=== PATIENT | female | born 1965 | race American Indian/Alaskan Native ===

== ENCOUNTER 2016-04-28 15:52 | Inpatient (IN) | payer MEDICARE ==
[2016-04-28 17:49] LABS: BUN/Creatinine Ratio 4.44; Calcium 8.5 mg/dL (8.4-10.2); Chloride 94.6 mmol/L (98-107); Potassium 4.7 mmol/L (3.6-5.0)
[2016-04-28 21:01] LABS: Eosinophils % (Auto) 10.8 % (0.0-4.3); Hematocrit 33.7 % (30.3-42.9); Hemoglobin 10.7 gm/dl (10.1-14.3); Mean Corpuscular HGB Conc 32 % (30-34); Mean Corpuscular Hemoglobin 31 pg (28-32); Mean Corpuscular Volume 96 fl (79-97); Platelet Count 152 K/mm3 (140-440); Red Blood Count 3.52 M/mm3 (3.65-5.03); Red Cell Distribution Width 19.9 % (13.2-15.2)
[2016-04-28 23:11] LABS: Albumin 4.3 g/dL (3.9-5); Albumin/Globulin Ratio 1.2 %; Bilirubin,Direct 0.4 mg/dL (0-0.2); Bilirubin,Indirect 0.3 mg/dL; Bilirubin,Total 0.7 mg/dL (0.1-1.2)
[2016-04-28] MEDS ORDERED: MORPHINE IV ONE (23:34)
[2016-04-28] MEDS ORDERED: ZOFRAN IV ONE (23:34)
--- NOTE | 2016-04-28 23:34 | Emergency Department Report ---
ED General Adult HPI - General Chief complaint: Nausea/Vomiting/Diarrhea Stated complaint: ALTERED MENTAL STATUS Time Seen by Provider: 04/28/16 22:23 Source: patient Mode of arrival: Ambulatory Limitations: No Limitations - History of Present Illness Initial comments: 50-year-old female with a past medical history CHF, COPD, end-stage renal disease on dialysis, hypertension, bipolar, anxiety, lupus, substance abuse, and noncompliance with medical treatment presents to the hospital with multiple complaints. Patient states she missed her dialysis yesterday and feels short of breath. She also complains of epigastric pain with associated nausea, vomiting, and diarrhea. She has a cough and expressed concerns for pneumonia. She states she was diagnosed with the flu and pneumonia several weeks ago and is starting to feel like that again. No reports of fever. Patient missed dialysis because she did not have transportation and plus she needed needed to make money for a place to stay for her her daughter. 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 She also states she was previously clean and from substances for 9 months but admits to using cocaine and alcohol use last night. Patient complains of generalized body pain including chest wall pain reproducible palpation, epigastric pain reproducible by palpation, generalized aches which she associates with her lupus pain. She is requesting pain medication. Her business machines teacher are located in [place] and not affiliated with this Hospital. Last dialysis was this past Saturday (she missed her Saturday dialysis). She is requesting a long term care social worker consult Severity scale (0 -10): 7 - Related Data Home Medications Medication Instructions Recorded Confirmed Last Taken Carvedilol [Coreg] 3.125 mg PO DAILY 04/28/16 04/28/16 Unknown Sevelamer HCl [Renagel] 400 mg PO TIDWM 04/28/16 04/28/16 Unknown Previous Rx's Medication Instructions Recorded Last Taken Type Aspirin [Aspirin BABY CHEW TAB] 81 mg PO QDAY #30 tab.chew 10/06/14 03/20/15 Rx Acyclovir [Acyclovir Ointment] 1 applic TP 5XD tube 05/07/15 Unknown Rx Calcium Acetate [Phoslo] 2,001 mg PO TIDWM capsule 05/07/15 Unknown Rx Famotidine [Pepcid] 10 mg PO BID tablet 05/07/15 Unknown Rx Paricalcitol [Zemplar] 2 mcg PO TuThSa capsule 05/07/15 Unknown Rx hydrALAZINE [Apresoline TAB] 50 mg PO Q8HR tablet 05/07/15 Unknown Rx predniSONE [Deltasone] 20 mg PO QDAY tablet 05/07/15 Unknown Rx HYDROcodone/APAP 5-325 [[place] 1 each PO Q6HR PRN #10 tablet 04/14/16 Unknown Rx 5/325] Allergies Allergy/AdvReac Type Severity Reaction Status Date / Time enalapril maleate Allergy Angioedema Verified 06/15/15 15:40 [From Vasotec] enalaprilat dihydrate Allergy Angioedema Verified 06/15/15 15:40 [From Vasotec] peach AdvReac Nausea Verified 06/15/15 15:40 tomato AdvReac Nausea Verified 06/15/15 15:40 ED Review of Systems ROS: Stated complaint: ALTERED MENTAL STATUS Other details as noted in HPI Comment: All other systems reviewed and negative Other: Constitutional: No fevers chills Eyes: No eye pain visual changes ENT: No ear pain or throat pain Neck: Denies pain Respiratory: Denies wheezing Cardiovascular: Denies palpitations, syncope GI: Denies abdominal pain, nausea, vomiting, diarrhea : anuric Musculoskeletal: Denies back pain Skin: Denies rash, lesions, erythema Neurologic: Denies headache, numbness, weakness Psychiatric: Denies suicidal ideation, hallucinations ED Past Medical Hx - Past Medical History Previous Medical History?: Yes Hx Hypertension: Yes Hx Heart Attack/AMI: No Hx Congestive Heart Failure: Yes Hx Diabetes: Yes Hx Deep Vein Thrombosis: No Hx Pulmonary Embolism: No Hx Liver Disease: No Hx Renal Disease: Yes (hemodialysis -W-) Hx Arthritis: Yes Hx Seizures: Yes Hx Kidney Stones: No Hx Psychiatric Treatment: Yes (bipolar, anxiety) Hx Asthma: Yes Hx COPD: Yes Hx Tuberculosis: No Hx Dementia: No Hx HIV: No Additional medical history: lupus (SLE). thyroid (patient uncertain if she has hyper- or hypo-). chest tube. dialysis (graft left upper arm). SUBSTANCE ABUSE. HERPES. RESPIRATORY FAILURE - Surgical History Past Surgical History?: Yes Hx Coronary Stent: No Hx Open Heart Surgery: No Hx Pacemaker: No Hx Internal Defibrillator: No Hx Cholecystectomy: No Hx Appendectomy: No Hx Breast Surgery: No Additional Surgical History: graft left arm. D & C. permacat - Social History Smoking Status: Current Some Day Smoker Substance Use Type: Alcohol, Cocaine - Medications Home Medications: Home Medications Medication Instructions Recorded Confirmed Last Taken Type Aspirin [Aspirin BABY CHEW TAB] 81 mg PO QDAY #30 tab.chew 10/06/14 04/28/1608/26 Rx Acyclovir [Acyclovir Ointment] 1 applic TP 5XD tube 05/07/15 04/28/16 Unknown Rx Calcium Acetate [Phoslo] 2,001 mg PO TIDWM capsule 05/07/15 04/28/16 Unknown Rx Famotidine [Pepcid] 10 mg PO BID tablet 05/07/15 04/28/16 Unknown Rx Paricalcitol [Zemplar] 2 mcg PO TuThSa capsule 05/07/15 04/28/16 Unknown Rx hydrALAZINE [Apresoline TAB] 50 mg PO Q8HR tablet 05/07/15 04/28/16 Unknown Rx predniSONE [Deltasone] 20 mg PO QDAY tablet 05/07/15 04/28/16 Unknown Rx HYDROcodone/APAP 5-325 [[place] 1 each PO Q6HR PRN #10 tablet 04/14/16 04/28/16 Unknown Rx 5/325] Carvedilol [Coreg] 3.125 mg PO DAILY 04/28/16 04/28/16 Unknown History Sevelamer HCl [Renagel] 400 mg PO TIDWM 04/28/16 04/28/16 Unknown History ED Physical Exam - General Limitations: No Limitations - Other Other exam information: General: No limitations, patient is alert in no acute distress Head exam: Atraumatic, normocephalic Eyes exam: Normal appearance, pupils equal reactive to light, extraocular movements intact ENT: Moist mucous membrane, normal oropharynx Neck exam: Normal inspection, full range of motion, no meningismus nontender Respiratory exam: Diminished breath sounds at the bases, no respiratory distress or tachypnea Cardiovascular: Normal rate and rhythm, systolic murmur Abdomen: Soft, nondistended, and nontender, with normal bowel sounds, no rebound, or guarding Extremity: Full range of motion Back: Normal Inspection, full range of motion, no tenderness Neurologic: Alert, oriented x3, cranial nerves intact, no motor or sensory deficit Psychiatric: normal affect, normal mood Skin: Warm, dry, intact ED Course Vital Signs 04/28/16 04/28/16 04/28/16 16:24 22:00 22:05 Temperature 98.6 F 98.5 F Pulse Rate 78 79 Respiratory 20 14 Rate Blood Pressure 159/101 Blood Pressure 161/87 [Right] O2 Sat by Pulse 95 100 100 Oximetry 04/28/16 04/28/16 04/28/16 22:06 22:10 22:20 Temperature Pulse Rate Respiratory 14 Rate Blood Pressure 161/87 155/94 Blood Pressure [Right] O2 Sat by Pulse 100 97 96 Oximetry 04/28/16 04/28/16 04/28/16 22:36 22:40 22:50 Temperature 98.5 F Pulse Rate 79 Respiratory 14 Rate Blood Pressure 155/94 155/94 143/82 Blood Pressure [Right] O2 Sat by Pulse 91 95 95 Oximetry 04/28/16 04/28/16 04/28/16 23:00 23:12 23:20 Temperature Pulse Rate Respiratory Rate Blood Pressure 142/98 142/98 156/124 Blood Pressure [Right] O2 Sat by Pulse 87 97 Oximetry 04/28/16 04/29/16 04/29/16 23:32 00:22 00:36 Temperature Pulse Rate Respiratory Rate Blood Pressure 156/124 156/124 156/124 Blood Pressure [Right] O2 Sat by Pulse 83 L 85 Oximetry 04/29/16 00:41 Temperature 98.6 F Pulse Rate 79 Respiratory 14 Rate Blood Pressure Blood Pressure [Right] O2 Sat by Pulse Oximetry - Reevaluation(s) Reevaluation #1: 04/29/16 01:14 Morphine and Zofran provided pain - Consultations Consultation #1: 04/29/16 Case was discussed with Dr. Bates business machines teacher and will arrange for dialysis tomorrow ED Medical Decision Making - Lab Data Result diagrams: 04/28/16 17:43 04/28/16 17:18 - Radiology Data Radiology results: image reviewed (chest x-ray: A right lower lobe opacity question of CHF) - Medical Decision Making I initially consult did nephrology after reviewing her x-ray today. It appeared that the patient has findings of CHF however, after review of previous chest x-ray it appears that patient has a chronic opacity in the right lower lung. I have sent chest x-ray to radiologist for official review and pending results. Patient does not require emergent dialysis tonight. Her chest pain is reproducible musculoskeletal in nature. I would proceed with admission for further treatment. Patient not treated for pneumonia with antibiotics since she has a normal WBC count and no fever. - Differential Diagnosis homelessness, noncompliance, volume overload, pneumonia, CHF Critical Care Time: No Critical care attestation.: If time is entered above; I have spent that time in minutes in the direct care of this critically ill patient, excluding procedure time. ED Disposition Clinical Impression: Cocaine abuse, End stage renal disease on dialysis, Chronic pain, Dyspnea, Vomiting, Epigastric pain Disposition: OP ADMITTED IP TO THIS HOSP Is pt being admited?: Yes Condition: Stable Time of Disposition: 23:34 (Dr Womack/hosp)
[2016-04-28] MEDS ORDERED: DULCOLAX PR PRN (23:58)
[2016-04-28] MEDS ORDERED: MILK OF MAGNESIA PO PRN (23:58)
[2016-04-28] MEDS ORDERED: TYLENOL PO PRN (23:58)
[2016-04-28] MEDS ORDERED: D50W (25GM) IV PRN (23:58)
[2016-04-28] MEDS ORDERED: ZOFRAN IV PRN (23:58)
--- NOTE | 2016-04-29 | History and Physical Report ---
History of Present Illness Date of examination: 04/28/16 History of present illness: 50-year-old woman with a history of hypertension, bipolar, end-stage renal disease on dialysis, lupus, seizure, herpes, COPD constant emergency room with complaints of shortness of breath, she missed her dialysis on Saturday. Patient states she is homeless, had an argument with her daughter, she has no place to live Patient denies chest pain, palpitation, cough, abdominal pain, hematochezia, dysuria, frequency, focal weakness, dysarthria, fever chills, polydipsia polyuria, hot or cold intolerance, easy bruisability, or rash or bleeding from mucosal membrane, rhinorrhea, epistaxis, earache, tinnitus, blurry vision, eye discharge, anxiety, depression. Other review of systems negative PAST SURGICAL HISTORY: AV fistula SOCIAL HISTORY: States she relapsed on cocaine, admits to alcohol denies tobacco FAMILY HISTORY: Hypertension Medications and Allergies Allergies Allergy/AdvReac Type Severity Reaction Status Date / Time enalapril maleate Allergy Angioedema Verified 06/15/15 15:40 [From Vasotec] enalaprilat dihydrate Allergy Angioedema Verified 06/15/15 15:40 [From Vasotec] peach AdvReac Nausea Verified 06/15/15 15:40 tomato AdvReac Nausea Verified 06/15/15 15:40 Home Medications Medication Instructions Recorded Confirmed Last Taken Type Aspirin [Aspirin BABY CHEW TAB] 81 mg PO QDAY #30 tab.chew 10/06/14 04/28/1608/26 Rx Acyclovir [Acyclovir Ointment] 1 applic TP 5XD tube 05/07/15 04/28/16 Unknown Rx Calcium Acetate [Phoslo] 2,001 mg PO TIDWM capsule 05/07/15 04/28/16 Unknown Rx Famotidine [Pepcid] 10 mg PO BID tablet 05/07/15 04/28/16 Unknown Rx Paricalcitol [Zemplar] 2 mcg PO TuThSa capsule 05/07/15 04/28/16 Unknown Rx hydrALAZINE [Apresoline TAB] 50 mg PO Q8HR tablet 05/07/15 04/28/16 Unknown Rx predniSONE [Deltasone] 20 mg PO QDAY tablet 05/07/15 04/28/16 Unknown Rx HYDROcodone/APAP 5-325 [[place] 1 each PO Q6HR PRN #10 tablet 04/14/16 04/28/16 Unknown Rx 5/325] Carvedilol [Coreg] 3.125 mg PO DAILY 04/28/16 04/28/16 Unknown History Sevelamer HCl [Renagel] 400 mg PO TIDWM 04/28/16 04/28/16 Unknown History Exam - Physical Exam Narrative exam: Gen. appearance: Patient lying in bed, no apparent distress HEENT: Normocephalic, atraumatic, pupils equally round and reactive to light, extraocular movement intact, and no sclericterus,. No JVD or thyromegaly or nodule,neck supple, no carotid bruit ,mucous membranes moist, no exudate or erythema Heart: S1, S2, regular rate and rhythm Lungs: Clear to auscultation bilaterally, breathing comfortable Abdomen: Positive bowel sounds, nontender, nondistended, no organomegaly Extremity: No edema, cyanosis, clubbing Skin: No rash, nodules, warm, dry Neuro: Oriented 3, cranial nerves II-12 intact, speech is fluent, motor and sensory intact - Constitutional Vitals: Temp Pulse Resp BP Pulse Ox 98.5 F 79 14 156/124 97 04/28/16 22:40 04/28/16 22:40 04/28/16 22:40 04/28/16 23:20 04/28/16 23:20 Results - Labs CBC & Chem 7: 04/28/16 17:43 04/28/16 17:18 Labs: Abnormal lab results 04/28/16 04/28/16 04/28/16 Range/Units 17:18 17:18 17:43 RBC 3.52 L (3.65-5.03) M/mm3 RDW 19.9 H (13.2-15.2) % [place] % (Auto) 12.5 H (0.0-7.3) % Eos % (Auto) 10.8 H (0.0-4.3) % Eos # 0.5 H (0.0-0.4) K/mm3 Chloride 94.6 L (98-107) mmol/L Carbon Dioxide 19 L (22-30) mmol/L BUN 52 H (7-17) mg/dL Creatinine 11.7 H (0.7-1.2) mg/dL Direct Bilirubin 0.4 H (0-0.2) mg/dL Alkaline Phosphatase 191 H (35-129) units/L - Imaging and Cardiology EKG: image reviewed Chest x-ray: image reviewed Assessment and Plan Fluid overload secondary to missed hemodialysis End-stage renal disease on dialysis Hypertension Lupus Bipolar Seizure COPD Admits medicine Consult renal for dialysis Continue outpatient medication, consult case management for Housing
[2016-04-29] MEDS ORDERED: APRESOLINE IV PRN (02:02)
--- NOTE | 2016-04-29 02:06 | XRay Report ---
FINAL REPORT PROCEDURE: XR CHEST ROUTINE 2V TECHNIQUE: A portable AP chest radiograph was obtained at 04/28/2016 22:30 (EST) . CPT 02838 HISTORY: sob, missed dialysis COMPARISON: No prior studies are available for comparison. FINDINGS: Heart: The heart is enlarged.. Mediastinum/Vessels: Normal. Lungs/Pleural space: There are bilateral perihilar lower lobe infiltrates worse on the right. There is a small right pleural effusion. There are no pneumothoraces.. Bony thorax: No acute osseous abnormality. Life support devices: None. IMPRESSION: The heart is enlarged.. There are bilateral perihilar lower lobe infiltrates worse on the right. There is a small right pleural effusion. There are no pneumothoraces.. .
[2016-04-29 08:20] LABS: Basophils % (Auto) 0.8 % (0.0-1.8); Eosinophils % (Auto) 9.5 % (0.0-4.3); Hematocrit 32.5 % (30.3-42.9); Hemoglobin 9.9 gm/dl (10.1-14.3); Mean Corpuscular HGB Conc 31 % (30-34); Mean Corpuscular Hemoglobin 30 pg (28-32); Mean Corpuscular Volume 97 fl (79-97); Platelet Count 117 K/mm3 (140-440); Red Blood Count 3.35 M/mm3 (3.65-5.03); Red Cell Distribution Width 20.4 % (13.2-15.2); White Blood Count 4.5 K/mm3 (4.5-11.0)
[2016-04-29 08:34] LABS: BUN/Creatinine Ratio 5.72; Calcium 8.1 mg/dL (8.4-10.2); Chloride 94.4 mmol/L (98-107); Potassium 5.6 mmol/L (3.6-5.0)
[2016-04-29] MEDS: PERCOCET 5/325 PO PRN ×2 (09:34→22:28)
[2016-04-29] MEDS: LOVENOX SUB-Q SCH (09:50)
[2016-04-29] MEDS ORDERED: NORCO 5/325 PO PRN (10:03)
--- NOTE | 2016-04-29 10:03 | Progress Note ---
Assessment and Plan Assessment and plan: 50F w past medical history of hypertension and sees renal disease bipolar disorder, lupus, seizure disorder and COPD who presents after missing dialysis. 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 After which she presented with shortness of breath. She had reportedly been recently treated for pneumonia and flu. 1. Pneumonia, present on admission On Levaquin 2. End-stage renal disease with fluid overload Dialysis as per Nephrology 3. Hypertension Currently well controlled, continue current meds 4. Seizure disorder Continue seizure meds 5. Bipolar disorder Continue chronic medications 6. COPD exacerbation Being treated with steroids, antibiotics and nebulizer treatment 7. RLE edema obtain venous dopplers to r/o dvt Dispo: needs snf placement Hospitalist Physical - Physical exam Narrative exam: General: Patient appears well in no distress HEENT: MMM, EOMI cardiac: S1-S2 heard lungs: clear to auscultation, abdomen: soft, nontender, nondistended bowel sounds positive extremities: Right lower extremity edema Skin: no rash or lesion Neuro: no focal deficit Psych: appropriate behavior and mood, cognition intact - Constitutional Vitals: Temp Pulse Resp BP Pulse Ox 97.9 F 78 18 167/95 95 04/29/16 08:55 04/29/16 08:55 04/29/16 08:55 04/29/16 08:55 04/29/16 09:14 Results - Labs CBC & Chem 7: 04/29/16 07:32 04/29/16 07:32 Labs: Laboratory Last Values WBC 4.5 K/mm3 (4.5-11.0) 04/29/16 07:32 RBC 3.35 M/mm3 (3.65-5.03) L 04/29/16 07:32 Hgb 9.9 gm/dl (10.1-14.3) L 04/29/16 07:32 Hct 32.5 % (30.3-42.9) 04/29/16 07:32 MCV 97 fl (79-97) 04/29/16 07:32 MCH 30 pg (28-32) 04/29/16 07:32 MCHC 31 % (30-34) 04/29/16 07:32 RDW 20.4 % (13.2-15.2) H 04/29/16 07:32 Plt Count 117 K/mm3 (140-440) L 04/29/16 07:32 Lymph % (Auto) 30.1 % (13.4-35.0) 04/29/16 07:32 [place] % (Auto) 12.1 % (0.0-7.3) H 04/29/16 07:32 Eos % (Auto) 9.5 % (0.0-4.3) H 04/29/16 07:32 Baso % (Auto) 0.8 % (0.0-1.8) 04/29/16 07:32 Lymph # 1.4 K/mm3 (1.2-5.4) 04/29/16 07:32 [place] # 0.5 K/mm3 (0.0-0.8) 04/29/16 07:32 Eos # 0.4 K/mm3 (0.0-0.4) 04/29/16 07:32 Baso # 0.0 K/mm3 (0.0-0.1) 04/29/16 07:32 Seg Neutrophils % 47.5 % (40.0-70.0) 04/29/16 07:32 Seg Neutrophils # 2.1 K/mm3 (1.8-7.7) 04/29/16 07:32 Sodium 135 mmol/L (137-145) L 04/29/16 07:32 Potassium 5.6 mmol/L (3.6-5.0) H 04/29/16 07:32 Chloride 94.4 mmol/L (98-107) L 04/29/16 07:32 Carbon Dioxide 17 mmol/L (22-30) L 04/29/16 07:32 Anion Gap 29 mmol/L 04/29/16 07:32 BUN 67 mg/dL (7-17) H 04/29/16 07:32 Creatinine 11.7 mg/dL (0.7-1.2) H 04/29/16 07:32 Estimated GFR 4 ml/min 04/29/16 07:32 BUN/Creatinine Ratio 5.72 % 04/29/16 07:32 Glucose 96 mg/dL (65-100) 04/29/16 07:32 Calcium 8.1 mg/dL (8.4-10.2) L 04/29/16 07:32 Total Bilirubin 0.7 mg/dL (0.1-1.2) 04/28/16 17:18 Direct Bilirubin 0.4 mg/dL (0-0.2) H 04/28/16 17:18 Indirect Bilirubin 0.3 mg/dL 04/28/16 17:18 AST 31 units/L (5-40) 04/28/16 17:18 ALT 12 units/L (7-56) 04/28/16 17:18 Alkaline Phosphatase 191 units/L (35-129) H 04/28/16 17:18 Total Protein 8.0 g/dL (6.3-8.2) 04/28/16 17:18 Albumin 4.3 g/dL (3.9-5) 04/28/16 17:18 Albumin/Globulin Ratio 1.2 % 04/28/16 17:18 Lipase 42 units/L (13-60) 04/28/16 17:18 Plasma/Serum Alcohol < 0.01 gm% (0-0.07) 04/28/16 17:18
[2016-04-29] MEDS ORDERED: LEVAQUIN PO SCH (11:00)
--- NOTE | 2016-04-29 11:17 | Consultation ---
History of Present Illness - Reason for Consult Consult date: 04/29/16 end stage renal disease Requesting physician: POLLO GUTIÉRREZ - History of Present Illness 50-year-old woman with a history of hypertension, bipolar, end-stage renal disease on dialysis, lupus, seizure, herpes, COPD constant emergency room with complaints of shortness of breath, she missed her dialysis on Saturday. Patient states she is homeless, had an argument with her daughter, she has no place to live Patient denies chest pain, palpitation, cough, abdominal pain, hematochezia, dysuria, frequency, focal weakness, dysarthria, fever chills, polydipsia polyuria, hot or cold intolerance, easy bruisability, or rash or bleeding from mucosal membrane, rhinorrhea, epistaxis, earache, tinnitus, blurry vision, eye discharge, anxiety, depression. Other review of systems negative He does have a dialysis clinic in [place] where she goes on Tuesdays, and Saturdays. However she was admitted to [facility] recently with pneumonia. States that her last dialysis treatment was on Saturday, i.e. 4 days ago. She does have mild shortness of breath. Past History Past Medical History: hypertension, renal failure, seizures, other (bipolar disorder and lupus) Past Surgical History: Other (history of creation of AV shunt) Social history: other (patient is currently homeless. He does have a history of drug use in the past) Family history: no significant family history Medications and Allergies Allergies Allergy/AdvReac Type Severity Reaction Status Date / Time enalapril maleate Allergy Angioedema Verified 06/15/15 15:40 [From Vasotec] enalaprilat dihydrate Allergy Angioedema Verified 06/15/15 15:40 [From Vasotec] peach AdvReac Nausea Verified 06/15/15 15:40 tomato AdvReac Nausea Verified 06/15/15 15:40 Home Medications Medication Instructions Recorded Confirmed Last Taken Type Aspirin [Aspirin BABY CHEW TAB] 81 mg PO QDAY #30 tab.chew 10/06/14 04/28/1608/26 Rx Acyclovir [Acyclovir Ointment] 1 applic TP 5XD tube 05/07/15 04/28/16 Unknown Rx Calcium Acetate [Phoslo] 2,001 mg PO TIDWM capsule 05/07/15 04/28/16 Unknown Rx Famotidine [Pepcid] 10 mg PO BID tablet 05/07/15 04/28/16 Unknown Rx Paricalcitol [Zemplar] 2 mcg PO TuThSa capsule 05/07/15 04/28/16 Unknown Rx hydrALAZINE [Apresoline TAB] 50 mg PO Q8HR tablet 05/07/15 04/28/16 Unknown Rx predniSONE [Deltasone] 20 mg PO QDAY tablet 05/07/15 04/28/16 Unknown Rx HYDROcodone/APAP 5-325 [[place] 1 each PO Q6HR PRN #10 tablet 04/14/16 04/28/16 Unknown Rx 5/325] Carvedilol [Coreg] 3.125 mg PO DAILY 04/28/16 04/28/16 Unknown History Sevelamer HCl [Renagel] 400 mg PO TIDWM 04/28/16 04/28/16 Unknown History Active Meds: Active Medications Acetaminophen (Tylenol) 650 mg PO Q4H PRN PRN Reason: Pain MILD(1-3)/Fever >100.5/REID Acetaminophen/Hydrocodone Bitart ([place] 5/325) 1 each PO Q6H PRN PRN Reason: Pain (Moderate) Acyclovir (Acyclovir) 1 applic TP 5XD [facility] Albuterol/Ipratropium (Duoneb 0.5 Mg-3 Mg/3 Ml Soln) 1 ampul IH QIDRT [facility] Aspirin (Baby Aspirin) 81 mg PO QDAY [facility] Bisacodyl (Dulcolax) 10 mg TX QDAY PRN PRN Reason: Constipation unrelieved by MOM Calcium Acetate (Phoslo) 2,001 mg PO TIDWM [facility] Carvedilol (Coreg) 3.125 mg PO DAILY [facility] Dextrose (D50w (25gm)) 50 ml IV PRN PRN PRN Reason: Hypoglycemia Enoxaparin Sodium (Lovenox) 30 mg SUB-Q QDAY [facility] Last Admin: 04/29/16 09:50 Dose: Not Given Famotidine (Pepcid) 10 mg PO BID [facility] Hydralazine HCl (Apresoline) 5 mg IV Q6HR PRN PRN Reason: Hypertension Hydralazine HCl (Apresoline) 50 mg PO Q8HR [facility] Levofloxacin (Levaquin) 500 mg PO Q48H [facility] Magnesium Hydroxide (Milk Of Magnesia) 30 ml PO Q4H PRN PRN Reason: Constipation Methylprednisolone Sodium Succinate (Solu-Medrol) 40 mg IV Q12H [facility] Miscellaneous Medication (Sevelamer Hcl [Renagel]) 400 mg PO TIDWM [facility] Ondansetron HCl (Zofran) 4 mg IV Q8H PRN PRN Reason: N/V unrelieved by Reglan Oxycodone/Acetaminophen (Percocet 5/325) 1 tab PO Q6H PRN PRN Reason: Pain, Moderate (4-6) Last Admin: 04/29/16 09:34 Dose: 1 tab Paricalcitol (Zemplar) 2 mcg PO TuThSa [facility] Review of Systems All systems: negative (except as noted above) Exam - Vital Signs Vital signs: Vital Signs Temp Pulse Resp BP Pulse Ox 98.6 F 78 20 159/101 95 04/28/16 16:24 04/28/16 16:24 04/28/16 16:24 04/28/16 16:24 04/28/16 16:24 - General Appearance General appearance: well-developed, well-nourished, appears stated age EENT: PERRL, mucous membranes moist Neck: Present: neck supple, trachea midline. Absent: JVD/HJR, Masses Respiratory: Rales (fine basal crackles) Heart: regular, normal heart rate, S1S2, no murmurs Gastrointestinal: Present: normal, normoactive bowel sounds Integumentary: other (AV fistula in her left upper arm. Good bruit and thrill) Results - Lab Results 04/29/16 07:32 04/29/16 07:32 Most recent lab results Calcium 8.1 mg/dL (8.4-10.2) L 04/29/16 07:32 Assessment and Plan Impression * End-stage renal disease on maintenance hemodialysis * Hyperkalemia * CHF * Hypertension * Seizure disorder * Bipolar disorder * Noncompliance Recommendations * Patient is clinically volume overloaded and hyperkalemic. Shall arrange for hemodialysis today * Adjust diet and meds for ESRD state * No IV, BP or venipuncture in her access arm * Procrit with dialysis * Binders with diet * Patient has outpatient dialysis arrangements at the clinic in [place] on Tuesdays, and Saturdays * Patient however states that she does not have a place to stay and also does not have a way to get back and forth to the dialysis facility. We'll need to get case management involved * Thank you very much for the consultation. Shall follow along with you
[2016-04-29] MEDS ORDERED: NACL 0.9% 100 ML IV PRN (11:20)
[2016-04-29] MEDS ORDERED: PROCRIT IV PRN (11:20)
[2016-04-29] MEDS ORDERED: DUONEB 0.5 MG-3 MG/3 ML SOLN IH SCH (12:00)
[2016-04-29] MEDS: PHOSLO PO SCH ×2 (12:48→17:34)
[2016-04-29] MEDS: RENVELA PO SCH ×2 (12:49→17:28)
[2016-04-29] MEDS ORDERED: DILAUDID IV ONE ×2 (12:51→18:00)
[2016-04-29] MEDS: ACYCLOVIR TP SCH ×4 (12:51→22:27)
[2016-04-29] MEDS ORDERED: DUONEB 0.5 MG-3 MG/3 ML SOLN IH PRN (13:09)
[2016-04-29] MEDS ORDERED: PROVENTIL IH PRN (13:35)
[2016-04-29] MEDS ORDERED: NACL 0.9 (PRIMING MACHINE ONLY DIALYSIS) MC ONE (14:50)
[2016-04-29] MEDS: APRESOLINE PO SCH ×3 (17:07→22:30)
[2016-04-29] MEDS: PEPCID PO SCH ×2 (17:43→22:27)
[2016-04-29] MEDS: BENADRYL PO PRN (22:37)
[2016-04-30] MEDS: ACYCLOVIR TP SCH ×3 (05:05→13:45)
[2016-04-30] MEDS: BENADRYL PO PRN (05:05)
[2016-04-30] MEDS: PERCOCET 5/325 PO PRN (05:05)
[2016-04-30] MEDS: APRESOLINE PO SCH ×2 (05:06→13:51)
[2016-04-30] MEDS: RENVELA PO SCH ×2 (08:23→13:44)
[2016-04-30] MEDS: PHOSLO PO SCH ×2 (09:30→13:45)
[2016-04-30] MEDS ORDERED: COREG PO SCH (10:00)
[2016-04-30] MEDS ORDERED: DELTASONE PO SCH (10:00)
[2016-04-30] MEDS ORDERED: BABY ASPIRIN PO SCH (10:00)
[2016-04-30] MEDS: PEPCID PO SCH (10:31)
[2016-04-30] MEDS: LOVENOX SUB-Q SCH (10:35)
--- NOTE | 2016-04-30 10:47 | Progress Note ---
Assessment and Plan Impression * End-stage renal disease on maintenance hemodialysis * Hyperkalemia * CHF * Hypertension * Seizure disorder * Bipolar disorder * Noncompliance Recommendations * volume overload and hyperkalemia has been corrected * uneventful hemodialysis yesterday * Adjust diet and meds for ESRD state * No IV, BP or venipuncture in her access arm * Procrit with dialysis * Binders with diet * Patient has outpatient dialysis arrangements at the clinic in [place] on Tuesdays, and Saturdays. shall maintain her on a TTS schedule for now Subjective Date of service: 04/30/16 Interval history: patient had uneventful hemodialysis yesterday. Feels better at this time. Denies any shortness of breath. Objective - Vital Signs Vital signs: Vital Signs - 12hr 04/29/16 04/30/16 04/30/16 23:28 00:09 02:14 Temperature 97.9 F Pulse Rate 89 Pulse Rate [ 89 Apical] Pulse Rate [ Left Radial] Respiratory 18 18 Rate Blood Pressure 170/74 Blood Pressure 170/74 [Right Arm] O2 Sat by Pulse 94 Oximetry 04/30/16 04/30/16 04/30/16 05:05 06:05 09:10 Temperature 97.5 F L Pulse Rate Pulse Rate [ Apical] Pulse Rate [ 87 Left Radial] Respiratory 18 18 16 Rate Blood Pressure Blood Pressure 141/75 [Right Arm] O2 Sat by Pulse 95 Oximetry 04/30/16 10:34 Temperature Pulse Rate 87 Pulse Rate [ Apical] Pulse Rate [ Left Radial] Respiratory Rate Blood Pressure 141/75 Blood Pressure [Right Arm] O2 Sat by Pulse Oximetry - General Appearance General appearance: well-developed, well-nourished, appears stated age EENT: PERRL, mucous membranes moist Neck: no JVD, no thyromegaly, no carotid bruit, supple Respiratory: Present: Clear to Ascultation Cardiology: regular, normal heart rate Gastrointestinal: normal, normoactive bowel sounds Integumentary: no rash, other (AV graft in her left upper arm. Good bruit and thrill) - Lab 04/29/16 07:32 04/29/16 07:32 Most recent lab results Calcium 8.1 mg/dL (8.4-10.2) L 04/29/16 07:32
--- NOTE | 2016-04-30 11:14 | Admit Criteria Form ---
Admission Criteria Documentation: RENAL FAILURE, CHRONIC Clinical Indications for Admission to Inpatient Care (Place 'X' for any and all applicable criteria): Admission is indicated for ANY ONE of the following (1)(2)(3)(4)(5): [X]I. Inpatient admission required rather than observation care (Use Renal Failure, Chronic: Observation Care Criteria as appropriate) because of ANY ONE of the following: [X]a)Volume overload or uremic symptoms (eg, clinically significant pulmonary edema, hypertension, pericarditis, acidosis) too severe for, or not responsive (eg, for over 24 hours) to emergency department or observation care dialysis or treatment regimen (11) [ ]b) Hemodynamic instability that is severe or persistent [ ]c) Respiratory distress that is severe or persistent (11) [ ]d) Clinically significant electrolyte abnormality that requires inpatient care (eg,hyperkalemia with severe ECG findings)[B] [ ]e) Supplement O2 or respiratory therapy for over 24hrs that is performable only in acute inpatient setting [ ]f) Continuous IV infusion of anticoagulation, platelet inhibitor, vasoactive, or Antiarrhythmic medication (15), [ ]g) Pulmonary artery catheter monitoring [ ]h) Temporary pacemaker placement [ ]i) Emergent pericardiocentesis [ ]j) Other condition, treatment or monitoring requiring inpatient admission [ ]II. Unexplained syncope [A] [ ]III. Recurrent seizures [ ]IV. Severe infections not treatable in outpatient setting (eg, peritonitis)(9 ) [ ]V. Cardiac arrhythmias of immediate concern [ ]. Encephalopathy [ ]VII.Bleeding abnormalities (eg, platelet dysfunction) with active (eg, gastrointestinal) bleeding Extended stay beyond goal length of stay may be needed for (3)(4)(35)(36): [ ]a) Continuing uremic complications [ ]b) Comorbidities or complications The original [employer] content created by [employer] has been revised. The portions of the content which have been revised are identified through the use of italic text or in bold, and [email or web address] has neither reviewed nor approved the modified material. All other unmodified content is copyright [employer]. Please see references footnoted in the original [email or web address] edition 2016 Admission Criteria Met: Yes
--- NOTE | 2016-04-30 14:30 | Discharge Summary ---
Providers - Providers Date of Admission: 04/28/16 23:58 Attending physician: JENNIFER HENDERSON MD Primary care physician: SALES DIRECTOR Hospitalization Condition: Stable Hospital course: 50F w past medical history of hypertension and sees renal disease bipolar disorder, lupus, seizure disorder and COPD who presents after missing dialysis. 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 After which she presented with shortness of breath. She had reportedly been recently treated for pneumonia and flu. 1. Pneumonia, present on admission On Levaquin 2. End-stage renal disease with fluid overload Dialysis as per Nephrology 3. Hypertension Currently well controlled, continue current meds 4. Seizure disorder Continue seizure meds 5. Bipolar disorder Continue chronic medications 6. COPD exacerbation Being treated with steroids, antibiotics and nebulizer treatment 7. RLE edema she refused dopplers or US Dispo: needs [facility]cf placement Disposition: DISCHARGED TO HOME OR SELFCARE Time spent for discharge: 35 minutes Exam - Constitutional Vitals: Temp Pulse Resp BP Pulse Ox 98.3 F 84 18 141/79 95 04/30/16 13:50 04/30/16 13:50 04/30/16 13:50 04/30/16 13:50 04/30/16 13:50 Plan Follow up with: PRIMARY CARE, [Primary Care Provider] - 3-5 Days Prescriptions: HYDROcodone/APAP 5-325 [[place] 5-325 mg TAB] 1 each PO Q6HR PRN #10 tablet PRN Reason: Pain Ipratropium/Albuterol Sulfate [Combivent Respimat] 1 spray IH QID #1 aer.w.adap Levofloxacin [Levaquin TAB] 500 mg PO Q48H #3 tablet Prednisone [predniSONE 5 mg (6-Day Pack, 21 Tabs)] 5 mg PO .TAPER #1 tab.ds.pk
[2016-04-30 19:57] VITALS: BP 139/75
[2016-05-01] MEDS ORDERED: ZEMPLAR PO SCH (10:00)
== END 2016-04-30 16:41 | disposition home or self-care (01) | DRG 640 ==
LOC: ED 15:52 → 4A 23:58
PROVIDERS: ADMIT Internal Medicine; ATTEND Internal Medicine
PROC: 5A1D00Z (ICD-10-PCS; principal; 2016-04-29)
DX: E87.70 Fluid overload, unspecified (principal); J18.9 Pneumonia, unspecified organism; N18.6 End stage renal disease; J44.0 Chronic obstructive pulmonary disease with (acute) lower respiratory infection; I13.2 Hypertensive heart and chronic kidney disease with heart failure and with stage 5 chronic kidney disease, or end stage renal disease; J44.1 Chronic obstructive pulmonary disease with (acute) exacerbation; E87.5 Hyperkalemia; M32.9 Systemic lupus erythematosus, unspecified; I50.9 Heart failure, unspecified; F31.9 Bipolar disorder, unspecified; F41.9 Anxiety disorder, unspecified; F19.10 Other psychoactive substance abuse, uncomplicated; E11.22 Type 2 diabetes mellitus with diabetic chronic kidney disease; F17.200 Nicotine dependence, unspecified, uncomplicated; F14.10 Cocaine abuse, uncomplicated; G40.909 Epilepsy, unspecified, not intractable, without status epilepticus; F10.10 Alcohol abuse, uncomplicated; Z99.2 Dependence on renal dialysis; Z91.19 Patient's noncompliance with other medical treatment and regimen; Z88.8 Allergy status to other drugs, medicaments and biological substances; Z91.018 Allergy to other foods; Z82.49 Family history of ischemic heart disease and other diseases of the circulatory system; Z59.0 Homelessness
CPT/HCPCS: 36415; 71020; 80048; 80074; 80320; 82962; 83690; 85025; 96374; 96375; G0480; J0360; J0885; J1170; J1650; J2270; J2405; J2920; J7030

== ENCOUNTER 2016-05-03 13:18 | Inpatient (IN) | payer MEDICARE ==
[2016-05-03 16:13] LABS: Basophils % (Auto) 1.4 % (0.0-1.8); Eosinophils % (Auto) 9.4 % (0.0-4.3); Hemoglobin 12.5 gm/dl (10.1-14.3); Mean Corpuscular HGB Conc 32 % (30-34); Mean Corpuscular Hemoglobin 31 pg (28-32); Mean Corpuscular Volume 96 fl (79-97); Platelet Count 182 K/mm3 (140-440); Red Blood Count 4.07 M/mm3 (3.65-5.03); White Blood Count 4.6 K/mm3 (4.5-11.0)
[2016-05-03 16:21] LABS: Red Cell Distribution Width 21.3 % (13.2-15.2)
[2016-05-03 16:38] LABS: Calcium 8.4 mg/dL (8.4-10.2); Chloride 91.6 mmol/L (98-107); Potassium 5.3 mmol/L (3.6-5.0)
[2016-05-03 16:44] LABS: BUN/Creatinine Ratio 8.99
[2016-05-03] MEDS ORDERED: PROVENTIL IH ONE (17:38)
[2016-05-03] MEDS ORDERED: ATROVENT IH ONE (17:38)
--- NOTE | 2016-05-03 17:44 | Emergency Department Report ---
HPI - General Chief Complaint: Dyspnea/Respdistress Time Seen by Provider: 05/03/16 17:22 - HPI HPI: This is a 50-year-old Afro-[place]ian female presents to the emergency department by EMS with complaint of continued shortness of breath and missing dialysis. The patient was just admitted to the hospital and discharged after being diagnosed with pneumonia and she was recently sent home on antibiotics and says that the "pills are not working." The patient is usually Saturday, , Saturday dialysis but says that she was getting it on Saturday, Saturday, Saturday in the hospital. Her machine tack puller is a Dr. Hodges or Emil but she has not seen them regarding her symptoms. She does not have a primary care doctor. She complains of worsening of the shortness breath with exertion and says that she was unable to make it back to her house or to the bus stop to get to the dialysis clinic. She has a past medical history of CHF, lupus, COPD, diabetes, hypertension. She has not taken anything for symptoms prior to presentation. The patient says she is supposed to be in oxygen 24 hours a day but does not currently have any. ED Past Medical Hx - Past Medical History Previous Medical History?: Yes Hx Hypertension: Yes Hx Heart Attack/AMI: No Hx Congestive Heart Failure: Yes Hx Diabetes: Yes Hx Deep Vein Thrombosis: No Hx Pulmonary Embolism: No Hx Liver Disease: No Hx Renal Disease: Yes (hemodialysis -W-) Hx Arthritis: Yes Hx Seizures: Yes Hx Kidney Stones: No Hx Psychiatric Treatment: Yes (bipolar, anxiety) Hx Asthma: Yes Hx COPD: Yes Hx Tuberculosis: No Hx Dementia: No Hx HIV: No Additional medical history: lupus (SLE). thyroid (patient uncertain if she has hyper- or hypo-). chest tube. dialysis (graft left upper arm). SUBSTANCE ABUSE. HERPES. RESPIRATORY FAILURE - Surgical History Past Surgical History?: Yes Hx Coronary Stent: No Hx Open Heart Surgery: No Hx Pacemaker: No Hx Internal Defibrillator: No Hx Cholecystectomy: No Hx Appendectomy: No Hx Breast Surgery: No Additional Surgical History: graft left arm. D & C. permacaths - Social History Smoking Status: Current Every Day Smoker Substance Use Type: Alcohol, Cocaine, Marijuana, Prescribed, Methamphetamines - Medications Home Medications: Home Medications Medication Instructions Recorded Confirmed Last Taken Type Aspirin [Aspirin BABY CHEW TAB] 81 mg PO QDAY #30 tab.chew 10/06/14 04/28/1608/26 Rx Acyclovir [Acyclovir Ointment] 1 applic TP 5XD tube 05/07/15 04/28/16 Unknown Rx Calcium Acetate [Phoslo] 2,001 mg PO TIDWM capsule 05/07/15 04/28/16 Unknown Rx Famotidine [Pepcid] 10 mg PO BID tablet 05/07/15 04/28/16 Unknown Rx Paricalcitol [Zemplar] 2 mcg PO TuThSa capsule 05/07/15 04/28/16 Unknown Rx hydrALAZINE [Apresoline TAB] 50 mg PO Q8HR tablet 05/07/15 04/28/16 Unknown Rx Carvedilol [Coreg] 3.125 mg PO DAILY 04/28/16 04/28/16 Unknown History Sevelamer HCl [Renagel] 400 mg PO TIDWM 04/28/16 04/28/16 Unknown History HYDROcodone/APAP 5-325 [[place] 1 each PO Q6HR PRN #10 tablet 04/30/16 Unknown Rx 5-325 mg TAB] Ipratropium/Albuterol Sulfate 1 spray IH QID #1 aer.w.adap 04/30/16 Unknown Rx [Combivent Respimat] Levofloxacin [Levaquin TAB] 500 mg PO Q48H #3 tablet 04/30/16 Unknown Rx Prednisone [predniSONE 5 mg (6-Day 5 mg PO .TAPER #1 tab.ds.pk 04/30/16 Unknown Rx Pack, 21 Tabs)] ED Review of Systems ROS: Stated complaint: NEED DIALYSIS Other details as noted in HPI Comment: All other systems reviewed and negative Constitutional: denies: chills, fever Eyes: denies: eye pain, eye discharge, vision change ENT: denies: ear pain, throat pain Respiratory: cough, shortness of breath, SOB with exertion, wheezing Cardiovascular: edema. denies: chest pain Gastrointestinal: denies: abdominal pain, nausea, diarrhea Genitourinary: denies: urgency, dysuria, discharge Musculoskeletal: myalgia. denies: joint swelling Skin: denies: rash, lesions Neurological: denies: headache, weakness, paresthesias Physical Exam - Physical Exam Vital Signs: Vital Signs 05/03/16 14:50 Temperature 98.5 F Pulse Rate 88 Respiratory 28 H Rate Blood Pressure 179/101 O2 Sat by Pulse 100 Oximetry Physical Exam: GENERAL: The patient is well-developed well-nourished. HEENT: Normocephalic. Atraumatic. Extraocular motions are intact. Patient has moist mucous membranes. Pupils equal reactive to light bilaterally. NECK: Supple. Trachea is midline. CHEST/LUNGS: Patient has coarse breath sounds and rhonchi heard at the bases. There is tachypnea. No accessory muscle use. There is a productive sounding cough heard during examination. There is no respiratory distress noted. HEART/CARDIOVASCULAR: Regular. There is mild tachycardia. There is no gallop rub or murmur. ABDOMEN: Abdomen is soft, nontender. Patient has normal bowel sounds. There is no abdominal distention. SKIN: Mild pitting edema to the bilateral lower extremity. Skin is warm and dry. NEURO: The patient is awake, alert, and oriented. The patient is cooperative. The patient has no focal neurologic deficits. The patient has normal speech. MUSCULOSKELETAL: There is no tenderness or deformity. There is no limitation range of motion. There is no evidence of acute injury. ED Course Vital Signs 05/03/16 14:50 Temperature 98.5 F Pulse Rate 88 Respiratory 28 H Rate Blood Pressure 179/101 O2 Sat by Pulse 100 Oximetry - Consultations Consultation #1: I spoke with the machine tack puller on-call, Dr. Morales, who agrees to see the patient tomorrow and give dialysis in the morning and recommends giving a dose of Kayexalate. 05/03/16 19:18 - EJ/Peripheral Line Neck R Time Out Performed: Yes Indications: nurses unable to establis Skin Cleansed in Sterile Fashion: Yes Size: 22 Dressing Placed: Tegaderm, tape Patient Tolerated Procedure: well ED Medical Decision Making - Lab Data Result diagrams: 05/03/16 15:44 05/03/16 15:44 - EKG Data -: EKG Interpreted by Me EKG shows normal: sinus rhythm, axis, intervals, QRS complexes (Q waves to the inferior leads), ST-T waves (nonspecific ST-T changes) Rate: normal - EKG Data When compared to previous EKG there are: previous EKG unavailable Interpretation: other (q waves to the inferior leads, nonspecific ST-T changes) - Radiology Data Radiology results: image reviewed interpreted by me: Chest x-ray shows moderate cardiomegaly, pulmonary vascular congestion and concern for right lower lobe infiltrate. There are some mild basilar pleural effusions. - Medical Decision Making 50-year-old female presents to the emergency department with shortness of breath , productive sounding cough and missing dialysis. Patient's chest x-ray does appear consistent with some patchy infiltrates, pleural effusions and vascular congestion. Patient's labs show some mild hyperkalemia, elevated BUN and creatinine levels. Patient was given a breathing treatment, steroids for bronchospasm, had blood cultures obtained and started on Levaquin. She was also given Kayexalate for hyperkalemia. The patient will be admitted to hospital for further evaluation of treatment has been accepted by Dr. Arreguin. - Differential Diagnosis pneumonia, CHF, asthma, COPD, bronchitis Critical Care Time: No Critical care attestation.: If time is entered above; I have spent that time in minutes in the direct care of this critically ill patient, excluding procedure time. ED Disposition Clinical Impression: Tobacco abuse, Hyperkalemia, ESRD (end stage renal disease), Peripheral edema, Shortness of breath, CAP (community acquired pneumonia) Hypertension Qualifiers: Hypertension type: essential hypertension Qualified Code(s): I10 - Essential ( primary) hypertension COPD (chronic obstructive pulmonary disease) Qualifiers: COPD type: unspecified COPD Qualified Code(s): J44.9 - Chronic obstructive pulmonary disease, unspecified Disposition: OP ADMITTED IP TO THIS HOSP Is pt being admited?: Yes Condition: Stable Instructions: Hypertension (ED), Chronic Obstructive Pulmonary Disease (ED), Bacterial Pneumonia (ED) Referrals: PRIMARY CARE, [Primary Care Provider] - 3-5 Days Time of Disposition: 19:20
[2016-05-03] MEDS ORDERED: LEVAQUIN 750MG/150ML 750 MG/150 ML BAG IV ONE (18:12)
--- NOTE | 2016-05-03 18:23 | XRay Report ---
FINAL REPORT EXAM: XR CHEST ROUTINE 2V HISTORY: Shortness of breath TECHNIQUE: Frontal and lateral chest x-ray. PRIORS: 28 April 2016. FINDINGS: Moderate cardiomegaly stable. Lungs again show patchy and partially confluent, parenchymal opacities in the bilateral mid and lower lungs, more confluent on the right and more extensive on the left, about the same. Small, bilateral pleural effusions, right greater than left, also stable. No apparent pneumothorax. IMPRESSION: 1. Patchy opacities or infiltrates in the bilateral mid and lower lungs and small bilateral pleural effusions similar to comparison. Clinical correlation and radiographic followup after 4-6 weeks advised to document resolution.
--- NOTE | 2016-05-03 18:50 | Admit Criteria Form ---
Admission Criteria Documentation: PULMONARY DISEASE GRG Clinical Indications for Admission to Inpatient Care ( Place 'X' for any and all applicable criteria): Hospital admission is needed for appropriate care of the patient because of ANY ONE of the following(1): [ ]I. Impending or actual respiratory arrest ( Use Respiratory Failure Criteria for severe respiratory disease and long-term mechanical ventilation patients) (4) [ ]II. Severe airflow or ventilation abnormalities (not responsive to emergency and observation care treatment as appropriate) as indicated by ANY ONE of the following(5)(6)(7)(8) : [ ]a) PCO2 > 42 mm Hg (5.6 kPa) and pH < 7.35 (new) [ ]b) Documented PCO2 increase > 5 mm Hg (0.7 kPa) from disease baseline [ ]c) Airflow measurements[A] < 60% of previous best or predicted ( e.g., PEF <300 L/minute) despite intensive emergent treatment[B] [ ]d) Required respiratory treatments that are performable only in acute inpatient setting [ ]III. Severe respiratory findings (not responsive to emergency and observation care treatment as appropriate) including ANY ONE of the following(5)(8)(9): [ ]a) Respiratory distress as indicated by ALL of the following(5)(10): [ ]i) Patient with ANY ONE of the following: [ ]1) Dyspnea (difficulty breathing) [ ]2) Abnormal breathing pattern (eg, chest retractions) [ ]3) Tachypnea [ ]4) Other evidence of difficulty breathing [ ]ii) Evidence of respiratory compromise indicated by ANY ONE of the following: [ ]1) Hypoxemia [ ]2) Altered mental status [ ]3) Other evidence of respiratory compromise (eg, pulmonary edema on chest x-ray) [ ]b) Stridor [ ]c) Gross hemoptysis(11) [ ]d) Acute cyanosis [ ]IV. High-risk pulmonary infection as indicated by ANY ONE of the following( 19)(20)(21)(22): [ ]a) Temperature less than 95 degrees F(35 degrees C) or greater than 103.1 degrees F(39.5 degrees C) [ ]b) Hemodynamic instability that remains after emergency or observation level care (as appropriate) [ ]c) Immunocompromised patient (eg, AIDS, post transplant, neutropenic) [ ]d) History of severe COPD [ ]e) History of severely symptomatic congestive heart failure [ ]f) Other high-risk comorbidity (eg, poorly controlled diabetes, cirrhosis, chronic renal insufficiency) [ ]g) Hypoxemia (new) [ ]h) Outpatient, observation, or recovery facility therapy has failed, is not appropriate, or is not feasible [ ]V. Severe atelectasis or lung collapse(15)(16) [ ]. Tuberculosis requiring inpatient treatment as indicated by ANY ONE of the following(17)(18): [ ]a) New positive acid-fast bacilli sputum smear [ ]b) Positive acid-fast bacilli smear (under current treatment), with ANY ONE of the following: [ ]i) Unexposed household contacts [ ]ii) Infants or immunosuppressed household contacts [ ]iii) Patient unable or unwilling to avoid exposing others [ ]iv) Severe immunocompromised patient (eg, AIDS, post transplant, neutropenic) [ ]VII. Empyema or lung abscess(13)(14) [ ]VIII. Severe pulmonary arterial hypertension or pulmonary vascular disease requiring inpatient care indicated by ANY ONE of the following(24)(25): [ ]a) Initiation or change of vasodilators (IV, subcutaneous, or inhaled) or other vasoactive medications needed [ ]b) IV anticoagulation needed (eg, immediate anticoagulation necessary, alternatives not appropriate) [ ]c) Arterial or pulmonary artery catheter monitoring needed due to infusion or other treatment [ ]IX. Chronic lung disease with severe deterioration (not responsive to emergency and observation care treatment as appropriate) as indicated by ANY ONE of the following (6)(12): [ ]a) SaO2 5% below baseline in patient with chronic hypoxemia [ ]b) New requirement for supplemental oxygen to keep SaO2 at baseline or acceptable level [ ]c) Required supplemental oxygen performable only in acute inpatient setting [ ]d) Severe airflow or ventilation abnormalities [ ]e) Rapid rate of exacerbation onset [ ]f) Previously mobile patient unable to walk between rooms [ ]g) Inability to eat or sleep due to dyspnea [ ]h) Altered mental status [ ]X. Cystic fibrosis with severe deterioration as indicated by ANY ONE of the following(26)(27): [ ]a) Severe exacerbation that does not respond to intensified home therapy [ ]b) Pneumonia [ ]c) Hemoptysis [ ]d) Atelectasis [ ]e) Pneumothorax [ ]f) Respiratory failure [ ]g) Severe exacerbation with patient unable to perform prescribed treatments at home [ ]XI. Severe right heart failure as indicated by ANY ONE of the following(24) (25): [ ]a) Increasing organ failure (eg, liver congestion with significant and worsening or new elevation of transaminases) [ ]b) Anasarca [ ]c) Angina that requires inpatient care (eg, not treatable in emergency or observation level of care) [ ]d) Respiratory distress [ ]e) Syncope [ ]f) SBP < 90 mm Hg (new) [ ]XII. Injury requiring inpatient care (medical) as indicated by ANY ONE of the following(28): [ ]a) Significant inhalation injury (eg, smoke inhalation, other toxic inhalation) (29)(30)(31) [ ]b) Airway obstruction that remains or is unstable after emergency or observation level care(32) [ ]c) Severe pain requiring acute inpatient management [ ]d) Lung contusion [ ]e) Bronchial tree injury [ ]f) Air or fat emboli(33) [ ]g) Other injury not treatable in emergency or observation level care (eg, hemothorax) (34) [ ]XIII. Pulmonary hemorrhage or significant hemoptysis(11)(35)(36) [ ]XIV. Inpatient palliative care needed[C](37)(38)(39)(40) [ ]XV. Complications of lung transplant (eg, rejection, failure, respiratory infection) (23) [ X]XVI. Pulmonary Disease and ANY ONE of the following: [ X]a) General Admission Criteria [ ]b) Pediatric General Admission Criteria The original [facility] [employer] content created by [facility] has been revised. The portions of the content which have been revised are identified through the use of italic text or in bold, and [facility] has neither reviewed nor approved the modified material. All other unmodified content is copyright [facility]. Please see references footnoted in the original [facility] edition 2016 Admission Criteria Met: Yes
[2016-05-03] MEDS ORDERED: KIONEX PO ONE (19:16)
[2016-05-03] MEDS ORDERED: MORPHINE IV ONE (19:52)
[2016-05-03] MEDS ORDERED: BENADRYL ONE (20:11)
[2016-05-03] MEDS ORDERED: ZOFRAN ONE (20:11)
[2016-05-03] MEDS ORDERED: BENADRYL IV ONE (20:15)
[2016-05-03] MEDS ORDERED: ZOFRAN IV ONE (20:16)
--- NOTE | 2016-05-03 21:15 | History and Physical Report ---
History of Present Illness Date of examination: 05/03/16 Date of admission: 05/03/16 Chief complaint: Increasing SOB History of present illness: This is a 50-year-old Afro-[place]ian female presents to the emergency department by EMS with complaint of continued shortness of breath and missing dialysis. The patient was just admitted to the hospital and discharged after being diagnosed with pneumonia and she was recently sent home on antibiotics and says that the "pills are not working." The patient is usually Saturday, , Saturday dialysis but says that she was getting it on Saturday, Saturday, Saturday in the hospital. Her mortgage loan officer is a Dr. Hodges or Emil but she has not seen them regarding her symptoms. She does not have a primary care doctor. She complains of worsening of the shortness breath with exertion and says that she was unable to make it back to her house or to the bus stop to get to the dialysis clinic. She has a past medical history of CHF, lupus, COPD, diabetes, hypertension. She has not taken anything for symptoms prior to presentation. The patient says she is supposed to be in oxygen 24 hours a day but does not currently have any. Past History Past Medical History: COPD, heart failure, hypertension, hyperlipidemia Past Surgical History: Other (AV fistula ) Medications and Allergies Allergies Allergy/AdvReac Type Severity Reaction Status Date / Time enalapril maleate Allergy Angioedema Verified 06/15/15 15:40 [From Vasotec] enalaprilat dihydrate Allergy Angioedema Verified 06/15/15 15:40 [From Vasotec] peach AdvReac Nausea Verified 06/15/15 15:40 tomato AdvReac Nausea Verified 06/15/15 15:40 Home Medications Medication Instructions Recorded Confirmed Last Taken Type Aspirin [Aspirin BABY CHEW TAB] 81 mg PO QDAY #30 tab.chew 10/06/14 05/04/1608/26 Rx Acyclovir [Acyclovir Ointment] 1 applic TP 5XD tube 05/07/15 05/04/16 Unknown Rx Famotidine [Pepcid] 10 mg PO BID tablet 05/07/15 05/04/16 Unknown Rx Paricalcitol [Zemplar] 2 mcg PO TuThSa capsule 05/07/15 05/04/16 Unknown Rx hydrALAZINE [Apresoline TAB] 50 mg PO Q8HR tablet 05/07/15 05/04/16 Unknown Rx Carvedilol [Coreg] 3.125 mg PO DAILY 04/28/16 05/04/16 Unknown History Sevelamer HCl [Renagel] 800 mg PO TIDWM 04/28/16 05/04/16 Unknown History HYDROcodone/APAP 5-325 [[place] 1 each PO Q6HR PRN #10 tablet 04/30/16 05/04/16 Unknown Rx 5-325 mg TAB] Ipratropium/Albuterol Sulfate 1 spray IH QID #1 aer.w.adap 04/30/16 05/04/16 Unknown Rx [Combivent Respimat] Levofloxacin [Levaquin TAB] 500 mg PO Q48H #3 tablet 04/30/16 05/04/16 Unknown Rx Prednisone [predniSONE 5 mg (6-Day 5 mg PO .TAPER #1 tab.ds.pk 04/30/16 Unknown Rx Pack, 21 Tabs)] Review of Systems All systems: negative Constitutional: no weight loss, no weight gain Ears, nose, mouth and throat: no hoarseness, no sore throat, no swelling in mouth, no swelling in throat Cardiovascular: orthopnea, shortness of breath, dyspnea on exertion Respiratory: excessive sputum, dyspnea on exertion Gastrointestinal: no abdominal pain, no nausea, no vomiting, no diarrhea Musculoskeletal: no neck stiffness, no neck pain Integumentary: no rash, no pruritis, no redness, no sores Neurological: no seizures, no syncope Psychiatric: no anxiety, no depression Endocrine: no cold intolerance, no heat intolerance, no polyphagia, no excessive thirst, no polydipsia, no polyuria, no nocturia, no excessive sweating , no flushing, no weight change Hematologic/Lymphatic: no easy bruising, no easy bleeding Allergic/Immunologic: no urticaria, no allergic rhinitis, no wheezing Exam - Physical Exam Narrative exam: In Slight resp distress - Constitutional Vitals: Temp Pulse Resp BP Pulse Ox 98 F 84 20 164/72 94 05/03/16 19:56 05/03/16 19:56 05/03/16 20:10 05/03/16 19:56 05/03/16 19:56 General appearance: Present: no acute distress, well-nourished - EENT Eyes: Present: PERRL ENT: hearing intact, clear oral mucosa - Neck Neck: Present: supple, normal ROM - Respiratory Respiratory effort: normal Respiratory: bilateral: rales - Cardiovascular Heart rate: 100 Rhythm: regular Heart Sounds: Present: S1 & S2. Absent: rub, click - Extremities Extremities: pulses symmetrical, No edema Peripheral Pulses: within normal limits - Abdominal General gastrointestinal: Present: soft, non-tender, non-distended, normal bowel sounds Female genitourinary: Present: normal - Integumentary Integumentary: Present: clear, warm, dry - Musculoskeletal Musculoskeletal: gait normal, strength equal bilaterally - Psychiatric Psychiatric: appropriate mood/affect, intact judgment & insight - Neurologic Neurologic: CNII-XII intact, moves all extremities - Allied Health Allied health notes reviewed: nursing Results - Labs CBC & Chem 7: 05/04/16 10:56 05/04/16 10:56 Labs: Laboratory Last Values WBC 4.6 K/mm3 (4.5-11.0) 05/03/16 15:44 RBC 4.07 M/mm3 (3.65-5.03) 05/03/16 15:44 Hgb 12.5 gm/dl (10.1-14.3) 05/03/16 15:44 Hct 39.0 % (30.3-42.9) 05/03/16 15:44 MCV 96 fl (79-97) 05/03/16 15:44 MCH 31 pg (28-32) 05/03/16 15:44 MCHC 32 % (30-34) 05/03/16 15:44 RDW 21.3 % (13.2-15.2) H 05/03/16 15:44 Plt Count 182 K/mm3 (140-440) 05/03/16 15:44 Lymph % (Auto) 24.4 % (13.4-35.0) 05/03/16 15:44 [place] % (Auto) 9.1 % (0.0-7.3) H 05/03/16 15:44 Eos % (Auto) 9.4 % (0.0-4.3) H 05/03/16 15:44 Baso % (Auto) 1.4 % (0.0-1.8) 05/03/16 15:44 Lymph # 1.1 K/mm3 (1.2-5.4) L 05/03/16 15:44 [place] # 0.4 K/mm3 (0.0-0.8) 05/03/16 15:44 Eos # 0.4 K/mm3 (0.0-0.4) 05/03/16 15:44 Baso # 0.1 K/mm3 (0.0-0.1) 05/03/16 15:44 Seg Neutrophils % 55.7 % (40.0-70.0) 05/03/16 15:44 Seg Neutrophils # 2.6 K/mm3 (1.8-7.7) 05/03/16 15:44 Sodium 138 mmol/L (137-145) 05/03/16 15:44 Potassium 5.3 mmol/L (3.6-5.0) H 05/03/16 15:44 Chloride 91.6 mmol/L (98-107) L 05/03/16 15:44 Carbon Dioxide 20 mmol/L (22-30) L 05/03/16 15:44 Anion Gap 32 mmol/L 05/03/16 15:44 BUN 116 mg/dL (7-17) H 05/03/16 15:44 Creatinine 12.9 mg/dL (0.7-1.2) H 05/03/16 15:44 Estimated GFR 4 ml/min 05/03/16 15:44 BUN/Creatinine Ratio 8.99 % 05/03/16 15:44 Glucose 88 mg/dL (65-100) 05/03/16 15:44 Calcium 8.4 mg/dL (8.4-10.2) 05/03/16 15:44 Troponin T 0.105 ng/mL (0.00-0.029) H* 05/03/16 15:44 Triglycerides 84 mg/dL (2-149) 05/03/16 15:44 Cholesterol 143 mg/dL (50-199) 05/03/16 15:44 LDL Cholesterol Direct 50 mg/dL (50-130) 05/03/16 15:44 HDL Cholesterol 77 mg/dL (40-59) H 05/03/16 15:44 Cholesterol/HDL Ratio 1.85 % 05/03/16 15:44 HCG, Qual Negative (Negative) 05/03/16 15:44 Short CBC 05/04/16 Range/Units 10:56 WBC 4.6 (4.5-11.0) K/mm3 Hgb 10.2 (10.1-14.3) gm/dl Hct 31.8 D (30.3-42.9) % Plt Count 172 (140-440) K/mm3 BMP 05/04/16 10:56 Sodium 136 L Potassium 7.0 H* D Chloride 94.4 L Carbon Dioxide 18 L BUN 126 H Creatinine 13.9 H Glucose 120 H Calcium 7.6 L Cardiac Enzymes 05/04/16 Range/Units 10:56 Total Creatine Kinase 66 (30-135) units/L CK-MB (CK-2) 4.5 H (0.0-4.0) ng/mL Troponin T 0.076 H D (0.00-0.029) ng/mL Liver Function 05/04/16 Range/Units 10:56 Total Bilirubin 0.6 (0.1-1.2) mg/dL AST 21 (5-40) units/L ALT 12 (7-56) units/L Alkaline Phosphatase 170 H (35-129) units/L Albumin 4.1 (3.9-5) g/dL - Imaging and Cardiology EKG: report reviewed (sinus tachycardia 100 per minute) Chest x-ray: report reviewed (Arya infiltrates consistent with volume overload) Assessment and Plan Advance Directives: Yes (full code) VTE prophylaxis?: Chemical Plan of care discussed with patient/family: Yes - Patient Problems (1) Acute and chronic respiratory failure ([id number]) Current Visit: No Status: Acute Qualifiers: Respiratory failure complication: hypoxia Qualified Code(s): J96.21 - Acute and chronic respiratory failure with hypoxia Plan to address problem: Patient drinking hypoxia secondary to volume overload. Very noncompliant. Patient is a frequent visitor to this hospital. Does not understand compliance. Misses. Dialysis frequently. (2) ESRD (end stage renal disease) Current Visit: Yes Status: Chronic Plan to address problem: [facility] dialysis on a regular basis. Patient counseled. Recently moved to [place] for 4 months and came back to [place] 4 months ago. Does not follow- up regularly. (3) Hypertension Current Visit: Yes Status: Chronic Qualifiers: Hypertension type: essential hypertension Qualified Code(s): I10 - Essential (primary) hypertension Plan to address problem: Continue her antihypertensives. (4) T2DM (type 2 diabetes mellitus) Current Visit: Yes Status: Chronic Qualifiers: Diabetes mellitus complication status: without complication Diabetes mellitus complication detail: D Diabetic retinopathy severity: D Proliferative retinopathy type: P Diabetes mellitus macular edema: D Diabetes mellitus terminologist insulin use: D Laterality: L Chronic kidney disease stage: C Plan to address problem: Continue coverage. (5) DVT prophylaxis Current Visit: No Status: Acute
[2016-05-03] MEDS ORDERED: MILK OF MAGNESIA PO PRN (21:18)
[2016-05-03] MEDS ORDERED: TYLENOL PO PRN (21:18)
[2016-05-03] MEDS ORDERED: DULCOLAX PR PRN (21:18)
[2016-05-03] MEDS ORDERED: PREDNISONE 5 MG PO SCH (21:30)
[2016-05-03] MEDS ORDERED: NON-FORMULARY (Ipratropium/Albuterol Sulfate [Combivent Respimat] 1 SPRAY) IH SCH (22:00)
[2016-05-03] MEDS: PEPCID PO SCH (23:16)
[2016-05-03] MEDS: APRESOLINE PO SCH (23:16)
[2016-05-03] MEDS: HEPARIN SUB-Q SCH (23:17)
[2016-05-03] MEDS: BABY ASPIRIN PO SCH (23:17)
[2016-05-03] MEDS: DILAUDID IV PRN (23:22)
[2016-05-04] MEDS: ZEMPLAR PO SCH (03:05)
[2016-05-04] MEDS: DILAUDID IV PRN ×5 (03:46→22:35)
[2016-05-04] MEDS: APRESOLINE PO SCH ×3 (06:28→22:35)
[2016-05-04] MEDS: BENADRYL PO PRN (06:38)
[2016-05-04] MEDS: DUONEB 0.5 MG-3 MG/3 ML SOLN IH SCH ×4 (07:45→20:21)
--- NOTE | 2016-05-04 08:20 | Consultation ---
History of Present Illness - Reason for Consult Consult date: 05/04/16 end stage renal disease, hyperkalemia - History of Present Illness Patient is a 50-year-old AAF with history significant for Hypertension, Bipolar disorder, ESRD on hemodialysis, Lupus, Seizures, Herpes, COPD and Behavioral disturbances came to the ER with complaints of shortness of breath and missed hemeodialysis. Symtpoms are worse with exertion. Patient states that her outpatient hemodialysis unit is at [facility] and she has difficulty in getting to the unit from [place]. Due to the behavioral issues many hemodialysis units would not accept her. Patient was last dialyzed in the hospital 5 days ago during the previous admission. Patient denies chest pain, palpitation, cough, abdominal pain, dysuria, dysarthria, fever, chills, rash, blurry vision, dizziness or syncope. Past History Past Medical History: anemia, COPD, dialysis, ESRD, hypertension Social history: Lives alone, smoking Medications and Allergies Allergies Allergy/AdvReac Type Severity Reaction Status Date / Time enalapril maleate Allergy Angioedema Verified 06/15/15 15:40 [From Vasotec] enalaprilat dihydrate Allergy Angioedema Verified 06/15/15 15:40 [From Vasotec] peach AdvReac Nausea Verified 06/15/15 15:40 tomato AdvReac Nausea Verified 06/15/15 15:40 Home Medications Medication Instructions Recorded Confirmed Last Taken Type Aspirin [Aspirin BABY CHEW TAB] 81 mg PO QDAY #30 tab.chew 10/06/14 05/04/1608/26 Rx Acyclovir [Acyclovir Ointment] 1 applic TP 5XD tube 05/07/15 05/04/16 Unknown Rx Famotidine [Pepcid] 10 mg PO BID tablet 05/07/15 05/04/16 Unknown Rx Paricalcitol [Zemplar] 2 mcg PO TuThSa capsule 05/07/15 05/04/16 Unknown Rx hydrALAZINE [Apresoline TAB] 50 mg PO Q8HR tablet 05/07/15 05/04/16 Unknown Rx Carvedilol [Coreg] 3.125 mg PO DAILY 04/28/16 05/04/16 Unknown History Sevelamer HCl [Renagel] 800 mg PO TIDWM 04/28/16 05/04/16 Unknown History HYDROcodone/APAP 5-325 [[place] 1 each PO Q6HR PRN #10 tablet 04/30/16 05/04/16 Unknown Rx 5-325 mg TAB] Ipratropium/Albuterol Sulfate 1 spray IH QID #1 aer.w.adap 04/30/16 05/04/16 Unknown Rx [Combivent Respimat] Levofloxacin [Levaquin TAB] 500 mg PO Q48H #3 tablet 04/30/16 05/04/16 Unknown Rx Prednisone [predniSONE 5 mg (6-Day 5 mg PO .TAPER #1 tab.ds.pk 04/30/16 Unknown Rx Pack, 21 Tabs)] Active Meds: Active Medications Acetaminophen (Tylenol) 650 mg PO Q4H PRN PRN Reason: Pain MILD(1-3)/Fever >100.5/REID Acetaminophen/Hydrocodone Bitart ([place] 5/325) 1 each PO Q6H PRN PRN Reason: Pain Albuterol/Ipratropium (Duoneb 0.5 Mg-3 Mg/3 Ml Soln) 1 ampul IH QIDRT ON LICENSE OF [facility] Last Admin: 05/04/16 07:45 Dose: Not Given Aspirin (Baby Aspirin) 81 mg PO QDAY ON LICENSE OF [facility] Last Admin: 05/03/16 23:17 Dose: 81 mg Bisacodyl (Dulcolax) 10 mg [place] QDAY PRN PRN Reason: Constipation unrelieved by MOM Calcium Acetate (Phoslo) 2,001 mg PO TIDWM ON LICENSE OF [facility] Carvedilol (Coreg) 3.125 mg PO DAILY ON LICENSE OF [facility] Diphenhydramine HCl (Benadryl) 25 mg PO Q6H PRN PRN Reason: Itching Last Admin: 05/04/16 06:38 Dose: 25 mg Famotidine (Pepcid) 10 mg PO BID ON LICENSE OF [facility] Last Admin: 05/03/16 23:16 Dose: 10 mg Heparin Sodium (Porcine) (Heparin) 5,000 unit SUB-Q Q12HR ON LICENSE OF [facility] Last Admin: 05/03/16 23:17 Dose: Not Given Hydralazine HCl (Apresoline) 50 mg PO Q8HR ON LICENSE OF [facility] Last Admin: 05/04/16 06:28 Dose: 50 mg Hydromorphone HCl (Dilaudid) 0.5 mg IV Q3H PRN PRN Reason: Pain , Severe (7-10) Last Admin: 05/04/16 03:46 Dose: 0.5 mg Levofloxacin (Levaquin) 500 mg PO Q48H ON LICENSE OF [facility] Magnesium Hydroxide (Milk Of Magnesia) 30 ml PO Q4H PRN PRN Reason: Constipation Miscellaneous Medication (Prednisone [Prednisone 5 Mg (6-Day Pack, 21 Tabs)]) 5 mg PO .TAPER NARA Ondansetron HCl (Zofran) 4 mg IV Q8H PRN PRN Reason: N/V unrelieved by Reglan Paricalcitol (Zemplar) 2 mcg PO TuThSa ON LICENSE OF [facility] Last Admin: 05/04/16 03:05 Dose: Not Given Sevelamer Carbonate (Renvela) 400 mg PO TIDWM ON LICENSE OF [facility] Review of Systems Constitutional: no weight loss, no weight gain, no fever, no chills, no weakness Ears, nose, mouth and throat: no sinus pain, no epistaxis Breasts: deferred Cardiovascular: shortness of breath, dyspnea on exertion, high blood pressure, no chest pain, no orthopnea, no palpitations, no edema, no syncope, no lightheadedness, no leg edema Respiratory: shortness of breath, dyspnea on exertion, no cough, no cough with sputum, no hemoptysis, no wheezing Gastrointestinal: no abdominal pain, no nausea, no vomiting, no melena Genitourinary Female: no dysuria, no hematuria Rectal: no bleeding Musculoskeletal: no redness of joints Integumentary: no rash, no boils Neurological: no paralysis, no syncope Psychiatric: no disorientation Endocrine: no weight change Hematologic/Lymphatic: no easy bleeding Allergic/Immunologic: no urticaria Exam - Vital Signs Vital signs: Vital Signs Temp Pulse Resp BP Pulse Ox 98.5 F 88 28 H 179/101 100 05/03/16 14:50 05/03/16 14:50 05/03/16 14:50 05/03/16 14:50 05/03/16 14:50 - General Appearance General appearance: well-developed, well-nourished, appears stated age, other ( no distress) EENT: PERRL, mucous membranes moist, hearing intact, vision intact Neck: Present: neck supple, trachea midline Respiratory: Clear to Ascultation Heart: regular, S1S2, no murmurs Gastrointestinal: Present: normoactive bowel sounds. Absent: tenderness, distended Integumentary: no rash, warm and dry Neurologic: no focal deficit, no asterixis, alert and oriented x3, CN 3-12 intact Musculoskeletal: Present: other (left arm AVF, no edema) Psychiatric: cooperative Results - Lab Results 05/04/16 10:56 05/04/16 10:56 Most recent lab results Calcium 8.4 mg/dL (8.4-10.2) 05/03/16 15:44 - Image Kidney/bladder ultrasound: other Assessment and Plan - Patient Problems (1) Hyperkalemia Current Visit: Yes Status: Acute Plan to address problem: Hemodialysis today. (2) ESRD (end stage renal disease) Current Visit: Yes Status: Chronic Plan to address problem: Continue hemodialysis as planned. Compliance encouraged. (3) Hypertension Current Visit: Yes Status: Chronic Qualifiers: Hypertension type: essential hypertension Qualified Code(s): I10 - Essential (primary) hypertension Plan to address problem: BP controlled. (4) Shortness of breath Current Visit: Yes Status: Acute
[2016-05-04] MEDS ORDERED: NACL 0.9% 100 ML IV PRN (08:21)
[2016-05-04] MEDS: RENVELA PO SCH ×3 (08:27→17:53)
[2016-05-04] MEDS: PHOSLO PO SCH ×2 (08:27→15:03)
[2016-05-04] MEDS ORDERED: COREG PO SCH (10:00)
[2016-05-04] MEDS: COREG PO SCH ×2 (10:15→22:33)
[2016-05-04] MEDS: HEPARIN SUB-Q SCH ×2 (10:15→22:39)
[2016-05-04] MEDS ORDERED: NACL 0.9 (PRIMING MACHINE ONLY DIALYSIS) MC ONE (10:16)
[2016-05-04] MEDS: PEPCID PO SCH ×2 (10:17→22:33)
[2016-05-04] MEDS: BABY ASPIRIN PO SCH (10:17)
--- NOTE | 2016-05-04 10:22 | Consultation ---
History of Present Illness Consult date: 05/04/16 Consult reason: congestive heart failure History of present illness: This is a 50yr old woman with multiple medical problems who presented to this hospital with complaints of shortness of breath thought secondary to missed dialysis. Patient reports associated abdominal pain, nausea and diarrhea. Of note, patient was recently treated and discharged from this hospital for pneumonia. Cardiac workup was done 2 years ago. She had a persantine thallium that reports a normal perfusion. Echocardiogram showed a normal LV systolic function. Most significant findings on echo reports a moderate to severe tricuspid regurgitation and severe pulmonary hypertension. Past History Past Medical History: COPD, dialysis, ESRD, hypertension Past Surgical History: Other (AV fistula ) Medications and Allergies Allergies Allergy/AdvReac Type Severity Reaction Status Date / Time enalapril maleate Allergy Angioedema Verified 06/15/15 15:40 [From Vasotec] enalaprilat dihydrate Allergy Angioedema Verified 06/15/15 15:40 [From Vasotec] peach AdvReac Nausea Verified 06/15/15 15:40 tomato AdvReac Nausea Verified 06/15/15 15:40 Home Medications Medication Instructions Recorded Confirmed Last Taken Type Aspirin [Aspirin BABY CHEW TAB] 81 mg PO QDAY #30 tab.chew 10/06/14 04/28/1608/26 Rx Acyclovir [Acyclovir Ointment] 1 applic TP 5XD tube 05/07/15 04/28/16 Unknown Rx Calcium Acetate [Phoslo] 2,001 mg PO TIDWM capsule 05/07/15 04/28/16 Unknown Rx Famotidine [Pepcid] 10 mg PO BID tablet 05/07/15 04/28/16 Unknown Rx Paricalcitol [Zemplar] 2 mcg PO TuThSa capsule 05/07/15 04/28/16 Unknown Rx hydrALAZINE [Apresoline TAB] 50 mg PO Q8HR tablet 05/07/15 04/28/16 Unknown Rx Carvedilol [Coreg] 3.125 mg PO DAILY 04/28/16 04/28/16 Unknown History Sevelamer HCl [Renagel] 400 mg PO TIDWM 04/28/16 04/28/16 Unknown History HYDROcodone/APAP 5-325 [[place] 1 each PO Q6HR PRN #10 tablet 04/30/16 Unknown Rx 5-325 mg TAB] Ipratropium/Albuterol Sulfate 1 spray IH QID #1 aer.w.adap 04/30/16 Unknown Rx [Combivent Respimat] Levofloxacin [Levaquin TAB] 500 mg PO Q48H #3 tablet 04/30/16 Unknown Rx Prednisone [predniSONE 5 mg (6-Day 5 mg PO .TAPER #1 tab.ds.pk 04/30/16 Unknown Rx Pack, 21 Tabs)] Active Meds: Active Medications Acetaminophen (Tylenol) 650 mg PO Q4H PRN PRN Reason: Pain MILD(1-3)/Fever >100.5/REID Acetaminophen/Hydrocodone Bitart ([place] 5/325) 1 each PO Q6H PRN PRN Reason: Pain Albuterol/Ipratropium (Duoneb 0.5 Mg-3 Mg/3 Ml Soln) 1 ampul IH QIDRT [facility] Last Admin: 05/04/16 07:45 Dose: Not Given Aspirin (Baby Aspirin) 81 mg PO QDAY [facility] Last Admin: 05/04/16 10:17 Dose: Not Given Bisacodyl (Dulcolax) 10 mg [place] QDAY PRN PRN Reason: Constipation unrelieved by MOM Calcium Acetate (Phoslo) 2,001 mg PO TIDWM [facility] Last Admin: 05/04/16 08:27 Dose: Not Given Carvedilol (Coreg) 3.125 mg PO BID [facility] Last Admin: 05/04/16 10:15 Dose: Not Given Diphenhydramine HCl (Benadryl) 25 mg PO Q6H PRN PRN Reason: Itching Last Admin: 05/04/16 06:38 Dose: 25 mg Famotidine (Pepcid) 10 mg PO BID [facility] Last Admin: 05/04/16 10:17 Dose: Not Given Heparin Sodium (Porcine) (Heparin) 5,000 unit SUB-Q Q12HR [facility] Last Admin: 05/04/16 10:15 Dose: Not Given Hydralazine HCl (Apresoline) 50 mg PO Q8HR [facility] Last Admin: 05/04/16 06:28 Dose: 50 mg Hydromorphone HCl (Dilaudid) 0.5 mg IV Q3H PRN PRN Reason: Pain , Severe (7-10) Last Admin: 05/04/16 08:26 Dose: 0.5 mg Sodium Chloride (Nacl 0.9%) 100 mls @ 999 mls/hr IV [place]OME PRN PRN Reason: Hypotension Levofloxacin (Levaquin) 500 mg PO Q48H NARA Magnesium Hydroxide (Milk Of Magnesia) 30 ml PO Q4H PRN PRN Reason: Constipation Miscellaneous Medication (Prednisone [Prednisone 5 Mg (6-Day Pack, 21 Tabs)]) 5 mg PO .TAPER NARA Ondansetron HCl (Zofran) 4 mg IV Q8H PRN PRN Reason: N/V unrelieved by Reglan Paricalcitol (Zemplar) 2 mcg PO TuThSa [facility] Last Admin: 05/04/16 03:05 Dose: Not Given Sevelamer Carbonate (Renvela) 400 mg PO TIDWM [facility] Last Admin: 05/04/16 08:27 Dose: 400 mg Physical Examination Vital Signs Temp Pulse Resp BP Pulse Ox 98.5 F 88 28 H 179/101 100 05/03/16 14:50 05/03/16 14:50 05/03/16 14:50 05/03/16 14:50 05/03/16 14:50 General appearance: no acute distress HEENT: Positive: PERRL Neck: Positive: trachea midline Cardiac: Positive: Reg Rate and Rhythm, Systolic Murmur Lungs: Positive: Decreased Breath Sounds Neuro: Positive: Grossly Intact Extremities: Absent: edema Results 05/03/16 15:44 05/03/16 15:44 Assessment and Plan Volume overload likely secondary to missed HD ESRD on HD Hyperkalemia Hypertension Pulmonary HTN Elevated troponin, nonspecific likely secondary for renal disease Normal perfusion persantine thallium 03/2014 Normal LV systolic function by echocardiogram 04/2015
[2016-05-04] MEDS: ZOFRAN IV PRN (10:46)
[2016-05-04 11:04] LABS: Basophils % (Auto) 0.2 % (0.0-1.8); Eosinophils % (Auto) 0.1 % (0.0-4.3); Hematocrit 31.8 % (30.3-42.9); Hemoglobin 10.2 gm/dl (10.1-14.3); Mean Corpuscular HGB Conc 32 % (30-34); Mean Corpuscular Hemoglobin 31 pg (28-32); Mean Corpuscular Volume 97 fl (79-97); Platelet Count 172 K/mm3 (140-440); Red Blood Count 3.29 M/mm3 (3.65-5.03); White Blood Count 4.6 K/mm3 (4.5-11.0)
[2016-05-04 11:26] LABS: Albumin 4.1 g/dL (3.9-5); Albumin/Globulin Ratio 1.5 %; Bilirubin,Total 0.6 mg/dL (0.1-1.2); Calcium 7.6 mg/dL (8.4-10.2); Chloride 94.4 mmol/L (98-107); Total Protein 6.9 g/dL (6.3-8.2)
[2016-05-04 11:41] LABS: BUN/Creatinine Ratio 9.06
[2016-05-04 11:44] LABS: Creatine Kinase MB 4.5 ng/mL (0.0-4.0)
[2016-05-04] MEDS ORDERED: DELTASONE PO ONE ×2 (15:00→18:30)
--- NOTE | 2016-05-04 15:10 | Progress Note ---
Assessment and Plan Assessment and plan: This is a 50-year-old Afro-Mongolian female presents to the emergency department by EMS with complaint of continued shortness of breath and missing dialysis. Patient has had recurrent admissions in the hospital for the same. She informs me that her Medicaid had not kicked him out so she could not get a ride to her dialysis center. During my examination of her the patient got very short and upset about trying to get more information from her about her condition. The patient was just admitted to the hospital and discharged after being diagnosed with pneumonia and she was recently sent home on antibiotics and says that the "pills are not working." The patient is usually Saturday, , Saturday dialysis but says that she was getting it on Saturday, Saturday, Saturday in the hospital. Her filemaker developer is a Dr. Hodges or Emil but she has not seen them regarding her symptoms. She does not have a primary care doctor. She complains of worsening of the shortness breath with exertion and says that she was unable to make it back to her house or to the bus stop to get to the dialysis clinic. She has a past medical history of CHF, lupus, COPD, diabetes, hypertension. She has not taken anything for symptoms prior to presentation. The patient says she is supposed to be in oxygen 24 hours a day but does not currently have any. She has had previous cardiac work although was negative with normal ejection fraction. * Acute on chronic hypoxic respiratory failure * Volume overload secondary to missed hemodialysis * Bilateral infiltrates likely secondary to volume overload doubt pneumonia * End-stage renal disease * Severe hyperkalemia * Hypertension * Noncompliance * Pulmonary hypertension * SLD * HX OF substance abuse * Homeless * NSTEMI type 2-secondary to renal disease Plan: * Patient had hemodialysis today will reevaluate BMP in a.m. to ensure correction of hyperkalemia * Clinically she appears to be improving * Assemblies And Installations Inspector tried to get a closer facility for the patient's for dialysis but nobody would take her due to her prior behaviors. * Cardiology input noted and stable * Extensive counselling with the patient about improving compliance. She felt irate but states that she understands. * Start on Beta chrissy, ASA, statin. * Recommend repeat Chest xray in 5 weeks * DVT/GI History Interval history: Follow-up shortness of breath, abdominal pain Patient seen and examined this morning in no acute distress but reports some shortness of breath and still pain in her abdomen. On reevaluation this afternoon was resolved. Denies any chest pain, nausea, vomiting, diarrhea No fever noted blood pressure controlled No adverse events reported to me by nursing staff Hospitalist Physical - Physical exam Narrative exam: VITAL SIGNS: Reviewed. GENERAL: The patient appeared well nourished and normally developed. Vital signs as documented. HEAD: No signs of head trauma. EYES: Pupils are equal. Extraocular motions intact. EARS: Hearing grossly intact. MOUTH: Oropharynx is normal. NECK: No adenopathy, no JVD. CHEST: Chest with clear breath sounds bilaterally. No wheezes, rales, or rhonchi. CARDIAC: Regular rate and rhythm. S1 and S2, without murmurs, gallops, or rubs. VASCULAR: No Edema. Peripheral pulses normal and equal in all extremities. ABDOMEN: Soft, without detectable tenderness. No sign of distention. No rebound or guarding, and no masses palpated. Bowel Sounds normal. MUSCULOSKELETAL: Good range of motion of all major joints. Extremities without clubbing, cyanosis or edema. NEUROLOGIC EXAM: Alert and oriented x 3. No focal sensory or strength deficits. Speech normal. Follows commands. PSYCHIATRIC: Mood normal. SKIN: No rash or lesions. - Constitutional Vitals: Temp Pulse Resp BP Pulse Ox 97.6 F 87 18 164/90 97 05/04/16 10:35 05/04/16 13:30 05/04/16 10:35 05/04/16 13:30 05/04/16 08:00 General appearance: Present: no acute distress Results - Labs CBC & Chem 7: 05/04/16 10:56 05/04/16 10:56 Labs: Laboratory Last Values WBC 4.6 K/mm3 (4.5-11.0) 05/04/16 10:56 RBC 3.29 M/mm3 (3.65-5.03) L 05/04/16 10:56 Hgb 10.2 gm/dl (10.1-14.3) 05/04/16 10:56 Hct 31.8 % (30.3-42.9) D 05/04/16 10:56 MCV 97 fl (79-97) 05/04/16 10:56 MCH 31 pg (28-32) 05/04/16 10:56 MCHC 32 % (30-34) 05/04/16 10:56 RDW 20.0 % (13.2-15.2) H 05/04/16 10:56 Plt Count 172 K/mm3 (140-440) 05/04/16 10:56 Lymph % (Auto) 9.3 % (13.4-35.0) L 05/04/16 10:56 Jay % (Auto) 4.8 % (0.0-7.3) 05/04/16 10:56 Eos % (Auto) 0.1 % (0.0-4.3) 05/04/16 10:56 Baso % (Auto) 0.2 % (0.0-1.8) 05/04/16 10:56 Lymph # 0.4 K/mm3 (1.2-5.4) L 05/04/16 10:56 Jay # 0.2 K/mm3 (0.0-0.8) 05/04/16 10:56 Eos # 0.0 K/mm3 (0.0-0.4) 05/04/16 10:56 Baso # 0.0 K/mm3 (0.0-0.1) 05/04/16 10:56 Seg Neutrophils % 85.6 % (40.0-70.0) H 05/04/16 10:56 Seg Neutrophils # 4.0 K/mm3 (1.8-7.7) 05/04/16 10:56 Sodium 136 mmol/L (137-145) L 05/04/16 10:56 Potassium 7.0 mmol/L (3.6-5.0) H* D 05/04/16 10:56 Chloride 94.4 mmol/L (98-107) L 05/04/16 10:56 Carbon Dioxide 18 mmol/L (22-30) L 05/04/16 10:56 Anion Gap 31 mmol/L 05/04/16 10:56 BUN 126 mg/dL (7-17) H 05/04/16 10:56 Creatinine 13.9 mg/dL (0.7-1.2) H 05/04/16 10:56 Estimated GFR 3 ml/min 05/04/16 10:56 BUN/Creatinine Ratio 9.06 % 05/04/16 10:56 Glucose 120 mg/dL (65-100) H 05/04/16 10:56 Calcium 7.6 mg/dL (8.4-10.2) L 05/04/16 10:56 Total Bilirubin 0.6 mg/dL (0.1-1.2) 05/04/16 10:56 AST 21 units/L (5-40) 05/04/16 10:56 ALT 12 units/L (7-56) 05/04/16 10:56 Alkaline Phosphatase 170 units/L (35-129) H 05/04/16 10:56 Total Creatine Kinase 66 units/L (30-135) 05/04/16 10:56 CK-MB (CK-2) 4.5 ng/mL (0.0-4.0) H 05/04/16 10:56 CK-MB (CK-2) Rel Index 6.8 (0-4) H 05/04/16 10:56 Troponin T 0.076 ng/mL (0.00-0.029) H D 05/04/16 10:56 Total Protein 6.9 g/dL (6.3-8.2) 05/04/16 10:56 Albumin 4.1 g/dL (3.9-5) 05/04/16 10:56 Albumin/Globulin Ratio 1.5 % 05/04/16 10:56 Triglycerides 84 mg/dL (2-149) 05/03/16 15:44 Cholesterol 143 mg/dL (50-199) 05/03/16 15:44 LDL Cholesterol Direct 50 mg/dL (50-130) 05/03/16 15:44 HDL Cholesterol 77 mg/dL (40-59) H 05/03/16 15:44 Cholesterol/HDL Ratio 1.85 % 05/03/16 15:44 HCG, Qual Negative (Negative) 05/03/16 15:44 - Imaging and Cardiology Chest x-ray: image reviewed (patchy opacity)
--- NOTE | 2016-05-04 15:48 | Progress Note ---
Assessment and Plan - Patient Problems (1) Hyperkalemia Current Visit: Yes Status: Acute Plan to address problem: Hemodialysis with 1K and 2K bath. Monitor K level. (2) ESRD (end stage renal disease) Current Visit: Yes Status: Chronic Plan to address problem: Continue hemodialysis as planned. (3) Hypertension Current Visit: Yes Status: Chronic Qualifiers: Hypertension type: essential hypertension Qualified Code(s): I10 - Essential (primary) hypertension Plan to address problem: BP is fair. (4) Shortness of breath Current Visit: Yes Status: Acute Plan to address problem: 3 Lts of UF with hemodialysis. Subjective Date of service: 05/04/16 Interval history: Patient was seen and examined during hemodialysis. Objective - Vital Signs Vital signs: Vital Signs - 12hr 05/04/16 05/04/16 05/04/16 04:59 06:28 07:35 Temperature 97.4 F L Pulse Rate 86 Pulse Rate [ 83 From Monitor] Respiratory 18 Rate Blood Pressure 154/86 Blood Pressure 137/74 [Left Radial Artery] O2 Sat by Pulse 96 Oximetry 05/04/16 05/04/16 05/04/16 08:00 10:35 10:45 Temperature 97.7 F 97.6 F Pulse Rate 78 80 Pulse Rate [ 84 From Monitor] Respiratory 18 18 Rate Blood Pressure 152/86 140/80 Blood Pressure 150/80 [Left Radial Artery] O2 Sat by Pulse 97 Oximetry 05/04/16 05/04/16 05/04/16 11:00 11:15 11:30 Temperature Pulse Rate 82 82 82 Pulse Rate [ From Monitor] Respiratory Rate Blood Pressure 134/81 133/67 130/66 Blood Pressure [Left Radial Artery] O2 Sat by Pulse Oximetry 05/04/16 05/04/16 05/04/16 11:45 12:00 12:15 Temperature Pulse Rate 83 75 87 Pulse Rate [ From Monitor] Respiratory Rate Blood Pressure 126/70 147/74 149/78 Blood Pressure [Left Radial Artery] O2 Sat by Pulse Oximetry 05/04/16 05/04/16 05/04/16 12:30 12:45 13:00 Temperature Pulse Rate 86 87 86 Pulse Rate [ From Monitor] Respiratory Rate Blood Pressure 150/71 157/84 160/91 Blood Pressure [Left Radial Artery] O2 Sat by Pulse Oximetry 05/04/16 05/04/16 13:15 13:30 Temperature Pulse Rate 86 87 Pulse Rate [ From Monitor] Respiratory Rate Blood Pressure 153/87 164/90 Blood Pressure [Left Radial Artery] O2 Sat by Pulse Oximetry - General Appearance General appearance: well-developed, well-nourished, appears stated age, other ( no distress) EENT: PERRL, mucous membranes moist, hearing intact, vision intact Neck: supple Respiratory: Present: Clear to Ascultation Cardiology: regular, S1S2, no murmurs Gastrointestinal: normoactive bowel sounds Integumentary: no rash, warm and dry Neurologic: no focal deficit, no asterixis, alert and oriented x3, CN 3-12 intact Musculoskeletal: other (left arm AVF) Psychiatric: cooperative - Lab 05/04/16 10:56 05/04/16 10:56 Most recent lab results Calcium 7.6 mg/dL (8.4-10.2) L 05/04/16 10:56
[2016-05-04] MEDS: DELTASONE PO SCH (22:34)
[2016-05-05] MEDS: ZOFRAN IV PRN (03:35)
[2016-05-05] MEDS: DILAUDID IV PRN ×4 (03:35→19:14)
[2016-05-05 03:49] LABS: Creatine Kinase MB 4.4 ng/mL (0.0-4.0)
[2016-05-05] MEDS: APRESOLINE PO SCH ×2 (08:05→14:00)
[2016-05-05] MEDS: RENVELA PO SCH ×3 (08:20→18:43)
--- NOTE | 2016-05-05 09:04 | Progress Note ---
Assessment and Plan Volume overload - improved secondary to missed HD ESRD on HD Hyperkalemia Hypertension Pulmonary HTN Elevated troponin, nonspecific secondary for renal disease Normal perfusion persantine thallium 03/2014 Normal LV systolic function by echocardiogram 04/2015 Recommendations: Continue current management Fluid management through HD No clinical findings to suggest ACS Advised compliance with HD Subjective Date of service: 05/05/16 Principal diagnosis: CHF Interval history: Patient is feeling better after HD, her shortness of breath has improved. No events recorded on tele. Objective Vital Signs Temp Pulse Pulse Resp Resp BP BP 05/05/16 08:08 05/05/16 03:35 20 05/04/16 22:35 92 H 20 144/89 05/04/16 22:33 92 H 144/89 05/04/16 22:00 20 05/04/16 21:43 98.1 F 100 H 20 144/89 05/04/16 16:30 99 F 114 H 22 188/96 05/04/16 14:20 98.0 F 88 18 155/85 05/04/16 14:05 84 150/84 05/04/16 13:45 87 141/85 05/04/16 13:30 87 164/90 05/04/16 13:15 86 153/87 05/04/16 13:00 86 160/91 05/04/16 12:45 87 157/84 05/04/16 12:30 86 150/71 05/04/16 12:15 87 149/78 05/04/16 12:00 75 147/74 05/04/16 11:45 83 126/70 05/04/16 11:30 82 130/66 05/04/16 11:15 82 133/67 05/04/16 11:00 82 134/81 05/04/16 10:45 80 140/80 05/04/16 10:35 97.6 F 78 18 152/86 Pulse Ox 05/05/16 08:08 98 05/05/16 03:35 05/04/16 22:35 05/04/16 22:33 05/04/16 22:00 05/04/16 21:43 92 05/04/16 16:30 05/04/16 14:20 05/04/16 14:05 05/04/16 13:45 05/04/16 13:30 05/04/16 13:15 05/04/16 13:00 05/04/16 12:45 05/04/16 12:30 05/04/16 12:15 05/04/16 12:00 05/04/16 11:45 05/04/16 11:30 05/04/16 11:15 05/04/16 11:00 05/04/16 10:45 05/04/16 10:35 - Physical Examination HEENT: Positive: PERRL Neck: Positive: neck supple, trachea midline Cardiac: Positive: Reg Rate and Rhythm Lungs: Positive: Normal Exam Neuro: Positive: Grossly Intact Extremities: Absent: edema - Labs and Meds Cardiac Enzymes 05/04/16 05/04/16 05/05/16 Range/Units 10:56 10:56 03:20 AST 21 (5-40) units/L CK-MB (CK-2) 4.5 H 4.4 H (0.0-4.0) ng/mL CBC 05/04/16 Range/Units 10:56 WBC 4.6 (4.5-11.0) K/mm3 RBC 3.29 L (3.65-5.03) M/mm3 Hgb 10.2 (10.1-14.3) gm/dl Hct 31.8 D (30.3-42.9) % Plt Count 172 (140-440) K/mm3 Lymph # 0.4 L (1.2-5.4) K/mm3 Loving # 0.2 (0.0-0.8) K/mm3 Eos # 0.0 (0.0-0.4) K/mm3 Baso # 0.0 (0.0-0.1) K/mm3 Comprehensive Metabolic Panel 05/04/16 Range/Units 10:56 Sodium 136 L (137-145) mmol/L Potassium 7.0 H* D (3.6-5.0) mmol/L Chloride 94.4 L (98-107) mmol/L Carbon Dioxide 18 L (22-30) mmol/L BUN 126 H (7-17) mg/dL Creatinine 13.9 H (0.7-1.2) mg/dL Glucose 120 H (65-100) mg/dL Calcium 7.6 L (8.4-10.2) mg/dL AST 21 (5-40) units/L ALT 12 (7-56) units/L Alkaline Phosphatase 170 H (35-129) units/L Total Protein 6.9 (6.3-8.2) g/dL Albumin 4.1 (3.9-5) g/dL - Imaging and Cardiology EKG: report reviewed (sinus tachycardia 100 per minute)
--- NOTE | 2016-05-05 09:27 | Progress Note ---
Assessment and Plan - Patient Problems (1) Hyperkalemia Current Visit: Yes Status: Acute Plan to address problem: Hemodialysis orders placed for today. Patient was counseled regarding low K diet. (2) ESRD (end stage renal disease) Current Visit: Yes Status: Chronic Plan to address problem: Hemodialysis today. (3) Hypertension Current Visit: Yes Status: Chronic Qualifiers: Hypertension type: essential hypertension Qualified Code(s): I10 - Essential (primary) hypertension Plan to address problem: BP well controlled. (4) Shortness of breath Current Visit: Yes Status: Acute Plan to address problem: Improved. Subjective Date of service: 05/05/16 Principal diagnosis: CHF Interval history: Patient is feeling better today. Objective - Vital Signs Vital signs: Vital Signs - 12hr 05/04/16 05/04/16 05/04/16 21:43 22:00 22:33 Temperature 98.1 F Pulse Rate 92 H Pulse Rate [ 100 H From Monitor] Respiratory 20 Rate Respiratory 20 Rate [Left Chest] Blood Pressure 144/89 Blood Pressure 144/89 [Left Radial Artery] O2 Sat by Pulse 92 Oximetry 05/04/16 05/05/16 05/05/16 22:35 03:35 08:08 Temperature Pulse Rate 92 H Pulse Rate [ From Monitor] Respiratory 20 20 Rate Respiratory Rate [Left Chest] Blood Pressure 144/89 Blood Pressure [Left Radial Artery] O2 Sat by Pulse 98 Oximetry - General Appearance General appearance: well-developed, well-nourished, appears stated age, other ( no distress) EENT: PERRL, mucous membranes moist, hearing intact Neck: supple Respiratory: Present: Clear to Ascultation Cardiology: regular, S1S2, no murmurs Gastrointestinal: normoactive bowel sounds, no tenderness Integumentary: no rash, warm and dry Neurologic: no focal deficit, no asterixis, alert and oriented x3 Musculoskeletal: other (no edema, left arm AVF) Psychiatric: cooperative - Lab 05/04/16 10:56 05/05/16 09:28 Most recent lab results Calcium 7.6 mg/dL (8.4-10.2) L 05/04/16 10:56
[2016-05-05] MEDS ORDERED: NACL 0.9% 100 ML IV PRN (09:35)
--- NOTE | 2016-05-05 09:46 | Discharge Summary ---
Providers - Providers Date of Admission: 05/03/16 21:18 Date of discharge: 05/07/16 Attending physician: AKHIL LYNNE MD 05/04/16 08:21 Consult to Physician [CONS] Routine Consulting Provider: EARLENE GRIDER Reason For Exam: chf Place consult to:: dr. grider Notified:: office Phone number called:: Was contact made?: Yes If yes, spoke with:: chase Time called:: 09:45 Primary care physician: COMPANY MANAGER Hospitalization Reason for admission: shortness of breath Condition: Stable Hospital course: his is a 50-year-old Afro-[place] female presents to the emergency department by EMS with complaint of continued shortness of breath and missing dialysis. Patient has had recurrent admissions in the hospital for the same. She informs me that her Medicaid had not kicked him out so she could not get a ride to her dialysis center. During my initial examination of her the patient got very short and upset about trying to get more information from her about her condition. The patient was just admitted to the hospital and discharged after being diagnosed with pneumonia and she was recently sent home on antibiotics and says that the "pills are not working." The patient is usually Saturday, , Saturday dialysis but says that she was getting it on Saturday, Saturday, Saturday in the hospital. Her bottom ironer is a Dr. Hodges or Emil but she has not seen them regarding her symptoms. She does not have a primary care doctor. She complains of worsening of the shortness breath with exertion and says that she was unable to make it back to her house or to the bus stop to get to the dialysis clinic. She has a past medical history of CHF, lupus, COPD , diabetes, hypertension. She has not taken anything for symptoms prior to presentation. The patient says she is supposed to be in oxygen 24 hours a day but does not currently have any. She has had previous cardiac work although was negative with normal ejection fraction. Cardiology did see the patient during hospitalization and did not feel there was any other cardiac activity going on. The patient improved remarkably following dialysis. Is currently stable for discharge. Extensive counseling was provided to the patient the need to be compliant with medication. Her troponin is chronically elevated. She does need mental health follow-up which I recommended for her and she states that she understands that but will await to discuss with her primary care physician when she gets one. Unfortunately patient is high risk for readmission as she uses the ER for her primary care visits repeatedly misses dialysis. The patient appears discharge initially but discharge. Held. Today she kept asking for IV pain medication she understands that we can't discharge her with IV pain medication but she washes in the hospital she would like to be on IV pain medication. She is clinically stable at this time for discharge Discharge diagnosis * Acute on chronic hypoxic respiratory failure * Volume overload secondary to missed hemodialysis * Bilateral infiltrates likely secondary to volume overload doubt pneumonia * End-stage renal disease * Severe hyperkalemia-resolved * Hypertension * Noncompliance * Pulmonary hypertension * SLD * HX OF substance abuse * Homeless * NSTEMI type 2-secondary to renal disease Disposition: DISCHARGED TO HOME OR SELFCARE Time spent for discharge: 35 mins Core Measure Documentation - Palliative Care Palliative Care/ Comfort Measures: Not Applicable - Core Measures Any of the following diagnoses?: none - VTE Discharge Requirements Deep Vein Thrombosis/Pulmonary Embolism Present on Admission: No Exam - Physical Exam Narrative exam: VITAL SIGNS: Reviewed. GENERAL: The patient appeared well nourished and normally developed. Vital signs as documented. HEAD: No signs of head trauma. EYES: Pupils are equal. Extraocular motions intact. EARS: Hearing grossly intact. MOUTH: Oropharynx is normal. NECK: No adenopathy, no JVD. CHEST: Chest with clear breath sounds bilaterally. No wheezes, rales, or rhonchi. CARDIAC: Regular rate and rhythm. S1 and S2, without murmurs, gallops, or rubs. VASCULAR: No Edema. Peripheral pulses normal and equal in all extremities. ABDOMEN: Soft, without detectable tenderness. No sign of distention. No rebound or guarding, and no masses palpated. Bowel Sounds normal. MUSCULOSKELETAL: Good range of motion of all major joints. Extremities without clubbing, cyanosis or edema. NEUROLOGIC EXAM: Alert and oriented x 3. No focal sensory or strength deficits. Speech normal. Follows commands. PSYCHIATRIC: Mood normal. SKIN: No rash or lesions. - Constitutional Vitals: Temp Pulse Resp BP Pulse Ox 98.1 F 92 H 20 144/89 98 05/04/16 21:43 05/04/16 22:35 05/05/16 03:35 05/04/16 22:35 05/05/16 08:08 Plan Activity: advance as tolerated, fall precautions Diet: renal Special Instructions: record daily BP diary Additional Instructions: must be complaint with dialysis Follow up with: PRIMARY CAREMD [Primary Care Provider] - 3-5 Days KATELIN ALCANTARA MD [Staff Physician] - 7 Days Prescriptions: Carvedilol [Coreg] 3.125 mg PO BID #60 tablet
[2016-05-05 09:54] LABS: BUN/Creatinine Ratio 7.95; Calcium 7.8 mg/dL (8.4-10.2); Chloride 94.7 mmol/L (98-107); Potassium 5.4 mmol/L (3.6-5.0)
[2016-05-05] MEDS: HEPARIN SUB-Q SCH (10:00)
[2016-05-05] MEDS: PEPCID PO SCH (10:30)
[2016-05-05] MEDS ORDERED: NACL 0.9 (PRIMING MACHINE ONLY DIALYSIS) MC ONE (11:54)
[2016-05-05] MEDS: DUONEB 0.5 MG-3 MG/3 ML SOLN IH SCH ×4 (12:23→21:43)
[2016-05-05] MEDS ORDERED: DELTASONE PO SCH (12:30)
[2016-05-05] MEDS: DELTASONE PO SCH (18:39)
[2016-05-05] MEDS: COREG PO SCH (18:40)
[2016-05-05] MEDS: BABY ASPIRIN PO SCH (18:40)
[2016-05-05] MEDS ORDERED: LEVAQUIN PO SCH (22:00)
[2016-05-06] MEDS: ZOFRAN IV PRN ×3 (00:16→21:25)
[2016-05-06] MEDS: PEPCID PO SCH ×3 (00:16→22:30)
[2016-05-06] MEDS: DELTASONE PO SCH ×3 (00:17→22:31)
[2016-05-06] MEDS: COREG PO SCH ×3 (00:18→22:31)
[2016-05-06] MEDS: APRESOLINE PO SCH ×4 (00:19→22:32)
[2016-05-06] MEDS: DILAUDID IV PRN ×2 (00:19→04:20)
[2016-05-06] MEDS: HEPARIN SUB-Q SCH ×3 (00:21→22:34)
[2016-05-06] MEDS: ZEMPLAR PO SCH (03:34)
[2016-05-06] MEDS: RENVELA PO SCH ×3 (08:30→17:42)
--- NOTE | 2016-05-06 08:46 | Progress Note ---
Assessment and Plan Assessment and plan: This is a 50-year-old Afro-Kyrgy[place] female presents to the emergency department by EMS with complaint of continued shortness of breath and missing dialysis. Patient has had recurrent admissions in the hospital for the same. She informs me that her Medicaid had not kicked him out so she could not get a ride to her dialysis center. During my examination of her the patient got very short and upset about trying to get more information from her about her condition. The patient was just admitted to the hospital and discharged after being diagnosed with pneumonia and she was recently sent home on antibiotics and says that the "pills are not working." The patient is usually Saturday, , Saturday dialysis but says that she was getting it on Saturday, Saturday, Saturday in the hospital. Her tire specialist is a Dr. Hodges or Emil but she has not seen them regarding her symptoms. She does not have a primary care doctor. She complains of worsening of the shortness breath with exertion and says that she was unable to make it back to her house or to the bus stop to get to the dialysis clinic. She has a past medical history of CHF, lupus, COPD, diabetes, hypertension. She has not taken anything for symptoms prior to presentation. The patient says she is supposed to be in oxygen 24 hours a day but does not currently have any. She has had previous cardiac work although was negative with normal ejection fraction. * Acute on chronic hypoxic respiratory failure * Volume overload secondary to missed hemodialysis * Bilateral infiltrates likely secondary to volume overload doubt pneumonia * End-stage renal disease * Severe hyperkalemia * Hypertension * Noncompliance * Pulmonary hypertension * SLD * HX OF substance abuse * Homeless * NSTEMI type 2-secondary to renal disease Plan: * improved symptomatically, potassium also improved. * Tanya Dormitory Counselor, will dialyse today then Discharge * Patient refused to be discharged, wants to wait till morning. * Clinically she appears to be improving * Dormitory Counselor tried to get a closer facility for the patient's for dialysis but nobody would take her due to her prior behaviors. * Cardiology input noted and stable * Extensive counselling with the patient about improving compliance. She felt irate but states that she understands. * continueon Beta chrissy, ASA, statin. * Recommend repeat Chest xray in 5 weeks * DVT/GI History Interval history: Follow-up shortness of breath, abdominal pain Patient seen and examined this morning in no acute distress reports improvement in symptoms. "its just my head, i need to get it right, its been three months trying to get my medicaid straight". Denies any chest pain, nausea, vomiting, diarrhea No fever noted blood pressure controlled No adverse events reported to me by nursing staff Hospitalist Physical - Physical exam Narrative exam: VITAL SIGNS: Reviewed. GENERAL: The patient appeared well nourished and normally developed. Vital signs as documented. HEAD: No signs of head trauma. EYES: Pupils are equal. Extraocular motions intact. EARS: Hearing grossly intact. MOUTH: Oropharynx is normal. NECK: No adenopathy, no JVD. CHEST: Chest with clear breath sounds bilaterally. No wheezes, rales, or rhonchi. CARDIAC: Regular rate and rhythm. S1 and S2, without murmurs, gallops, or rubs. VASCULAR: No Edema. Peripheral pulses normal and equal in all extremities. ABDOMEN: Soft, without detectable tenderness. No sign of distention. No rebound or guarding, and no masses palpated. Bowel Sounds normal. MUSCULOSKELETAL: Good range of motion of all major joints. Extremities without clubbing, cyanosis or edema. NEUROLOGIC EXAM: Alert and oriented x 3. No focal sensory or strength deficits. Speech normal. Follows commands. PSYCHIATRIC: Mood normal. SKIN: No rash or lesions. - Constitutional Vitals: Temp Pulse Resp BP Pulse Ox 98.7 F 84 20 121/63 95 05/05/16 23:30 05/06/16 06:31 05/06/16 04:20 05/06/16 06:31 05/05/16 23:30 General appearance: Present: no acute distress, well-nourished Results - Labs CBC & Chem 7: 05/04/16 10:56 05/05/16 09:28 Labs: Laboratory Last Values WBC 4.6 K/mm3 (4.5-11.0) 05/04/16 10:56 RBC 3.29 M/mm3 (3.65-5.03) L 05/04/16 10:56 Hgb 10.2 gm/dl (10.1-14.3) 05/04/16 10:56 Hct 31.8 % (30.3-42.9) D 05/04/16 10:56 MCV 97 fl (79-97) 05/04/16 10:56 MCH 31 pg (28-32) 05/04/16 10:56 MCHC 32 % (30-34) 05/04/16 10:56 RDW 20.0 % (13.2-15.2) H 05/04/16 10:56 Plt Count 172 K/mm3 (140-440) 05/04/16 10:56 Lymph % (Auto) 9.3 % (13.4-35.0) L 05/04/16 10:56 [place] % (Auto) 4.8 % (0.0-7.3) 05/04/16 10:56 Eos % (Auto) 0.1 % (0.0-4.3) 05/04/16 10:56 Baso % (Auto) 0.2 % (0.0-1.8) 05/04/16 10:56 Lymph # 0.4 K/mm3 (1.2-5.4) L 05/04/16 10:56 [place] # 0.2 K/mm3 (0.0-0.8) 05/04/16 10:56 Eos # 0.0 K/mm3 (0.0-0.4) 05/04/16 10:56 Baso # 0.0 K/mm3 (0.0-0.1) 05/04/16 10:56 Seg Neutrophils % 85.6 % (40.0-70.0) H 05/04/16 10:56 Seg Neutrophils # 4.0 K/mm3 (1.8-7.7) 05/04/16 10:56 Sodium 136 mmol/L (137-145) L 05/05/16 09:28 Potassium 5.4 mmol/L (3.6-5.0) H D 05/05/16 09:28 Chloride 94.7 mmol/L (98-107) L 05/05/16 09:28 Carbon Dioxide 22 mmol/L (22-30) 05/05/16 09:28 Anion Gap 25 mmol/L 05/05/16 09:28 BUN 66 mg/dL (7-17) H 05/05/16 09:28 Creatinine 8.3 mg/dL (0.7-1.2) H 05/05/16 09:28 Estimated GFR 6 ml/min 05/05/16 09:28 BUN/Creatinine Ratio 7.95 % 05/05/16 09:28 Glucose 120 mg/dL (65-100) H 05/05/16 09:28 POC Glucose 128 (70-105) H 05/05/16 21:33 Calcium 7.8 mg/dL (8.4-10.2) L 05/05/16 09:28 Total Bilirubin 0.6 mg/dL (0.1-1.2) 05/04/16 10:56 AST 21 units/L (5-40) 05/04/16 10:56 ALT 12 units/L (7-56) 05/04/16 10:56 Alkaline Phosphatase 170 units/L (35-129) H 05/04/16 10:56 Total Creatine Kinase 65 units/L (30-135) 05/05/16 03:20 CK-MB (CK-2) 4.4 ng/mL (0.0-4.0) H 05/05/16 03:20 CK-MB (CK-2) Rel Index 6.7 (0-4) H 05/05/16 03:20 Troponin T 0.100 ng/mL (0.00-0.029) H D 05/05/16 03:20 Total Protein 6.9 g/dL (6.3-8.2) 05/04/16 10:56 Albumin 4.1 g/dL (3.9-5) 05/04/16 10:56 Albumin/Globulin Ratio 1.5 % 05/04/16 10:56 Triglycerides 84 mg/dL (2-149) 05/03/16 15:44 Cholesterol 143 mg/dL (50-199) 05/03/16 15:44 LDL Cholesterol Direct 50 mg/dL (50-130) 05/03/16 15:44 HDL Cholesterol 77 mg/dL (40-59) H 05/03/16 15:44 Cholesterol/HDL Ratio 1.85 % 05/03/16 15:44 HCG, Qual Negative (Negative) 05/03/16 15:44
--- NOTE | 2016-05-06 09:00 | Progress Note ---
Assessment and Plan Volume overload - improved secondary to missed HD ESRD on HD Hyperkalemia Hypertension Pulmonary HTN Elevated troponin, nonspecific secondary for renal disease Normal perfusion persantine thallium 03/2014 Normal LV systolic function by echocardiogram 04/2015 Recommendations: Continue current management Fluid management through HD No clinical findings to suggest ACS Advised compliance with HD Follow-up with [facility] as outpatient. Patient was given contact information Subjective Date of service: 05/06/16 Principal diagnosis: CHF Interval history: Patient is feeling better, shortness of breath has improved Objective Vital Signs Temp Pulse Pulse Pulse Resp BP BP 05/06/16 06:31 84 121/63 05/06/16 04:20 20 05/06/16 00:19 60 20 146/67 05/06/16 00:18 60 146/67 05/05/16 23:30 98.7 F 93 H 20 05/05/16 22:00 20 05/05/16 19:20 99.5 F 101 H 20 05/05/16 15:35 99.3 F 113 H 20 115/80 05/05/16 13:50 98.3 F 80 18 140/70 05/05/16 13:35 80 138/74 05/05/16 13:15 83 132/76 05/05/16 13:00 82 130/68 05/05/16 12:45 85 137/76 05/05/16 12:30 86 143/69 05/05/16 12:15 90 135/77 05/05/16 12:00 94 H 121/70 05/05/16 11:45 85 126/75 05/05/16 11:30 86 124/61 05/05/16 11:15 85 130/72 05/05/16 11:00 84 126/73 05/05/16 10:45 81 125/66 05/05/16 10:35 98.0 F 84 18 132/74 BP Pulse Ox 05/06/16 06:31 05/06/16 04:20 05/06/16 00:19 05/06/16 00:18 05/05/16 23:30 145/67 95 05/05/16 22:00 05/05/16 19:20 129/76 99 05/05/16 15:35 05/05/16 13:50 05/05/16 13:35 05/05/16 13:15 05/05/16 13:00 05/05/16 12:45 05/05/16 12:30 05/05/16 12:15 05/05/16 12:00 05/05/16 11:45 05/05/16 11:30 05/05/16 11:15 05/05/16 11:00 05/05/16 10:45 05/05/16 10:35 - Physical Examination HEENT: Positive: PERRL Neck: Positive: neck supple, trachea midline Cardiac: Positive: Reg Rate and Rhythm Lungs: Positive: Normal Exam Neuro: Positive: Grossly Intact Extremities: Absent: edema - Labs and Meds Comprehensive Metabolic Panel 05/05/16 Range/Units 09:28 Sodium 136 L (137-145) mmol/L Potassium 5.4 H D (3.6-5.0) mmol/L Chloride 94.7 L (98-107) mmol/L Carbon Dioxide 22 (22-30) mmol/L BUN 66 H (7-17) mg/dL Creatinine 8.3 H (0.7-1.2) mg/dL Glucose 120 H (65-100) mg/dL Calcium 7.8 L (8.4-10.2) mg/dL - Imaging and Cardiology EKG: report reviewed (sinus tachycardia 100 per minute)
[2016-05-06] MEDS ORDERED: DUONEB 0.5 MG-3 MG/3 ML SOLN IH PRN (09:17)
[2016-05-06] MEDS: DUONEB 0.5 MG-3 MG/3 ML SOLN IH SCH (09:18)
--- NOTE | 2016-05-06 10:05 | Progress Note ---
Assessment and Plan - Patient Problems (1) Hyperkalemia Current Visit: Yes Status: Acute Plan to address problem: Patient is s/p Hemodialysis on 2 consecutive days. Plan to do hemodialysis tomorrow. Patient was counseled regarding low K diet. (2) ESRD (end stage renal disease) Current Visit: Yes Status: Chronic Plan to address problem: Hemodialysis tomorrow. (3) Hypertension Current Visit: Yes Status: Chronic Qualifiers: Hypertension type: essential hypertension Qualified Code(s): I10 - Essential (primary) hypertension Plan to address problem: BP well controlled. (4) Shortness of breath Current Visit: Yes Status: Acute Plan to address problem: Improved. Subjective Date of service: 05/06/16 Principal diagnosis: CHF Interval history: Patient is feeling better. Objective - Vital Signs Vital signs: Vital Signs - 12hr 05/05/16 05/06/16 05/06/16 23:30 00:18 00:19 Temperature 98.7 F Pulse Rate 60 60 Pulse Rate [ 93 H Right] Respiratory 20 20 Rate Blood Pressure 146/67 146/67 Blood Pressure 145/67 [Right Arm] O2 Sat by Pulse 95 Oximetry 05/06/16 05/06/16 05/06/16 04:20 06:31 08:25 Temperature 98.3 F Pulse Rate 84 Pulse Rate [ 86 Right] Respiratory 20 20 Rate Blood Pressure 121/63 Blood Pressure 124/69 [Right Arm] O2 Sat by Pulse 95 Oximetry 05/06/16 08:59 Temperature Pulse Rate Pulse Rate [ Right] Respiratory Rate Blood Pressure Blood Pressure [Right Arm] O2 Sat by Pulse 95 Oximetry - General Appearance General appearance: well-developed, well-nourished, appears stated age, other ( daughter was present in the room, no distress) EENT: PERRL, mucous membranes moist, hearing intact, vision intact Neck: supple Respiratory: Present: Clear to Ascultation Cardiology: regular, S1S2, no murmurs Gastrointestinal: normoactive bowel sounds Integumentary: no rash, warm and dry Neurologic: no focal deficit, no asterixis, alert and oriented x3, CN 3-12 intact Musculoskeletal: other (left arm AVF, no edema) Psychiatric: mood/affect appropriate, cooperative - Lab 05/04/16 10:56 05/05/16 09:28 Most recent lab results Calcium 7.8 mg/dL (8.4-10.2) L 05/05/16 09:28
[2016-05-06] MEDS ORDERED: PROVENTIL IH PRN (10:06)
[2016-05-06] MEDS: NORCO 5/325 PO PRN ×2 (13:28→19:49)
[2016-05-06] MEDS: BENADRYL PO PRN (13:28)
[2016-05-06] MEDS: BABY ASPIRIN PO SCH (13:28)
--- NOTE | 2016-05-06 14:12 | Progress Note ---
Assessment and Plan Assessment and plan: This is a 50-year-old Afro-Honduran female presents to the emergency department by EMS with complaint of continued shortness of breath and missing dialysis. Patient has had recurrent admissions in the hospital for the same. She informs me that her Medicaid had not kicked him out so she could not get a ride to her dialysis center. During my examination of her the patient got very short and upset about trying to get more information from her about her condition. The patient was just admitted to the hospital and discharged after being diagnosed with pneumonia and she was recently sent home on antibiotics and says that the "pills are not working." The patient is usually Saturday, , Saturday dialysis but says that she was getting it on Saturday, Saturday, Saturday in the hospital. Her mechanical artist is a Dr. Hodges or Emil but she has not seen them regarding her symptoms. She does not have a primary care doctor. She complains of worsening of the shortness breath with exertion and says that she was unable to make it back to her house or to the bus stop to get to the dialysis clinic. She has a past medical history of CHF, lupus, COPD, diabetes, hypertension. She has not taken anything for symptoms prior to presentation. The patient says she is supposed to be in oxygen 24 hours a day but does not currently have any. She has had previous cardiac work although was negative with normal ejection fraction. * Acute on chronic hypoxic respiratory failure * Volume overload secondary to missed hemodialysis * Bilateral infiltrates likely secondary to volume overload doubt pneumonia * End-stage renal disease * Severe hyperkalemia * Hypertension * Noncompliance * Pulmonary hypertension * SLD * HX OF substance abuse * Homeless * NSTEMI type 2-secondary to renal disease Plan: * Patient clinically improved and has been discharged. She informs me she has no place to go today and the place she plans to go to tomorrow does not belong to her. case management advised. Clinically from my standpoint patient can be discharged * Tanya Technology Support Analyst, will dialyse today then Discharge * Clinically she appears to be improving * Technology Support Analyst tried to get a closer facility for the patient's for dialysis but nobody would take her due to her prior behaviors. * Cardiology input noted and stable * Extensive counselling with the patient about improving compliance. She felt irate but states that she understands. * continueon Beta chrissy, ASA, statin. * Recommend repeat Chest xray in 5 weeks * DVT/GI History Interval history: Follow-up shortness of breath, abdominal pain Patient seen and examined this morning in no acute distress reports improvement in symptoms. Daughter visits patient no new complaints. Denies any chest pain, nausea, vomiting, diarrhea No fever noted blood pressure controlled No adverse events reported to me by nursing staff Hospitalist Physical - Physical exam Narrative exam: VITAL SIGNS: Reviewed. GENERAL: The patient appeared well nourished and normally developed. Vital signs as documented. HEAD: No signs of head trauma. EYES: Pupils are equal. Extraocular motions intact. EARS: Hearing grossly intact. MOUTH: Oropharynx is normal. NECK: No adenopathy, no JVD. CHEST: Chest with clear breath sounds bilaterally. No wheezes, rales, or rhonchi. CARDIAC: Regular rate and rhythm. S1 and S2, without murmurs, gallops, or rubs. VASCULAR: No Edema. Peripheral pulses normal and equal in all extremities. ABDOMEN: Soft, without detectable tenderness. No sign of distention. No rebound or guarding, and no masses palpated. Bowel Sounds normal. MUSCULOSKELETAL: Good range of motion of all major joints. Extremities without clubbing, cyanosis or edema. NEUROLOGIC EXAM: Alert and oriented x 3. No focal sensory or strength deficits. Speech normal. Follows commands. PSYCHIATRIC: Mood normal. SKIN: No rash or lesions. - Constitutional Vitals: Temp Pulse Resp BP Pulse Ox 98.3 F 86 20 124/69 95 05/06/16 08:25 05/06/16 08:25 05/06/16 08:25 05/06/16 08:25 05/06/16 08:59 General appearance: Present: no acute distress, well-nourished Results - Labs CBC & Chem 7: 05/04/16 10:56 05/05/16 09:28 Labs: Laboratory Last Values WBC 4.6 K/mm3 (4.5-11.0) 05/04/16 10:56 RBC 3.29 M/mm3 (3.65-5.03) L 05/04/16 10:56 Hgb 10.2 gm/dl (10.1-14.3) 05/04/16 10:56 Hct 31.8 % (30.3-42.9) D 05/04/16 10:56 MCV 97 fl (79-97) 05/04/16 10:56 MCH 31 pg (28-32) 05/04/16 10:56 MCHC 32 % (30-34) 05/04/16 10:56 RDW 20.0 % (13.2-15.2) H 05/04/16 10:56 Plt Count 172 K/mm3 (140-440) 05/04/16 10:56 Lymph % (Auto) 9.3 % (13.4-35.0) L 05/04/16 10:56 [place] % (Auto) 4.8 % (0.0-7.3) 05/04/16 10:56 Eos % (Auto) 0.1 % (0.0-4.3) 05/04/16 10:56 Baso % (Auto) 0.2 % (0.0-1.8) 05/04/16 10:56 Lymph # 0.4 K/mm3 (1.2-5.4) L 05/04/16 10:56 [place] # 0.2 K/mm3 (0.0-0.8) 05/04/16 10:56 Eos # 0.0 K/mm3 (0.0-0.4) 05/04/16 10:56 Baso # 0.0 K/mm3 (0.0-0.1) 05/04/16 10:56 Seg Neutrophils % 85.6 % (40.0-70.0) H 05/04/16 10:56 Seg Neutrophils # 4.0 K/mm3 (1.8-7.7) 05/04/16 10:56 Sodium 136 mmol/L (137-145) L 05/05/16 09:28 Potassium 5.4 mmol/L (3.6-5.0) H D 05/05/16 09:28 Chloride 94.7 mmol/L (98-107) L 05/05/16 09:28 Carbon Dioxide 22 mmol/L (22-30) 05/05/16 09:28 Anion Gap 25 mmol/L 05/05/16 09:28 BUN 66 mg/dL (7-17) H 05/05/16 09:28 Creatinine 8.3 mg/dL (0.7-1.2) H 05/05/16 09:28 Estimated GFR 6 ml/min 05/05/16 09:28 BUN/Creatinine Ratio 7.95 % 05/05/16 09:28 Glucose 120 mg/dL (65-100) H 05/05/16 09:28 POC Glucose 128 (70-105) H 05/05/16 21:33 Calcium 7.8 mg/dL (8.4-10.2) L 05/05/16 09:28 Total Bilirubin 0.6 mg/dL (0.1-1.2) 05/04/16 10:56 AST 21 units/L (5-40) 05/04/16 10:56 ALT 12 units/L (7-56) 05/04/16 10:56 Alkaline Phosphatase 170 units/L (35-129) H 05/04/16 10:56 Total Creatine Kinase 65 units/L (30-135) 05/05/16 03:20 CK-MB (CK-2) 4.4 ng/mL (0.0-4.0) H 05/05/16 03:20 CK-MB (CK-2) Rel Index 6.7 (0-4) H 05/05/16 03:20 Troponin T 0.100 ng/mL (0.00-0.029) H D 05/05/16 03:20 Total Protein 6.9 g/dL (6.3-8.2) 05/04/16 10:56 Albumin 4.1 g/dL (3.9-5) 05/04/16 10:56 Albumin/Globulin Ratio 1.5 % 05/04/16 10:56 Triglycerides 84 mg/dL (2-149) 05/03/16 15:44 Cholesterol 143 mg/dL (50-199) 05/03/16 15:44 LDL Cholesterol Direct 50 mg/dL (50-130) 05/03/16 15:44 HDL Cholesterol 77 mg/dL (40-59) H 05/03/16 15:44 Cholesterol/HDL Ratio 1.85 % 05/03/16 15:44 HCG, Qual Negative (Negative) 05/03/16 15:44
[2016-05-06 15:26] LABS: BUN/Creatinine Ratio 7.68; Calcium 7.5 mg/dL (8.4-10.2); Chloride 93.9 mmol/L (98-107); Potassium 4.6 mmol/L (3.6-5.0)
[2016-05-07] MEDS: ZOFRAN IV PRN (03:44)
[2016-05-07] MEDS: NORCO 5/325 PO PRN (03:44)
[2016-05-07] MEDS: APRESOLINE PO SCH ×2 (06:23→15:26)
[2016-05-07 07:54] LABS: BUN/Creatinine Ratio 8.02; Calcium 7.7 mg/dL (8.4-10.2); Chloride 97.6 mmol/L (98-107)
[2016-05-07 08:24] LABS: Potassium 6.2 mmol/L (3.6-5.0)
[2016-05-07] MEDS: RENVELA PO SCH ×2 (08:51→12:34)
[2016-05-07] MEDS ORDERED: MORPHINE IV ONE (09:07)
[2016-05-07] MEDS ORDERED: NACL 0.9% 100 ML IV PRN (09:24)
[2016-05-07] MEDS: PEPCID PO SCH (09:29)
[2016-05-07] MEDS: BABY ASPIRIN PO SCH (09:29)
[2016-05-07] MEDS: DELTASONE PO SCH (09:29)
--- NOTE | 2016-05-07 09:36 | Progress Note ---
Assessment and Plan Volume overload likely secondary to missed HD ESRD on HD Hyperkalemia Hypertension Pulmonary HTN Elevated troponin, nonspecific likely secondary for renal disease Normal perfusion persantine thallium 03/2014 Normal LV systolic function by echocardiogram 04/2015 Recommendations: Fluid management through HD. Conservative cardiac management. Subjective Date of service: 05/07/16 Principal diagnosis: CHF Interval history: Patient has no complaints. Objective Vital Signs Temp Pulse Pulse Pulse Pulse Resp Resp 05/07/16 09:03 95 H 22 05/07/16 07:00 98.4 F 77 16 05/07/16 03:44 18 05/06/16 22:32 92 H 05/06/16 22:31 92 H 05/06/16 22:00 92 H 18 05/06/16 19:49 18 BP BP Pulse Ox 05/07/16 09:03 05/07/16 07:00 159/85 97 05/07/16 03:44 05/06/16 22:32 146/73 05/06/16 22:31 146/73 05/06/16 22:00 05/06/16 19:49 - Physical Examination General: No Apparent Distress HEENT: Positive: PERRL Neck: Positive: trachea midline Cardiac: Positive: Reg Rate and Rhythm Lungs: Positive: Decreased Breath Sounds Neuro: Positive: Grossly Intact Extremities: Absent: edema - Labs and Meds Comprehensive Metabolic Panel 05/06/16 05/07/16 Range/Units 14:50 07:11 Sodium 137 138 (137-145) mmol/L Potassium 4.6 6.2 H* D (3.6-5.0) mmol/L Chloride 93.9 L 97.6 L (98-107) mmol/L Carbon Dioxide 26 24 (22-30) mmol/L BUN 53 H 65 H (7-17) mg/dL Creatinine 6.9 H 8.1 H (0.7-1.2) mg/dL Glucose 106 H 110 H (65-100) mg/dL Calcium 7.5 L 7.7 L (8.4-10.2) mg/dL - Imaging and Cardiology EKG: report reviewed (sinus tachycardia 100 per minute)
[2016-05-07] MEDS: COREG PO SCH (10:00)
[2016-05-07] MEDS ORDERED: BENADRYL IV ONE (10:36)
[2016-05-07] MEDS: HEPARIN SUB-Q SCH (12:34)
--- NOTE | 2016-05-07 13:00 | Progress Note ---
Assessment and Plan - Patient Problems (1) Hyperkalemia Current Visit: Yes Status: Acute Plan to address problem: Hemodialysis with 1K for first 2 hrs. Low K diet. (2) ESRD (end stage renal disease) Current Visit: Yes Status: Chronic Plan to address problem: Continue hemodialysis three times a week. (3) Hypertension Current Visit: Yes Status: Chronic Qualifiers: Hypertension type: essential hypertension Qualified Code(s): I10 - Essential (primary) hypertension Plan to address problem: BP well controlled. (4) Shortness of breath Current Visit: Yes Status: Acute Plan to address problem: Improved. Subjective Date of service: 05/07/16 Principal diagnosis: CHF Interval history: Patient was seen and examined during hemodialysis. Objective - Vital Signs Vital signs: Vital Signs - 12hr 05/07/16 05/07/16 05/07/16 03:44 07:00 09:03 Temperature 98.4 F Pulse Rate Pulse Rate [ 95 H Anterior Bilateral Throughout] Pulse Rate [ 77 Right] Respiratory 18 16 Rate Respiratory 22 Rate [Anterior Bilateral Throughout] Blood Pressure Blood Pressure 159/85 [Right Arm] O2 Sat by Pulse 97 Oximetry 05/07/16 05/07/16 05/07/16 09:15 10:37 10:45 Temperature 98.2 F Pulse Rate 86 84 Pulse Rate [ 94 H Anterior Bilateral Throughout] Pulse Rate [ Right] Respiratory 22 Rate Respiratory 22 Rate [Anterior Bilateral Throughout] Blood Pressure 132/74 136/80 Blood Pressure [Right Arm] O2 Sat by Pulse Oximetry 05/07/16 05/07/16 05/07/16 11:00 11:15 11:30 Temperature Pulse Rate 90 86 84 Pulse Rate [ Anterior Bilateral Throughout] Pulse Rate [ Right] Respiratory Rate Respiratory Rate [Anterior Bilateral Throughout] Blood Pressure 146/76 126/66 122/66 Blood Pressure [Right Arm] O2 Sat by Pulse Oximetry 05/07/16 05/07/16 05/07/16 11:45 12:00 12:15 Temperature Pulse Rate 84 86 84 Pulse Rate [ Anterior Bilateral Throughout] Pulse Rate [ Right] Respiratory Rate Respiratory Rate [Anterior Bilateral Throughout] Blood Pressure 124/64 126/64 122/64 Blood Pressure [Right Arm] O2 Sat by Pulse Oximetry - General Appearance General appearance: well-developed, well-nourished, appears stated age, other ( no distress) EENT: PERRL, mucous membranes moist, hearing intact, vision intact Neck: supple Respiratory: Present: Clear to Ascultation Cardiology: regular, S1S2, no murmurs Gastrointestinal: normoactive bowel sounds, no tenderness, no distended Integumentary: no rash, warm and dry Neurologic: no focal deficit, no asterixis, alert and oriented x3, CN 3-12 intact Musculoskeletal: other (no edema, left arm AVF) Psychiatric: mood/affect appropriate, cooperative - Lab 05/04/16 10:56 05/07/16 07:11 Most recent lab results Calcium 7.7 mg/dL (8.4-10.2) L 05/07/16 07:11
[2016-05-07 17:17] VITALS: BP 151/87
== END 2016-05-07 17:51 | disposition home or self-care (01) | DRG 280 ==
LOC: ED 13:18 → 3A 21:18
PROVIDERS: ADMIT Internal Medicine; ATTEND Internal Medicine
PROC: 5A1D60Z (ICD-10-PCS; principal; 2016-05-03)
DX: I13.2 Hypertensive heart and chronic kidney disease with heart failure and with stage 5 chronic kidney disease, or end stage renal disease (principal); J96.21 Acute and chronic respiratory failure with hypoxia; I21.4 Non-ST elevation (NSTEMI) myocardial infarction; N18.6 End stage renal disease; I50.9 Heart failure, unspecified; E11.22 Type 2 diabetes mellitus with diabetic chronic kidney disease; M19.90 Unspecified osteoarthritis, unspecified site; F31.9 Bipolar disorder, unspecified; J45.909 Unspecified asthma, uncomplicated; J44.9 Chronic obstructive pulmonary disease, unspecified; F17.200 Nicotine dependence, unspecified, uncomplicated; F14.90 Cocaine use, unspecified, uncomplicated; F12.90 Cannabis use, unspecified, uncomplicated; F15.90 Other stimulant use, unspecified, uncomplicated; Z60.2 Problems related to living alone; I27.2 Other secondary pulmonary hypertension; E87.5 Hyperkalemia; Z91.19 Patient's noncompliance with other medical treatment and regimen; Z99.2 Dependence on renal dialysis; Z91.15 Patient's noncompliance with renal dialysis; Z91.018 Allergy to other foods; Z88.8 Allergy status to other drugs, medicaments and biological substances; Z72.89 Other problems related to lifestyle; Z59.0 Homelessness
CPT/HCPCS: 36415; 71020; 80048; 80053; 80061; 82550; 82553; 82962; 84484; 84703; 85025; 87040; 93005; 93010; 94640; 96365; 96366; 96375; 99406; J1170; J1200; J1644; J1956; J2270; J2405; J2930; J7030; J7512

== ENCOUNTER 2016-06-05 14:40 | Emergency (ER) | payer MEDICARE ==
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
[2016-06-05 17:20] LABS: Hematocrit 36.4 % (30.3-42.9); Hemoglobin 11.8 gm/dl (10.1-14.3); Mean Corpuscular HGB Conc 32 % (30-34); Mean Corpuscular Hemoglobin 32 pg (28-32); Mean Corpuscular Volume 98 fl (79-97)
[2016-06-05 17:21] LABS: Basophils % (Auto) 1.5 % (0.0-1.8); Eosinophils % (Auto) 7.3 % (0.0-4.3); Platelet Count 171 K/mm3 (140-440); Red Cell Distribution Width 18.8 % (13.2-15.2)
[2016-06-05 17:26] LABS: Albumin 4.9 g/dL (3.9-5); Albumin/Globulin Ratio 1.4 %; BUN/Creatinine Ratio 4.86; Bilirubin,Total 0.9 mg/dL (0.1-1.2); Calcium 9.7 mg/dL (8.4-10.2); Chloride 90.4 mmol/L (98-107); Total Protein 8.4 g/dL (6.3-8.2)
[2016-06-05 18:08] LABS: Potassium 5.4 mmol/L (3.6-5.0)
[2016-06-06] MEDS ORDERED: KIONEX PO ONE (00:26)
[2016-06-06] MEDS ORDERED: ZITHROMAX PO ONE (00:27)
[2016-06-06] MEDS ORDERED: ROCEPHIN IM ONE (00:27)
[2016-06-06] MEDS ORDERED: XYLOCAINE 1% MPF 5 mL INFILTRATI ONE (00:27)
[2016-06-06] MEDS ORDERED: DIFLUCAN PO ONE (00:27)
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
[2016-06-06] MEDS ORDERED: FLAGYL PO ONE (02:23)
[2016-06-06 03:31] VITALS: BP 149/78
== END 2016-06-06 03:30 | disposition home or self-care (01) ==
LOC: ED 14:40
DX: B37.3 Candidiasis of vulva and vagina (principal); E87.5 Hyperkalemia; I12.0 Hypertensive chronic kidney disease with stage 5 chronic kidney disease or end stage renal disease; N18.6 End stage renal disease; F14.10 Cocaine abuse, uncomplicated; T76.21XA Adult sexual abuse, suspected, initial encounter; I50.9 Heart failure, unspecified; E11.9 Type 2 diabetes mellitus without complications; M19.90 Unspecified osteoarthritis, unspecified site; R56.9 Unspecified convulsions; F31.9 Bipolar disorder, unspecified; F41.9 Anxiety disorder, unspecified; J45.909 Unspecified asthma, uncomplicated; J44.9 Chronic obstructive pulmonary disease, unspecified; F17.200 Nicotine dependence, unspecified, uncomplicated; F12.10 Cannabis abuse, uncomplicated; Z79.82 Long term (current) use of aspirin; Z91.018 Allergy to other foods; Z88.8 Allergy status to other drugs, medicaments and biological substances
CPT/HCPCS: 36415; 80053; 85025; 87210; 87591; 96372; 99284; J0696

== ENCOUNTER 2016-06-06 08:11 | Emergency (ER) | payer MEDICARE ==
[2016-06-06 09:08] LABS: BUN/Creatinine Ratio 4.46; Calcium 9.3 mg/dL (8.4-10.2); Chloride 98.3 mmol/L (98-107); Potassium 4.6 mmol/L (3.6-5.0)
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
--- NOTE | 2016-06-06 15:43 | XRay Report ---
PA and lateral chest: Shortness of breath. Comparison is made to prior studies dating back to June 2015. Bilateral increased bronchoalveolar opacities are identified with a greater degree of opacity in the lower lobe compared to the more diffusely distributed findings in the left lung. There is blunting of the costophrenic angle and thickening of the basilar lateral pleura. The cardiac contour may be slightly enlarged but there is no vascular congestion. These findings are all unchanged. Impressions: Chronic lung and pleural disease. This most likely represents some type of fibrosis. No evidence of cardiac decompensation.
[2016-06-06 16:25] VITALS: BP 132/94
--- NOTE | 2016-06-06 16:30 | Emergency Department Report ---
ED General Adult HPI - General Chief complaint: Recheck/Abnormal Lab/Rx Stated complaint: DIALYSIS Time Seen by Provider: 06/06/16 13:55 Source: patient Mode of arrival: Ambulatory Limitations: No Limitations - History of Present Illness Initial comments: 50-year-old female with a past medical history of CHF, COPD, diabetes, hypertension, bipolar, end-stage renal disease on dialysis, lupus, and substance abuse presents to the hospital requesting her scheduled dialysis. Patient receives dialysis Saturday, Saturday, and Saturday. She is due for dialysis today. She was recently discharged from her dialysis clinic. Last dialysis was on Saturday 2 days ago at [facility]. Patient was seen by me last night for vaginal complaints and requested to stay until the morning since she was homeless. Patient had mild hyperkalemia for which she received Kayexalate. Case was discussed with potato peeler production grip who agreed patient did not meet criteria for emergent dialysis. Patient voices understanding of this. After being allowed to sleep in the ER overnight she signed back in with a complaint of requesting dialysis. Patient does not appear to be in acute distress and has no shortness of breath. No pain reported at this time. Severity scale (0 -10): 0 - Related Data Previous Rx's Medication Instructions Recorded Last Taken Type Acyclovir [Acyclovir Ointment] 1 applic TP 5XD tube 05/07/15 06/04/16 Rx Ipratropium/Albuterol Sulfate 1 spray IH QID #1 aer.w.adap 04/30/16 06/04/16 Rx [Combivent Respimat] Aspirin [Aspirin BABY CHEW TAB] 81 mg PO QDAY #30 tab.chew 05/16/16 06/04/16 Rx Carvedilol [Coreg] 3.125 mg PO BID #60 tablet 05/16/16 06/04/16 Rx Famotidine [Pepcid] 10 mg PO BID #30 tablet 05/16/16 06/04/16 Rx Paricalcitol [Zemplar] 2 mcg PO TuThSa #30 capsule 05/16/16 06/04/16 Rx Sevelamer HCl [Renagel] 800 mg PO TIDWM #30 tablet 05/16/16 06/04/16 Rx Allergies Allergy/AdvReac Type Severity Reaction Status Date / Time enalapril maleate Allergy Angioedema Verified 06/06/16 08:26 [From Vasotec] enalaprilat dihydrate Allergy Angioedema Verified 06/06/16 08:26 [From Vasotec] peach AdvReac Nausea Verified 06/06/16 08:26 tomato AdvReac Nausea Verified 06/06/16 08:26 ED Review of Systems ROS: Stated complaint: DIALYSIS Other details as noted in HPI Comment: All other systems reviewed and negative Other: Constitutional: No fevers chills Eyes: No eye pain visual changes ENT: No ear pain or throat pain Neck: Denies pain Respiratory: Denies cough wheezing shortness of breath Cardiovascular: Denies chest pain, palpitations, syncope GI: Denies abdominal pain, nausea, vomiting, diarrhea Musculoskeletal: Denies back pain Skin: Denies rash, lesions, erythema Neurologic: Denies headache, numbness, weakness Psychiatric: Denies suicidal ideation, hallucinations ED Past Medical Hx - Past Medical History Hx Hypertension: Yes Hx Heart Attack/AMI: No Hx Congestive Heart Failure: Yes Hx Diabetes: Yes Hx Deep Vein Thrombosis: No Hx Pulmonary Embolism: No Hx Liver Disease: No Hx Renal Disease: Yes (hemodialysis -W-) Hx Arthritis: Yes Hx Seizures: Yes Hx Kidney Stones: No Hx Psychiatric Treatment: Yes (bipolar, anxiety) Hx Asthma: Yes Hx COPD: Yes Hx Tuberculosis: No Hx Dementia: No Hx HIV: No Additional medical history: lupus (SLE). thyroid (patient uncertain if she has hyper- or hypo-). chest tube. dialysis (graft left upper arm). SUBSTANCE ABUSE. HERPES. RESPIRATORY FAILURE - Surgical History Hx Coronary Stent: No Hx Open Heart Surgery: No Hx Pacemaker: No Hx Internal Defibrillator: No Hx Cholecystectomy: No Hx Appendectomy: No Hx Breast Surgery: No Additional Surgical History: graft left arm. D & C. permacaths - Social History Smoking Status: Current Some Day Smoker Substance Use Type: Alcohol, Cocaine, Marijuana, Prescribed - Medications Home Medications: Home Medications Medication Instructions Recorded Confirmed Last Taken Type Acyclovir [Acyclovir Ointment] 1 applic TP 5XD tube 05/07/15 06/05/16 06/04/16 Rx Ipratropium/Albuterol Sulfate 1 spray IH QID #1 aer.w.adap 04/30/16 06/05/16 Rx [Combivent Respimat] Aspirin [Aspirin BABY CHEW TAB] 81 mg PO QDAY #30 tab.chew 05/16/16 06/05/16 Rx Carvedilol [Coreg] 3.125 mg PO BID #60 tablet 05/16/16 06/05/16 06/04/16 Rx Famotidine [Pepcid] 10 mg PO BID #30 tablet 05/16/16 06/05/16 06/04/16 Rx Paricalcitol [Zemplar] 2 mcg PO TuThSa #30 capsule 05/16/16 06/05/16 06/04/16 Rx Sevelamer HCl [Renagel] 800 mg PO TIDWM #30 tablet 05/16/16 06/05/16 06/04/16 Rx ED Physical Exam - General Limitations: No Limitations - Other Other exam information: General: No limitations, patient is alert in no acute distress Head exam: Atraumatic, normocephalic Eyes exam: Normal appearance ENT: Moist mucous membrane, normal oropharynx Neck exam: Normal inspection, full range of motion, no meningismus nontender Respiratory exam: Mild diminished breath sounds bilaterally Cardiovascular: Normal rate and rhythm, systolic murmur Abdomen: Soft, nondistended, and nontender, with normal bowel sounds, no rebound, or guarding Extremity: Full range of motion normal inspection no deformity, mild lower extremity edema Back: Normal Inspection, full range of motion, no tenderness Neurologic: Alert, oriented x3, cranial nerves intact, no motor or sensory deficit Psychiatric: normal affect, normal mood Skin: Warm, dry, intact ED Course Vital Signs 06/06/16 06/06/16 06/06/16 08:27 16:21 16:25 Temperature 98.2 F Pulse Rate 80 74 Respiratory 16 16 16 Rate Blood Pressure 158/95 Blood Pressure 132/94 [Right] O2 Sat by Pulse 98 98 Oximetry ED Medical Decision Making - Lab Data Result diagrams: 06/06/16 08:33 Lab Results 06/06/16 Range/Units 08:33 Sodium 142 D (137-145) mmol/L Potassium 4.6 (3.6-5.0) mmol/L Chloride 98.3 (98-107) mmol/L Carbon Dioxide 24 (22-30) mmol/L Anion Gap 24 mmol/L BUN 42 H (7-17) mg/dL Creatinine 9.4 H (0.7-1.2) mg/dL Estimated GFR 5 ml/min BUN/Creatinine Ratio 4.46 % Glucose 85 (65-100) mg/dL Calcium 9.3 (8.4-10.2) mg/dL - Radiology Data Radiology results: report reviewed (chest x-ray: Chronic lung disease and fibrosis without cardiac decompensation) - Medical Decision Making Patient has end-stage disease and is scheduled to receive dialysis Saturday, Saturday, and Saturday. Patient was seen by me last night with mild hyperkalemia that since resolved with Kayexalate. Chest x-ray does not show an acute decompensation. Patient does not have any respiratory symptoms. Patient does not meet criteria for emergent dialysis and admission at this time. Once again I discussed the importance of follow-up with her primary dialysis clinic. Patient once again voices understanding and will be discharged - Differential Diagnosis end-stage renal disease disease, hyperkalemia, volume overload Critical Care Time: No Critical care attestation.: If time is entered above; I have spent that time in minutes in the direct care of this critically ill patient, excluding procedure time. ED Disposition Clinical Impression: ESRD (end stage renal disease) on dialysis Disposition: DISCHARGED TO HOME OR SELFCARE Is pt being admited?: No Does the pt Need Aspirin: No Condition: Stable Instructions: End-Stage Kidney Disease (ED) Additional Instructions: Follow back up with your dialysis center for further treatment. You do not meet criteria for admission and emergent dialysis at this time. Referrals: your, kidney MD [Other] - 2-3 Days Time of Disposition: 16:29
== END 2016-06-06 16:30 | disposition home or self-care (01) ==
LOC: ED 08:11
DX: I12.0 Hypertensive chronic kidney disease with stage 5 chronic kidney disease or end stage renal disease (principal); N18.6 End stage renal disease; I50.9 Heart failure, unspecified; E11.9 Type 2 diabetes mellitus without complications; M19.90 Unspecified osteoarthritis, unspecified site; F31.9 Bipolar disorder, unspecified; F41.9 Anxiety disorder, unspecified; J45.909 Unspecified asthma, uncomplicated; J44.9 Chronic obstructive pulmonary disease, unspecified; F17.200 Nicotine dependence, unspecified, uncomplicated; F12.10 Cannabis abuse, uncomplicated; F14.10 Cocaine abuse, uncomplicated; J96.90 Respiratory failure, unspecified, unspecified whether with hypoxia or hypercapnia; Z91.018 Allergy to other foods; Z88.8 Allergy status to other drugs, medicaments and biological substances; Z99.2 Dependence on renal dialysis
CPT/HCPCS: 36415; 71020; 80048

== ENCOUNTER 2016-06-08 11:39 | Inpatient (IN) | payer MEDICARE ==
[2016-06-08 13:32] LABS: Hematocrit 32.1 % (30.3-42.9); Hemoglobin 10.3 gm/dl (10.1-14.3); Mean Corpuscular HGB Conc 32 % (30-34); Mean Corpuscular Hemoglobin 32 pg (28-32); Mean Corpuscular Volume 100 fl (79-97); Red Blood Count 3.21 M/mm3 (3.65-5.03); Red Cell Distribution Width 18.4 % (13.2-15.2); White Blood Count 5.3 K/mm3 (4.5-11.0)
--- NOTE | 2016-06-08 13:34 | XRay Report ---
PA and lateral chest: SOB. Comparison is made to the prior study of June 06. There are chronic bilateral pulmonary opacities with thickening of the right basal pleura. No acute findings or change is noted. The cardiac contour may be slightly enlarged with no vascular congestion. Impressions: Chronic pulmonary and pleural changes. No acute finding.
[2016-06-08 13:42] LABS: Eosinophils % (Auto) 8.1 % (0.0-4.3)
[2016-06-08 14:15] LABS: Albumin/Globulin Ratio 1.3 %; BUN/Creatinine Ratio 5.2; Bilirubin,Total 0.6 mg/dL (0.1-1.2); Calcium 8.5 mg/dL (8.4-10.2); Chloride 93.8 mmol/L (98-107); Potassium 4.9 mmol/L (3.6-5.0); Total Protein 7.2 g/dL (6.3-8.2)
[2016-06-08 14:37] LABS: Basophils % (Manual) 0 % (0.0-1.8); Blastocytes % (Manual) 0 %
[2016-06-08 14:39] LABS: Anisocytosis 1+; Ovalocytes 1+
[2016-06-08 14:40] LABS: Burr Cells Few; Polychromasia Few
[2016-06-08 14:41] LABS: Acanthocytes Few
[2016-06-08 14:42] LABS: Diff Status Complete; Poikilocytosis Few
[2016-06-08 14:45] LABS: Platelet Count 159 K/mm3 (140-440)
--- NOTE | 2016-06-08 19:51 | Emergency Department Report ---
ED General Adult HPI - General Chief complaint: Chest Pain Stated complaint: JUAREZ Time Seen by Provider: 06/08/16 19:31 Source: patient Mode of arrival: Ambulatory Limitations: No Limitations - History of Present Illness Initial comments: 50-year-old female presents to the emergency department complaining of difficulty breathing. Patient states she began having difficulty breathing earlier today. Patient states she was last dialyzed on Saturday. She recently had to move back to this area, and her Medicaid is not active. She has been unable to arrange transportation to dialysis. There are no other complaints. -: Gradual, This morning Severity scale (0 -10): 0 Consistency: constant Improves with: none Worsens with: none Associated Symptoms: shortness of breath Treatments Prior to Arrival: none - Related Data Previous Rx's Medication Instructions Recorded Last Taken Type Acyclovir [Acyclovir Ointment] 1 applic TP 5XD tube 05/07/15 06/04/16 Rx Ipratropium/Albuterol Sulfate 1 spray IH QID #1 aer.w.adap 04/30/16 06/04/16 Rx [Combivent Respimat] Aspirin [Aspirin BABY CHEW TAB] 81 mg PO QDAY #30 tab.chew 05/16/16 06/04/16 Rx Carvedilol [Coreg] 3.125 mg PO BID #60 tablet 05/16/16 06/04/16 Rx Famotidine [Pepcid] 10 mg PO BID #30 tablet 05/16/16 06/04/16 Rx Paricalcitol [Zemplar] 2 mcg PO TuThSa #30 capsule 05/16/16 06/04/16 Rx Sevelamer HCl [Renagel] 800 mg PO TIDWM #30 tablet 05/16/16 06/04/16 Rx Allergies Allergy/AdvReac Type Severity Reaction Status Date / Time enalapril maleate Allergy Angioedema Verified 06/06/16 08:26 [From Vasotec] enalaprilat dihydrate Allergy Angioedema Verified 06/06/16 08:26 [From Vasotec] peach AdvReac Nausea Verified 06/06/16 08:26 tomato AdvReac Nausea Verified 06/06/16 08:26 ED Review of Systems ROS: Stated complaint: JUAREZ Other details as noted in HPI Comment: All other systems reviewed and negative Respiratory: shortness of breath ED Past Medical Hx - Past Medical History Previous Medical History?: Yes Hx Hypertension: Yes Hx Heart Attack/AMI: No Hx Congestive Heart Failure: Yes Hx Diabetes: Yes Hx Deep Vein Thrombosis: No Hx Pulmonary Embolism: No Hx Liver Disease: No Hx Renal Disease: Yes (hemodialysis -W-) Hx Arthritis: Yes Hx Seizures: Yes Hx Kidney Stones: No Hx Psychiatric Treatment: Yes (bipolar, anxiety) Hx Asthma: Yes Hx COPD: Yes Hx Tuberculosis: No Hx Dementia: No Hx HIV: No Additional medical history: lupus (SLE). thyroid (patient uncertain if she has hyper- or hypo-). chest tube. dialysis (graft left upper arm). SUBSTANCE ABUSE. HERPES. RESPIRATORY FAILURE - Surgical History Past Surgical History?: Yes Hx Coronary Stent: No Hx Open Heart Surgery: No Hx Pacemaker: No Hx Internal Defibrillator: No Hx Cholecystectomy: No Hx Appendectomy: No Hx Breast Surgery: No Additional Surgical History: graft left arm. D & C. permacaths - Family History Family history: no significant - Social History Smoking Status: Never Smoker Substance Use Type: None - Medications Home Medications: Home Medications Medication Instructions Recorded Confirmed Last Taken Type Acyclovir [Acyclovir Ointment] 1 applic TP 5XD tube 05/07/15 06/06/16 06/04/16 Rx Ipratropium/Albuterol Sulfate 1 spray IH QID #1 aer.w.adap 04/30/16 06/06/16 Rx [Combivent Respimat] Aspirin [Aspirin BABY CHEW TAB] 81 mg PO QDAY #30 tab.chew 05/16/16 06/06/16 Rx Carvedilol [Coreg] 3.125 mg PO BID #60 tablet 05/16/16 06/06/16 06/04/16 Rx Famotidine [Pepcid] 10 mg PO BID #30 tablet 05/16/16 06/06/16 06/04/16 Rx Paricalcitol [Zemplar] 2 mcg PO TuThSa #30 capsule 05/16/16 06/06/16 06/04/16 Rx Sevelamer HCl [Renagel] 800 mg PO TIDWM #30 tablet 05/16/16 06/06/16 06/04/16 Rx ED Physical Exam - General Limitations: No Limitations General appearance: alert, in no apparent distress - Head Head exam: Present: atraumatic, normocephalic - Eye Eye exam: Present: normal appearance, PERRL, EOMI - ENT ENT exam: Present: normal exam, normal orophraynx, mucous membranes moist - Neck Neck exam: Present: normal inspection, full ROM. Absent: tenderness - Respiratory Respiratory exam: Present: normal lung sounds bilaterally. Absent: respiratory distress - Cardiovascular Cardiovascular Exam: Present: regular rate, normal rhythm, normal heart sounds - GI/Abdominal GI/Abdominal exam: Present: soft, normal bowel sounds. Absent: distended, tenderness - Extremities Exam Extremities exam: Present: normal inspection, full ROM. Absent: tenderness - Back Exam Back exam: Present: normal inspection, full ROM. Absent: tenderness - Neurological Exam Neurological exam: Present: alert, oriented X3. Absent: motor sensory deficit - Skin Skin exam: Present: warm, dry, intact ED Course Vital Signs 06/08/16 06/08/16 12:38 19:22 Temperature 98.1 F Pulse Rate 84 73 Respiratory 16 Rate Blood Pressure 161/90 Blood Pressure 167/79 [Left] O2 Sat by Pulse 96 97 Oximetry ED Medical Decision Making - Lab Data Result diagrams: 06/08/16 12:58 06/08/16 12:58 - EKG Data -: EKG Interpreted by Me EKG shows normal: sinus rhythm, axis, intervals, ST-T waves Rate: normal - EKG Data When compared to previous EKG there are: no significant change Interpretation: unchanged when compared t (05/23/2016), other (loss of precordial R-wave progression) - Radiology Data Radiology results: report reviewed Chest x-ray shows chronic pleural changes. There is no evidence of acute volume overload. - Medical Decision Making Lab and imaging results reviewed and discussed with the patient. I spoke with Dr. Morales, nephrology. Patient is to be admitted by the hospitalist for likely dialysis tomorrow. - Differential Diagnosis volume overload, electrolyte abnormality Critical care attestation.: If time is entered above; I have spent that time in minutes in the direct care of this critically ill patient, excluding procedure time. ED Disposition Clinical Impression: Left sided chest pain, Elevated troponin, End-stage renal disease needing dialysis Disposition: OP ADMITTED IP TO THIS HOSP Is pt being admited?: Yes Condition: Stable Instructions: Chest Pain (ED) Referrals: PRIMARY CARE, [Primary Care Provider] - 3-5 Days Time of Disposition: 19:49
--- NOTE | 2016-06-08 21:05 | History and Physical Report ---
History of Present Illness Chief complaint: My chest feels tight History of present illness: 50 YO Female with HTN, CHF, DM, ESRD on HD(M,W,F), OA, Seizure, Asthma, COPD, SLE, HSV, Polysubstance Abuse, Bipolar, Anxiety presents to ED for evaluation.Patient states that she has experienced shortness of breath for the past 24 hours with worsening symptoms for the past 3 hours. Pt acknowledges missed dialysis, and noncompliance with renal diet. Pt denies fever, chills, CP , Palpitations, NVD, recent ill contacts, syncope, BRBPR, productive cough, or skin rash. - Past History Past Medical History: arthritis, COPD, ESRD, heart failure, hypertension, seizures Past Surgical History: Other (LUE AVF, Permacath, D&C) Social history: single. denies: smoking, alcohol abuse, prescription drug abuse Family history: hypertension Medications and Allergies Allergies Allergy/AdvReac Type Severity Reaction Status Date / Time enalapril maleate Allergy Angioedema Verified 06/06/16 08:26 [From Vasotec] enalaprilat dihydrate Allergy Angioedema Verified 06/06/16 08:26 [From Vasotec] peach AdvReac Nausea Verified 06/06/16 08:26 tomato AdvReac Nausea Verified 06/06/16 08:26 Home Medications Medication Instructions Recorded Confirmed Last Taken Type Acyclovir [Acyclovir Ointment] 1 applic TP 5XD tube 05/07/15 06/08/16 06/04/16 Rx Ipratropium/Albuterol Sulfate 1 spray IH QID #1 aer.w.adap 04/30/16 06/08/16 Rx [Combivent Respimat] Aspirin [Aspirin BABY CHEW TAB] 81 mg PO QDAY #30 tab.chew 05/16/16 06/08/16 Rx Carvedilol [Coreg] 3.125 mg PO BID #60 tablet 05/16/16 06/08/16 06/04/16 Rx Famotidine [Pepcid] 10 mg PO BID #30 tablet 05/16/16 06/08/16 06/04/16 Rx Paricalcitol [Zemplar] 2 mcg PO TuThSa #30 capsule 05/16/16 06/08/16 06/04/16 Rx Sevelamer HCl [Renagel] 800 mg PO TIDWM #30 tablet 05/16/16 06/08/16 06/04/16 Rx Review of Systems All systems: negative Respiratory: shortness of breath Exam - Constitutional Vitals: Temp Pulse Resp BP Pulse Ox 98.1 F 73 16 167/79 97 06/08/16 12:38 06/08/16 19:22 06/08/16 19:22 06/08/16 19:22 06/08/16 19:22 General appearance: Present: mild distress - EENT Eyes: Present: PERRL ENT: hearing intact, clear oral mucosa - Neck Neck: Present: supple, normal ROM - Respiratory Respiratory: bilateral: diminished, rhonchi - Cardiovascular Rhythm: regular Heart Sounds: Present: S1 & S2 - Extremities Extremities: pulses symmetrical, No edema Extremity abnormal: edema Peripheral Pulses: within normal limits - Abdominal General gastrointestinal: Present: soft, non-tender, non-distended, normal bowel sounds Female genitourinary: Present: normal - Integumentary Integumentary: Present: clear, warm, dry - Musculoskeletal Musculoskeletal: gait normal, strength equal bilaterally - Psychiatric Psychiatric: appropriate mood/affect, intact judgment & insight Results - Labs CBC & Chem 7: 06/08/16 12:58 06/08/16 12:58 Labs: Abnormal lab results 06/08/16 06/08/16 06/08/16 Range/Units 12:58 12:58 12:58 RBC 3.21 L (3.65-5.03) M/mm3 MCV 100 H (79-97) fl RDW 18.4 H (13.2-15.2) % Eos % (Auto) 8.1 H (0.0-4.3) % Eosinophils % (Manual) 8.0 H (0.0-4.3) % Lymphocytes # (Manual) 0.8 L (1.2-5.4) K/mm3 Sodium 135 L (137-145) mmol/L Chloride 93.8 L (98-107) mmol/L Carbon Dioxide 18 L (22-30) mmol/L BUN 63 H (7-17) mg/dL Creatinine 12.1 H (0.7-1.2) mg/dL Glucose 128 H (65-100) mg/dL Alkaline Phosphatase 170 H (35-129) units/L Troponin T 0.103 H* (0.00-0.029) ng/mL LDL Cholesterol Direct 47 L (50-130) mg/dL Assessment and Plan - Patient Problems (1) Acute respiratory failure Current Visit: Yes Status: Acute Qualifiers: Respiratory failure complication: R Plan to address problem: supplemental oxygen, nebs, aspiration precautions, dialysis as per nephrology (2) Fluid overload Current Visit: Yes Status: Acute Qualifiers: Hypervolemia type: H Plan to address problem: fluid restriction, renal diet, dialysis as per nephrology, nephrology consulted. (3) Metabolic acidosis Current Visit: Yes Status: Acute Plan to address problem: supportive care, dialysis as per nephrology (4) End-stage renal disease needing dialysis Current Visit: Yes Status: Chronic Plan to address problem: Nephrology consulted, (5) DVT prophylaxis Current Visit: Yes Status: Acute
[2016-06-08] MEDS ORDERED: MILK OF MAGNESIA PO PRN (21:07)
[2016-06-08] MEDS ORDERED: DUONEB 0.5 MG-3 MG/3 ML SOLN IH PRN (21:07)
[2016-06-08] MEDS ORDERED: DULCOLAX PR PRN (21:07)
[2016-06-08] MEDS ORDERED: TYLENOL PO PRN (21:07)
[2016-06-08] MEDS ORDERED: PROVENTIL IH PRN (21:21)
[2016-06-08] MEDS ORDERED: DILAUDID IV ONE (21:25)
[2016-06-08] MEDS ORDERED: BENADRYL IV ONE (21:25)
[2016-06-09] MEDS: ACYCLOVIR TP SCH ×6 (01:40→21:31)
[2016-06-09] MEDS: PEPCID PO SCH ×4 (01:41→21:27)
[2016-06-09] MEDS: COREG PO SCH ×4 (01:41→21:27)
[2016-06-09] MEDS ORDERED: NACL 0.9% 100 ML IV PRN (07:34)
--- NOTE | 2016-06-09 07:34 | Consultation ---
History of Present Illness - Reason for Consult Consult date: 06/09/16 end stage renal disease - History of Present Illness Patient is a 50 YO AAF with history significant for HTN, CHF, Borderline DM, ESRD on HD(M,W,F), OA, Seizure disorder, COPD, SLE, HSV, Polysubstance Abuse, Bipolar, Anxiety and Medical non-compliance presented to ED for evaluation of one day h/o shortness of breath. The symptoms were worse for few hours prior to presentation. Patient was last dialyzed 5 days ago at [facility]. Patient currently doesn't have any assigned outpatient hemodialysis unit as she is extremely non-compliant with treatment. Since I have known her for the past several weeks she almost always in the hospital for hemodialysis treatments. Patient denies CP, dizziness, REID, leg swelling, N, V, D, fever, chills, syncope , cough, or skin rash. Past History Past Medical History: anemia, COPD, diabetes, dialysis, ESRD, heart failure, hypertension, renal failure, seizures Past Surgical History: Other (AVf placement) Social history: , smoking Medications and Allergies Allergies Allergy/AdvReac Type Severity Reaction Status Date / Time enalapril maleate Allergy Angioedema Verified 06/06/16 08:26 [From Vasotec] enalaprilat dihydrate Allergy Angioedema Verified 06/06/16 08:26 [From Vasotec] peach AdvReac Nausea Verified 06/06/16 08:26 tomato AdvReac Nausea Verified 06/06/16 08:26 Home Medications Medication Instructions Recorded Confirmed Last Taken Type Acyclovir [Acyclovir Ointment] 1 applic TP 5XD tube 05/07/15 06/08/16 06/04/16 Rx Ipratropium/Albuterol Sulfate 1 spray IH QID #1 aer.w.adap 04/30/16 06/08/16 Rx [Combivent Respimat] Aspirin [Aspirin BABY CHEW TAB] 81 mg PO QDAY #30 tab.chew 05/16/16 06/08/16 Rx Carvedilol [Coreg] 3.125 mg PO BID #60 tablet 05/16/16 06/08/16 06/04/16 Rx Famotidine [Pepcid] 10 mg PO BID #30 tablet 05/16/16 06/08/16 06/04/16 Rx Paricalcitol [Zemplar] 2 mcg PO TuThSa #30 capsule 05/16/16 06/08/16 06/04/16 Rx Sevelamer HCl [Renagel] 800 mg PO TIDWM #30 tablet 05/16/16 06/08/16 06/04/16 Rx Active Meds: Active Medications Acetaminophen (Tylenol) 650 mg PO Q4H PRN PRN Reason: Pain MILD(1-3)/Fever >100.5/REID Acyclovir (Acyclovir) 1 applic TP 5XD [facility] Last Admin: 06/09/16 05:43 Dose: 1 applic Albuterol (Proventil) 2.5 mg IH Q4HRT PRN PRN Reason: Wheezing Aspirin (Baby Aspirin) 81 mg PO QDAY [facility] Bisacodyl (Dulcolax) 10 mg DC QDAY PRN PRN Reason: Constipation unrelieved by MOM Carvedilol (Coreg) 3.125 mg PO BID [facility] Last Admin: 06/09/16 01:41 Dose: Not Given Famotidine (Pepcid) 10 mg PO BID [facility] Last Admin: 06/09/16 01:41 Dose: Not Given Magnesium Hydroxide (Milk Of Magnesia) 30 ml PO Q4H PRN PRN Reason: Constipation Ondansetron HCl (Zofran) 4 mg IV Q8H PRN PRN Reason: N/V unrelieved by Reglan Paricalcitol (Zemplar) 2 mcg PO TuThSa [facility] Sevelamer Carbonate (Renvela) 800 mg PO TIDWM [facility] Review of Systems Constitutional: no weight loss, no weight gain, no fever, no chills, no anorexia , no fatigue, no weakness, no poor appetite Ears, nose, mouth and throat: no sinus pain, no epistaxis Breasts: deferred Cardiovascular: shortness of breath, dyspnea on exertion, no chest pain, no orthopnea, no palpitations, no edema, no syncope, no lightheadedness Respiratory: shortness of breath, dyspnea on exertion, no cough, no hemoptysis, no home oxygen Gastrointestinal: no abdominal pain, no nausea, no vomiting, no melena Genitourinary Female: no hematuria Rectal: no bleeding Musculoskeletal: no gait dysfunction Integumentary: no rash, no redness, no jaundice Neurological: no head injury, no paralysis, no syncope, no vertigo Psychiatric: anxiety, no disorientation, no hallucinations Hematologic/Lymphatic: no easy bruising, no easy bleeding Allergic/Immunologic: wheezing Exam - Vital Signs Vital signs: Vital Signs Temp Pulse BP Pulse Ox 98.1 F 84 161/90 96 06/08/16 12:38 06/08/16 12:38 06/08/16 12:38 06/08/16 12:38 - General Appearance General appearance: well-developed, well-nourished, appears stated age, other ( no distress) EENT: ATNC, PERRL, mucous membranes moist, hearing intact, vision intact Neck: Present: neck supple, trachea midline Respiratory: Clear to Ascultation Heart: regular, S1S2, no murmurs Gastrointestinal: Present: normoactive bowel sounds. Absent: tenderness, distended, guarding Integumentary: no rash Neurologic: no focal deficit, no asterixis, alert and oriented x3, CN 3-12 intact Musculoskeletal: Present: other (no edema, left arm AVF) Psychiatric: mood/affect appropriate, cooperative Results - Lab Results 06/08/16 12:58 06/08/16 12:58 Most recent lab results Calcium 8.5 mg/dL (8.4-10.2) 06/08/16 12:58 Assessment and Plan - Patient Problems (1) End-stage renal disease needing dialysis Current Visit: Yes Status: Chronic Plan to address problem: Patient was last dailyzed 5 days ago. Hemodialysis orders placed. (2) Difficulty breathing Current Visit: No Status: Acute Plan to address problem: Shortness of breath is multifactorial. UF with hemodialysis today. (3) HTN (hypertension) Current Visit: No Status: Chronic Qualifiers: Hypertension type: secondary to other renal disorders Qualified Code(s): I15.1 - Hypertension secondary to other renal disorders; N28.89 - Other specified disorders of kidney and ureter Plan to address problem: BP is fair. (4) Metabolic acidosis Current Visit: Yes Status: Acute Plan to address problem: Hemodialysis today. (5) Medical non-compliance Current Visit: No Status: Chronic Plan to address problem: Compliance encouraged.
[2016-06-09] MEDS ORDERED: NON-FORMULARY (Sevelamer Hcl [Renagel] 800 MG) PO SCH (08:00)
[2016-06-09] MEDS ORDERED: BENADRYL IV ONE ×2 (10:13→11:00)
[2016-06-09] MEDS: RENVELA PO SCH ×3 (11:02→18:20)
[2016-06-09] MEDS: BABY ASPIRIN PO SCH ×2 (11:02→13:57)
[2016-06-09] MEDS: ZEMPLAR PO SCH ×2 (11:03→13:58)
--- NOTE | 2016-06-09 11:19 | Progress Note ---
Assessment and Plan Assessment and plan: Patient is a 50-year-old woman with a plethora of co-morbidities and frequent hospitalization. Patient has been to this hospital >11 times this year already. Patient is homeless, noncompliant with missed hemodialysis sessions and comes to the hospital for treatment. -End-stage renal disease needing hemodialysis: Consulted nephrology -Hyperkalemia, resolved -Noncompliance -SLE on chronic steroids -Chronic anemia related to ESRD, stable Since patient is noncompliant with hemodialysis and the hemodialysis center have terminated her from coming back. So she doesn't have hemodialysis center at the present. Also, She has lost her place to live History Interval history: Patient seen and examined. Follow up on fluid overload w/o dialysis. Overnight uneventful. No cp, sob, n/v or severe headaches. Imaging, old records, testing, labs, nursing notes reviewed. Hospitalist Physical - Physical exam Narrative exam: GEN: WDWN, NAD, AWAKE, ALERT, ORIENTATED 3 HEENT: NCAT, PERRL, EOMI, OP CLEAR NECK: SUPPLE, NO THYROMEGALY, NO JVD, NO LAD CVS: RRR, NORMAL S1S2 LUNGS/CHEST: CTA B, NORMAL CHEST EXPANSION B, GOOD AIR ENTRY B ABD: SOFT NTND, GBS, NO REBOUND OR GUARDING NEURO: CN 2-12 GROSSLY INTACT, NO new FOCAL DEFICITS PSY: CALM - Constitutional Vitals: Temp Pulse Resp BP Pulse Ox 97.2 F L 75 20 135/80 96 06/09/16 09:16 06/09/16 10:45 06/09/16 09:16 06/09/16 10:45 06/09/16 07:00 Results - Labs CBC & Chem 7: 06/08/16 12:58 06/08/16 12:58 Labs: Laboratory Last Values WBC 5.3 K/mm3 (4.5-11.0) 06/08/16 12:58 RBC 3.21 M/mm3 (3.65-5.03) L 06/08/16 12:58 Hgb 10.3 gm/dl (10.1-14.3) 06/08/16 12:58 Hct 32.1 % (30.3-42.9) 06/08/16 12:58 MCV 100 fl (79-97) H 06/08/16 12:58 MCH 32 pg (28-32) 06/08/16 12:58 MCHC 32 % (30-34) 06/08/16 12:58 RDW 18.4 % (13.2-15.2) H 06/08/16 12:58 Plt Count 159 K/mm3 (140-440) 06/08/16 12:58 [place] % (Auto) Funds Development Director 06/08/16 12:58 Eos % (Auto) 8.1 % (0.0-4.3) H 06/08/16 12:58 Add Manual Diff Complete 06/08/16 12:58 Total Counted 100 06/08/16 12:58 Seg Neutrophils % 50.1 % (40.0-70.0) 06/08/16 12:58 Seg Neuts % (Manual) 69.0 % (40.0-70.0) 06/08/16 12:58 Band Neutrophils % 0 % 06/08/16 12:58 Lymphocytes % (Manual) 16.0 % (13.4-35.0) 06/08/16 12:58 Reactive Lymphs % (Man) 1.0 % 06/08/16 12:58 Monocytes % (Manual) 6.0 % (0.0-7.3) 06/08/16 12:58 Eosinophils % (Manual) 8.0 % (0.0-4.3) H 06/08/16 12:58 Basophils % (Manual) 0 % (0.0-1.8) 06/08/16 12:58 Metamyelocytes % 0 % 06/08/16 12:58 Myelocytes % 0 % 06/08/16 12:58 Promyelocytes % 0 % 06/08/16 12:58 Blast Cells % 0 % 06/08/16 12:58 Nucleated RBC % Not Reportable 06/08/16 12:58 Seg Neutrophils # Man 3.7 K/mm3 (1.8-7.7) 06/08/16 12:58 Band Neutrophils # 0.0 K/mm3 06/08/16 12:58 Lymphocytes # (Manual) 0.8 K/mm3 (1.2-5.4) L 06/08/16 12:58 Abs React Lymphs (Man) 0.1 K/mm3 06/08/16 12:58 Monocytes # (Manual) 0.3 K/mm3 (0.0-0.8) 06/08/16 12:58 Eosinophils # (Manual) 0.4 K/mm3 (0.0-0.4) 06/08/16 12:58 Basophils # (Manual) 0.0 K/mm3 (0.0-0.1) 06/08/16 12:58 Metamyelocytes # 0.0 K/mm3 06/08/16 12:58 Myelocytes # 0.0 K/mm3 06/08/16 12:58 Promyelocytes # 0.0 K/mm3 06/08/16 12:58 Blast Cells # 0.0 K/mm3 06/08/16 12:58 WBC Morphology Not Reportable 06/08/16 12:58 Hypersegmented Neuts Not Reportable 06/08/16 12:58 Hyposegmented Neuts Not Reportable 06/08/16 12:58 Hypogranular Neuts Not Reportable 06/08/16 12:58 Smudge Cells Not Reportable 06/08/16 12:58 Toxic Granulation Not Reportable 06/08/16 12:58 Toxic Vacuolation Not Reportable 06/08/16 12:58 Dohle Bodies Not Reportable 06/08/16 12:58 Pelger-Huet Anomaly Not Reportable 06/08/16 12:58 Jose Luis Rods Not Reportable 06/08/16 12:58 Platelet Estimate Appears normal 06/08/16 12:58 Clumped Platelets Not Reportable 06/08/16 12:58 Plt Clumps, EDTA Not Reportable 06/08/16 12:58 Large Platelets Not Reportable 06/08/16 12:58 Giant Platelets Not Reportable 06/08/16 12:58 Platelet Satelliting Not Reportable 06/08/16 12:58 Plt Morphology Comment Not Reportable 06/08/16 12:58 RBC Morphology Not Reportable 06/08/16 12:58 Dimorphic RBCs Not Reportable 06/08/16 12:58 Polychromasia Few 06/08/16 12:58 Hypochromasia Not Reportable 06/08/16 12:58 Poikilocytosis Few 06/08/16 12:58 Anisocytosis 1+ 06/08/16 12:58 Microcytosis Not Reportable 06/08/16 12:58 Macrocytosis Not Reportable 06/08/16 12:58 Spherocytes Not Reportable 06/08/16 12:58 Pappenheimer Bodies Not Reportable 06/08/16 12:58 Sickle Cells Not Reportable 06/08/16 12:58 Target Cells Not Reportable 06/08/16 12:58 Tear Drop Cells Not Reportable 06/08/16 12:58 Ovalocytes 1+ 06/08/16 12:58 Helmet Cells Not Reportable 06/08/16 12:58 [place] Bodies Not Reportable 06/08/16 12:58 [place] Rings Not Reportable 06/08/16 12:58 Abernathy Cells Few 06/08/16 12:58 Bite Cells Not Reportable 06/08/16 12:58 Crenated Cell Not Reportable 06/08/16 12:58 Elliptocytes Not Reportable 06/08/16 12:58 Acanthocytes (Spur) Few 06/08/16 12:58 Rouleaux Not Reportable 06/08/16 12:58 Hemoglobin C Crystals Not Reportable 06/08/16 12:58 Schistocytes Not Reportable 06/08/16 12:58 Malaria parasites Not Reportable 06/08/16 12:58 Sheldon Bodies Not Reportable 06/08/16 12:58 Hem Pathologist Commnt No 06/08/16 12:58 Sodium 135 mmol/L (137-145) L 06/08/16 12:58 Potassium 4.9 mmol/L (3.6-5.0) 06/08/16 12:58 Chloride 93.8 mmol/L (98-107) L 06/08/16 12:58 Carbon Dioxide 18 mmol/L (22-30) L 06/08/16 12:58 Anion Gap 28 mmol/L 06/08/16 12:58 BUN 63 mg/dL (7-17) H 06/08/16 12:58 Creatinine 12.1 mg/dL (0.7-1.2) H 06/08/16 12:58 Estimated GFR 4 ml/min 06/08/16 12:58 BUN/Creatinine Ratio 5.20 % 06/08/16 12:58 Glucose 128 mg/dL (65-100) H 06/08/16 12:58 Calcium 8.5 mg/dL (8.4-10.2) 06/08/16 12:58 Total Bilirubin 0.60 mg/dL (0.1-1.2) 06/08/16 12:58 AST 21 units/L (5-40) 06/08/16 12:58 ALT 7 units/L (7-56) 06/08/16 12:58 Alkaline Phosphatase 170 units/L (35-129) H 06/08/16 12:58 Troponin T 0.103 ng/mL (0.00-0.029) H* 06/08/16 12:58 Total Protein 7.2 g/dL (6.3-8.2) 06/08/16 12:58 Albumin 4.0 g/dL (3.9-5) 06/08/16 12:58 Albumin/Globulin Ratio 1.3 % 06/08/16 12:58 Triglycerides 100 mg/dL (2-149) 06/08/16 12:58 Cholesterol 114 mg/dL (50-199) 06/08/16 12:58 LDL Cholesterol Direct 47 mg/dL (50-130) L 06/08/16 12:58 HDL Cholesterol 47 mg/dL (40-59) 06/08/16 12:58 Cholesterol/HDL Ratio 2.42 % 06/08/16 12:58
[2016-06-09] MEDS: MORPHINE IV PRN ×2 (13:59→21:10)
[2016-06-09] MEDS: ZOFRAN IV PRN (21:09)
[2016-06-09] MEDS: BENADRYL IV PRN (21:10)
--- NOTE | 2016-06-09 23:31 | Progress Note ---
Assessment and Plan - Patient Problems (1) End-stage renal disease needing dialysis Current Visit: Yes Status: Chronic Plan to address problem: Continue hemodialysis as planned. Will follow. (2) HTN (hypertension) Current Visit: No Status: Chronic Qualifiers: Hypertension type: secondary to other renal disorders Qualified Code(s): I15.1 - Hypertension secondary to other renal disorders; N28.89 - Other specified disorders of kidney and ureter Plan to address problem: BP is fair. (3) Anemia in chronic kidney disease Current Visit: No Status: Chronic Plan to address problem: Epogen as needed. Subjective Date of service: 06/09/16 Interval history: Patient was seen and examined while on hemodialysis. Objective - Vital Signs Vital signs: Vital Signs - 12hr 06/09/16 06/09/16 06/09/16 11:45 11:56 12:19 Temperature 96.2 F L Pulse Rate 74 76 75 Pulse Rate [ Right Radial] Respiratory 18 Rate Blood Pressure 141/77 161/90 161/90 Blood Pressure [Right Arm] O2 Sat by Pulse Oximetry 06/09/16 06/09/16 21:00 21:27 Temperature 98.8 F Pulse Rate 85 Pulse Rate [ 85 Right Radial] Respiratory 20 Rate Blood Pressure 161/75 Blood Pressure 157/82 [Right Arm] O2 Sat by Pulse 99 Oximetry - General Appearance General appearance: well-developed, well-nourished, appears stated age, other ( no distress) EENT: ATNC, PERRL, mucous membranes moist, hearing intact, vision intact Neck: supple, other (enlarged neck veins noted) Respiratory: Present: Clear to Ascultation Cardiology: regular, S1S2, no murmurs Gastrointestinal: normoactive bowel sounds, no tenderness, no distended Integumentary: no rash Neurologic: no focal deficit, no asterixis, alert and oriented x3, CN 3-12 intact Musculoskeletal: other (no edema, left arm AVF) Psychiatric: cooperative - Lab 06/08/16 12:58 06/08/16 12:58 Most recent lab results Calcium 8.5 mg/dL (8.4-10.2) 06/08/16 12:58
[2016-06-10] MEDS: MORPHINE IV PRN ×4 (04:13→22:03)
[2016-06-10] MEDS: BENADRYL IV PRN ×2 (06:16→20:38)
[2016-06-10] MEDS: ACYCLOVIR TP SCH ×5 (06:20→21:59)
[2016-06-10] MEDS: RENVELA PO SCH ×3 (08:05→17:26)
--- NOTE | 2016-06-10 09:12 | Progress Note ---
Assessment and Plan Assessment and plan: Patient is a 50-year-old woman with a plethora of co-morbidities and frequent hospitalization. Patient has been to this hospital >11 times this year already. Patient is homeless, noncompliant with missed hemodialysis sessions and comes to the hospital for treatment. -End-stage renal disease needing hemodialysis: Consulted nephrology -Hyperkalemia, resolved -Noncompliance -SLE on chronic steroids -Chronic anemia related to ESRD, stable Since patient is noncompliant with hemodialysis and the hemodialysis center have terminated her. So she doesn't have hemodialysis center at the present. Also, She has lost her place to live Consult case management for hemodialysis setup History Interval history: Patient seen and examined. Follow up on fluid overload. Overnight uneventful. No cp, sob, n/v or severe headaches. Imaging, old records, testing, labs, nursing notes reviewed. Hospitalist Physical - Physical exam Narrative exam: GEN: WDWN, NAD, AWAKE, ALERT, ORIENTATED 3 HEENT: NCAT, PERRL, EOMI, OP CLEAR NECK: SUPPLE, NO THYROMEGALY, NO JVD, NO LAD CVS: RRR, NORMAL S1S2 LUNGS/CHEST: CTA B, NORMAL CHEST EXPANSION B, GOOD AIR ENTRY B ABD: SOFT NTND, GBS, NO REBOUND OR GUARDING NEURO: CN 2-12 GROSSLY INTACT, NO new FOCAL DEFICITS PSY: CALM - Constitutional Vitals: Temp Pulse Resp BP Pulse Ox 98.3 F 74 18 126/82 98 06/10/16 08:00 06/10/16 08:00 06/10/16 08:00 06/10/16 08:00 06/10/16 08:00 Results - Labs CBC & Chem 7: 06/08/16 12:58 06/08/16 12:58 Labs: Laboratory Last Values WBC 5.3 K/mm3 (4.5-11.0) 06/08/16 12:58 RBC 3.21 M/mm3 (3.65-5.03) L 06/08/16 12:58 Hgb 10.3 gm/dl (10.1-14.3) 06/08/16 12:58 Hct 32.1 % (30.3-42.9) 06/08/16 12:58 MCV 100 fl (79-97) H 06/08/16 12:58 MCH 32 pg (28-32) 06/08/16 12:58 MCHC 32 % (30-34) 06/08/16 12:58 RDW 18.4 % (13.2-15.2) H 06/08/16 12:58 Plt Count 159 K/mm3 (140-440) 06/08/16 12:58 [place] % (Auto) [employer] 06/08/16 12:58 Eos % (Auto) 8.1 % (0.0-4.3) H 06/08/16 12:58 Add Manual Diff Complete 06/08/16 12:58 Total Counted 100 06/08/16 12:58 Seg Neutrophils % 50.1 % (40.0-70.0) 06/08/16 12:58 Seg Neuts % (Manual) 69.0 % (40.0-70.0) 06/08/16 12:58 Band Neutrophils % 0 % 06/08/16 12:58 Lymphocytes % (Manual) 16.0 % (13.4-35.0) 06/08/16 12:58 Reactive Lymphs % (Man) 1.0 % 06/08/16 12:58 Monocytes % (Manual) 6.0 % (0.0-7.3) 06/08/16 12:58 Eosinophils % (Manual) 8.0 % (0.0-4.3) H 06/08/16 12:58 Basophils % (Manual) 0 % (0.0-1.8) 06/08/16 12:58 Metamyelocytes % 0 % 06/08/16 12:58 Myelocytes % 0 % 06/08/16 12:58 Promyelocytes % 0 % 06/08/16 12:58 Blast Cells % 0 % 06/08/16 12:58 Nucleated RBC % Not Reportable 06/08/16 12:58 Seg Neutrophils # Man 3.7 K/mm3 (1.8-7.7) 06/08/16 12:58 Band Neutrophils # 0.0 K/mm3 06/08/16 12:58 Lymphocytes # (Manual) 0.8 K/mm3 (1.2-5.4) L 06/08/16 12:58 Abs React Lymphs (Man) 0.1 K/mm3 06/08/16 12:58 Monocytes # (Manual) 0.3 K/mm3 (0.0-0.8) 06/08/16 12:58 Eosinophils # (Manual) 0.4 K/mm3 (0.0-0.4) 06/08/16 12:58 Basophils # (Manual) 0.0 K/mm3 (0.0-0.1) 06/08/16 12:58 Metamyelocytes # 0.0 K/mm3 06/08/16 12:58 Myelocytes # 0.0 K/mm3 06/08/16 12:58 Promyelocytes # 0.0 K/mm3 06/08/16 12:58 Blast Cells # 0.0 K/mm3 06/08/16 12:58 WBC Morphology Not Reportable 06/08/16 12:58 Hypersegmented Neuts Not Reportable 06/08/16 12:58 Hyposegmented Neuts Not Reportable 06/08/16 12:58 Hypogranular Neuts Not Reportable 06/08/16 12:58 Smudge Cells Not Reportable 06/08/16 12:58 Toxic Granulation Not Reportable 06/08/16 12:58 Toxic Vacuolation Not Reportable 06/08/16 12:58 Dohle Bodies Not Reportable 06/08/16 12:58 Pelger-Huet Anomaly Not Reportable 06/08/16 12:58 Jose Luis Rods Not Reportable 06/08/16 12:58 Platelet Estimate Appears normal 06/08/16 12:58 Clumped Platelets Not Reportable 06/08/16 12:58 Plt Clumps, EDTA Not Reportable 06/08/16 12:58 Large Platelets Not Reportable 06/08/16 12:58 Giant Platelets Not Reportable 06/08/16 12:58 Platelet Satelliting Not Reportable 06/08/16 12:58 Plt Morphology Comment Not Reportable 06/08/16 12:58 RBC Morphology Not Reportable 06/08/16 12:58 Dimorphic RBCs Not Reportable 06/08/16 12:58 Polychromasia Few 06/08/16 12:58 Hypochromasia Not Reportable 06/08/16 12:58 Poikilocytosis Few 06/08/16 12:58 Anisocytosis 1+ 06/08/16 12:58 Microcytosis Not Reportable 06/08/16 12:58 Macrocytosis Not Reportable 06/08/16 12:58 Spherocytes Not Reportable 06/08/16 12:58 Pappenheimer Bodies Not Reportable 06/08/16 12:58 Sickle Cells Not Reportable 06/08/16 12:58 Target Cells Not Reportable 06/08/16 12:58 Tear Drop Cells Not Reportable 06/08/16 12:58 Ovalocytes 1+ 06/08/16 12:58 Helmet Cells Not Reportable 06/08/16 12:58 [place] Bodies Not Reportable 06/08/16 12:58 [place] Rings Not Reportable 06/08/16 12:58 Gui Cells Few 06/08/16 12:58 Bite Cells Not Reportable 06/08/16 12:58 Crenated Cell Not Reportable 06/08/16 12:58 Elliptocytes Not Reportable 06/08/16 12:58 Acanthocytes (Spur) Few 06/08/16 12:58 Rouleaux Not Reportable 06/08/16 12:58 Hemoglobin C Crystals Not Reportable 06/08/16 12:58 Schistocytes Not Reportable 06/08/16 12:58 Malaria parasites Not Reportable 06/08/16 12:58 [place] Bodies Not Reportable 06/08/16 12:58 Hem Pathologist Commnt No 06/08/16 12:58 Sodium 135 mmol/L (137-145) L 06/08/16 12:58 Potassium 4.9 mmol/L (3.6-5.0) 06/08/16 12:58 Chloride 93.8 mmol/L (98-107) L 06/08/16 12:58 Carbon Dioxide 18 mmol/L (22-30) L 06/08/16 12:58 Anion Gap 28 mmol/L 06/08/16 12:58 BUN 63 mg/dL (7-17) H 06/08/16 12:58 Creatinine 12.1 mg/dL (0.7-1.2) H 06/08/16 12:58 Estimated GFR 4 ml/min 06/08/16 12:58 BUN/Creatinine Ratio 5.20 % 06/08/16 12:58 Glucose 128 mg/dL (65-100) H 06/08/16 12:58 Calcium 8.5 mg/dL (8.4-10.2) 06/08/16 12:58 Total Bilirubin 0.60 mg/dL (0.1-1.2) 06/08/16 12:58 AST 21 units/L (5-40) 06/08/16 12:58 ALT 7 units/L (7-56) 06/08/16 12:58 Alkaline Phosphatase 170 units/L (35-129) H 06/08/16 12:58 Troponin T 0.103 ng/mL (0.00-0.029) H* 06/08/16 12:58 Total Protein 7.2 g/dL (6.3-8.2) 06/08/16 12:58 Albumin 4.0 g/dL (3.9-5) 06/08/16 12:58 Albumin/Globulin Ratio 1.3 % 06/08/16 12:58 Triglycerides 100 mg/dL (2-149) 06/08/16 12:58 Cholesterol 114 mg/dL (50-199) 06/08/16 12:58 LDL Cholesterol Direct 47 mg/dL (50-130) L 06/08/16 12:58 HDL Cholesterol 47 mg/dL (40-59) 06/08/16 12:58 Cholesterol/HDL Ratio 2.42 % 06/08/16 12:58
[2016-06-10] MEDS: PEPCID PO SCH ×2 (10:31→22:01)
[2016-06-10] MEDS: BABY ASPIRIN PO SCH (10:31)
[2016-06-10] MEDS: COREG PO SCH ×2 (10:31→22:00)
--- NOTE | 2016-06-10 10:40 | Progress Note ---
Assessment and Plan - Patient Problems (1) End-stage renal disease needing dialysis Current Visit: Yes Status: Chronic Plan to address problem: Patient was last dialyzed yesterday. Plan to do hemodialysis tomorrow. (2) HTN (hypertension) Current Visit: No Status: Chronic Qualifiers: Hypertension type: secondary to other renal disorders Qualified Code(s): I15.1 - Hypertension secondary to other renal disorders; N28.89 - Other specified disorders of kidney and ureter Plan to address problem: BP is well controlled. (3) Anemia in chronic kidney disease Current Visit: No Status: Chronic Plan to address problem: Epogen as needed. (4) Shortness of breath Current Visit: No Status: Acute Plan to address problem: Improved. (5) Medical non-compliance Current Visit: No Status: Chronic Plan to address problem: Compliance encouraged. Subjective Date of service: 06/10/16 Interval history: Patient is doing better. Objective - Vital Signs Vital signs: Vital Signs - 12hr 06/10/16 06/10/16 08:00 09:40 Temperature 98.3 F Pulse Rate [ 74 Right Radial] Respiratory 18 Rate Blood Pressure 126/82 [Right Arm] O2 Sat by Pulse 98 95 Oximetry - General Appearance General appearance: well-developed, well-nourished, appears stated age, other ( no distress) EENT: ATNC, PERRL, hearing intact, vision intact Neck: supple, other (enlarged neck veins noted) Respiratory: Present: Clear to Ascultation Cardiology: regular, S1S2, no murmurs Gastrointestinal: normoactive bowel sounds, no tenderness, no distended Integumentary: no rash Neurologic: no focal deficit, no asterixis, alert and oriented x3, CN 3-12 intact Musculoskeletal: other (no edema, left arm AVF) Psychiatric: mood/affect appropriate, cooperative - Lab 06/08/16 12:58 06/08/16 12:58 Most recent lab results Calcium 8.5 mg/dL (8.4-10.2) 06/08/16 12:58
[2016-06-10] MEDS: ZOFRAN IV PRN ×2 (11:55→20:38)
[2016-06-11] MEDS: BENADRYL IV PRN ×3 (04:38→20:19)
[2016-06-11] MEDS: ZOFRAN IV PRN ×3 (04:38→22:22)
[2016-06-11] MEDS: MORPHINE IV PRN ×4 (04:38→20:20)
[2016-06-11] MEDS: ACYCLOVIR TP SCH ×5 (06:19→22:24)
[2016-06-11] MEDS ORDERED: NACL 0.9% 100 ML IV PRN (06:56)
--- NOTE | 2016-06-11 06:56 | Progress Note ---
Assessment and Plan - Patient Problems (1) End-stage renal disease needing dialysis Current Visit: Yes Status: Chronic Plan to address problem: Patient was last dialyzed 2 days ago. Plan to do hemodialysis today. (2) HTN (hypertension) Current Visit: No Status: Chronic Qualifiers: Hypertension type: secondary to other renal disorders Qualified Code(s): I15.1 - Hypertension secondary to other renal disorders; N28.89 - Other specified disorders of kidney and ureter Plan to address problem: BP is well controlled. (3) Anemia in chronic kidney disease Current Visit: No Status: Chronic Plan to address problem: Epogen as needed. (4) Shortness of breath Current Visit: No Status: Acute Plan to address problem: Improved. (5) Medical non-compliance Current Visit: No Status: Chronic Plan to address problem: Compliance encouraged. Subjective Date of service: 06/11/16 Interval history: Patient is doing better. No new complaint. Objective - Vital Signs Vital signs: Vital Signs - 12hr 06/10/16 06/10/16 06/10/16 20:09 22:00 22:50 Temperature 98.6 F Pulse Rate 78 Pulse Rate [ 76 Right Radial] Respiratory 18 Rate Blood Pressure 143/73 Blood Pressure 143/78 [Right Arm] O2 Sat by Pulse 94 100 91 Oximetry - General Appearance General appearance: well-developed, well-nourished, appears stated age, other ( no distress) EENT: ATNC, PERRL, mucous membranes moist, hearing intact, vision intact Neck: supple, other (enlarged neck veins) Respiratory: Present: Clear to Ascultation Cardiology: regular, S1S2, no murmurs Gastrointestinal: normoactive bowel sounds, no tenderness, no distended Integumentary: no rash, warm and dry Neurologic: no focal deficit, no asterixis, alert and oriented x3, CN 3-12 intact Musculoskeletal: other (left arm AVF, no edema) Psychiatric: cooperative - Lab 06/08/16 12:58 06/08/16 12:58 Most recent lab results Calcium 8.5 mg/dL (8.4-10.2) 06/08/16 12:58
--- NOTE | 2016-06-11 07:44 | Admit Criteria Form ---
Admission Criteria Documentation: CHEST PAIN Clinical Indications for Admission to Inpatient Care (Place 'X' for any and all applicable criteria): Admission is indicated for chest pain and ANY ONE of the following(1)(2)(3)(4)(5 ): [ ]I. Angina with acute coronary syndrome (Also use Myocardial Infarction or Angina guideline) [ ]II. Hemodynamic instability [X]III. Angina needing acute intervention as indicated by ALL of the following( 11)(12): [ ]a) Unstable angina is present as indicated by angina that is ANY ONE of the following: [ ]i) New onset [ ]ii) Nocturnal [ ]iii) Prolonged at rest [ ]iv) Progressive [X]b) Angina warrants acute intervention as indicated by ANY ONE of the following: [ ]i) Recurrent angina (e.g, not responding as previously to treatment) [ ]ii) Angina at rest or with low-level activities despite initial medical therapy [ ]iii) New or presumably new ST-segment depression on ECG [ ]iv) Signs or symptoms of heart failure (eg, dyspnea, pulmonary edema) [ ]v) New or worsening mitral regurgitation [ ]vi) Hemodynamic instability [ ]vii) Dangerous arrhythmia (eg, sustained ventricular tachycardia) [ ]viii) History of percutaneous coronary intervention within 6 months [ ]ix) History of coronary artery bypass graft surgery [ ]x) SREEDHAR risk score of 2 or greater[A] [ ]xi) History of Diabetes(14) [ ]xii) High-risk cardiac ischemia findings on noninvasive testing (e.g, echocardiogram, treadmill testing, nuclear scan) [X]xiii) Chronic renal insufficiency (ie, estimated GFR less than 60 mL/min/1.732m) [ ]xiv) Left ventricular ejection fraction less than 40% [ ]IV. Evidence of FL (eg, cardiac biomarkers positive, ST-segment elevation on ECG) also use Myocardial Infarction Criteria Form. [ ]V. Pulmonary edema [ ]. Respiratory distress [ ]VII. Chest pain indicative of serious diagnosis other than coronary artery disease (eg, aortic dissection) [X]VIII. Contraindications and/or Inappropriate clinical situations for Observational Care in patients with Chest Pain, when ANY ONE of the following is required: [ ]a) Patient with risk factor for pulmonary embolism, acute coronary syndrome and myocardial infarction (18) [ ]b) Patient with Pulmonary embolism require an average LOS of 4.3 days, therefore emergency department observation management is inappropriate 18,23 [ ]c) Painful condition/s in the elderly, have the highest rate of recidivism after emergency department observation management (10.8%) 20,21,22 [X]d) Elevated cardiac biomarker requires intensive and exhaustive care (19) [ ]IX. General contraindications and/or Inappropriate clinical situations for Observational Care in patients with Chest Pain, when ANY ONE of the following is required: [ ]a) Prediction of prolongation of LOS based on ANY ONE of the following may be considered as a contraindication for observational care 2, 3, 4, 5, 6, 7, 8, 9, 10, 11 [ ]i) Age > 65 yrs. [ ]ii) Patient arriving by ambulance [ ]iii) Patient with high acuity [ ]iv) Patient requiring vital sign monitoring [ ]v) Patient on IV medication [ ]b) Systolic blood pressures 180mmHg 3,12 [ ]c) Patient with altered mental status including delirium and other alteration of consciousness, (3) [ ]d) Patient whose discharge disposition will be to a senior care home or rehabilitation home should not be managed in Emergency Department Observation Unit. CMS rule requires 3 days hospital stay before such placement. 3,13 [ ]e) Patient with failure to thrive due to broad array of etiologies 3,16,17 [ ]f) Inability to ambulate 3,14 Extended stay beyond goal length of stay may be needed for (1)(28): [ ]a) Specific condition diagnosed after evaluation (eg, pulmonary embolism, aortic dissection) [ ]b) Unstable angina [ ]c) Continued suspicion of acute coronary syndrome with inability to complete needed cardiac evaluation (eg, patient clinically unable to undergo stress testing) [ ]d) Myocardial infarction (Contents from ANGINA and CHEST PAIN clinical indications for admission to inpatient care have been integrated in this form) The original [employer] content created by [employer] has been revised. The portions of the content which have been revised are identified through the use of italic text or in bold, and [email or web address] has neither reviewed nor approved the modified material. All other unmodified content is copyright [employer]. Please see references footnoted in the original [employer] [email or web address] edition 2016 Admission Criteria Met: Yes
[2016-06-11] MEDS: RENVELA PO SCH ×3 (08:00→17:27)
[2016-06-11] MEDS: BABY ASPIRIN PO SCH (09:20)
[2016-06-11] MEDS: COREG PO SCH ×2 (09:20→22:21)
[2016-06-11] MEDS: PEPCID PO SCH ×2 (09:20→22:21)
--- NOTE | 2016-06-11 13:57 | Progress Note ---
Assessment and Plan Assessment and plan: Patient is a 50-year-old woman with a plethora of co-morbidities and frequent hospitalization. Patient has been to this hospital >11 times this year already. Patient is homeless, noncompliant with missed hemodialysis sessions and comes to the hospital for treatment. -End-stage renal disease needing hemodialysis: Consulted nephrology -Hyperkalemia, resolved -Noncompliance -SLE on chronic steroids -Chronic anemia related to ESRD, stable Since patient is noncompliant with hemodialysis and the hemodialysis center have terminated her. So she doesn't have hemodialysis center at the present. Also, She has lost her place to live Consulted case management for hemodialysis setup. She has been fired from [employer]. She refused hemodialysis this morning, spoke with her to reconsider==>Will discharge, nothing else we can do. History Interval history: Patient seen and examined. Follow up on fluid overload. Overnight uneventful. No cp, sob, n/v or severe headaches. Imaging, old records, testing, labs, nursing notes reviewed. Hospitalist Physical - Physical exam Narrative exam: GEN: WDWN, NAD, AWAKE, ALERT, ORIENTATED 3 HEENT: NCAT, PERRL, EOMI, OP CLEAR NECK: SUPPLE, NO THYROMEGALY, NO JVD, NO LAD CVS: RRR, NORMAL S1S2 LUNGS/CHEST: CTA B, NORMAL CHEST EXPANSION B, GOOD AIR ENTRY B ABD: SOFT NTND, GBS, NO REBOUND OR GUARDING NEURO: CN 2-12 GROSSLY INTACT, NO new FOCAL DEFICITS PSY: CALM - Constitutional Vitals: Temp Pulse Resp BP Pulse Ox 98.7 F 78 20 113/82 100 06/11/16 07:00 06/11/16 07:00 06/11/16 07:00 06/11/16 07:00 06/11/16 07:00 Results - Labs CBC & Chem 7: 06/08/16 12:58 06/08/16 12:58 Labs: Laboratory Last Values WBC 5.3 K/mm3 (4.5-11.0) 06/08/16 12:58 RBC 3.21 M/mm3 (3.65-5.03) L 06/08/16 12:58 Hgb 10.3 gm/dl (10.1-14.3) 06/08/16 12:58 Hct 32.1 % (30.3-42.9) 06/08/16 12:58 MCV 100 fl (79-97) H 06/08/16 12:58 MCH 32 pg (28-32) 06/08/16 12:58 MCHC 32 % (30-34) 06/08/16 12:58 RDW 18.4 % (13.2-15.2) H 06/08/16 12:58 Plt Count 159 K/mm3 (140-440) 06/08/16 12:58 [place] % (Auto) [employer] 06/08/16 12:58 Eos % (Auto) 8.1 % (0.0-4.3) H 06/08/16 12:58 Add Manual Diff Complete 06/08/16 12:58 Total Counted 100 06/08/16 12:58 Seg Neutrophils % 50.1 % (40.0-70.0) 06/08/16 12:58 Seg Neuts % (Manual) 69.0 % (40.0-70.0) 06/08/16 12:58 Band Neutrophils % 0 % 06/08/16 12:58 Lymphocytes % (Manual) 16.0 % (13.4-35.0) 06/08/16 12:58 Reactive Lymphs % (Man) 1.0 % 06/08/16 12:58 Monocytes % (Manual) 6.0 % (0.0-7.3) 06/08/16 12:58 Eosinophils % (Manual) 8.0 % (0.0-4.3) H 06/08/16 12:58 Basophils % (Manual) 0 % (0.0-1.8) 06/08/16 12:58 Metamyelocytes % 0 % 06/08/16 12:58 Myelocytes % 0 % 06/08/16 12:58 Promyelocytes % 0 % 06/08/16 12:58 Blast Cells % 0 % 06/08/16 12:58 Nucleated RBC % Not Reportable 06/08/16 12:58 Seg Neutrophils # Man 3.7 K/mm3 (1.8-7.7) 06/08/16 12:58 Band Neutrophils # 0.0 K/mm3 06/08/16 12:58 Lymphocytes # (Manual) 0.8 K/mm3 (1.2-5.4) L 06/08/16 12:58 Abs React Lymphs (Man) 0.1 K/mm3 06/08/16 12:58 Monocytes # (Manual) 0.3 K/mm3 (0.0-0.8) 06/08/16 12:58 Eosinophils # (Manual) 0.4 K/mm3 (0.0-0.4) 06/08/16 12:58 Basophils # (Manual) 0.0 K/mm3 (0.0-0.1) 06/08/16 12:58 Metamyelocytes # 0.0 K/mm3 06/08/16 12:58 Myelocytes # 0.0 K/mm3 06/08/16 12:58 Promyelocytes # 0.0 K/mm3 06/08/16 12:58 Blast Cells # 0.0 K/mm3 06/08/16 12:58 WBC Morphology Not Reportable 06/08/16 12:58 Hypersegmented Neuts Not Reportable 06/08/16 12:58 Hyposegmented Neuts Not Reportable 06/08/16 12:58 Hypogranular Neuts Not Reportable 06/08/16 12:58 Smudge Cells Not Reportable 06/08/16 12:58 Toxic Granulation Not Reportable 06/08/16 12:58 Toxic Vacuolation Not Reportable 06/08/16 12:58 Dohle Bodies Not Reportable 06/08/16 12:58 Pelger-Huet Anomaly Not Reportable 06/08/16 12:58 Jose Luis Rods Not Reportable 06/08/16 12:58 Platelet Estimate Appears normal 06/08/16 12:58 Clumped Platelets Not Reportable 06/08/16 12:58 Plt Clumps, EDTA Not Reportable 06/08/16 12:58 Large Platelets Not Reportable 06/08/16 12:58 Giant Platelets Not Reportable 06/08/16 12:58 Platelet Satelliting Not Reportable 06/08/16 12:58 Plt Morphology Comment Not Reportable 06/08/16 12:58 RBC Morphology Not Reportable 06/08/16 12:58 Dimorphic RBCs Not Reportable 06/08/16 12:58 Polychromasia Few 06/08/16 12:58 Hypochromasia Not Reportable 06/08/16 12:58 Poikilocytosis Few 06/08/16 12:58 Anisocytosis 1+ 06/08/16 12:58 Microcytosis Not Reportable 06/08/16 12:58 Macrocytosis Not Reportable 06/08/16 12:58 Spherocytes Not Reportable 06/08/16 12:58 Pappenheimer Bodies Not Reportable 06/08/16 12:58 Sickle Cells Not Reportable 06/08/16 12:58 Target Cells Not Reportable 06/08/16 12:58 Tear Drop Cells Not Reportable 06/08/16 12:58 Ovalocytes 1+ 06/08/16 12:58 Helmet Cells Not Reportable 06/08/16 12:58 [place] Bodies Not Reportable 06/08/16 12:58 [place] Rings Not Reportable 06/08/16 12:58 Gui Cells Few 06/08/16 12:58 Bite Cells Not Reportable 06/08/16 12:58 Crenated Cell Not Reportable 06/08/16 12:58 Elliptocytes Not Reportable 06/08/16 12:58 Acanthocytes (Spur) Few 06/08/16 12:58 Rouleaux Not Reportable 06/08/16 12:58 Hemoglobin C Crystals Not Reportable 06/08/16 12:58 Schistocytes Not Reportable 06/08/16 12:58 Malaria parasites Not Reportable 06/08/16 12:58 [place] Bodies Not Reportable 06/08/16 12:58 Hem Pathologist Commnt No 06/08/16 12:58 Sodium 135 mmol/L (137-145) L 06/08/16 12:58 Potassium 4.9 mmol/L (3.6-5.0) 06/08/16 12:58 Chloride 93.8 mmol/L (98-107) L 06/08/16 12:58 Carbon Dioxide 18 mmol/L (22-30) L 06/08/16 12:58 Anion Gap 28 mmol/L 06/08/16 12:58 BUN 63 mg/dL (7-17) H 06/08/16 12:58 Creatinine 12.1 mg/dL (0.7-1.2) H 06/08/16 12:58 Estimated GFR 4 ml/min 06/08/16 12:58 BUN/Creatinine Ratio 5.20 % 06/08/16 12:58 Glucose 128 mg/dL (65-100) H 06/08/16 12:58 Calcium 8.5 mg/dL (8.4-10.2) 06/08/16 12:58 Total Bilirubin 0.60 mg/dL (0.1-1.2) 06/08/16 12:58 AST 21 units/L (5-40) 06/08/16 12:58 ALT 7 units/L (7-56) 06/08/16 12:58 Alkaline Phosphatase 170 units/L (35-129) H 06/08/16 12:58 Troponin T 0.103 ng/mL (0.00-0.029) H* 06/08/16 12:58 Total Protein 7.2 g/dL (6.3-8.2) 06/08/16 12:58 Albumin 4.0 g/dL (3.9-5) 06/08/16 12:58 Albumin/Globulin Ratio 1.3 % 06/08/16 12:58 Triglycerides 100 mg/dL (2-149) 06/08/16 12:58 Cholesterol 114 mg/dL (50-199) 06/08/16 12:58 LDL Cholesterol Direct 47 mg/dL (50-130) L 06/08/16 12:58 HDL Cholesterol 47 mg/dL (40-59) 06/08/16 12:58 Cholesterol/HDL Ratio 2.42 % 06/08/16 12:58
[2016-06-11] MEDS ORDERED: NACL 0.9 (PRIMING MACHINE ONLY DIALYSIS) MC ONE (15:36)
[2016-06-12] MEDS: BENADRYL IV PRN ×4 (02:47→23:42)
[2016-06-12] MEDS: MORPHINE IV PRN ×2 (02:48→09:48)
[2016-06-12] MEDS: ACYCLOVIR TP SCH ×5 (06:28→22:16)
--- NOTE | 2016-06-12 06:56 | Progress Note ---
Assessment and Plan - Patient Problems (1) End-stage renal disease needing dialysis Status: Chronic Plan to address problem: Patient was last dialyzed yesterday. Plan to do hemodialysis tomorrow. (2) HTN (hypertension) Status: Chronic Qualifiers: Hypertension type: secondary to other renal disorders Qualified Code(s): I15.1 - Hypertension secondary to other renal disorders; N28.89 - Other specified disorders of kidney and ureter Plan to address problem: BP is well controlled. (3) Anemia in chronic kidney disease Status: Chronic Plan to address problem: Epogen as needed. (4) Shortness of breath Status: Acute Plan to address problem: Improved. (5) Medical non-compliance Status: Chronic Plan to address problem: Compliance encouraged. Subjective Date of service: 06/12/16 Interval history: Patient is doing better. No new complaint. Objective - Vital Signs Vital signs: Vital Signs - 12hr 06/11/16 06/11/16 06/11/16 20:20 20:35 20:50 Temperature 98.9 F Pulse Rate Pulse Rate [ 87 Right Radial] Respiratory 18 16 16 Rate Respiratory Rate [Oral] Blood Pressure Blood Pressure 122/78 [Right Arm] 06/11/16 06/11/16 06/12/16 22:00 22:21 02:48 Temperature Pulse Rate 87 Pulse Rate [ Right Radial] Respiratory 18 Rate Respiratory 18 Rate [Oral] Blood Pressure 122/78 Blood Pressure [Right Arm] 06/12/16 03:18 Temperature Pulse Rate Pulse Rate [ Right Radial] Respiratory 17 Rate Respiratory Rate [Oral] Blood Pressure Blood Pressure [Right Arm] - General Appearance General appearance: well-developed, well-nourished, appears stated age, other ( no distress) EENT: ATNC, PERRL, mucous membranes moist, hearing intact, vision intact Neck: supple, other (dilated neck veins noted) Respiratory: Present: Clear to Ascultation Cardiology: regular, S1S2, no murmurs Gastrointestinal: normoactive bowel sounds, no tenderness, no distended Integumentary: no rash Neurologic: no focal deficit, no asterixis, alert and oriented x3, CN 3-12 intact Musculoskeletal: other (no edema, left arm AVF) Psychiatric: mood/affect appropriate, cooperative - Lab 06/08/16 12:58 06/13/16 10:35 Most recent lab results Calcium 8.5 mg/dL (8.4-10.2) 06/08/16 12:58
--- NOTE | 2016-06-12 08:17 | Discharge Summary ---
Providers - Providers Date of Admission: 06/08/16 21:07 Date of discharge: 06/13/16 Attending physician: AKHIL LYNNE MD 06/10/16 09:12 Consult to Case Management [CONS] Routine Services Needed at Discharge: Other Notified:: COPY LEFT FOR CM Comment:: need hemodialysis center setup Primary care physician: PLANNER CHIEF Hospitalization Reason for admission: acute hypoxic respiratory failure Condition: Stable Hospital course: Patient is a 50-year-old woman with a plethora of co-morbidities and frequent hospitalization. Patient has been to this hospital >11 times this year already. Presented to the hospital complaining of shortness of breath. She was started with dialysis as she had not been able to go to dialysis due to problems described below. Patient is homeless, noncompliant with missed hemodialysis sessions and comes to the hospital for treatment and refuses to go to other dialysis centers that for her previously. Since patient is noncompliant with hemodialysis and the hemodialysis center have terminated her. So she doesn't have hemodialysis center at the present. Also, She has lost her place to live. Her last visit she did have a daughter was here with her. She states that the daughter does not also have a place to stay. She had declined multiple social work help in the past. Consulted case management for hemodialysis setup. She has been fired from [employer]. Discharge Diagnosis: -End-stage renal disease needing hemodialysis -Acute on chronic respiratory failure with hypoxemia secondary to volume overload -Hypovolemia -Malignant hypertension -Hyperkalemia -Noncompliance -SLE on chronic steroids -Chronic anemia related to ESRD, stable Disposition: DISCHARGED TO HOME OR SELFCARE Time spent for discharge: 35 mins Core Measure Documentation - Palliative Care Palliative Care/ Comfort Measures: Not Applicable - Core Measures Any of the following diagnoses?: none - VTE Discharge Requirements Deep Vein Thrombosis/Pulmonary Embolism Present on Admission: No Exam - Physical Exam Narrative exam: VITAL SIGNS: Reviewed. GENERAL: The patient appeared well nourished and normally developed. Vital signs as documented. HEAD: No signs of head trauma. EYES: Pupils are equal. Extraocular motions intact. EARS: Hearing grossly intact. MOUTH: Oropharynx is normal. NECK: No adenopathy, no JVD. CHEST: Chest with clear breath sounds bilaterally. No wheezes, rales, or rhonchi. CARDIAC: Regular rate and rhythm. S1 and S2, without murmurs, gallops, or rubs. VASCULAR: No Edema. Peripheral pulses normal and equal in all extremities. ABDOMEN: Soft, without detectable tenderness. No sign of distention. No rebound or guarding, and no masses palpated. Bowel Sounds normal. MUSCULOSKELETAL: Good range of motion of all major joints. Extremities without clubbing, cyanosis or edema. NEUROLOGIC EXAM: Alert and oriented x 3. No focal sensory or strength deficits. Speech normal. Follows commands. PSYCHIATRIC: Mood normal. SKIN: Fistula with good function. - Constitutional Vitals: Temp Pulse Resp BP Pulse Ox 98.9 F 87 17 122/78 100 06/11/16 20:35 06/11/16 22:21 06/12/16 03:18 06/11/16 22:21 06/11/16 07:00 Plan Activity: advance as tolerated, fall precautions Diet: renal Special Instructions: record daily BP diary Additional Instructions: must go to dialysis as recommended. patient has refused all our suggestions. Follow up with: PRIMARY MD SHARIFA [Primary Care Provider] - 3-5 Days KATELIN ALCANTARA MD [Staff Physician] - 7 Days Prescriptions: Acyclovir [Acyclovir Ointment] 1 applic TP 5XD #7 tube Aspirin [Aspirin BABY CHEW TAB] 81 mg PO QDAY #30 tab.chew Carvedilol [Coreg] 3.125 mg PO BID #60 tablet Famotidine [Pepcid] 10 mg PO BID #30 tablet Ipratropium/Albuterol Sulfate [Combivent Respimat] 1 spray IH QID #1 aer.w.adap Paricalcitol [Zemplar] 2 mcg PO TuThSa #30 capsule Sevelamer HCl [Renagel] 800 mg PO TIDWM #30 tablet
[2016-06-12] MEDS: PEPCID PO SCH ×2 (09:36→22:15)
[2016-06-12] MEDS: RENVELA PO SCH ×3 (09:37→16:49)
[2016-06-12] MEDS: BABY ASPIRIN PO SCH (09:37)
[2016-06-12] MEDS: ZOFRAN IV PRN ×2 (09:48→17:29)
[2016-06-12] MEDS: ZEMPLAR PO SCH (09:49)
[2016-06-12] MEDS: COREG PO SCH ×2 (09:50→22:15)
--- NOTE | 2016-06-12 13:40 | Progress Note ---
Assessment and Plan Assessment and plan: Patient is a 50-year-old woman with a plethora of co-morbidities and frequent hospitalization. Patient has been to this hospital >11 times this year already. Patient is homeless, noncompliant with missed hemodialysis sessions and comes to the hospital for treatment and refuses to go to other dialysis centers that for her previously.. -End-stage renal disease needing hemodialysis: Did discuss with parts processor patient is stable to be discharged at this time. She is to remedy her situation and by improving her relationship with dialysis and also to take responsibility for her care in respect to compliance. I have discussed this in detail with the patient. -Hyperkalemia, resolved -Noncompliance -SLE on chronic steroids-Discontinue morphine. -Chronic anemia related to ESRD, stable -dvt/gi prophylaxis -Plan of care discussed with the patient also with the parts processor. Since patient is noncompliant with hemodialysis and the hemodialysis center have terminated her. So she doesn't have hemodialysis center at the present. Also, She has lost her place to live. Her last visit she did have a daughter was here with her. She states that the daughter does not also have a place to stay. She had declined multiple social work help in the past. Consulted case management for hemodialysis setup. She has been fired from [employer]. History Interval history: Patient seen and examined this morning in no acute distress, follow-up shortness of breath Denies any chest pain, nausea, vomiting, diarrhea No fever noted blood pressure controlled No adverse events reported to me by nursing staff Hospitalist Physical - Physical exam Narrative exam: VITAL SIGNS: Reviewed. GENERAL: The patient appeared well nourished and normally developed. Vital signs as documented. HEAD: No signs of head trauma. EYES: Pupils are equal. Extraocular motions intact. EARS: Hearing grossly intact. MOUTH: Oropharynx is normal. NECK: No adenopathy, no JVD. CHEST: Chest with clear breath sounds bilaterally. No wheezes, rales, or rhonchi. CARDIAC: Regular rate and rhythm. S1 and S2, without murmurs, gallops, or rubs. VASCULAR: No Edema. Peripheral pulses normal and equal in all extremities. ABDOMEN: Soft, without detectable tenderness. No sign of distention. No rebound or guarding, and no masses palpated. Bowel Sounds normal. MUSCULOSKELETAL: Good range of motion of all major joints. Extremities without clubbing, cyanosis or edema. NEUROLOGIC EXAM: Alert and oriented x 3. No focal sensory or strength deficits. Speech normal. Follows commands. PSYCHIATRIC: Mood normal. SKIN: Fistula with good function. - Constitutional Vitals: Temp Pulse Resp BP Pulse Ox 99.1 F 71 18 113/81 91 06/12/16 08:00 06/12/16 08:00 06/12/16 08:00 06/12/16 08:00 06/12/16 08:00 General appearance: Present: mild distress Results - Labs CBC & Chem 7: 06/08/16 12:58 06/08/16 12:58 Labs: Laboratory Last Values WBC 5.3 K/mm3 (4.5-11.0) 06/08/16 12:58 RBC 3.21 M/mm3 (3.65-5.03) L 06/08/16 12:58 Hgb 10.3 gm/dl (10.1-14.3) 06/08/16 12:58 Hct 32.1 % (30.3-42.9) 06/08/16 12:58 MCV 100 fl (79-97) H 06/08/16 12:58 MCH 32 pg (28-32) 06/08/16 12:58 MCHC 32 % (30-34) 06/08/16 12:58 RDW 18.4 % (13.2-15.2) H 06/08/16 12:58 Plt Count 159 K/mm3 (140-440) 06/08/16 12:58 [place] % (Auto) Drum Worker 06/08/16 12:58 Eos % (Auto) 8.1 % (0.0-4.3) H 06/08/16 12:58 Add Manual Diff Complete 06/08/16 12:58 Total Counted 100 06/08/16 12:58 Seg Neutrophils % 50.1 % (40.0-70.0) 06/08/16 12:58 Seg Neuts % (Manual) 69.0 % (40.0-70.0) 06/08/16 12:58 Band Neutrophils % 0 % 06/08/16 12:58 Lymphocytes % (Manual) 16.0 % (13.4-35.0) 06/08/16 12:58 Reactive Lymphs % (Man) 1.0 % 06/08/16 12:58 Monocytes % (Manual) 6.0 % (0.0-7.3) 06/08/16 12:58 Eosinophils % (Manual) 8.0 % (0.0-4.3) H 06/08/16 12:58 Basophils % (Manual) 0 % (0.0-1.8) 06/08/16 12:58 Metamyelocytes % 0 % 06/08/16 12:58 Myelocytes % 0 % 06/08/16 12:58 Promyelocytes % 0 % 06/08/16 12:58 Blast Cells % 0 % 06/08/16 12:58 Nucleated RBC % Not Reportable 06/08/16 12:58 Seg Neutrophils # Man 3.7 K/mm3 (1.8-7.7) 06/08/16 12:58 Band Neutrophils # 0.0 K/mm3 06/08/16 12:58 Lymphocytes # (Manual) 0.8 K/mm3 (1.2-5.4) L 06/08/16 12:58 Abs React Lymphs (Man) 0.1 K/mm3 06/08/16 12:58 Monocytes # (Manual) 0.3 K/mm3 (0.0-0.8) 06/08/16 12:58 Eosinophils # (Manual) 0.4 K/mm3 (0.0-0.4) 06/08/16 12:58 Basophils # (Manual) 0.0 K/mm3 (0.0-0.1) 06/08/16 12:58 Metamyelocytes # 0.0 K/mm3 06/08/16 12:58 Myelocytes # 0.0 K/mm3 06/08/16 12:58 Promyelocytes # 0.0 K/mm3 06/08/16 12:58 Blast Cells # 0.0 K/mm3 06/08/16 12:58 WBC Morphology Not Reportable 06/08/16 12:58 Hypersegmented Neuts Not Reportable 06/08/16 12:58 Hyposegmented Neuts Not Reportable 06/08/16 12:58 Hypogranular Neuts Not Reportable 06/08/16 12:58 Smudge Cells Not Reportable 06/08/16 12:58 Toxic Granulation Not Reportable 06/08/16 12:58 Toxic Vacuolation Not Reportable 06/08/16 12:58 Dohle Bodies Not Reportable 06/08/16 12:58 Pelger-Huet Anomaly Not Reportable 06/08/16 12:58 Jose Luis Rods Not Reportable 06/08/16 12:58 Platelet Estimate Appears normal 06/08/16 12:58 Clumped Platelets Not Reportable 06/08/16 12:58 Plt Clumps, EDTA Not Reportable 06/08/16 12:58 Large Platelets Not Reportable 06/08/16 12:58 Giant Platelets Not Reportable 06/08/16 12:58 Platelet Satelliting Not Reportable 06/08/16 12:58 Plt Morphology Comment Not Reportable 06/08/16 12:58 RBC Morphology Not Reportable 06/08/16 12:58 Dimorphic RBCs Not Reportable 06/08/16 12:58 Polychromasia Few 06/08/16 12:58 Hypochromasia Not Reportable 06/08/16 12:58 Poikilocytosis Few 06/08/16 12:58 Anisocytosis 1+ 06/08/16 12:58 Microcytosis Not Reportable 06/08/16 12:58 Macrocytosis Not Reportable 06/08/16 12:58 Spherocytes Not Reportable 06/08/16 12:58 Pappenheimer Bodies Not Reportable 06/08/16 12:58 Sickle Cells Not Reportable 06/08/16 12:58 Target Cells Not Reportable 06/08/16 12:58 Tear Drop Cells Not Reportable 06/08/16 12:58 Ovalocytes 1+ 06/08/16 12:58 Helmet Cells Not Reportable 06/08/16 12:58 Khan-Willoughby Bodies Not Reportable 06/08/16 12:58 Belden Rings Not Reportable 06/08/16 12:58 Gui Cells Few 06/08/16 12:58 Bite Cells Not Reportable 06/08/16 12:58 Crenated Cell Not Reportable 06/08/16 12:58 Elliptocytes Not Reportable 06/08/16 12:58 Acanthocytes (Spur) Few 06/08/16 12:58 Rouleaux Not Reportable 06/08/16 12:58 Hemoglobin C Crystals Not Reportable 06/08/16 12:58 Schistocytes Not Reportable 06/08/16 12:58 Malaria parasites Not Reportable 06/08/16 12:58 Sheldon Bodies Not Reportable 06/08/16 12:58 Hem Pathologist Commnt No 06/08/16 12:58 Sodium 135 mmol/L (137-145) L 06/08/16 12:58 Potassium 4.9 mmol/L (3.6-5.0) 06/08/16 12:58 Chloride 93.8 mmol/L (98-107) L 06/08/16 12:58 Carbon Dioxide 18 mmol/L (22-30) L 06/08/16 12:58 Anion Gap 28 mmol/L 06/08/16 12:58 BUN 63 mg/dL (7-17) H 06/08/16 12:58 Creatinine 12.1 mg/dL (0.7-1.2) H 06/08/16 12:58 Estimated GFR 4 ml/min 06/08/16 12:58 BUN/Creatinine Ratio 5.20 % 06/08/16 12:58 Glucose 128 mg/dL (65-100) H 06/08/16 12:58 Calcium 8.5 mg/dL (8.4-10.2) 06/08/16 12:58 Total Bilirubin 0.60 mg/dL (0.1-1.2) 06/08/16 12:58 AST 21 units/L (5-40) 06/08/16 12:58 ALT 7 units/L (7-56) 06/08/16 12:58 Alkaline Phosphatase 170 units/L (35-129) H 06/08/16 12:58 Troponin T 0.103 ng/mL (0.00-0.029) H* 06/08/16 12:58 Total Protein 7.2 g/dL (6.3-8.2) 06/08/16 12:58 Albumin 4.0 g/dL (3.9-5) 06/08/16 12:58 Albumin/Globulin Ratio 1.3 % 06/08/16 12:58 Triglycerides 100 mg/dL (2-149) 06/08/16 12:58 Cholesterol 114 mg/dL (50-199) 06/08/16 12:58 LDL Cholesterol Direct 47 mg/dL (50-130) L 06/08/16 12:58 HDL Cholesterol 47 mg/dL (40-59) 06/08/16 12:58 Cholesterol/HDL Ratio 2.42 % 06/08/16 12:58
[2016-06-13] MEDS: BENADRYL IV PRN (06:00)
[2016-06-13] MEDS: ZOFRAN IV PRN (06:01)
[2016-06-13] MEDS: ACYCLOVIR TP SCH (06:01)
[2016-06-13] MEDS ORDERED: NACL 0.9% 100 ML IV PRN (06:58)
--- NOTE | 2016-06-13 06:58 | Progress Note ---
Assessment and Plan - Patient Problems (1) End-stage renal disease needing dialysis Status: Chronic Plan to address problem: Patient was last dialyzed 2 days ago. Plan to do hemodialysis today. (2) HTN (hypertension) Status: Chronic Qualifiers: Hypertension type: secondary to other renal disorders Qualified Code(s): I15.1 - Hypertension secondary to other renal disorders; N28.89 - Other specified disorders of kidney and ureter Plan to address problem: BP is fair. (3) Anemia in chronic kidney disease Status: Chronic Plan to address problem: Epogen as needed. (4) Shortness of breath Status: Acute Plan to address problem: Improved. (5) Medical non-compliance Status: Chronic Plan to address problem: Compliance encouraged. Subjective Date of service: 06/13/16 Interval history: Patient is doing better. No new complaint. Objective - Vital Signs Vital signs: Vital Signs - 12hr 06/12/16 06/12/16 06/12/16 22:00 22:15 23:00 Pulse Rate 74 Pulse Rate [ 79 Right Radial] Respiratory 18 Rate Respiratory 18 Rate [Oral] Blood Pressure 119/75 Blood Pressure 119/75 [Right Arm] O2 Sat by Pulse 98 Oximetry - General Appearance General appearance: well-developed, well-nourished, appears stated age, other ( no distress) EENT: ATNC, PERRL, mucous membranes moist, hearing intact, vision intact Neck: supple, other (dilated neck veins noted) Respiratory: Present: Clear to Ascultation Cardiology: regular, S1S2, no murmurs Gastrointestinal: normoactive bowel sounds, no tenderness, no distended Integumentary: no rash Neurologic: no focal deficit, no asterixis, alert and oriented x3, CN 3-12 intact Musculoskeletal: other (no edema) Psychiatric: mood/affect appropriate, cooperative - Lab 06/08/16 12:58 06/13/16 10:35 Most recent lab results Calcium 8.5 mg/dL (8.4-10.2) 06/08/16 12:58
[2016-06-13] MEDS: RENVELA PO SCH ×2 (08:53→16:52)
[2016-06-13] MEDS: COREG PO SCH (09:35)
[2016-06-13] MEDS ORDERED: NACL 0.9 (PRIMING MACHINE ONLY DIALYSIS) MC ONE (10:52)
[2016-06-13 12:33] LABS: Anion Gap 25 mmol/L; BUN/Creatinine Ratio 3.72; Blood Urea Nitrogen 35 mg/dL (7-17); Calcium 8.7 mg/dL (8.4-10.2); Carbon Dioxide 23 mmol/L (22-30); Glucose 133 mg/dL (65-100); Potassium 4.8 mmol/L (3.6-5.0); Sodium 138 mmol/L (137-145)
[2016-06-13 14:18] VITALS: BP 161/94
[2016-06-13] MEDS: BABY ASPIRIN PO SCH (16:52)
[2016-06-13] MEDS: PEPCID PO SCH (16:52)
== END 2016-06-13 16:15 | disposition home or self-care (01) | DRG 291 ==
LOC: ED 11:39 → 3A 21:07
PROVIDERS: ADMIT Internal Medicine; ATTEND Internal Medicine
PROC: 5A1D60Z (ICD-10-PCS; principal; 2016-06-13)
DX: I13.2 Hypertensive heart and chronic kidney disease with heart failure and with stage 5 chronic kidney disease, or end stage renal disease (principal); J96.21 Acute and chronic respiratory failure with hypoxia; N18.6 End stage renal disease; E87.2 Acidosis; E11.22 Type 2 diabetes mellitus with diabetic chronic kidney disease; I50.9 Heart failure, unspecified; F31.9 Bipolar disorder, unspecified; J44.9 Chronic obstructive pulmonary disease, unspecified; M32.9 Systemic lupus erythematosus, unspecified; Z82.49 Family history of ischemic heart disease and other diseases of the circulatory system; G40.909 Epilepsy, unspecified, not intractable, without status epilepticus; Z87.891 Personal history of nicotine dependence; Z91.19 Patient's noncompliance with other medical treatment and regimen; E87.5 Hyperkalemia; D63.1 Anemia in chronic kidney disease; Z99.2 Dependence on renal dialysis; Z88.8 Allergy status to other drugs, medicaments and biological substances; Z79.82 Long term (current) use of aspirin
CPT/HCPCS: 36415; 71020; 80048; 80053; 80061; 84484; 85007; 85025; 86705; 86803; 87210; 87591; 93005; 93010; 96372; 96374; 96375; 99284; J0696; J1170; J1200; J2270; J2405; J7030

== ENCOUNTER 2016-06-15 11:02 | Inpatient (IN) | payer MEDICARE ==
[2016-06-15 12:04] LABS: Hematocrit 31.1 % (30.3-42.9); Hemoglobin 10.4 gm/dl (10.1-14.3); Mean Corpuscular HGB Conc 33 % (30-34); Mean Corpuscular Hemoglobin 32 pg (28-32); Mean Corpuscular Volume 96 fl (79-97); Platelet Count 156 K/mm3 (140-440); Red Blood Count 3.26 M/mm3 (3.65-5.03); Red Cell Distribution Width 17.4 % (13.2-15.2); White Blood Count 4.6 K/mm3 (4.5-11.0)
[2016-06-15 12:13] LABS: BUN/Creatinine Ratio 4.13; Calcium 8.4 mg/dL (8.4-10.2); Chloride 88.4 mmol/L (98-107); Potassium 4.7 mmol/L (3.6-5.0)
[2016-06-15 12:50] LABS: Blastocytes % (Manual) 0 %
[2016-06-15 12:51] LABS: Platelet Estimate Consistent w Auto
[2016-06-15 12:52] LABS: Diff Status Complete
--- NOTE | 2016-06-15 17:49 | Emergency Department Report ---
ED General Adult HPI - General Chief complaint: Psych Stated complaint: SUICIDAL THOUGHTS Time Seen by Provider: 06/15/16 16:38 Source: patient, RN notes reviewed, old records reviewed Mode of arrival: Ambulatory Limitations: No Limitations - History of Present Illness Initial comments: This is a 50-year-old female. She is well-known to me. She is well known to this institution. Past medical history includes end-stage renal disease on dialysis, she is poorly compliant with dialysis, hypertension, lupus on chronic steroids, chronic anemia, psychiatric issues. As per her recent discharge summary, the patient was fired from her outpatient hemodialysis center. The patient indicates that she was last dialyzed on Saturday. The patient presents today complaining of suicidality and homicidality. She indicates that she tried to overdose. She indicates that she sits around and smokes crack all day. She indicates that she does not personally have access to guns, but family members and friends have guns. The patient has no headache, neck pain, chest pain, abdominal pain or shortness of breath. She indicates that she does not make urine. The patient is currently eating fried chicken, and complaining that it is too overcooked. -: Gradual Consistency: constant Improves with: none Worsens with: none Associated Symptoms: denies: confusion, chest pain, cough, diaphoresis, fever/ chills, headaches, loss of appetite, malaise, nausea/vomiting, rash, seizure, shortness of breath, syncope, weakness - Related Data Previous Rx's Medication Instructions Recorded Last Taken Type Ipratropium/Albuterol Sulfate 1 spray IH QID #1 aer.w.adap 06/12/16 Unknown Rx [Combivent Respimat] Acyclovir [Acyclovir Ointment] 1 applic TP 5XD #7 tube 06/13/16 Unknown Rx Aspirin [Aspirin BABY CHEW TAB] 81 mg PO QDAY #30 tab.chew 06/13/16 Unknown Rx Carvedilol [Coreg] 3.125 mg PO BID #60 tablet 06/13/16 Unknown Rx Famotidine [Pepcid] 10 mg PO BID #30 tablet 06/13/16 Unknown Rx Paricalcitol [Zemplar] 2 mcg PO TuThSa #30 capsule 06/13/16 Unknown Rx Sevelamer HCl [Renagel] 800 mg PO TIDWM #30 tablet 06/13/16 Unknown Rx Allergies Allergy/AdvReac Type Severity Reaction Status Date / Time enalapril maleate Allergy Angioedema Verified 06/06/16 08:26 [From Vasotec] enalaprilat dihydrate Allergy Angioedema Verified 06/06/16 08:26 [From Vasotec] peach AdvReac Nausea Verified 06/06/16 08:26 tomato AdvReac Nausea Verified 06/06/16 08:26 ED Review of Systems ROS: Stated complaint: SUICIDAL THOUGHTS Other details as noted in HPI Constitutional: denies: fever Eyes: denies: vision change ENT: denies: epistaxis Respiratory: see HPI Cardiovascular: denies: chest pain Gastrointestinal: denies: vomiting Genitourinary: as per HPI Musculoskeletal: denies: back pain, arthralgia Skin: denies: lesions Neurological: denies: weakness Psychiatric: homicidal thoughts, suicidal thoughts ED Past Medical Hx - Past Medical History Hx Hypertension: Yes Hx Heart Attack/AMI: No Hx Congestive Heart Failure: Yes Hx Diabetes: Yes Hx Deep Vein Thrombosis: No Hx Pulmonary Embolism: No Hx Liver Disease: No Hx Renal Disease: Yes (hemodialysis -W-) Hx Arthritis: Yes Hx Seizures: Yes Hx Kidney Stones: No Hx Psychiatric Treatment: Yes (bipolar, anxiety) Hx Asthma: Yes Hx COPD: Yes Hx Tuberculosis: No Hx Dementia: No Hx HIV: No Additional medical history: lupus (SLE). thyroid (patient uncertain if she has hyper- or hypo-). chest tube. dialysis (graft left upper arm). SUBSTANCE ABUSE. HERPES. RESPIRATORY FAILURE - Surgical History Hx Coronary Stent: No Hx Open Heart Surgery: No Hx Pacemaker: No Hx Internal Defibrillator: No Hx Cholecystectomy: No Hx Appendectomy: No Hx Breast Surgery: No Additional Surgical History: graft left arm. D & C. permacaths - Social History Smoking Status: Never Smoker Substance Use Type: Alcohol, Cocaine, Marijuana - Medications Home Medications: Home Medications Medication Instructions Recorded Confirmed Last Taken Type Ipratropium/Albuterol Sulfate 1 spray IH QID #1 aer.w.adap 06/12/16 06/15/16 Unknown Rx [Combivent Respimat] Acyclovir [Acyclovir Ointment] 1 applic TP 5XD #7 tube 06/13/16 06/15/16 Unknown Rx Aspirin [Aspirin BABY CHEW TAB] 81 mg PO QDAY #30 tab.chew 06/13/16 06/15/16 Unknown Rx Carvedilol [Coreg] 3.125 mg PO BID #60 tablet 06/13/16 06/15/16 Unknown Rx Famotidine [Pepcid] 10 mg PO BID #30 tablet 06/13/16 06/15/16 Unknown Rx Paricalcitol [Zemplar] 2 mcg PO TuThSa #30 capsule 06/13/16 06/15/16 Unknown Rx Sevelamer HCl [Renagel] 800 mg PO TIDWM #30 tablet 06/13/16 06/15/16 Unknown Rx ED Physical Exam - General Limitations: No Limitations General appearance: alert, in no apparent distress - Head Head exam: Present: atraumatic, normocephalic - Eye Eye exam: Present: normal appearance, EOMI. Absent: nystagmus - ENT ENT exam: Present: normal exam, normal orophraynx, mucous membranes moist, normal external ear exam - Neck Neck exam: Present: normal inspection, full ROM. Absent: tenderness, meningismus - Respiratory Respiratory exam: Present: normal lung sounds bilaterally. Absent: respiratory distress, wheezes, rales, rhonchi, stridor, chest wall tenderness, accessory muscle use, decreased breath sounds - Cardiovascular Cardiovascular Exam: Present: regular rate, normal rhythm, normal heart sounds. Absent: bradycardia, tachycardia, irregular rhythm, systolic murmur, diastolic murmur, rubs, gallop - GI/Abdominal GI/Abdominal exam: Present: soft, normal bowel sounds. Absent: distended, tenderness, guarding, rebound, rigid, bruit, pulsatile mass - Extremities Exam Extremities exam: Present: normal inspection, normal capillary refill, other ( there is a left upper extremity AV fistula with an appropriate thrill.). Absent : calf tenderness - Back Exam Back exam: Present: normal inspection, full ROM. Absent: tenderness, CVA tenderness (R), CVA tenderness (L), muscle spasm, paraspinal tenderness, vertebral tenderness - Neurological Exam Neurological exam: Present: alert, oriented X3, normal gait, other (Extraocular movements intact. Tongue midline. No facial droop. Facial sensation intact to light touch in the V1, V2, V3 distribution bilaterally. 5 and 5 strength in 4 extremities.. Sensation is intact to light touch in 4 extremities.). Absent : motor sensory deficit - Psychiatric Psychiatric exam: Present: homicidal ideation, suicidal ideation - Skin Skin exam: Present: warm, dry, intact, normal color. Absent: rash ED Course Vital Signs 06/15/16 06/15/16 06/15/16 11:21 18:28 21:08 Temperature 97.7 F 99.2 F Pulse Rate 97 H 87 Pulse Rate [ Right Radial] Respiratory 20 16 18 Rate Blood Pressure 158/93 Blood Pressure 141/88 [Left] Blood Pressure [Right Arm] O2 Sat by Pulse 98 95 Oximetry 06/15/16 21:33 Temperature 99.1 F Pulse Rate Pulse Rate [ 78 Right Radial] Respiratory 18 Rate Blood Pressure Blood Pressure [Left] Blood Pressure 180/92 [Right Arm] O2 Sat by Pulse 93 Oximetry - Reevaluation(s) Reevaluation #1: 06/15/16 19:15 Differential diagnosis: End-stage renal disease on dialysis, malingering, suicidality, homicidality, mood disorder Assessment and plan: 50-year-old female who has multiple chronic medical issues which are not acutely medically decompensated with homicidality and suicidality. She requires a 1013. I am very familiar with this patient. She decompensates very easily. The patient clinically does not do well she misses her dialysis. She does not require emergent dialysis at this time, but she should have it within the next 24-48 hours. However, if the patient is on a 1013, because of underlying hospital policy, she will not be able to receive dialysis from the emergency department. The patient will ultimately be able to receive dialysis if she is an inpatient. Given complex and multifaceted social factors in this patient's history, I do not that she can be safely discharged. On a similar notes, without receiving dialysis in the near future, I do not think the patient will be medically stable for psychiatric placement under consultation. The case is discussed with the informatics educator Dr Emmanuel Who is going to arrange for dialysis tomorrow. Case is discussed with the chief scientist, Dr. Escalante, who does authorize admission even though this is predominantly a social admission. At this point in time, I am not able to get an emergent psychiatric consult. Psychiatry has been counseled that they're going to follow. Dr Arreguin accepts patient ED Medical Decision Making - Lab Data Result diagrams: 06/15/16 11:37 06/16/16 13:31 Vital Signs 06/15/16 06/15/16 11:21 18:28 Temperature 97.7 F Pulse Rate 97 H Respiratory 20 16 Rate Blood Pressure 158/93 O2 Sat by Pulse 98 Oximetry Labs 06/15/16 06/15/16 06/15/16 11:37 11:37 11:37 WBC 4.6 RBC 3.26 L Hgb 10.4 Hct 31.1 MCV 96 MCH 32 MCHC 33 RDW 17.4 H Plt Count 156 Powell % (Auto) Reactor Fueling Supervisor Add Manual Diff Complete Total Counted 100 Seg Neuts % (Manual) 56.0 Band Neutrophils % 0 Lymphocytes % (Manual) 27.0 Reactive Lymphs % (Man) 0 Monocytes % (Manual) 8.0 H Eosinophils % (Manual) 5.0 H Basophils % (Manual) 1.0 Metamyelocytes % 2.0 Myelocytes % 1.0 Promyelocytes % 0 Blast Cells % 0 Nucleated RBC % Not Reportable Seg Neutrophils # Man 2.6 Band Neutrophils # 0.0 Lymphocytes # (Manual) 1.2 Abs React Lymphs (Man) 0.0 Monocytes # (Manual) 0.4 Eosinophils # (Manual) 0.2 Basophils # (Manual) 0.0 Metamyelocytes # 0.1 Myelocytes # 0.0 Promyelocytes # 0.0 Blast Cells # 0.0 WBC Morphology Not Reportable Hypersegmented Neuts Not Reportable Hyposegmented Neuts Not Reportable Hypogranular Neuts Not Reportable Smudge Cells Not Reportable Toxic Granulation Not Reportable Toxic Vacuolation Not Reportable Dohle Bodies Not Reportable Pelger-Huet Anomaly Not Reportable Jose Luis Rods Not Reportable Platelet Estimate Consistent w auto Clumped Platelets Not Reportable Plt Clumps, EDTA Not Reportable Large Platelets Not Reportable Giant Platelets Not Reportable Platelet Satelliting Not Reportable Plt Morphology Comment Not Reportable RBC Morphology Not Reportable Dimorphic RBCs Not Reportable Polychromasia Not Reportable Hypochromasia Not Reportable Poikilocytosis Not Reportable Anisocytosis Not Reportable Microcytosis Not Reportable Macrocytosis Not Reportable Spherocytes Not Reportable Pappenheimer Bodies Not Reportable Sickle Cells Not Reportable Target Cells Not Reportable Tear Drop Cells Not Reportable Ovalocytes Not Reportable Helmet Cells Not Reportable Khan-[place] Bodies Not Reportable [place] Rings Not Reportable [place] Cells Not Reportable Bite Cells Not Reportable Crenated Cell Not Reportable Elliptocytes Not Reportable Acanthocytes (Spur) Not Reportable Rouleaux Not Reportable Hemoglobin C Crystals Not Reportable Schistocytes Not Reportable Malaria parasites Not Reportable Sheldon Bodies Not Reportable Hem Pathologist Commnt No Sodium 131 L D Potassium 4.7 Chloride 88.4 L Carbon Dioxide 23 Anion Gap 24 BUN 36 H Creatinine 8.7 H Estimated GFR 6 BUN/Creatinine Ratio 4.13 Glucose 79 Calcium 8.4 Total Creatine Kinase Salicylates Acetaminophen Plasma/Serum Alcohol < 0.01 06/15/16 06/15/16 06/15/16 17:12 17:12 17:12 WBC RBC Hgb Hct MCV MCH MCHC RDW Plt Count Powell % (Auto) Add Manual Diff Total Counted Seg Neuts % (Manual) Band Neutrophils % Lymphocytes % (Manual) Reactive Lymphs % (Man) Monocytes % (Manual) Eosinophils % (Manual) Basophils % (Manual) Metamyelocytes % Myelocytes % Promyelocytes % Blast Cells % Nucleated RBC % Seg Neutrophils # Man Band Neutrophils # Lymphocytes # (Manual) Abs React Lymphs (Man) Monocytes # (Manual) Eosinophils # (Manual) Basophils # (Manual) Metamyelocytes # Myelocytes # Promyelocytes # Blast Cells # WBC Morphology Hypersegmented Neuts Hyposegmented Neuts Hypogranular Neuts Smudge Cells Toxic Granulation Toxic Vacuolation Dohle Bodies Pelger-Huet Anomaly Jose Luis Rods Platelet Estimate Clumped Platelets Plt Clumps, EDTA Large Platelets Giant Platelets Platelet Satelliting Plt Morphology Comment RBC Morphology Dimorphic RBCs Polychromasia Hypochromasia Poikilocytosis Anisocytosis Microcytosis Macrocytosis Spherocytes Pappenheimer Bodies Sickle Cells Target Cells Tear Drop Cells Ovalocytes Helmet Cells Khan-[place] Bodies [place] Rings Flint Cells Bite Cells Crenated Cell Elliptocytes Acanthocytes (Spur) Rouleaux Hemoglobin C Crystals Schistocytes Malaria parasites Sheldon Bodies Hem Pathologist Commnt Sodium Potassium Chloride Carbon Dioxide Anion Gap BUN Creatinine Estimated GFR BUN/Creatinine Ratio Glucose Calcium Total Creatine Kinase 116 Salicylates < 0.3 L Acetaminophen < 15.0 Plasma/Serum Alcohol Critical care attestation.: If time is entered above; I have spent that time in minutes in the direct care of this critically ill patient, excluding procedure time. ED Disposition Clinical Impression: ESRD (end stage renal disease) on dialysis, Crack cocaine use, High risk case management patient, Depression with suicidal ideation Disposition: OP ADMITTED IP TO THIS HOSP Is pt being admited?: Yes Condition: Good
[2016-06-15] MEDS ORDERED: ATIVAN IM PRN (17:50)
[2016-06-15] MEDS ORDERED: NON-FORMULARY (Ipratropium/Albuterol Sulfate [Combivent Respimat] 1 SPRAY) IH SCH (18:00)
[2016-06-15] MEDS: BABY ASPIRIN PO SCH (19:01)
[2016-06-15] MEDS: DUONEB 0.5 MG-3 MG/3 ML SOLN IH SCH (20:02)
--- NOTE | 2016-06-15 20:52 | Event Note ---
Date: 06/15/16 See H/p in reports Suicidal thought/Ideation ESRD needing HD HTN Lupus T2DM Multiple social issues
[2016-06-15] MEDS ORDERED: DULCOLAX PR PRN (20:54)
[2016-06-15] MEDS: MORPHINE IV PRN (22:46)
[2016-06-15] MEDS: BENADRYL IV PRN (22:47)
[2016-06-15] MEDS: PEPCID PO SCH (22:47)
[2016-06-15] MEDS: COREG PO SCH (22:48)
--- NOTE | 2016-06-15 23:57 | History and Physical Report ---
CHIEF COMPLAINT: Suicidal thoughts. HISTORY OF PRESENT ILLNESS: A 50-year-old -[place] female who has been admitted multiple times to this institution for noncompliance with dialysis and multiple other medical complaints, comes in for suicidal thoughts, but the patient does not have solid plan about suicidality. The patient probably mentioning suicidal thoughts because of the possibility of getting admitted. The patient wants to get admitted to the hospital for a stay. Not short of breath, but missed dialysis yesterday. The patient was fired from dialysis center because of noncompliance. The patient was last dialyzed on Saturday. The patient stated that she tried to overdose and she sits at home and smokes crack all day, but does not have any access to guns, but currently claims to have guns. No headache, no chest pain, no shortness of breath. No fever, no chills. PAST MEDICAL HISTORY: As mentioned, hypertension, end-stage renal disease, congestive heart failure, diabetes, hemodialysis on Saturday, Saturday, Saturday, seizure disorder, lupus, bipolar, anxiety, asthma, COPD, hypothyroidism. PAST SURGICAL HISTORY: Left arm AV graft, Perm-A-Cath. SOCIAL HISTORY: Crack cocaine on a regular basis and marijuana on a regular basis. FAMILY HISTORY: Hypertension. CURRENT MEDICATIONS: Coreg 3.125 b.i.d., aspirin 81 mg p.o. daily, acyclovir ointment 5 times a day, Combivent 1 spray q.i.d., famotidine 10 mg p.o. b.i.d., Renagel 800 mg p.o. t.i.d. REVIEW OF SYSTEMS: CONSTITUTIONAL: No weight loss, no weight gain, no fever, no chills. HEENT: No sore throat, no postnasal drip. CARDIOVASCULAR AND RESPIRATORY: No shortness of breath, no chest pain, no palpitations, no cough. No wheezing. GASTROINTESTINAL: No nausea, no vomiting, no diarrhea. GENITOURINARY: No dysuria, no flank pain. MUSCULOSKELETAL: No joint pain. CENTRAL NERVOUS SYSTEM: No syncope, no seizures. PSYCHIATRIC: Suicidal thoughts and depression. The patient does not have a concrete idea or to commit suicide. SKIN: No rashes. HEMATOLOGIC AND LYMPHATIC: No easy bruising. No lymphedema. A 14-point review of systems done. PHYSICAL EXAMINATION: GENERAL: Middle-aged female sitting in bed, quite comfortable, no distress, talking with the patient, does not appear to be depressed. VITAL SIGNS: Blood pressure is 158/93, temperature is 97.7, pulse is 97, respiratory rate is 20, sats are 98%. HEENT: Unremarkable. Pupils equal and reactive. NECK: Supple, no lymphadenopathy, no thyromegaly. LUNGS: Clear to auscultation and percussion. Good air entry. CARDIOVASCULAR: S1, S2 heard. No gallop, no murmur, no rub. Apical impulse in left fifth intercostal space and midclavicular line. ABDOMEN: Soft and benign. No hepatosplenomegaly. No guarding, no rigidity. Hernial orifices are normal. EXTREMITIES: Good pedal pulses. No pedal edema. CENTRAL NERVOUS SYSTEM: Alert and oriented x 4, nonfocal exam. SKIN: Normal. EMERGENCY ROOM COURSE: The patient is being placed on 11/23 because of suicidal thoughts. The patient being fired from the dialysis center and her dialysis not being evaluated, we will admit for emergent dialysis and if cleared by psych for about the suicidal thoughts, the patient will be discharged. No narcotics. LABORATORY DATA: Reviewed. Sodium is 131. BUN and creatinine 36 and 8.7. EKG not available. ASSESSMENT AND PLAN: 1. Suicidal thoughts. The patient to be cleared by mental health regarding the stability of the patient for discharge. 2. End-stage renal disease, needing dialysis, admitted for dialysis. 3. Hypertension. Continue Coreg 3.125 b.i.d. 4. Chronic obstructive pulmonary disease. Continue Combivent and Respimat q.i.d. 5. Gastroesophageal reflux disease. Continue famotidine 10 mg p.o. b.i.d. 6. Pain management, IV Toradol if necessary. No narcotics for now. 7. Deep venous thrombosis prophylaxis, heparin 5000 q.12 hours. Renal consulted. Mental health consulted. JOB# [id number] VSM/NTS
[2016-06-16] MEDS: ZOFRAN IV PRN (01:24)
[2016-06-16] MEDS: DUONEB 0.5 MG-3 MG/3 ML SOLN IH SCH ×4 (03:30→20:00)
[2016-06-16] MEDS ORDERED: NON-FORMULARY (Sevelamer Hcl [Renagel] 800 MG) PO SCH (08:00)
[2016-06-16] MEDS ORDERED: NACL 0.9% 100 ML IV PRN (08:23)
--- NOTE | 2016-06-16 08:59 | Consultation ---
History of Present Illness - Reason for Consult Consult date: 06/16/16 end stage renal disease Requesting physician: RHODA JANSEN - History of Present Illness This is a 50yo AAF with PMHx of Hypertension, SLE, Bipolar disorder, COPD, ESRD on hemodialysis, and Behavioral disturbances who presents to ER with suicidal ideation, pt reports that she tried to overdose herself with crack. Pt was recently discharged from her previous HD clinic due to behavioral disturbances and missed her HD yesterday. Renal consult requested for management of ESRD/HD. pt denies fever, chills, nausea, vomiting, SOB, CP, palpitations, abdominal pain. Past History Past Medical History: COPD, diabetes, ESRD, hypertension, seizures Past Surgical History: Other (LUE Av graft ) Social history: other (crack cocain and marijuana on regular basis ) Family history: hypertension Medications and Allergies Allergies Allergy/AdvReac Type Severity Reaction Status Date / Time enalapril maleate Allergy Angioedema Verified 06/06/16 08:26 [From Vasotec] enalaprilat dihydrate Allergy Angioedema Verified 06/06/16 08:26 [From Vasotec] peach AdvReac Nausea Verified 06/06/16 08:26 tomato AdvReac Nausea Verified 06/06/16 08:26 Home Medications Medication Instructions Recorded Confirmed Last Taken Type Ipratropium/Albuterol Sulfate 1 spray IH QID #1 aer.w.adap 06/12/16 06/15/16 Unknown Rx [Combivent Respimat] Acyclovir [Acyclovir Ointment] 1 applic TP 5XD #7 tube 06/13/16 06/15/16 Unknown Rx Aspirin [Aspirin BABY CHEW TAB] 81 mg PO QDAY #30 tab.chew 06/13/16 06/15/16 Unknown Rx Carvedilol [Coreg] 3.125 mg PO BID #60 tablet 06/13/16 06/15/16 Unknown Rx Famotidine [Pepcid] 10 mg PO BID #30 tablet 06/13/16 06/15/16 Unknown Rx Paricalcitol [Zemplar] 2 mcg PO TuThSa #30 capsule 06/13/16 06/15/16 Unknown Rx Sevelamer HCl [Renagel] 800 mg PO TIDWM #30 tablet 06/13/16 06/15/16 Unknown Rx Active Meds: Active Medications Acetaminophen (Tylenol) 650 mg PO Q4H PRN PRN Reason: Pain MILD(1-3)/Fever >100.5/REID Albuterol (Proventil) 2.5 mg IH Q3HR PRN PRN Reason: Shortness Of Breath Albuterol/Ipratropium (Duoneb 0.5 Mg-3 Mg/3 Ml Soln) 1 ampul IH Q6HRT [facility] Last Admin: 06/16/16 08:09 Dose: 1 ampul Aspirin (Baby Aspirin) 81 mg PO QDAY [facility] Last Admin: 06/15/16 19:01 Dose: Not Given Bisacodyl (Dulcolax) 10 mg AL QDAY PRN PRN Reason: Constipation unrelieved by MOM Carvedilol (Coreg) 3.125 mg PO BID [facility] Last Admin: 06/15/16 22:48 Dose: 3.125 mg Diphenhydramine HCl (Benadryl) 25 mg IV Q6H PRN PRN Reason: Itching Last Admin: 06/15/16 22:47 Dose: 25 mg Famotidine (Pepcid) 10 mg PO BID [facility] Last Admin: 06/15/16 22:47 Dose: 10 mg Sodium Chloride (Nacl 0.9%) 100 mls @ 999 mls/hr IV ROME PRN PRN Reason: Hypotension Lorazepam (Ativan) 2 mg IM Q4HR PRN PRN Reason: Agitation Magnesium Hydroxide (Milk Of Magnesia) 30 ml PO Q4H PRN PRN Reason: Constipation Morphine Sulfate (Morphine) 2 mg IV Q4H PRN PRN Reason: Pain, Moderate (4-6) Last Admin: 06/15/16 22:46 Dose: 2 mg Ondansetron HCl (Zofran) 4 mg IV Q8H PRN PRN Reason: N/V unrelieved by Reglan Last Admin: 06/16/16 01:24 Dose: 4 mg Paricalcitol (Zemplar) 2 mcg PO TuThSa [facility] Sevelamer Carbonate (Renvela) 800 mg PO TIDWM [facility] Review of Systems All systems: negative Constitutional: weakness Cardiovascular: dyspnea on exertion Exam - Vital Signs Vital signs: Vital Signs Temp Pulse Resp BP Pulse Ox 97.7 F 97 H 20 158/93 98 06/15/16 11:21 06/15/16 11:21 06/15/16 11:21 06/15/16 11:21 06/15/16 11:21 - General Appearance General appearance: well-developed, well-nourished, appears stated age EENT: ATNC, PERRL, mucous membranes moist Neck: Present: neck supple Respiratory: Clear to Ascultation Heart: regular, S1S2 Gastrointestinal: Present: normal, normoactive bowel sounds Integumentary: no rash, other (no edema ) Neurologic: no focal deficit, alert and oriented x3, CN 3-12 intact Psychiatric: depressed Results - Lab Results 06/15/16 11:37 06/15/16 11:37 Most recent lab results Calcium 8.4 mg/dL (8.4-10.2) 06/15/16 11:37 Laboratory Tests 06/13/16 06/15/16 06/15/16 10:35 11:37 17:12 Total Creatine Kinase 116 Salicylates Acetaminophen Plasma/Serum Alcohol < 0.01 Hepatitis C Antibody Non-reactive 06/15/16 06/15/16 17:12 17:12 Total Creatine Kinase Salicylates < 0.3 L Acetaminophen < 15.0 Plasma/Serum Alcohol Hepatitis C Antibody Assessment and Plan - Patient Problems (1) Depression with suicidal ideation Current Visit: Yes Status: Acute Plan to address problem: follow psych evaluation (2) ESRD (end stage renal disease) on dialysis Current Visit: Yes Status: Chronic Plan to address problem: will arrange HD today, target UF of 2-3kg, use 2K bath. cont M/W/F schedule. case management consult for outpatient HD arrangement (3) Crack cocaine use Current Visit: Yes Status: Chronic (4) Hypertensive chronic kidney disease with stage 5 chronic kidney disease or end stage renal disease Current Visit: No Status: Chronic Plan to address problem: BP controlled, cont home BP regimen (5) Anemia, chronic disease Current Visit: Yes Status: Chronic Plan to address problem: hb > 10, no need for EPO for now (6) Secondary hyperparathyroidism (of renal origin) Current Visit: Yes Status: Chronic Plan to address problem: cont renvela and zemplar
[2016-06-16] MEDS: RENVELA PO SCH ×3 (10:06→18:23)
[2016-06-16] MEDS: BABY ASPIRIN PO SCH (10:06)
[2016-06-16] MEDS: COREG PO SCH ×2 (10:07→22:21)
[2016-06-16] MEDS: PEPCID PO SCH ×2 (10:07→22:22)
[2016-06-16] MEDS: MORPHINE IV PRN (10:13)
[2016-06-16] MEDS: BENADRYL IV PRN ×2 (10:13→18:22)
[2016-06-16] MEDS ORDERED: NACL 0.9 (PRIMING MACHINE ONLY DIALYSIS) MC ONE (14:15)
[2016-06-16 14:35] LABS: BUN/Creatinine Ratio 5.19; Calcium 8.7 mg/dL (8.4-10.2); Chloride 90.5 mmol/L (98-107); Potassium 5.2 mmol/L (3.6-5.0)
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
--- NOTE | 2016-06-16 16:11 | Admit Criteria Form ---
Admission Criteria Documentation: RENAL FAILURE, CHRONIC Clinical Indications for Admission to Inpatient Care (Place 'X' for any and all applicable criteria): Admission is indicated for ANY ONE of the following (1)(2)(3)(4)(5): [X ]I. Inpatient admission required rather than observation care (Use Renal Failure, Chronic: Observation Care Criteria as appropriate) because of ANY ONE of the following: [ ]a) Volume overload or uremic symptoms (eg, clinically significant pulmonary edema, hypertension, pericarditis, acidosis) too severe for, or not responsive (eg, for over 24 hours) to emergency department or observation care dialysis or treatment regimen (11) [ ]b) Hemodynamic instability that is severe or persistent [ ]c) Respiratory distress that is severe or persistent (11) [ ]d) Clinically significant electrolyte abnormality that requires inpatient care (eg,hyperkalemia with severe ECG findings)[B] [ ]e) Supplement O2 or respiratory therapy for over 24hrs that is performable only in acute inpatient setting [ ]f) Continuous IV infusion of anticoagulation, platelet inhibitor, vasoactive, or Antiarrhythmic medication (15), [ ]g) Pulmonary artery catheter monitoring [ ]h) Temporary pacemaker placement [ ]i) Emergent pericardiocentesis [X ]j) Other condition, treatment or monitoring requiring inpatient admission [ ]II. Unexplained syncope [A] [ ]III. Recurrent seizures [ ]IV. Severe infections not treatable in outpatient setting (eg, peritonitis)(9 ) [ ]V. Cardiac arrhythmias of immediate concern [ ]. Encephalopathy [ ]VII.Bleeding abnormalities (eg, platelet dysfunction) with active (eg, gastrointestinal) bleeding Extended stay beyond goal length of stay may be needed for (3)(4)(35)(36): [ ]a) Continuing uremic complications [ ]b) Comorbidities or complications The original [employer] content created by [employer] has been revised. The portions of the content which have been revised are identified through the use of italic text or in bold, and [facility] has neither reviewed nor approved the modified material. All other unmodified content is copyright [employer]. Please see references footnoted in the original [facility] edition 2016 Admission Criteria Met: Yes
[2016-06-16] MEDS: ZEMPLAR PO SCH (18:23)
[2016-06-17] MEDS: BENADRYL IV PRN ×3 (00:28→22:21)
[2016-06-17] MEDS: DUONEB 0.5 MG-3 MG/3 ML SOLN IH SCH ×4 (01:34→20:03)
[2016-06-17] MEDS: ZOFRAN IV PRN ×2 (06:51→22:21)
--- NOTE | 2016-06-17 07:53 | Progress Note ---
Assessment and Plan - Patient Problems (1) Depression with suicidal ideation Current Visit: Yes Status: Acute Plan to address problem: follow psych evaluation (2) ESRD (end stage renal disease) on dialysis Current Visit: Yes Status: Chronic Plan to address problem: wcont M/W/ schedule. case management consult for outpatient HD arrangement (3) Crack cocaine use Current Visit: Yes Status: Chronic (4) Hypertensive chronic kidney disease with stage 5 chronic kidney disease or end stage renal disease Current Visit: No Status: Chronic Plan to address problem: BP controlled, cont home BP regimen (5) Anemia, chronic disease Current Visit: Yes Status: Chronic Plan to address problem: hb > 10, no need for EPO for now (6) Secondary hyperparathyroidism (of renal origin) Current Visit: Yes Status: Chronic Plan to address problem: cont renvela and zemplar Subjective Date of service: 06/17/16 Interval history: pt awake alert, in NAD Objective - Vital Signs Vital signs: Vital Signs - 12hr 06/16/16 06/16/16 06/17/16 22:00 22:21 01:35 Temperature 98.9 F Pulse Rate 86 Pulse Rate [ 77 Anterior Bilateral Throughout] Pulse Rate [ 86 Right Radial] Respiratory 18 Rate Respiratory 20 Rate [Anterior Bilateral Throughout] Respiratory 16 Rate [Back] Blood Pressure 128/69 Blood Pressure 128/69 [Right Arm] O2 Sat by Pulse 93 Oximetry 06/17/16 06/17/16 06/17/16 01:52 07:21 07:26 Temperature Pulse Rate Pulse Rate [ 80 74 75 Anterior Bilateral Throughout] Pulse Rate [ Right Radial] Respiratory Rate Respiratory 19 18 18 Rate [Anterior Bilateral Throughout] Respiratory Rate [Back] Blood Pressure Blood Pressure [Right Arm] O2 Sat by Pulse Oximetry 06/17/16 07:31 Temperature Pulse Rate Pulse Rate [ 78 Anterior Bilateral Throughout] Pulse Rate [ Right Radial] Respiratory Rate Respiratory 18 Rate [Anterior Bilateral Throughout] Respiratory Rate [Back] Blood Pressure Blood Pressure [Right Arm] O2 Sat by Pulse Oximetry - General Appearance General appearance: well-developed, well-nourished, appears stated age EENT: ATNC, PERRL, mucous membranes moist Neck: no JVD Respiratory: Present: Clear to Ascultation Cardiology: regular, S1S2 Gastrointestinal: normal, normoactive bowel sounds Integumentary: no rash, other (no edema ) Neurologic: no focal deficit, alert and oriented x3, strength 5/5, CN 3-12 intact Psychiatric: mood/affect appropriate, depressed - Lab 06/15/16 11:37 06/16/16 13:31 Most recent lab results Calcium 8.7 mg/dL (8.4-10.2) 06/16/16 13:31
[2016-06-17] MEDS: PERCOCET 5/325 PO PRN ×2 (08:14→22:18)
[2016-06-17] MEDS: RENVELA PO SCH ×3 (08:14→17:01)
[2016-06-17] MEDS: BABY ASPIRIN PO SCH (09:11)
[2016-06-17] MEDS: COREG PO SCH ×2 (09:11→22:18)
[2016-06-17] MEDS: PEPCID PO SCH ×2 (09:11→22:18)
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
--- NOTE | 2016-06-17 17:25 | Consultation ---
History of Present Illness - Reason for Consult Consult date: 06/17/16 Reason for consult: recent expression of SI Medications and Allergies Allergies Allergy/AdvReac Type Severity Reaction Status Date / Time enalapril maleate Allergy Angioedema Verified 06/06/16 08:26 [From Vasotec] enalaprilat dihydrate Allergy Angioedema Verified 06/06/16 08:26 [From Vasotec] peach AdvReac Nausea Verified 06/06/16 08:26 tomato AdvReac Nausea Verified 06/06/16 08:26 Home Medications Medication Instructions Recorded Confirmed Last Taken Type Ipratropium/Albuterol Sulfate 1 spray IH QID #1 aer.w.adap 06/12/16 06/15/16 Unknown Rx [Combivent Respimat] Acyclovir [Acyclovir Ointment] 1 applic TP 5XD #7 tube 06/13/16 06/15/16 Unknown Rx Aspirin [Aspirin BABY CHEW TAB] 81 mg PO QDAY #30 tab.chew 06/13/16 06/15/16 Unknown Rx Carvedilol [Coreg] 3.125 mg PO BID #60 tablet 06/13/16 06/15/16 Unknown Rx Famotidine [Pepcid] 10 mg PO BID #30 tablet 06/13/16 06/15/16 Unknown Rx Paricalcitol [Zemplar] 2 mcg PO TuThSa #30 capsule 06/13/16 06/15/16 Unknown Rx Sevelamer HCl [Renagel] 800 mg PO TIDWM #30 tablet 06/13/16 06/15/16 Unknown Rx Active Meds: Active Medications Acetaminophen (Tylenol) 650 mg PO Q4H PRN PRN Reason: Pain MILD(1-3)/Fever >100.5/REID Albuterol (Proventil) 2.5 mg IH Q3HR PRN PRN Reason: Shortness Of Breath Albuterol/Ipratropium (Duoneb 0.5 Mg-3 Mg/3 Ml Soln) 1 ampul IH Q6HRT [facility] Last Admin: 06/17/16 13:07 Dose: Not Given Aspirin (Baby Aspirin) 81 mg PO QDAY [facility] Last Admin: 06/17/16 09:11 Dose: 81 mg Bisacodyl (Dulcolax) 10 mg WA QDAY PRN PRN Reason: Constipation unrelieved by MOM Carvedilol (Coreg) 3.125 mg PO BID [facility] Last Admin: 06/17/16 09:11 Dose: 3.125 mg Diphenhydramine HCl (Benadryl) 25 mg IV Q6H PRN PRN Reason: Itching Last Admin: 06/17/16 06:51 Dose: 25 mg Famotidine (Pepcid) 10 mg PO BID [facility] Last Admin: 06/17/16 09:11 Dose: 10 mg Sodium Chloride (Nacl 0.9%) 100 mls @ 999 mls/hr IV ROME PRN PRN Reason: Hypotension Lorazepam (Ativan) 2 mg IM Q4HR PRN PRN Reason: Agitation Magnesium Hydroxide (Milk Of Magnesia) 30 ml PO Q4H PRN PRN Reason: Constipation Ondansetron HCl (Zofran) 4 mg IV Q8H PRN PRN Reason: N/V unrelieved by Reglan Last Admin: 06/17/16 06:51 Dose: 4 mg Oxycodone/Acetaminophen (Percocet 5/325) 1 tab PO Q6H PRN PRN Reason: Pain, Moderate (4-6) Last Admin: 06/17/16 08:14 Dose: 1 tab Paricalcitol (Zemplar) 2 mcg PO TuThSa [facility] Last Admin: 06/16/16 18:23 Dose: 2 mcg Sevelamer Carbonate (Renvela) 800 mg PO TIDWM [facility] Last Admin: 06/17/16 17:01 Dose: 800 mg Mental Status Exam - Vital signs Last Vital Signs Temp 97.8 F 06/17/16 16:59 Pulse 68 06/17/16 16:59 Resp 18 06/17/16 16:59 BP 138/71 06/17/16 16:59 Pulse Ox 93 06/17/16 16:59 Results Result Diagrams: 06/15/16 11:37 06/16/16 13:31 All other labs normal. Assessment and Plan Assessment and plan: CHIEF COMPLAINT IN PATIENTS WORDS: "I need my dialysis" HISTORY OF PRESENT ILLNESS REQUIRING ADMISSION TO INPATIENT LEVEL OF CARE: (Describe the onset of Illness, Intensity of Symptoms, and Circumstances Leading to Admission) This is a 50 year-old undomiciled female with a PMH of SLE, ESRD, HTN, DM, GERD , COPD, and who reports a formal PPH of Bipolar Disorder, Cocaine Abuse now presenting to the ER for hemodialysis. Upon assessment in the ER she additionally reported experiencing suicidal thoughts in the context of cocaine intoxication. Patient has a fixed income and is currently homeless. Patient did try to obtain a place of residence with her friend of the extended stay hotel; however, she and her friend use an excessive amount of cocaine got into an argument and she was kicked out by the friend. Currently patient has around $300 remaining to her for the rest the month and she does not believe it is enough to secure stable housing. She has been attempting to contact the social security office to reinstate her Medicaid benefits; however, she has been unsuccessful for the past 6 months. Consequently, about $130 - $140 had been garnished from her monthly disability income to pay for her Medicare premium. In addition to her homelessness and chronic difficulty with securing Medicaid as an insurance provider, the patient lacks basic transportation and familial support structures. Patient notes that the lack of transportation from the medications and is the reason why she was kicked out of her dialysis clinic. Consequently, patient has resorted to using the ER to obtain dialysis. Currently patient does report being somewhat despondent and on the verge of becoming even more hopeless as she continues to meet obstacles to accessing dialysis as well as obtaining a stable residence. PSYCHIATRIC REVIEW OF SYSTEMS: Substance: Recent cocaine binge Depression: sad/withdrawn Lois: labile moods, irritable Psychosis: no AVH. No paranoia/grandiosity/erotomania Anxiety/ OCD/ PTSD: denies Suicidality: passive SI, with no plan Other Self-Injurious Behavior: none currently, no SIB noted recently Violent/ Aggressive Behavior: recent aggression towards friend while intoxicated CURRENT MEDICATIONS: ( Psychiatric and Non-psychiatric ) Ipratropium Acyclovir ASA Carvedilol Famotidine Paricalcitrol Savelamer ALLERGIES: enalapril, enalaprilat PAST PSYCHIATRIC HISTORY: ( Prior Treatment, Precipitating Factors, Diagnosis, and Course of Treatment ) Inpatient: none Outpatient: none Prior Suicide Attempts: previous SA noted Prior Self-Injurious Behaviors: none noted PAST PSYCHIATRIC MEDICATION TRIALS: unknown to patient MEDICAL HISTORY: (Chronic and Acute Illnesses, Current Medical Treatment, Recent Hospitalizations) SLE, ESRD, HTN, DM, GERD, COPD HISTORY OF TRAUMA/ABUSE: Unknown DRUG / ALCOHOL ABUSE HISTORY: Cocaine Detoxification / Withdrawal: SOCIAL HISTORY: (Educational Level, Employment, Support System, Interpersonal Relationships) Unemployed. Homeless. Recently lived in an extended stay hotel. He has income through her disability. Currently having a difficult time getting onto Medicaid. She has 2 brothers that live in [place]. She also has a daughter that lives in [place]. Her baby's father is intermittently involved in her life. FAMILY HISTORY: Psychiatric/Substance Abuse Strong family history of bipolar disorder noted MENTAL STATUS EXAM: General Appearance: casually dressed, in acute distress Sensorium/Consciousness: alert and responding to external stimuli Eye Contact: limited Attitude / Behavior: cooperative, but guarded Psychomotor & Musculoskeletal Activity: WNL Mood: fine Affect: constricted Speech / Language: normal Thought Processes: organized, logical, linear Thought Content: + SI, no HI Perception: no AVH Orientation: person, place, time and situation Concentration/Attention WORLD backwards: DLROW Memory Immediate Digit Span (6-6-4-9-3-1-5): [id number] Memory Recent (Objects: Lamp, Umbrella, and Telephone) Patient Response: 3/3 Memory Remote (Name as many presidents as you can starting with current one and going backwards) Patient Response: 2 Judgment What would you do if you smelled smoke in a crowded movie theater?: poor/impulsive Insight: poor Intelligence Vocabulary, general fund of knowledge, educational level : Below Average Capacity of ADLs: Independent STRENGTHS: determined to get her dialysis and obtain medicaid services PSYCHOSOCIAL AND ENVIRONMENTAL STRESSORS: Strained relationship with family, cocaine abuse ADMITTING DIAGNOSES Psychiatric: Substance Induced Mood Disorder Evidence for the following: Adjustment Disorder with Depressed Mood v Bipolar Disorder Medical: SLE, ESRD, HTN, DM, GERD, COPD Assessment: This is a 50-year-old female with a reported history of bipolar disorder and cocaine abuse who now presents expressing suicidal thoughts in the context of not being able to obtain her dialysis as well as homelessness. Biologically she has several chronic medical conditions are contributing to her presentation. Psychosocially, patient has poor supportive structures and is currently homeless. Additionally, patient's having a very difficult time accessing medical services due to a lapse in her Medicaid health plan. On review of the medical record and unlike clinical examination, patient has noted passive suicidal thoughts with no specific plan. The primary team is concerned that there is secondary gain involved here. It does appear that the patient has goals outside of medical treatment. Patient did note that she would like for her Medicaid to be reinstated, some support with housing and support with transportation so that she can obtain dialysis services. Plan: - Connect patient to [facility] for continued psychiatric services once the patient is medically cleared - Connect her to a dialysis clinic at [facility] to prevent her from using the ER for dialysis, if possible
[2016-06-18] MEDS: DUONEB 0.5 MG-3 MG/3 ML SOLN IH SCH ×4 (02:44→20:21)
--- NOTE | 2016-06-18 07:32 | Discharge Summary ---
Providers - Providers Date of Admission: 06/15/16 19:19 Date of discharge: 06/19/16 Attending physician: AKHIL LYNNE MD 06/15/16 Consult to Case Management [CONS] Routine Services Needed at Discharge: Legal Stenographer Notified:: case mgt. Phone number called:: [phone] Was contact made?: Yes If yes, spoke with:: maame Time called:: 10:17 Comment:: already aware 06/15/16 20:55 Consult to Mental Health [CONS] Routine Reason For Exam: suicidal ideation Place consult to:: mental health Notified:: mental health Phone number called:: [phone] Was contact made?: Yes Time called:: 10:20 Comment:: states Dr. Putnam will see pt. today 06/16/16 10:49 Consult to Mental Health [CONS] Routine Reason For Exam: behavioral disturbance Place consult to:: [facility] Notified:: mental Health Phone number called:: [phone] Was contact made?: Yes If yes, spoke with:: Javi Time called:: 10:20 Comment:: State Dr. Putnam will see today Primary care physician: PROJECT DESIGNER Hospitalization Condition: Good Disposition: DC/TX PSY HOSP/PSY UNIT Time spent for discharge: 35 mins Core Measure Documentation - Palliative Care Palliative Care/ Comfort Measures: Not Applicable Exam - Constitutional Vitals: Temp Pulse Resp BP Pulse Ox 98.9 F 77 18 160/79 92 06/17/16 21:57 06/17/16 22:18 06/17/16 23:18 06/17/16 22:18 06/17/16 21:57 Plan Activity: advance as tolerated, fall precautions Diet: renal Special Instructions: record daily weights, record daily BP diary Follow up with: CHARLA SKAGGS MD [Primary Care Provider] - 3-5 Days DALILA VAZQUEZ MD [Staff Physician] - 7 Days
[2016-06-18] MEDS: RENVELA PO SCH ×4 (08:00→17:10)
[2016-06-18] MEDS: COREG PO SCH ×3 (10:00→21:56)
[2016-06-18] MEDS: BABY ASPIRIN PO SCH (10:00)
[2016-06-18] MEDS: PEPCID PO SCH ×2 (10:00→21:51)
[2016-06-18] MEDS: PERCOCET 5/325 PO PRN (11:24)
[2016-06-18] MEDS: ZOFRAN IV PRN ×2 (11:25→21:51)
[2016-06-18] MEDS: BENADRYL IV PRN ×2 (11:25→21:51)
--- NOTE | 2016-06-18 11:41 | Progress Note ---
Subjective - Reason for Consult Consult date: 06/18/16 Reason for consult: Psychiatry Follow-up - Chief Complaint Chief complaint: "I don't know what to do" This is a 50 year-old undomiciled female with a PMH of SLE, ESRD, HTN, DM, GERD , COPD, and who reports a formal PPH of Bipolar Disorder, Cocaine Abuse now presenting to the ER for hemodialysis. Today patient is emotional, but cooperative during assessment. She stated being homeless and wanting a place to go for her dialysis. I informed her that her concerns are being addressed. After I made that statement and asked her how she feel, she stated,"I want to kill myself." She became hyper verbal about a female individual she would "kill " because they both got put out the crack house a couple days ago. She feels that no one cares for her and she became emotional. She denies a poor appetite or sleep disturbance. She does state being very sad at this time. Mental Status Exam - Vital signs Last Vital Signs Temp 98.4 F 06/18/16 08:21 Pulse 72 06/18/16 08:21 Resp 20 06/18/16 08:21 BP 128/84 06/18/16 08:21 Pulse Ox 98 06/18/16 08:21 - Exam Narrative exam: MSE: Appearance: Disheveled, cooperative, calm Behavior: good eye contact Speech: regular rate and tone Mood: "I feel sad" Affect: mood congruent Thought Process: circumstantial Thought Content: denies AVH's Motor Activity: lying in bed Cognition: lying in bed Insight: limited Judgment: poor Assessment and Plan Impression: This is a 50 year-old undomiciled female with a PMH of SLE, ESRD, HTN, DM, GERD, COPD, and who reports a formal PPH of Bipolar Disorder, Cocaine Abuse now presenting to the ER for hemodialysis. Today patient is emotional, but cooperative during assessment. She stated being homeless and wanting a place to go for her dialysis. I informed her that her concerns are being addressed. After I made that statement I asked her how she feel, she stated, "I want to kill myself." She became hyper verbal about another female individual she would "kill" because they both got put out the crack house. CR 10.4, BUN 54. Recommendation/Plan: Continue 1013 with possible placement to inpatient psy services once medically clear. We will assess patient daily.
--- NOTE | 2016-06-18 13:26 | Progress Note ---
Assessment and Plan Assessment and plan: 50F with hx of SLE, ESRD, HTN, DM, GERD, COPD, who presents after having altercation with her roommates and being kicked out, she states that she was overdosing on crack cocaine for 2 days hoping to end her life 1. suicidal ideation Continue 1013, unfortunately patient is well-known around the hospital and some diarrhea and some no one is willing to take her in. In any case she is medically cleared from my standpoint for placement into an inpatient psych facility once arranged by psychiatrist. 2. End-stage renal disease Continue dialysis per nephrology, needs outpatient dialysis set up 3. COPD not in exacerbation Continue home inhalers 4. Diabetes Continue insulins 5. Hypertension Well-controlled, continue home meds. 6. Pain syndrome We'll downgrade to Ultram. No clinical indication for continued opiate-type medications, Benadryl and Ativan during hospitalization for this patient. Disposition: Pending placement to inpatient psych otherwise medically cleared History Interval history: Patient's son examined this morning continues to complain of generalized body ache. Also "I shouldn't trusted people". She denies any nausea, vomiting, diarrhea she reports some throat painis improving. No cough. Hospitalist Physical - Physical exam Narrative exam: VITAL SIGNS: Reviewed. GENERAL: The patient appeared well nourished and normally developed. Vital signs as documented. HEAD: No signs of head trauma. EYES: Pupils are equal. Extraocular motions intact. EARS: Hearing grossly intact. MOUTH: Oropharynx is normal. NECK: No adenopathy, no JVD. CHEST: Chest with clear breath sounds bilaterally. No wheezes, rales, or rhonchi. CARDIAC: Regular rate and rhythm. S1 and S2, without murmurs, gallops, or rubs. VASCULAR: No Edema. Peripheral pulses normal and equal in all extremities. ABDOMEN: Soft, without detectable tenderness. No sign of distention. No rebound or guarding, and no masses palpated. Bowel Sounds normal. MUSCULOSKELETAL: Good range of motion of all major joints. Extremities without clubbing, cyanosis or edema. NEUROLOGIC EXAM: Alert and oriented x 3. No focal sensory or strength deficits. Speech normal. Follows commands. PSYCHIATRIC: Mood normal. SKIN: No rash or lesions. - Constitutional Vitals: Temp Pulse Resp BP Pulse Ox 98.4 F 72 20 128/84 98 06/18/16 08:21 06/18/16 08:21 06/18/16 08:21 06/18/16 08:21 06/18/16 08:21 Results - Labs CBC & Chem 7: 06/15/16 11:37 06/16/16 13:31 Labs: Laboratory Last Values WBC 4.6 K/mm3 (4.5-11.0) 06/15/16 11:37 RBC 3.26 M/mm3 (3.65-5.03) L 06/15/16 11:37 Hgb 10.4 gm/dl (10.1-14.3) 06/15/16 11:37 Hct 31.1 % (30.3-42.9) 06/15/16 11:37 MCV 96 fl (79-97) 06/15/16 11:37 MCH 32 pg (28-32) 06/15/16 11:37 MCHC 33 % (30-34) 06/15/16 11:37 RDW 17.4 % (13.2-15.2) H 06/15/16 11:37 Plt Count 156 K/mm3 (140-440) 06/15/16 11:37 [place] % (Auto) Biscuit Packer 06/15/16 11:37 Add Manual Diff Complete 06/15/16 11:37 Total Counted 100 06/15/16 11:37 Seg Neuts % (Manual) 56.0 % (40.0-70.0) 06/15/16 11:37 Band Neutrophils % 0 % 06/15/16 11:37 Lymphocytes % (Manual) 27.0 % (13.4-35.0) 06/15/16 11:37 Reactive Lymphs % (Man) 0 % 06/15/16 11:37 Monocytes % (Manual) 8.0 % (0.0-7.3) H 06/15/16 11:37 Eosinophils % (Manual) 5.0 % (0.0-4.3) H 06/15/16 11:37 Basophils % (Manual) 1.0 % (0.0-1.8) 06/15/16 11:37 Metamyelocytes % 2.0 % 06/15/16 11:37 Myelocytes % 1.0 % 06/15/16 11:37 Promyelocytes % 0 % 06/15/16 11:37 Blast Cells % 0 % 06/15/16 11:37 Nucleated RBC % Not Reportable 06/15/16 11:37 Seg Neutrophils # Man 2.6 K/mm3 (1.8-7.7) 06/15/16 11:37 Band Neutrophils # 0.0 K/mm3 06/15/16 11:37 Lymphocytes # (Manual) 1.2 K/mm3 (1.2-5.4) 06/15/16 11:37 Abs React Lymphs (Man) 0.0 K/mm3 06/15/16 11:37 Monocytes # (Manual) 0.4 K/mm3 (0.0-0.8) 06/15/16 11:37 Eosinophils # (Manual) 0.2 K/mm3 (0.0-0.4) 06/15/16 11:37 Basophils # (Manual) 0.0 K/mm3 (0.0-0.1) 06/15/16 11:37 Metamyelocytes # 0.1 K/mm3 06/15/16 11:37 Myelocytes # 0.0 K/mm3 06/15/16 11:37 Promyelocytes # 0.0 K/mm3 06/15/16 11:37 Blast Cells # 0.0 K/mm3 06/15/16 11:37 WBC Morphology Not Reportable 06/15/16 11:37 Hypersegmented Neuts Not Reportable 06/15/16 11:37 Hyposegmented Neuts Not Reportable 06/15/16 11:37 Hypogranular Neuts Not Reportable 06/15/16 11:37 Smudge Cells Not Reportable 06/15/16 11:37 Toxic Granulation Not Reportable 06/15/16 11:37 Toxic Vacuolation Not Reportable 06/15/16 11:37 Dohle Bodies Not Reportable 06/15/16 11:37 Pelger-Huet Anomaly Not Reportable 06/15/16 11:37 Jose Luis Rods Not Reportable 06/15/16 11:37 Platelet Estimate Consistent w auto 06/15/16 11:37 Clumped Platelets Not Reportable 06/15/16 11:37 Plt Clumps, EDTA Not Reportable 06/15/16 11:37 Large Platelets Not Reportable 06/15/16 11:37 Giant Platelets Not Reportable 06/15/16 11:37 Platelet Satelliting Not Reportable 06/15/16 11:37 Plt Morphology Comment Not Reportable 06/15/16 11:37 RBC Morphology Not Reportable 06/15/16 11:37 Dimorphic RBCs Not Reportable 06/15/16 11:37 Polychromasia Not Reportable 06/15/16 11:37 Hypochromasia Not Reportable 06/15/16 11:37 Poikilocytosis Not Reportable 06/15/16 11:37 Anisocytosis Not Reportable 06/15/16 11:37 Microcytosis Not Reportable 06/15/16 11:37 Macrocytosis Not Reportable 06/15/16 11:37 Spherocytes Not Reportable 06/15/16 11:37 Pappenheimer Bodies Not Reportable 06/15/16 11:37 Sickle Cells Not Reportable 06/15/16 11:37 Target Cells Not Reportable 06/15/16 11:37 Tear Drop Cells Not Reportable 06/15/16 11:37 Ovalocytes Not Reportable 06/15/16 11:37 Helmet Cells Not Reportable 06/15/16 11:37 [place] Bodies Not Reportable 06/15/16 11:37 [place] Rings Not Reportable 06/15/16 11:37 Gui Cells Not Reportable 06/15/16 11:37 Bite Cells Not Reportable 06/15/16 11:37 Crenated Cell Not Reportable 06/15/16 11:37 Elliptocytes Not Reportable 06/15/16 11:37 Acanthocytes (Spur) Not Reportable 06/15/16 11:37 Rouleaux Not Reportable 06/15/16 11:37 Hemoglobin C Crystals Not Reportable 06/15/16 11:37 Schistocytes Not Reportable 06/15/16 11:37 Malaria parasites Not Reportable 06/15/16 11:37 [place] Bodies Not Reportable 06/15/16 11:37 Hem Pathologist Commnt No 06/15/16 11:37 Sodium 134 mmol/L (137-145) L 06/16/16 13:31 Potassium 5.2 mmol/L (3.6-5.0) H 06/16/16 13:31 Chloride 90.5 mmol/L (98-107) L 06/16/16 13:31 Carbon Dioxide 22 mmol/L (22-30) 06/16/16 13:31 Anion Gap 27 mmol/L 06/16/16 13:31 BUN 54 mg/dL (7-17) H 06/16/16 13:31 Creatinine 10.4 mg/dL (0.7-1.2) H 06/16/16 13:31 Estimated GFR 5 ml/min 06/16/16 13:31 BUN/Creatinine Ratio 5.19 % 06/16/16 13:31 Glucose 130 mg/dL (65-100) H 06/16/16 13:31 Calcium 8.7 mg/dL (8.4-10.2) 06/16/16 13:31 Total Creatine Kinase 116 units/L (30-135) 06/15/16 17:12 Salicylates < 0.3 mg/dL (2.8-20.0) L 06/15/16 17:12 Acetaminophen < 15.0 ug/mL (10.0-30.0) 06/15/16 17:12 Plasma/Serum Alcohol < 0.01 gm% (0-0.07) 06/15/16 11:37
--- NOTE | 2016-06-18 14:50 | Progress Note ---
Assessment and Plan - Patient Problems (1) ESRD (end stage renal disease) on dialysis Current Visit: Yes Status: Chronic Plan to address problem: cont M/W/F schedule. case management consult for outpatient HD arrangement (2) Depression with suicidal ideation Current Visit: Yes Status: Acute Plan to address problem: follow psych evaluation (3) Crack cocaine use Current Visit: Yes Status: Chronic (4) Hypertensive chronic kidney disease with stage 5 chronic kidney disease or end stage renal disease Current Visit: No Status: Chronic Plan to address problem: BP controlled, cont home BP regimen (5) Anemia, chronic disease Current Visit: Yes Status: Chronic Plan to address problem: hb > 10, no need for EPO for now (6) Secondary hyperparathyroidism (of renal origin) Current Visit: Yes Status: Chronic Plan to address problem: cont renvela and zemplar Subjective Date of service: 06/18/16 Interval history: Patient seen and examined during HD, in no acute distress except some dry cough. Objective - Vital Signs Vital signs: Vital Signs - 12hr 06/18/16 06/18/16 06/18/16 08:00 08:04 08:21 Temperature 98.4 F Pulse Rate [ 75 76 Anterior Bilateral Throughout] Pulse Rate [ 72 Right Radial] Respiratory 20 Rate Respiratory 16 16 Rate [Anterior Bilateral Throughout] Blood Pressure 128/84 [Right Arm] O2 Sat by Pulse 98 Oximetry - General Appearance General appearance: well-developed, well-nourished, appears stated age EENT: ATNC, PERRL, mucous membranes moist Neck: no JVD Respiratory: Present: Clear to Ascultation Cardiology: regular, S1S2 Gastrointestinal: normal, normoactive bowel sounds Integumentary: no rash, other (no edema ) Neurologic: no focal deficit, alert and oriented x3, strength 5/5, CN 3-12 intact Psychiatric: depressed, cooperative - Lab 06/15/16 11:37 06/16/16 13:31 Most recent lab results Calcium 8.7 mg/dL (8.4-10.2) 06/16/16 13:31
[2016-06-18] MEDS ORDERED: NACL 0.9 (PRIMING MACHINE ONLY DIALYSIS) MC ONE (15:34)
[2016-06-18] MEDS: ULTRAM PO PRN (21:51)
[2016-06-19] MEDS: DUONEB 0.5 MG-3 MG/3 ML SOLN IH SCH ×4 (02:42→21:04)
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
[2016-06-19] MEDS: PEPCID PO SCH ×2 (09:16→22:49)
[2016-06-19] MEDS: COREG PO SCH ×2 (09:17→22:00)
[2016-06-19] MEDS: BABY ASPIRIN PO SCH (09:17)
[2016-06-19] MEDS: ULTRAM PO PRN ×3 (09:22→22:49)
[2016-06-19] MEDS: BENADRYL IV PRN ×3 (09:22→22:27)
--- NOTE | 2016-06-19 09:42 | Progress Note ---
Assessment and Plan - Patient Problems (1) ESRD (end stage renal disease) on dialysis Current Visit: Yes Status: Chronic Plan to address problem: cont M/W/F schedule. case management consult for outpatient HD arrangement (2) Depression with suicidal ideation Current Visit: Yes Status: Acute Plan to address problem: follow psych evaluation (3) Crack cocaine use Current Visit: Yes Status: Chronic (4) Hypertensive chronic kidney disease with stage 5 chronic kidney disease or end stage renal disease Current Visit: No Status: Chronic Plan to address problem: BP controlled, cont home BP regimen (5) Anemia, chronic disease Current Visit: Yes Status: Chronic Plan to address problem: hb > 10, no need for EPO for now (6) Secondary hyperparathyroidism (of renal origin) Current Visit: Yes Status: Chronic Plan to address problem: cont renvela and zemplar Subjective Date of service: 06/19/16 Interval history: Patient awake, alert, c/o persistent dry cough. Objective - Vital Signs Vital signs: Vital Signs - 12hr 06/18/16 06/18/16 06/19/16 21:56 23:00 08:00 Temperature 98.7 F 98.3 F Pulse Rate [ 80 74 Right Radial] Respiratory 18 20 Rate Blood Pressure 101/62 Blood Pressure 101/63 130/76 [Right Arm] O2 Sat by Pulse 98 97 Oximetry - General Appearance General appearance: well-developed, well-nourished, appears stated age EENT: ATNC, PERRL, mucous membranes moist Neck: no JVD Respiratory: Present: Ronchi, Wheezes Cardiology: regular, S1S2 Gastrointestinal: normal, normoactive bowel sounds Integumentary: no rash, other (no edema ) Neurologic: no focal deficit, alert and oriented x3, CN 3-12 intact Psychiatric: depressed - Lab 06/15/16 11:37 06/16/16 13:31 Most recent lab results Calcium 8.7 mg/dL (8.4-10.2) 06/16/16 13:31
[2016-06-19] MEDS: RENVELA PO SCH ×2 (13:18→17:07)
[2016-06-19] MEDS: ZOFRAN IV PRN ×2 (13:19→22:27)
[2016-06-19] MEDS: MAGIC MOUTHWASH PO SCH ×2 (13:19→22:50)
--- NOTE | 2016-06-19 14:35 | Progress Note ---
Subjective - Reason for Consult Consult date: 06/19/16 Reason for consult: Psychiatry Follow-up - Chief Complaint Chief complaint: "I have many thoughts" This is a 50 year-old undomiciled female with a PMH of SLE, ESRD, HTN, DM, GERD , COPD, and who reports a formal PPH of Bipolar Disorder, Cocaine Abuse now presenting to the ER for hemodialysis. Today patient is calm and cooperative during my assessment. She stated that she have a lot of "racing thoughts" at this time. I asked is she still suicidal and homicidal per our our last conversation 06/18/2016, she stated, "Yes." She stated that she would use drugs to kill herself. Also, she is still talking about harming a female from the "crack house" who owe her money. She stated that she is hearing voices tell her to do "bad and good things." She denies VH's, sleep disturbance, poor appetite. She did mentions being "down" today about not knowing her next move in life. Mental Status Exam - Vital signs Last Vital Signs Temp 98.3 F 06/19/16 08:00 Pulse 78 06/19/16 09:00 Resp 18 06/19/16 09:00 BP 130/76 06/19/16 08:00 Pulse Ox 97 06/19/16 08:00 - Exam Narrative exam: MSE: Appearance: cooperative, calm Behavior: good eye contact Speech: regular rate and tone Mood: "I have a lot on my mind" Affect: mood congruent Thought Process: circumstantial Thought Content: denies AVH's Motor Activity: lying in bed Cognition: a/ox 3 Insight: limited Judgment: poor Assessment and Plan Impression: This is a 50 year-old undomiciled female with a PMH of SLE, ESRD, HTN, DM, GERD, COPD, and who reports a formal PPH of Bipolar Disorder, Cocaine Abuse now presenting to the ER for hemodialysis. Today patient is calm and cooperative during my assessment. She stated that she have a lot of "racing thoughts" at this time. I asked is she still suicidal and homicidal per our our last conversation 06/18/2016, she stated, "Yes." She stated that she would use drugs to kill herself. Recommendation/Plan: Continue 1013 with possible placement to inpatient psy services. Start Depakote 500 mg PO BID and Seroquel 100 mg PO HS. Discussed possible metabolic side effects of Seroquel.
[2016-06-19 15:34] LABS: Alanine Aminotransferase 8 units/L (7-56)
--- NOTE | 2016-06-19 16:23 | Event Note ---
Date: 06/19/16 Discussed possible metabolic side effects of Seroquel with patient.
[2016-06-19] MEDS: ZEMPLAR PO SCH (17:10)
[2016-06-20] MEDS: DUONEB 0.5 MG-3 MG/3 ML SOLN IH SCH ×4 (02:58→19:36)
[2016-06-20] MEDS: PROVENTIL IH PRN (05:00)
[2016-06-20] MEDS: BABY ASPIRIN PO SCH (10:24)
[2016-06-20] MEDS: RENVELA PO SCH ×3 (10:24→19:27)
[2016-06-20] MEDS: MAGIC MOUTHWASH PO SCH ×3 (10:25→20:20)
--- NOTE | 2016-06-20 11:06 | Progress Note ---
Assessment and Plan - Patient Problems (1) ESRD (end stage renal disease) on dialysis Current Visit: Yes Status: Chronic Plan to address problem: cont M/W/F schedule. case management consult for outpatient HD arrangement (2) Depression with suicidal ideation Current Visit: Yes Status: Acute Plan to address problem: follow psych recs (3) Crack cocaine use Current Visit: Yes Status: Chronic (4) Hypertensive chronic kidney disease with stage 5 chronic kidney disease or end stage renal disease Current Visit: No Status: Chronic Plan to address problem: BP controlled, cont home BP regimen (5) Anemia, chronic disease Current Visit: Yes Status: Chronic Plan to address problem: hb > 10, no need for EPO for now (6) Secondary hyperparathyroidism (of renal origin) Current Visit: Yes Status: Chronic Plan to address problem: cont renvela and zemplar Subjective Date of service: 06/20/16 Interval history: Patient awake, alert, in NAD Objective - Vital Signs Vital signs: Vital Signs - 12hr 06/20/16 06/20/16 06/20/16 00:00 04:35 04:46 Temperature 98.7 F Pulse Rate [ 81 79 Anterior Bilateral Throughout] Pulse Rate [ 80 Right Radial] Respiratory 20 Rate Respiratory 18 28 H Rate [Anterior Bilateral Throughout] Blood Pressure 123/70 [Right Arm] O2 Sat by Pulse 94 Oximetry 06/20/16 06/20/16 06/20/16 07:47 08:20 08:30 Temperature 98.7 F Pulse Rate [ 80 81 Anterior Bilateral Throughout] Pulse Rate [ 80 Right Radial] Respiratory 18 Rate Respiratory 18 18 Rate [Anterior Bilateral Throughout] Blood Pressure 149/70 [Right Arm] O2 Sat by Pulse 94 Oximetry - General Appearance General appearance: well-developed, well-nourished, appears stated age EENT: ATNC, PERRL, mucous membranes moist Neck: no JVD Respiratory: Present: Clear to Ascultation Cardiology: regular, S1S2 Gastrointestinal: normal, normoactive bowel sounds Integumentary: no rash, other (no edema ) Neurologic: no focal deficit, alert and oriented x3, strength 5/5, CN 3-12 intact Psychiatric: depressed - Lab 06/15/16 11:37 06/16/16 13:31 Most recent lab results Calcium 8.7 mg/dL (8.4-10.2) 06/16/16 13:31
[2016-06-20 11:47] LABS: BUN/Creatinine Ratio 5.73; Calcium 8.7 mg/dL (8.4-10.2); Chloride 96.8 mmol/L (98-107); Potassium 4.6 mmol/L (3.6-5.0)
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
[2016-06-20] MEDS ORDERED: NACL 0.9 (PRIMING MACHINE ONLY DIALYSIS) MC ONE (14:07)
[2016-06-20] MEDS: BENADRYL IV PRN (14:16)
[2016-06-20] MEDS: ZOFRAN IV PRN (14:25)
[2016-06-20] MEDS: ULTRAM PO PRN (16:57)
[2016-06-20] MEDS: PEPCID PO SCH ×2 (16:57→22:00)
[2016-06-20] MEDS: COREG PO SCH (16:58)
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
[2016-06-20] MEDS: ROBITUSSIN AC PO PRN ×2 (17:34→22:52)
[2016-06-20] MEDS: TYLENOL PO PRN (17:35)
[2016-06-21] MEDS: ULTRAM PO PRN ×2 (01:30→10:39)
[2016-06-21] MEDS: DUONEB 0.5 MG-3 MG/3 ML SOLN IH SCH ×4 (01:47→20:19)
[2016-06-21] MEDS: COREG PO SCH ×3 (04:43→23:10)
[2016-06-21] MEDS: ROBITUSSIN AC PO PRN ×3 (04:54→22:36)
[2016-06-21] MEDS: MAGIC MOUTHWASH PO SCH (10:37)
--- NOTE | 2016-06-21 10:37 | Progress Note ---
Subjective - Reason for Consult Consult date: 06/21/16 Reason for consult: Psychiatry Follow-up - Chief Complaint Chief complaint: "It is hard for me" This is a 50 year-old undomiciled female with a PMH of SLE, ESRD, HTN, DM, GERD , COPD, and who reports a formal PPH of Bipolar Disorder, Cocaine Abuse now presenting to the ER for hemodialysis. Today patient stated that she feel that she is getting better, but still have SI/HI's. She stated not having a plan on how she would kill herself. She stated that she could harm a certain female that got her kicked out of the "crack house." Per the patient, the voices that she hear are "decreasing." She stated that she wants to stay positive and get her thoughts together. She refused her psy medications last night. She stated that Depakote make her "anxious" and Seroquel was at a higher dose than she is accustomed to taking. She denies being depressed, sleep disturbance, or a poor appetite. She is concerned about being homeless and no one (family) being supportive. Mental Status Exam - Vital signs Last Vital Signs Temp 98.6 F 06/21/16 07:47 Pulse 93 H 06/21/16 07:47 Resp 18 06/21/16 07:47 BP 151/73 06/21/16 07:47 Pulse Ox 98 06/21/16 07:47 - Exam Narrative exam: MSE: Appearance: cooperative, calm Behavior: good eye contact Speech: regular rate and tone Mood: "I am not depressed at this time" Affect: mood congruent Thought Process: circumstantial Thought Content: denies AVH's Motor Activity: lying in bed Cognition: a/ox 3 Insight: limited Judgment: poor Assessment and Plan Impression: This is a 50 year-old undomiciled female with a PMH of SLE, ESRD, HTN, DM, GERD, COPD, and who reports a formal PPH of Bipolar Disorder, Cocaine Abuse now presenting to the ER for hemodialysis. Today patient stated that she feel that she is getting better, but still have SI/HI's. She stated not having a plan on how she would kill herself. Also, she stated that she could harm a certain female that got her kicked out of the "crack house." Per the patient, the voices that she hear are "decreasing." "She stated wanting to stay positive and get her thoughts together. I spoke with patient about malingering. I told her she must allow us to treat her and part of treatment is medication compliance. That meant that medications maybe modified to get the proper therapeutic effect that's needed. Recommendation/Plan: Continue 1013 with possible placement to inpatient psy services. Start Zyprexa 5 mg PO HS for mood/psychosis and Cogention 0.5 mg PO HS for EPS prevention. Discussed possible metabolic side effects of Zyprexa. D/C 'd Depakote and Seroquel.
[2016-06-21] MEDS: BABY ASPIRIN PO SCH (10:38)
[2016-06-21] MEDS: ZITHROMAX PO SCH (10:38)
[2016-06-21] MEDS: PEPCID PO SCH ×2 (10:38→22:27)
[2016-06-21] MEDS: RENVELA PO SCH ×5 (10:38→18:09)
--- NOTE | 2016-06-21 10:54 | Progress Note ---
Assessment and Plan - Patient Problems (1) ESRD (end stage renal disease) on dialysis Current Visit: Yes Status: Chronic Plan to address problem: cont M/W/F schedule. case management to arrange outpatient HD arrangement (2) Depression with suicidal ideation Current Visit: Yes Status: Acute Plan to address problem: follow psych recs (3) Crack cocaine use Current Visit: Yes Status: Chronic (4) Hypertensive chronic kidney disease with stage 5 chronic kidney disease or end stage renal disease Current Visit: No Status: Chronic Plan to address problem: BP controlled, monitor BP on current meds (5) Anemia, chronic disease Current Visit: Yes Status: Chronic Plan to address problem: hb > 10, no need for EPO for now (6) Secondary hyperparathyroidism (of renal origin) Current Visit: Yes Status: Chronic Plan to address problem: cont renvela and zemplar Subjective Date of service: 06/21/16 Interval history: Patient awake, alert, in NAD. still w/ suicidal ideation Objective - Vital Signs Vital signs: Vital Signs - 12hr 06/21/16 07:47 Temperature 98.6 F Pulse Rate [ 93 H Right Radial] Respiratory 18 Rate Blood Pressure 151/73 [Right Arm] O2 Sat by Pulse 98 Oximetry - General Appearance General appearance: well-developed, well-nourished, appears stated age EENT: ATNC, PERRL, mucous membranes moist Neck: no JVD Respiratory: Present: Clear to Ascultation Cardiology: regular, S1S2 Gastrointestinal: normal, normoactive bowel sounds Integumentary: no rash, other (edema ) Neurologic: no focal deficit, alert and oriented x3, strength 5/5, CN 3-12 intact Psychiatric: depressed - Lab 06/15/16 11:37 06/20/16 11:00 Most recent lab results Calcium 8.7 mg/dL (8.4-10.2) 06/20/16 11:00
[2016-06-21] MEDS ORDERED: AFRIN NS PRN (14:10)
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
--- NOTE | 2016-06-21 15:35 | XRay Report ---
PORTABLE CHEST INDICATION: Fever. COMPARISON: 06/08/2016 FINDINGS: Portable, frontal chest radiograph demonstrate stable cardiomediastinal silhouette/mild cardiomegaly, bilateral mid to lower lung chronic interstitial infiltrates, bilateral pleural thickening/possible small effusions and multiple left arm surgical clips medially. Stable bones. CONCLUSION: No significant internal change in mild cardiomegaly and chronic bilateral interstitial pneumonias dating back to 04/12/2015, though increased since 03/21/2015. Please correlate. Thank you for the opportunity to participate in this patient's care.
[2016-06-21] MEDS: ZEMPLAR PO SCH (22:25)
[2016-06-22] MEDS: DUONEB 0.5 MG-3 MG/3 ML SOLN IH SCH ×4 (02:14→20:07)
--- NOTE | 2016-06-22 08:03 | Progress Note ---
Assessment and Plan - Patient Problems (1) ESRD (end stage renal disease) on dialysis Current Visit: Yes Status: Chronic Plan to address problem: Continue dialysis as prescribed. Nephrology following (2) COPD exacerbation Current Visit: No Status: Acute Plan to address problem: Continue Atrovent/ Albuterol/ steroids (3) Congestive heart failure Current Visit: No Status: Acute Qualifiers: Congestive heart failure type: C Congestive heart failure chronicity: C Plan to address problem: Continue meds. Continue to follow clinically (4) HTN (hypertension) Current Visit: No Status: Chronic Qualifiers: Hypertension type: secondary to other renal disorders Qualified Code(s): I15.1 - Hypertension secondary to other renal disorders; N28.89 - Other specified disorders of kidney and ureter Plan to address problem: Blood Pressure well controlled. Continue current regimen (5) Hypertension Current Visit: No Status: Chronic Qualifiers: Hypertension type: essential hypertension Qualified Code(s): I10 - Essential (primary) hypertension (6) SLE (systemic lupus erythematosus) Current Visit: No Status: Chronic Qualifiers: Systemic lupus erythematosus type: S Systemic lupus erythematosus organ involvement: S History Interval history: Patient lying in bed complaining still coughing Hospitalist Physical - Constitutional Vitals: Temp Pulse Resp BP Pulse Ox 99.1 F 73 20 106/67 95 06/21/16 15:24 06/22/16 02:12 06/22/16 02:12 06/21/16 23:10 06/21/16 22:00 General appearance: Present: mild distress - EENT Eyes: Present: PERRL, EOM intact ENT: hearing intact, clear oral mucosa - Neck Neck: Present: supple, normal ROM - Respiratory Respiratory: bilateral: rhonchi - Cardiovascular Rhythm: regular Heart Sounds: Present: S1 & S2 - Abdominal General gastrointestinal: soft, non-tender, non-distended, normal bowel sounds - Psychiatric Psychiatric: appropriate mood/affect, intact judgment & insight - Neurologic Neurologic: CNII-XII intact, moves all extremities Results - Labs CBC & Chem 7: 06/15/16 11:37 06/20/16 11:00 Labs: Laboratory Last Values WBC 4.6 K/mm3 (4.5-11.0) 06/15/16 11:37 RBC 3.26 M/mm3 (3.65-5.03) L 06/15/16 11:37 Hgb 10.4 gm/dl (10.1-14.3) 06/15/16 11:37 Hct 31.1 % (30.3-42.9) 06/15/16 11:37 MCV 96 fl (79-97) 06/15/16 11:37 MCH 32 pg (28-32) 06/15/16 11:37 MCHC 33 % (30-34) 06/15/16 11:37 RDW 17.4 % (13.2-15.2) H 06/15/16 11:37 Plt Count 156 K/mm3 (140-440) 06/15/16 11:37 [place] % (Auto) Assurance Auditor 06/15/16 11:37 Add Manual Diff Complete 06/15/16 11:37 Total Counted 100 06/15/16 11:37 Seg Neuts % (Manual) 56.0 % (40.0-70.0) 06/15/16 11:37 Band Neutrophils % 0 % 06/15/16 11:37 Lymphocytes % (Manual) 27.0 % (13.4-35.0) 06/15/16 11:37 Reactive Lymphs % (Man) 0 % 06/15/16 11:37 Monocytes % (Manual) 8.0 % (0.0-7.3) H 06/15/16 11:37 Eosinophils % (Manual) 5.0 % (0.0-4.3) H 06/15/16 11:37 Basophils % (Manual) 1.0 % (0.0-1.8) 06/15/16 11:37 Metamyelocytes % 2.0 % 06/15/16 11:37 Myelocytes % 1.0 % 06/15/16 11:37 Promyelocytes % 0 % 06/15/16 11:37 Blast Cells % 0 % 06/15/16 11:37 Nucleated RBC % Not Reportable 06/15/16 11:37 Seg Neutrophils # Man 2.6 K/mm3 (1.8-7.7) 06/15/16 11:37 Band Neutrophils # 0.0 K/mm3 06/15/16 11:37 Lymphocytes # (Manual) 1.2 K/mm3 (1.2-5.4) 06/15/16 11:37 Abs React Lymphs (Man) 0.0 K/mm3 06/15/16 11:37 Monocytes # (Manual) 0.4 K/mm3 (0.0-0.8) 06/15/16 11:37 Eosinophils # (Manual) 0.2 K/mm3 (0.0-0.4) 06/15/16 11:37 Basophils # (Manual) 0.0 K/mm3 (0.0-0.1) 06/15/16 11:37 Metamyelocytes # 0.1 K/mm3 06/15/16 11:37 Myelocytes # 0.0 K/mm3 06/15/16 11:37 Promyelocytes # 0.0 K/mm3 06/15/16 11:37 Blast Cells # 0.0 K/mm3 06/15/16 11:37 WBC Morphology Not Reportable 06/15/16 11:37 Hypersegmented Neuts Not Reportable 06/15/16 11:37 Hyposegmented Neuts Not Reportable 06/15/16 11:37 Hypogranular Neuts Not Reportable 06/15/16 11:37 Smudge Cells Not Reportable 06/15/16 11:37 Toxic Granulation Not Reportable 06/15/16 11:37 Toxic Vacuolation Not Reportable 06/15/16 11:37 Dohle Bodies Not Reportable 06/15/16 11:37 Pelger-Huet Anomaly Not Reportable 06/15/16 11:37 Jose Luis Rods Not Reportable 06/15/16 11:37 Platelet Estimate Consistent w auto 06/15/16 11:37 Clumped Platelets Not Reportable 06/15/16 11:37 Plt Clumps, EDTA Not Reportable 06/15/16 11:37 Large Platelets Not Reportable 06/15/16 11:37 Giant Platelets Not Reportable 06/15/16 11:37 Platelet Satelliting Not Reportable 06/15/16 11:37 Plt Morphology Comment Not Reportable 06/15/16 11:37 RBC Morphology Not Reportable 06/15/16 11:37 Dimorphic RBCs Not Reportable 06/15/16 11:37 Polychromasia Not Reportable 06/15/16 11:37 Hypochromasia Not Reportable 06/15/16 11:37 Poikilocytosis Not Reportable 06/15/16 11:37 Anisocytosis Not Reportable 06/15/16 11:37 Microcytosis Not Reportable 06/15/16 11:37 Macrocytosis Not Reportable 06/15/16 11:37 Spherocytes Not Reportable 06/15/16 11:37 Pappenheimer Bodies Not Reportable 06/15/16 11:37 Sickle Cells Not Reportable 06/15/16 11:37 Target Cells Not Reportable 06/15/16 11:37 Tear Drop Cells Not Reportable 06/15/16 11:37 Ovalocytes Not Reportable 06/15/16 11:37 Helmet Cells Not Reportable 06/15/16 11:37 [place] Bodies Not Reportable 06/15/16 11:37 [place] Rings Not Reportable 06/15/16 11:37 [place] Cells Not Reportable 06/15/16 11:37 Bite Cells Not Reportable 06/15/16 11:37 Crenated Cell Not Reportable 06/15/16 11:37 Elliptocytes Not Reportable 06/15/16 11:37 Acanthocytes (Spur) Not Reportable 06/15/16 11:37 Rouleaux Not Reportable 06/15/16 11:37 Hemoglobin C Crystals Not Reportable 06/15/16 11:37 Schistocytes Not Reportable 06/15/16 11:37 Malaria parasites Not Reportable 06/15/16 11:37 Sheldon Bodies Not Reportable 06/15/16 11:37 Hem Pathologist Commnt No 06/15/16 11:37 Sodium 138 mmol/L (137-145) 06/20/16 11:00 Potassium 4.6 mmol/L (3.6-5.0) 06/20/16 11:00 Chloride 96.8 mmol/L (98-107) L 06/20/16 11:00 Carbon Dioxide 26 mmol/L (22-30) 06/20/16 11:00 Anion Gap 20 mmol/L 06/20/16 11:00 BUN 39 mg/dL (7-17) H 06/20/16 11:00 Creatinine 6.8 mg/dL (0.7-1.2) H 06/20/16 11:00 Estimated GFR 8 ml/min 06/20/16 11:00 BUN/Creatinine Ratio 5.73 % 06/20/16 11:00 Glucose 129 mg/dL (65-100) H 06/20/16 11:00 Calcium 8.7 mg/dL (8.4-10.2) 06/20/16 11:00 AST 19 units/L (5-40) 06/19/16 14:45 ALT 8 units/L (7-56) 06/19/16 14:45 Alkaline Phosphatase 183 units/L (35-129) H 06/19/16 14:45 Total Creatine Kinase 116 units/L (30-135) 06/15/16 17:12 HCG, Qual Negative (Negative) 06/19/16 14:45 Salicylates < 0.3 mg/dL (2.8-20.0) L 06/15/16 17:12 Acetaminophen < 15.0 ug/mL (10.0-30.0) 06/15/16 17:12 Valproic Acid < 2.8 ug/mL (50-100) L 06/19/16 14:45 Plasma/Serum Alcohol < 0.01 gm% (0-0.07) 06/15/16 11:37
[2016-06-22] MEDS: RENVELA PO SCH ×3 (08:38→18:35)
[2016-06-22] MEDS: ULTRAM PO PRN ×3 (08:38→22:24)
[2016-06-22] MEDS: COREG PO SCH ×2 (12:05→22:56)
--- NOTE | 2016-06-22 12:35 | Progress Note ---
Subjective - Reason for Consult Consult date: 06/22/16 Reason for consult: psychiatric follow up - Chief Complaint Chief complaint: "I'm getting better" This is a 50 year-old undomiciled female with a PMH of SLE, ESRD, HTN, DM, GERD , COPD, and who reports a formal PPH of Bipolar Disorder, Cocaine Abuse. She is medically cleared per the hospitalist report. She needs outpatient hemodialysis arrangements. She took depakote and Zyprexa last night as ordered. She discussed her recent living situation and how her bad choices have led to consequences of homelessness and lack of social support. Her monthly govt funds were reduced because of a felony drug charge. She wants to stay in a personal fdc but cost is a factor. She is interested in a room the tie worker found for her, but there is a concern she has been expressing suicidal and homicidal ideation. When the SI/HI was discussed, she stated "I'm getting better." She denied a plan and stated if her living situation was stable then she would likely not have those thoughts. She reports the AH are decreasing. No command hallucinations. Mental Status Exam - Vital signs Last Vital Signs Temp 98.2 F 06/22/16 12:16 Pulse 82 06/22/16 12:16 Resp 18 06/22/16 12:16 BP 116/56 06/22/16 12:16 Pulse Ox 95 06/21/16 22:00 - Exam Narrative exam: Orientation: time, place, person Affect: other (irritable) Mood: congruent with affect Thought content: SI/HI, no plan, no intention expressed Thought Process: Circumstantial Perceptions: auditory, decreasing, non command Speech: normal rate and pattern Concentration: focused Motor activity: normal Level of consciousness: alert Memory: Intact Sleep Symptoms: Difficulty Falling Asleep Interaction: irritable, guarded Assessment and Plan Impression: SI/HI and AH likely exacerbated by homelessness. Dx: Bipolar disorder Cocaine use disorder Recommendation/Plan: Continue 1013 with possible placement to inpatient psy services. Continue Depakote 500 mg PO BID and Zyprexa 5mg hs. Discussed barriers to treatment/placement. Hemodialysis is a barrier. If there are no acute safety concerns, she may be eligible for PHP with lodging.
[2016-06-22] MEDS: PEPCID PO SCH ×2 (12:58→22:17)
[2016-06-22] MEDS: BABY ASPIRIN PO SCH (12:58)
[2016-06-22] MEDS: ZITHROMAX PO SCH (12:59)
--- NOTE | 2016-06-22 14:19 | Progress Note ---
Assessment and Plan - Patient Problems (1) ESRD (end stage renal disease) on dialysis Current Visit: Yes Status: Chronic Plan to address problem: pt with adequate volume status, will check BMP in AM and consider another HD without UF, if significant hyperkalemia/metabolic acidosis present. otherwise cont M/W/F schedule. case management to arrange outpatient HD arrangement (2) Depression with suicidal ideation Current Visit: Yes Status: Acute Plan to address problem: follow psych recs (3) Crack cocaine use Current Visit: Yes Status: Chronic (4) Hypertensive chronic kidney disease with stage 5 chronic kidney disease or end stage renal disease Current Visit: No Status: Chronic Plan to address problem: BP controlled, monitor BP on current meds (5) Anemia, chronic disease Current Visit: Yes Status: Chronic Plan to address problem: will start EPO if Hb < 10 (6) Secondary hyperparathyroidism (of renal origin) Current Visit: Yes Status: Chronic Plan to address problem: cont renvela and zemplar Subjective Date of service: 06/22/16 Interval history: Patient with agitations, combative behavior during HD, treatment had to be interrupted early since pt was a danger to herself and staff. Objective - Vital Signs Vital signs: Vital Signs - 12hr 06/22/16 06/22/16 06/22/16 07:15 08:22 08:32 Temperature 100.0 F H Pulse Rate Pulse Rate [ 72 75 Anterior Bilateral Throughout] Pulse Rate [ 77 Right Radial] Respiratory 18 Rate Respiratory 18 20 Rate [Anterior Bilateral Throughout] Blood Pressure Blood Pressure 90/63 [Right Arm] 06/22/16 06/22/16 06/22/16 08:38 09:38 10:30 Temperature 98.4 F Pulse Rate 76 Pulse Rate [ Anterior Bilateral Throughout] Pulse Rate [ Right Radial] Respiratory 20 18 18 Rate Respiratory Rate [Anterior Bilateral Throughout] Blood Pressure 118/52 Blood Pressure [Right Arm] 06/22/16 06/22/16 06/22/16 10:45 11:00 11:15 Temperature Pulse Rate 75 73 78 Pulse Rate [ Anterior Bilateral Throughout] Pulse Rate [ Right Radial] Respiratory Rate Respiratory Rate [Anterior Bilateral Throughout] Blood Pressure 105/57 99/56 88/45 Blood Pressure [Right Arm] 06/22/16 06/22/16 06/22/16 11:20 11:30 11:45 Temperature Pulse Rate 74 72 70 Pulse Rate [ Anterior Bilateral Throughout] Pulse Rate [ Right Radial] Respiratory Rate Respiratory Rate [Anterior Bilateral Throughout] Blood Pressure 106/52 104/54 110/68 Blood Pressure [Right Arm] 06/22/16 06/22/16 06/22/16 12:05 12:16 13:15 Temperature 98.2 F Pulse Rate 74 82 Pulse Rate [ Anterior Bilateral Throughout] Pulse Rate [ 85 Right Radial] Respiratory 18 20 Rate Respiratory Rate [Anterior Bilateral Throughout] Blood Pressure 106/52 116/56 Blood Pressure 117/55 [Right Arm] - General Appearance General appearance: well-developed, well-nourished, appears stated age, moderate distress EENT: ATNC, PERRL Neck: no JVD Respiratory: Present: Clear to Ascultation Cardiology: regular, S1S2 Gastrointestinal: normal, normoactive bowel sounds Integumentary: no rash, other (no edema ) Neurologic: no focal deficit, alert and oriented x3, strength 5/5, CN 3-12 intact Psychiatric: depressed - Lab 06/15/16 11:37 06/20/16 11:00 Most recent lab results Calcium 8.7 mg/dL (8.4-10.2) 06/20/16 11:00
[2016-06-22] MEDS ORDERED: NACL 0.9 (PRIMING MACHINE ONLY DIALYSIS) MC ONE (16:00)
[2016-06-22] MEDS: TYLENOL PO PRN (18:36)
[2016-06-23] MEDS: DUONEB 0.5 MG-3 MG/3 ML SOLN IH SCH ×4 (01:59→21:19)
[2016-06-23] MEDS: MILK OF MAGNESIA PO PRN ×2 (03:34→03:40)
[2016-06-23] MEDS: ULTRAM PO PRN ×2 (06:16→21:30)
--- NOTE | 2016-06-23 08:03 | Progress Note ---
Assessment and Plan - Patient Problems (1) ESRD (end stage renal disease) on dialysis Current Visit: Yes Status: Chronic Plan to address problem: Continue dialysis as prescribed. Nephrology following (2) COPD exacerbation Current Visit: No Status: Acute Plan to address problem: Continue Atrovent/ Albuterol/ steroids (3) Congestive heart failure Current Visit: No Status: Acute Qualifiers: Congestive heart failure type: C Congestive heart failure chronicity: C Plan to address problem: Continue meds. Continue to follow clinically (4) HTN (hypertension) Current Visit: No Status: Chronic Qualifiers: Hypertension type: secondary to other renal disorders Qualified Code(s): I15.1 - Hypertension secondary to other renal disorders; N28.89 - Other specified disorders of kidney and ureter Plan to address problem: Blood Pressure well controlled. Continue current regimen (5) Hypertension Current Visit: No Status: Chronic Qualifiers: Hypertension type: essential hypertension Qualified Code(s): I10 - Essential (primary) hypertension (6) SLE (systemic lupus erythematosus) Current Visit: No Status: Chronic Qualifiers: Systemic lupus erythematosus type: S Systemic lupus erythematosus organ involvement: S (7) Fever Current Visit: Yes Status: Acute Qualifiers: Fever type: F Encounter type: E Plan to address problem: Patient had a fever last p.m. Unsure etiology of fever but will do workup. We' ll get blood cultures urine culture. We'll also get chest x-ray.will start IV ABX History Interval history: Patient lying in bed complaining still coughing and state that she had a fever Hospitalist Physical - Constitutional Vitals: Temp Pulse Resp BP Pulse Ox 99.1 F 81 16 99/67 82 L 06/22/16 23:29 06/23/16 02:11 06/23/16 02:11 06/22/16 23:29 06/22/16 15:00 General appearance: Present: mild distress - EENT Eyes: Present: PERRL, EOM intact ENT: hearing intact, clear oral mucosa - Neck Neck: Present: supple, normal ROM - Respiratory Respiratory effort: normal Respiratory: bilateral: rhonchi - Cardiovascular Rhythm: regular Heart Sounds: Present: S1 & S2 - Abdominal General gastrointestinal: soft, non-tender, non-distended, normal bowel sounds - Psychiatric Psychiatric: appropriate mood/affect, intact judgment & insight - Neurologic Neurologic: CNII-XII intact, moves all extremities Results - Labs CBC & Chem 7: 06/23/16 08:29 06/23/16 08:29 Labs: Laboratory Last Values WBC 4.6 K/mm3 (4.5-11.0) 06/15/16 11:37 RBC 3.26 M/mm3 (3.65-5.03) L 06/15/16 11:37 Hgb 10.4 gm/dl (10.1-14.3) 06/15/16 11:37 Hct 31.1 % (30.3-42.9) 06/15/16 11:37 MCV 96 fl (79-97) 06/15/16 11:37 MCH 32 pg (28-32) 06/15/16 11:37 MCHC 33 % (30-34) 06/15/16 11:37 RDW 17.4 % (13.2-15.2) H 06/15/16 11:37 Plt Count 156 K/mm3 (140-440) 06/15/16 11:37 [place] % (Auto) Blank Driller 06/15/16 11:37 Add Manual Diff Complete 06/15/16 11:37 Total Counted 100 06/15/16 11:37 Seg Neuts % (Manual) 56.0 % (40.0-70.0) 06/15/16 11:37 Band Neutrophils % 0 % 06/15/16 11:37 Lymphocytes % (Manual) 27.0 % (13.4-35.0) 06/15/16 11:37 Reactive Lymphs % (Man) 0 % 06/15/16 11:37 Monocytes % (Manual) 8.0 % (0.0-7.3) H 06/15/16 11:37 Eosinophils % (Manual) 5.0 % (0.0-4.3) H 06/15/16 11:37 Basophils % (Manual) 1.0 % (0.0-1.8) 06/15/16 11:37 Metamyelocytes % 2.0 % 06/15/16 11:37 Myelocytes % 1.0 % 06/15/16 11:37 Promyelocytes % 0 % 06/15/16 11:37 Blast Cells % 0 % 06/15/16 11:37 Nucleated RBC % Not Reportable 06/15/16 11:37 Seg Neutrophils # Man 2.6 K/mm3 (1.8-7.7) 06/15/16 11:37 Band Neutrophils # 0.0 K/mm3 06/15/16 11:37 Lymphocytes # (Manual) 1.2 K/mm3 (1.2-5.4) 06/15/16 11:37 Abs React Lymphs (Man) 0.0 K/mm3 06/15/16 11:37 Monocytes # (Manual) 0.4 K/mm3 (0.0-0.8) 06/15/16 11:37 Eosinophils # (Manual) 0.2 K/mm3 (0.0-0.4) 06/15/16 11:37 Basophils # (Manual) 0.0 K/mm3 (0.0-0.1) 06/15/16 11:37 Metamyelocytes # 0.1 K/mm3 06/15/16 11:37 Myelocytes # 0.0 K/mm3 06/15/16 11:37 Promyelocytes # 0.0 K/mm3 06/15/16 11:37 Blast Cells # 0.0 K/mm3 06/15/16 11:37 WBC Morphology Not Reportable 06/15/16 11:37 Hypersegmented Neuts Not Reportable 06/15/16 11:37 Hyposegmented Neuts Not Reportable 06/15/16 11:37 Hypogranular Neuts Not Reportable 06/15/16 11:37 Smudge Cells Not Reportable 06/15/16 11:37 Toxic Granulation Not Reportable 06/15/16 11:37 Toxic Vacuolation Not Reportable 06/15/16 11:37 Dohle Bodies Not Reportable 06/15/16 11:37 Pelger-Huet Anomaly Not Reportable 06/15/16 11:37 Jose Luis Rods Not Reportable 06/15/16 11:37 Platelet Estimate Consistent w auto 06/15/16 11:37 Clumped Platelets Not Reportable 06/15/16 11:37 Plt Clumps, EDTA Not Reportable 06/15/16 11:37 Large Platelets Not Reportable 06/15/16 11:37 Giant Platelets Not Reportable 06/15/16 11:37 Platelet Satelliting Not Reportable 06/15/16 11:37 Plt Morphology Comment Not Reportable 06/15/16 11:37 RBC Morphology Not Reportable 06/15/16 11:37 Dimorphic RBCs Not Reportable 06/15/16 11:37 Polychromasia Not Reportable 06/15/16 11:37 Hypochromasia Not Reportable 06/15/16 11:37 Poikilocytosis Not Reportable 06/15/16 11:37 Anisocytosis Not Reportable 06/15/16 11:37 Microcytosis Not Reportable 06/15/16 11:37 Macrocytosis Not Reportable 06/15/16 11:37 Spherocytes Not Reportable 06/15/16 11:37 Pappenheimer Bodies Not Reportable 06/15/16 11:37 Sickle Cells Not Reportable 06/15/16 11:37 Target Cells Not Reportable 06/15/16 11:37 Tear Drop Cells Not Reportable 06/15/16 11:37 Ovalocytes Not Reportable 06/15/16 11:37 Helmet Cells Not Reportable 06/15/16 11:37 [place] Bodies Not Reportable 06/15/16 11:37 [place] Rings Not Reportable 06/15/16 11:37 [place] Cells Not Reportable 06/15/16 11:37 Bite Cells Not Reportable 06/15/16 11:37 Crenated Cell Not Reportable 06/15/16 11:37 Elliptocytes Not Reportable 06/15/16 11:37 Acanthocytes (Spur) Not Reportable 06/15/16 11:37 Rouleaux Not Reportable 06/15/16 11:37 Hemoglobin C Crystals Not Reportable 06/15/16 11:37 Schistocytes Not Reportable 06/15/16 11:37 Malaria parasites Not Reportable 06/15/16 11:37 [place] Bodies Not Reportable 06/15/16 11:37 Hem Pathologist Commnt No 06/15/16 11:37 Sodium 138 mmol/L (137-145) 06/20/16 11:00 Potassium 4.6 mmol/L (3.6-5.0) 06/20/16 11:00 Chloride 96.8 mmol/L (98-107) L 06/20/16 11:00 Carbon Dioxide 26 mmol/L (22-30) 06/20/16 11:00 Anion Gap 20 mmol/L 06/20/16 11:00 BUN 39 mg/dL (7-17) H 06/20/16 11:00 Creatinine 6.8 mg/dL (0.7-1.2) H 06/20/16 11:00 Estimated GFR 8 ml/min 06/20/16 11:00 BUN/Creatinine Ratio 5.73 % 06/20/16 11:00 Glucose 129 mg/dL (65-100) H 06/20/16 11:00 Calcium 8.7 mg/dL (8.4-10.2) 06/20/16 11:00 AST 19 units/L (5-40) 06/19/16 14:45 ALT 8 units/L (7-56) 06/19/16 14:45 Alkaline Phosphatase 183 units/L (35-129) H 06/19/16 14:45 Total Creatine Kinase 116 units/L (30-135) 06/15/16 17:12 HCG, Qual Negative (Negative) 06/19/16 14:45 Salicylates < 0.3 mg/dL (2.8-20.0) L 06/15/16 17:12 Acetaminophen < 15.0 ug/mL (10.0-30.0) 06/15/16 17:12 Valproic Acid < 2.8 ug/mL (50-100) L 06/19/16 14:45 Plasma/Serum Alcohol < 0.01 gm% (0-0.07) 06/15/16 11:37
[2016-06-23 09:03] LABS: Hematocrit 29.2 % (30.3-42.9); Hemoglobin 9.3 gm/dl (10.1-14.3); Mean Corpuscular HGB Conc 32 % (30-34); Mean Corpuscular Hemoglobin 32 pg (28-32); Mean Corpuscular Volume 99 fl (79-97); Platelet Count 103 K/mm3 (140-440); Red Blood Count 2.94 M/mm3 (3.65-5.03); Red Cell Distribution Width 16.9 % (13.2-15.2); White Blood Count 3.7 K/mm3 (4.5-11.0)
[2016-06-23 09:25] LABS: Albumin 3.7 g/dL (3.9-5); Albumin/Globulin Ratio 1.5 %; BUN/Creatinine Ratio 4.04; Bilirubin,Total 0.6 mg/dL (0.1-1.2); Calcium 8.3 mg/dL (8.4-10.2); Chloride 92.4 mmol/L (98-107); Potassium 4.7 mmol/L (3.6-5.0); Total Protein 6.2 g/dL (6.3-8.2)
[2016-06-23] MEDS: RENVELA PO SCH ×3 (09:59→18:36)
[2016-06-23] MEDS: PEPCID PO SCH ×2 (09:59→21:30)
[2016-06-23] MEDS: TYLENOL PO PRN (10:00)
[2016-06-23] MEDS ORDERED: DULCOLAX PO ONE (10:00)
[2016-06-23] MEDS: ZITHROMAX PO SCH (10:00)
[2016-06-23] MEDS: BABY ASPIRIN PO SCH (10:00)
[2016-06-23] MEDS: COREG PO SCH ×2 (10:01→23:41)
[2016-06-23 11:57] LABS: Anisocytosis 1+; Blastocytes % (Manual) 0 %; Diff Status Complete; Macrocytosis 1+; Platelet Estimate Consistent w Auto
--- NOTE | 2016-06-23 12:06 | XRay Report ---
ROUTINE CHEST, TWO VIEWS: HISTORY: Cough, fever. Moderate to large areas of infiltration in both lower lung zones is again noted and appears relatively stable since 06/21/16. Small bilateral pleural effusions are also suspected which are stable. Heart size is borderline and unchanged. IMPRESSION: Bibasilar infiltrates and small bilateral pleural effusions.
[2016-06-23] MEDS ORDERED: ZOSYN/NS 4.5GM/100ML 4.5 GM/100 ML VIAL IV SCH (14:00)
--- NOTE | 2016-06-23 15:15 | Progress Note ---
Assessment and Plan - Patient Problems (1) Depression with suicidal ideation Current Visit: Yes Status: Acute Plan to address problem: Being followed by psychiatrist (2) ESRD (end stage renal disease) on dialysis Current Visit: Yes Status: Chronic Plan to address problem: Hemodialysis on a Saturday, Saturday and Saturday schedule. (3) Anemia, chronic disease Current Visit: Yes Status: Chronic Plan to address problem: Give erythropoietin on dialysis (4) Secondary hyperparathyroidism (of renal origin) Current Visit: Yes Status: Chronic Plan to address problem: Continue vitamin D analog (5) Hypertensive chronic kidney disease with stage 5 chronic kidney disease or end stage renal disease Current Visit: Yes Status: Acute Plan to address problem: Follow-up blood pressure on current medications Subjective Date of service: 06/23/16 Principal diagnosis: end-stage renal disease Interval history: Patient seen lying in bed. She has a few complaints. Complains about constipation. No nausea or vomiting. Complains of cough productive of yellowish sputum. She does not feel good. Dialysis was interrupted yesterday due to patient becoming combative Objective - Exam Narrative Exam: Middle-aged -[place] female lying in bed in no acute distress HEENT face swollen, pupils equal reactive to light, pink, clear oropharynx Neck supple, no thyromegaly jugular venous distention CVS S1-S2 regular rate rhythm without murmur, rub or gallop Chest bilateral rhonchi Abdomen soft nondistended nontender no organomegaly no bruit bowel sounds present Extremities mild edema no cyanosis or clubbing Genitourinary deferred Neuro awake, alert oriented x3 no gross deficit - Vital Signs Vital signs: Vital Signs - 12hr 06/23/16 06/23/16 06/23/16 07:16 08:07 08:17 Temperature Pulse Rate Pulse Rate [ 82 82 Anterior Bilateral Throughout] Pulse Rate [ Right Radial] Respiratory 16 Rate Respiratory 18 18 Rate [Anterior Bilateral Throughout] Blood Pressure Blood Pressure [Right Arm] O2 Sat by Pulse Oximetry 06/23/16 06/23/16 06/23/16 08:24 09:15 10:01 Temperature 100.1 F H Pulse Rate 85 Pulse Rate [ Anterior Bilateral Throughout] Pulse Rate [ 83 Right Radial] Respiratory 18 18 Rate Respiratory Rate [Anterior Bilateral Throughout] Blood Pressure 101/63 Blood Pressure 109/64 [Right Arm] O2 Sat by Pulse 94 Oximetry - Lab 06/23/16 08:29 06/23/16 08:29 Most recent lab results Calcium 8.3 mg/dL (8.4-10.2) L 06/23/16 08:29
[2016-06-23] MEDS: ZOFRAN IV PRN (15:37)
[2016-06-23] MEDS: ROBITUSSIN DM PO PRN ×2 (15:37→21:30)
[2016-06-23] MEDS: ZOSYN/NS 2.25 GM/50ML 2.25 GM/50 ML BAG IV SCH ×2 (15:37→21:33)
[2016-06-23] MEDS: ZEMPLAR PO SCH (18:36)
[2016-06-24] MEDS: ROBITUSSIN DM PO PRN ×3 (01:31→22:35)
[2016-06-24] MEDS: DUONEB 0.5 MG-3 MG/3 ML SOLN IH SCH ×4 (02:44→19:53)
[2016-06-24] MEDS: BENADRYL IV PRN ×2 (04:53→11:13)
[2016-06-24] MEDS: ZOFRAN IV PRN ×2 (04:54→11:13)
[2016-06-24] MEDS: ZOSYN/NS 2.25 GM/50ML 2.25 GM/50 ML BAG IV SCH ×3 (05:42→20:54)
[2016-06-24] MEDS: RENVELA PO SCH ×3 (08:24→17:04)
[2016-06-24] MEDS: PEPCID PO SCH ×2 (09:22→21:26)
[2016-06-24] MEDS: BABY ASPIRIN PO SCH (09:22)
[2016-06-24] MEDS: COREG PO SCH ×2 (09:23→21:26)
--- NOTE | 2016-06-24 11:05 | Progress Note ---
Subjective - Reason for Consult Consult date: 06/24/16 Reason for consult: Psychiatry Follow-up - Chief Complaint Chief complaint: "I will be better tomorrow" This is a 50 year-old undomiciled female with a PMH of SLE, ESRD, HTN, DM, GERD , COPD, and who reports a formal PPH of Bipolar Disorder, Cocaine Abuse. She needs outpatient hemodialysis arrangements. Today patient is calm and cooperative during assessment. She stated that her living situation is her biggest concern. She still states being suicidal a "little" along with wanting to hurt a certain female from the "cr[place]." She denies AVH's, sleep disturbance, or a poor appetite. She rate her depression a 2/10, with 10 being the worse. Patient is adamant about getting a stable residency(home) once discharged. Mental Status Exam - Vital signs Last Vital Signs Temp 98.6 F 06/24/16 08:27 Pulse 97 H 06/24/16 09:25 Resp 18 06/24/16 09:25 BP 104/56 06/24/16 09:23 Pulse Ox 93 06/24/16 08:27 - Exam Narrative exam: MSE: Appearance: cooperative, calm Behavior: good eye contact Speech: regular rate and tone Mood: "I am okay" Affect: mood congruent Thought Process: circumstantial Thought Content: denies AVH's Motor Activity: lying in bed Cognition: a/ox 3 Insight: limited Judgment: poor Assessment and Plan Impression: This is a 50 year-old undomiciled female with a PMH of SLE, ESRD, HTN, DM, GERD, COPD, and who reports a formal PPH of Bipolar Disorder, Cocaine Abuse. She needs outpatient hemodialysis arrangements. Today patient is calm and cooperative during assessment. She stated that her living situation is her biggest concern. Recommendation/Plan: Continue 1013 with possible placement to inpatient or outpatient psy services. Continue Zyprexa 5 mg PO HS for mood Discussed possible metabolic side effects of Zyprexa.
[2016-06-24 11:14] LABS: Eosinophils % (Auto) 13.4 % (0.0-4.3); Hematocrit 27.9 % (30.3-42.9); Hemoglobin 9.1 gm/dl (10.1-14.3); Mean Corpuscular HGB Conc 33 % (30-34); Mean Corpuscular Hemoglobin 32 pg (28-32); Mean Corpuscular Volume 98 fl (79-97); Platelet Count 108 K/mm3 (140-440); Red Blood Count 2.87 M/mm3 (3.65-5.03); Red Cell Distribution Width 16.5 % (13.2-15.2); White Blood Count 3.6 K/mm3 (4.5-11.0)
[2016-06-24 11:46] LABS: Albumin 3.6 g/dL (3.9-5); Albumin/Globulin Ratio 1.3 %; BUN/Creatinine Ratio 4.29; Bilirubin,Total 0.7 mg/dL (0.1-1.2); Calcium 8.3 mg/dL (8.4-10.2); Chloride 88.4 mmol/L (98-107); Potassium 5.3 mmol/L (3.6-5.0); Total Protein 6.3 g/dL (6.3-8.2)
--- NOTE | 2016-06-24 14:14 | Progress Note ---
Assessment and Plan - Patient Problems (1) Depression with suicidal ideation Current Visit: Yes Status: Acute Plan to address problem: Being followed by psychiatrist (2) ESRD (end stage renal disease) on dialysis Current Visit: Yes Status: Chronic Plan to address problem: Hemodialysis on a Saturday, Saturday and Saturday schedule. Hemodialysis in the morning (3) Anemia, chronic disease Current Visit: Yes Status: Chronic Plan to address problem: Give erythropoietin on dialysis (4) Secondary hyperparathyroidism (of renal origin) Current Visit: Yes Status: Chronic Plan to address problem: Continue vitamin D analog (5) Hypertensive chronic kidney disease with stage 5 chronic kidney disease or end stage renal disease Current Visit: Yes Status: Acute Plan to address problem: Follow-up blood pressure on current medications (6) COPD bronchitis Current Visit: No Status: Acute Plan to address problem: Continue antibiotics, bronchodilators and supplement oxygen as needed. Subjective Date of service: 06/24/16 Principal diagnosis: end-stage renal disease Interval history: Patient seen lying in bed. She is feeling better today. Cough is improving Objective - Exam Narrative Exam: Middle-aged -[place] female lying in bed in no acute distress HEENT face swollen, pupils equal reactive to light, pink, clear oropharynx Neck supple, no thyromegaly jugular venous distention CVS S1-S2 regular rate rhythm without murmur, rub or gallop Chest coarse breath sounds bilateral rhonchi Abdomen soft nondistended nontender no organomegaly no bruit bowel sounds present Extremities mild edema no cyanosis or clubbing Neuro awake, alert oriented x3 no gross deficit - Vital Signs Vital signs: Vital Signs - 12hr 06/24/16 06/24/16 06/24/16 02:47 08:27 09:15 Temperature 98.6 F Pulse Rate [ 91 H 95 H Anterior Bilateral Throughout] Pulse Rate [ 79 Right Radial] Respiratory 18 Rate Respiratory 16 18 Rate [Anterior Bilateral Throughout] Blood Pressure Blood Pressure 104/56 [Right Arm] O2 Sat by Pulse 93 Oximetry 06/24/16 06/24/16 09:23 09:25 Temperature Pulse Rate [ 97 H Anterior Bilateral Throughout] Pulse Rate [ Right Radial] Respiratory Rate Respiratory 18 Rate [Anterior Bilateral Throughout] Blood Pressure 104/56 Blood Pressure [Right Arm] O2 Sat by Pulse Oximetry - Lab 06/24/16 11:00 06/24/16 10:50 Most recent lab results Calcium 8.3 mg/dL (8.4-10.2) L 06/24/16 10:50
--- NOTE | 2016-06-24 14:59 | Progress Note ---
Assessment and Plan - Patient Problems (1) Depression with suicidal ideation Current Visit: Yes Status: Acute Plan to address problem: She is suicidal and is on suicidal watch 1:1. 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 She is on hemodialysis (4) Fever Current Visit: Yes Status: Acute Qualifiers: Fever type: F Encounter type: E Plan to address problem: She had a low-grade fever of 100.1 yesterday in the morning. No Fever for 24 hours. Blood cultures drawn. Continue IV antibiotics (5) Secondary hyperparathyroidism (of renal origin) Current Visit: Yes Status: Chronic Plan to address problem: Due to ESRD (6) Full code status Current Visit: Yes Status: Acute Plan to address problem: She is full code. History Interval history: depressed, suicidal, Low grade fever 100.1 yesterday Hospitalist Physical - Physical exam Narrative exam: Gen appearance: Not in acute distress, HEENT: Normocephalic, atraumatic Lungs : Bilateral coarse breath sounds, Heart :S1-S2 regular, no murmurs, rubs or gallop Abdomen: soft, non tender, non-distended,normal bowel sounds Extremities: Mild edema both lower extremities, no clubbing or cyanosis, Neuro: Awake, alert, oriented 3, no focal neurological signs Psych:depressed,suicidal - Constitutional Vitals: Temp Pulse Resp BP Pulse Ox 98.6 F 97 H 18 104/56 93 06/24/16 08:27 06/24/16 09:25 06/24/16 09:25 06/24/16 09:23 06/24/16 08:27 General appearance: Present: mild distress Results - Labs CBC & Chem 7: 06/24/16 11:00 06/24/16 10:50 Labs: Laboratory Last Values WBC 3.6 K/mm3 (4.5-11.0) L 06/24/16 11:00 RBC 2.87 M/mm3 (3.65-5.03) L 06/24/16 11:00 Hgb 9.1 gm/dl (10.1-14.3) L 06/24/16 11:00 Hct 27.9 % (30.3-42.9) L 06/24/16 11:00 MCV 98 fl (79-97) H 06/24/16 11:00 MCH 32 pg (28-32) 06/24/16 11:00 MCHC 33 % (30-34) 06/24/16 11:00 RDW 16.5 % (13.2-15.2) H 06/24/16 11:00 Plt Count 108 K/mm3 (140-440) L 06/24/16 11:00 Lymph % (Auto) 24.2 % (13.4-35.0) 06/24/16 11:00 Smith % (Auto) 16.0 % (0.0-7.3) H 06/24/16 11:00 Eos % (Auto) 13.4 % (0.0-4.3) H 06/24/16 11:00 Baso % (Auto) 2.0 % (0.0-1.8) H 06/24/16 11:00 Lymph # 0.9 K/mm3 (1.2-5.4) L 06/24/16 11:00 Smith # 0.6 K/mm3 (0.0-0.8) 06/24/16 11:00 Eos # 0.5 K/mm3 (0.0-0.4) H 06/24/16 11:00 Baso # 0.1 K/mm3 (0.0-0.1) 06/24/16 11:00 Add Manual Diff Complete 06/23/16 08:29 Total Counted 100 06/23/16 08:29 Seg Neutrophils % 44.4 % (40.0-70.0) 06/24/16 11:00 Seg Neuts % (Manual) 65.0 % (40.0-70.0) 06/23/16 08:29 Band Neutrophils % 0 % 06/23/16 08:29 Lymphocytes % (Manual) 16.0 % (13.4-35.0) 06/23/16 08:29 Reactive Lymphs % (Man) 0 % 06/23/16 08:29 Monocytes % (Manual) 10.0 % (0.0-7.3) H 06/23/16 08:29 Eosinophils % (Manual) 8.0 % (0.0-4.3) H 06/23/16 08:29 Basophils % (Manual) 1.0 % (0.0-1.8) 06/23/16 08:29 Metamyelocytes % 0 % 06/23/16 08:29 Myelocytes % 0 % 06/23/16 08:29 Promyelocytes % 0 % 06/23/16 08:29 Blast Cells % 0 % 06/23/16 08:29 Nucleated RBC % Not Reportable 06/23/16 08:29 Seg Neutrophils # 1.6 K/mm3 (1.8-7.7) L 06/24/16 11:00 Seg Neutrophils # Man 2.4 K/mm3 (1.8-7.7) 06/23/16 08:29 Band Neutrophils # 0.0 K/mm3 06/23/16 08:29 Lymphocytes # (Manual) 0.6 K/mm3 (1.2-5.4) L 06/23/16 08:29 Abs React Lymphs (Man) 0.0 K/mm3 06/23/16 08:29 Monocytes # (Manual) 0.4 K/mm3 (0.0-0.8) 06/23/16 08:29 Eosinophils # (Manual) 0.3 K/mm3 (0.0-0.4) 06/23/16 08:29 Basophils # (Manual) 0.0 K/mm3 (0.0-0.1) 06/23/16 08:29 Metamyelocytes # 0.0 K/mm3 06/23/16 08:29 Myelocytes # 0.0 K/mm3 06/23/16 08:29 Promyelocytes # 0.0 K/mm3 06/23/16 08:29 Blast Cells # 0.0 K/mm3 06/23/16 08:29 WBC Morphology Not Reportable 06/23/16 08:29 Hypersegmented Neuts Not Reportable 06/23/16 08:29 Hyposegmented Neuts Not Reportable 06/23/16 08:29 Hypogranular Neuts Not Reportable 06/23/16 08:29 Smudge Cells Not Reportable 06/23/16 08:29 Toxic Granulation Not Reportable 06/23/16 08:29 Toxic Vacuolation Not Reportable 06/23/16 08:29 Dohle Bodies Not Reportable 06/23/16 08:29 Pelger-Huet Anomaly Not Reportable 06/23/16 08:29 Jose Luis Rods Not Reportable 06/23/16 08:29 Platelet Estimate Consistent w auto 06/23/16 08:29 Clumped Platelets Not Reportable 06/23/16 08:29 Plt Clumps, EDTA Not Reportable 06/23/16 08:29 Large Platelets Not Reportable 06/23/16 08:29 Giant Platelets Not Reportable 06/23/16 08:29 Platelet Satelliting Not Reportable 06/23/16 08:29 Plt Morphology Comment Not Reportable 06/23/16 08:29 RBC Morphology Not Reportable 06/23/16 08:29 Dimorphic RBCs Not Reportable 06/23/16 08:29 Polychromasia Not Reportable 06/23/16 08:29 Hypochromasia Not Reportable 06/23/16 08:29 Poikilocytosis Not Reportable 06/23/16 08:29 Anisocytosis 1+ 06/23/16 08:29 Microcytosis Not Reportable 06/23/16 08:29 Macrocytosis 1+ 06/23/16 08:29 Spherocytes Not Reportable 06/23/16 08:29 Pappenheimer Bodies Not Reportable 06/23/16 08:29 Sickle Cells Not Reportable 06/23/16 08:29 Target Cells Not Reportable 06/23/16 08:29 Tear Drop Cells Not Reportable 06/23/16 08:29 Ovalocytes Not Reportable 06/23/16 08:29 Helmet Cells Not Reportable 06/23/16 08:29 [place] Bodies Not Reportable 06/23/16 08:29 Ambler Rings Not Reportable 06/23/16 08:29 Gui Cells Not Reportable 06/23/16 08:29 Bite Cells Not Reportable 06/23/16 08:29 Crenated Cell Not Reportable 06/23/16 08:29 Elliptocytes Not Reportable 06/23/16 08:29 Acanthocytes (Spur) Not Reportable 06/23/16 08:29 Rouleaux Not Reportable 06/23/16 08:29 Hemoglobin C Crystals Not Reportable 06/23/16 08:29 Schistocytes Not Reportable 06/23/16 08:29 Malaria parasites Not Reportable 06/23/16 08:29 Sheldon Bodies Not Reportable 06/23/16 08:29 Hem Pathologist Commnt No 06/23/16 08:29 Sodium 132 mmol/L (137-145) L 06/24/16 10:50 Potassium 5.3 mmol/L (3.6-5.0) H 06/24/16 10:50 Chloride 88.4 mmol/L (98-107) L 06/24/16 10:50 Carbon Dioxide 23 mmol/L (22-30) 06/24/16 10:50 Anion Gap 26 mmol/L 06/24/16 10:50 BUN 46 mg/dL (7-17) H 06/24/16 10:50 Creatinine 10.7 mg/dL (0.7-1.2) H 06/24/16 10:50 Estimated GFR 5 ml/min 06/24/16 10:50 BUN/Creatinine Ratio 4.29 % 06/24/16 10:50 Glucose 102 mg/dL (65-100) H 06/24/16 10:50 Calcium 8.3 mg/dL (8.4-10.2) L 06/24/16 10:50 Total Bilirubin 0.70 mg/dL (0.1-1.2) 06/24/16 10:50 AST 19 units/L (5-40) 06/24/16 10:50 ALT 6 units/L (7-56) L 06/24/16 10:50 Alkaline Phosphatase 134 units/L (35-129) H 06/24/16 10:50 Total Creatine Kinase 116 units/L (30-135) 06/15/16 17:12 Total Protein 6.3 g/dL (6.3-8.2) 06/24/16 10:50 Albumin 3.6 g/dL (3.9-5) L 06/24/16 10:50 Albumin/Globulin Ratio 1.3 % 06/24/16 10:50 HCG, Qual Negative (Negative) 06/19/16 14:45 Salicylates < 0.3 mg/dL (2.8-20.0) L 06/15/16 17:12 Acetaminophen < 15.0 ug/mL (10.0-30.0) 06/15/16 17:12 Valproic Acid < 2.8 ug/mL (50-100) L 06/19/16 14:45 Plasma/Serum Alcohol < 0.01 gm% (0-0.07) 06/15/16 11:37
[2016-06-25] MEDS: BENADRYL IV PRN
[2016-06-25] MEDS: ZOFRAN IV PRN ×2 (00:01→09:20)
[2016-06-25] MEDS: DUONEB 0.5 MG-3 MG/3 ML SOLN IH SCH ×4 (03:29→20:40)
[2016-06-25] MEDS: ZOSYN/NS 2.25 GM/50ML 2.25 GM/50 ML BAG IV SCH ×3 (05:00→21:15)
[2016-06-25] MEDS: ULTRAM PO PRN (06:32)
--- NOTE | 2016-06-25 08:43 | Progress Note ---
Assessment and Plan - Patient Problems (1) Depression with suicidal ideation Current Visit: Yes Status: Acute Plan to address problem: Being followed by psychiatrist (2) ESRD (end stage renal disease) on dialysis Current Visit: Yes Status: Chronic Plan to address problem: Hemodialysis on a Saturday, Saturday and Saturday schedule. Hemodialysis this morning (3) Anemia, chronic disease Current Visit: Yes Status: Chronic Plan to address problem: Give erythropoietin on dialysis (4) Secondary hyperparathyroidism (of renal origin) Current Visit: Yes Status: Chronic Plan to address problem: Continue vitamin D analog (5) Hypertensive chronic kidney disease with stage 5 chronic kidney disease or end stage renal disease Current Visit: Yes Status: Acute Plan to address problem: Follow-up blood pressure on current medications (6) COPD bronchitis Current Visit: No Status: Acute Plan to address problem: Continue antibiotics, bronchodilators and supplement oxygen as needed. Subjective Date of service: 06/25/16 Principal diagnosis: end-stage renal disease Interval history: Patient seen lying in bed. She is again feeling better today. Cough is improving Objective - Exam Narrative Exam: Middle-aged -[place]enian female lying in bed in no acute distress HEENT face swollen, pupils equal reactive to light, pink, clear oropharynx Neck supple, no thyromegaly jugular venous distention CVS S1-S2 regular rate rhythm without murmur, rub or gallop Chest coarse breath sounds few rhonchi Abdomen soft nondistended nontender no organomegaly no bruit bowel sounds present Extremities mild edema no cyanosis or clubbing Neuro awake, alert oriented x3 no gross deficit - Vital Signs Vital signs: Vital Signs - 12hr 06/24/16 06/24/16 06/25/16 21:26 22:00 00:00 Temperature 98.6 F Pulse Rate 73 Pulse Rate [ 73 Right Radial] Respiratory 18 20 Rate Blood Pressure 124/69 Blood Pressure 124/69 [Right Arm] O2 Sat by Pulse 95 100 Oximetry 06/25/16 07:42 Temperature 98.0 F Pulse Rate Pulse Rate [ 73 Right Radial] Respiratory 18 Rate Blood Pressure Blood Pressure 110/67 [Right Arm] O2 Sat by Pulse 87 Oximetry - Lab 06/24/16 11:00 06/24/16 10:50 Most recent lab results Calcium 8.3 mg/dL (8.4-10.2) L 06/24/16 10:50
[2016-06-25] MEDS: RENVELA PO SCH ×3 (09:19→17:24)
[2016-06-25 10:57] LABS: Hematocrit 28.8 % (30.3-42.9); Hemoglobin 9.5 gm/dl (10.1-14.3); Mean Corpuscular HGB Conc 33 % (30-34); Mean Corpuscular Hemoglobin 32 pg (28-32); Mean Corpuscular Volume 95 fl (79-97); Platelet Count 120 K/mm3 (140-440); Red Blood Count 3.02 M/mm3 (3.65-5.03); Red Cell Distribution Width 16.2 % (13.2-15.2); White Blood Count 4.6 K/mm3 (4.5-11.0)
[2016-06-25 11:10] LABS: BUN/Creatinine Ratio 4.6; Calcium 8.1 mg/dL (8.4-10.2); Chloride 88.7 mmol/L (98-107); Potassium 5.4 mmol/L (3.6-5.0)
--- NOTE | 2016-06-25 11:25 | Progress Note ---
Assessment and Plan Patient Problems (1) Depression with suicidal ideation Current Visit: Yes Status: Acute Plan to address problem: managed by psychiatrist. Patient is on suicidal watch, sitter on bedside 1:1 (2) Crack cocaine use Current Visit: Yes Status: Chronic Plan to address problem: patient was advised and educated to stop using drugs. (3) ESRD (end stage renal disease) on dialysis Current Visit: Yes Status: Chronic Plan to address problem: she is managed by Nephrology, she is scheduled this morning for Hemodialysis. Subjective Date of service: 06/25/16 Principal diagnosis: end-stage renal disease Objective - Constitutional Vitals: Vital Signs - 12hr 06/25/16 06/25/16 06/25/16 00:00 07:42 09:11 Temperature 98.6 F 98.0 F Pulse Rate Pulse Rate [ 67 Anterior Bilateral Throughout] Pulse Rate [ 73 73 Right Radial] Respiratory 20 18 Rate Respiratory 16 Rate [Anterior Bilateral Throughout] Blood Pressure Blood Pressure 124/69 110/67 [Right Arm] O2 Sat by Pulse 100 87 Oximetry 06/25/16 06/25/16 06/25/16 09:52 11:00 11:15 Temperature 97.7 F Pulse Rate 69 70 Pulse Rate [ 70 Anterior Bilateral Throughout] Pulse Rate [ Right Radial] Respiratory 18 Rate Respiratory 18 Rate [Anterior Bilateral Throughout] Blood Pressure 104/58 101/61 Blood Pressure [Right Arm] O2 Sat by Pulse Oximetry General appearance: Present: no acute distress, well-nourished - EENT Eyes: PERRL, EOM intact ENT: hearing intact, clear oral mucosa Ears: bilateral: normal - Neck Neck: supple, normal ROM - Respiratory Respiratory: bilateral: CTA - Breasts Breasts: deferred - Cardiovascular Heart Sounds: Present: S1 & S2. Absent: gallop, rub Extremities: pulses intact, No edema, normal color, Full ROM - Gastrointestinal General gastrointestinal: Present: soft, non-distended - Genitourinary Female genitourinary: deferred - Integumentary Integumentary: clear - Musculoskeletal Musculoskeletal: 1, strength equal bilaterally - Neurologic Neurologic: moves all extremities - Psychiatric Psychiatric: memory intact, depressed - Labs CBC & Chem 7: 06/25/16 10:37 06/25/16 10:37 Labs: Abnormal lab results 06/24/16 06/24/16 06/25/16 Range/Units 10:50 11:00 10:37 WBC 3.6 L (4.5-11.0) K/mm3 RBC 2.87 L 3.02 L (3.65-5.03) M/mm3 Hgb 9.1 L 9.5 L (10.1-14.3) gm/dl Hct 27.9 L 28.8 L (30.3-42.9) % MCV 98 H (79-97) fl RDW 16.5 H 16.2 H (13.2-15.2) % Plt Count 108 L 120 L (140-440) K/mm3 Baso % (Auto) 2.0 H (0.0-1.8) % Lymph # 0.9 L (1.2-5.4) K/mm3 Sodium 132 L (137-145) mmol/L Potassium 5.3 H (3.6-5.0) mmol/L Chloride 88.4 L (98-107) mmol/L BUN 46 H (7-17) mg/dL Creatinine 10.7 H (0.7-1.2) mg/dL Glucose 102 H (65-100) mg/dL Calcium 8.3 L (8.4-10.2) mg/dL ALT 6 L (7-56) units/L Alkaline Phosphatase 134 H (35-129) units/L Albumin 3.6 L (3.9-5) g/dL 05/15/17 Range/Units 10:37 WBC (4.5-11.0) K/mm3 RBC (3.65-5.03) M/mm3 Hgb (10.1-14.3) gm/dl Hct (30.3-42.9) % MCV (79-97) fl RDW (13.2-15.2) % Plt Count (140-440) K/mm3 Baso % (Auto) (0.0-1.8) % Lymph # (1.2-5.4) K/mm3 Sodium 132 L (137-145) mmol/L Potassium 5.4 H (3.6-5.0) mmol/L Chloride 88.7 L (98-107) mmol/L BUN 52 H (7-17) mg/dL Creatinine 11.3 H (0.7-1.2) mg/dL Glucose 128 H (65-100) mg/dL Calcium 8.1 L (8.4-10.2) mg/dL ALT (7-56) units/L Alkaline Phosphatase (35-129) units/L Albumin (3.9-5) g/dL
[2016-06-25] MEDS: BABY ASPIRIN PO SCH ×2 (11:34→17:24)
[2016-06-25] MEDS: COREG PO SCH ×2 (11:35→21:15)
[2016-06-25] MEDS: PEPCID PO SCH ×2 (11:35→21:12)
--- NOTE | 2016-06-25 14:45 | Progress Note ---
Subjective - Reason for Consult Consult date: 06/25/16 Reason for consult: Psychiatry Follow-up - Chief Complaint Chief complaint: "I am good today" This is a 50 year-old undomiciled female with a PMH of SLE, ESRD, HTN, DM, GERD , COPD, and who reports a formal PPH of Bipolar Disorder, Cocaine Abuse. She needs outpatient hemodialysis arrangements. Today patient is calm and cooperative during assessment. She stated, "I am no longer suicidal or homicidal." She stated that it is time to move on with her life. Per the RN notes, no distress or inappropriate behavior overnight. She denies SI/HIS', AVH' s, depression, sleep disturbance, or a poor appetite. Mental Status Exam - Vital signs Last Vital Signs Temp 97.7 F 06/25/16 11:00 Pulse 77 06/25/16 14:15 Resp 18 06/25/16 11:00 BP 134/59 06/25/16 14:15 Pulse Ox 87 06/25/16 07:42 - Exam Narrative exam: MSE: Appearance: cooperative, calm Behavior: good eye contact Speech: regular rate and tone Mood: "I am okay" Affect: mood congruent Thought Process: linear Thought Content: denies SI/HI's and AVH's Motor Activity: lying in bed Cognition: a/ox 3 Insight: fair Judgment: fair Assessment and Plan Impression: This is a 50 year-old undomiciled female with a PMH of SLE, ESRD, HTN, DM, GERD, COPD, and who reports a formal PPH of Bipolar Disorder, Cocaine Abuse. She needs outpatient hemodialysis arrangements. Today patient is calm and cooperative during assessment. She stated, "I am no longer suicidal or homicidal." She stated that it is time to move on with her life. She denies SI/ HI's and AVH's. Recommendation/Plan: Rescind 1013. Give patient outpatient services information in her local area. Continue Zyprexa 5 mg PO HS for mood. Discussed possible metabolic side effects of Zyprexa. [facility] Police notified about patient' s past HI's toward a "certain female from the crack house." Social Service involved, patient is homeless.
[2016-06-25] MEDS: ROBITUSSIN DM PO PRN (17:23)
[2016-06-25] MEDS: PROVENTIL IH PRN (17:30)
[2016-06-26] MEDS: ROBITUSSIN DM PO PRN ×2 (04:37→11:54)
[2016-06-26] MEDS: ZOSYN/NS 2.25 GM/50ML 2.25 GM/50 ML BAG IV SCH ×3 (04:38→22:44)
[2016-06-26] MEDS: BENADRYL IV PRN (04:43)
[2016-06-26] MEDS: ZOFRAN IV PRN ×2 (04:43→15:13)
[2016-06-26] MEDS: DUONEB 0.5 MG-3 MG/3 ML SOLN IH SCH ×3 (08:07→20:35)
[2016-06-26] MEDS: RENVELA PO SCH ×3 (08:46→18:26)
--- NOTE | 2016-06-26 08:51 | Progress Note ---
Assessment and Plan This is a 50yo AAF with PMHx of Hypertension, SLE, Bipolar disorder, COPD, ESRD on hemodialysis, and Behavioral disturbances who presents to ER with suicidal ideation, pt reported that she tried to overdose herself with crack. Pt was recently discharged from her previous HD clinic due to behavioral disturbances. (1) Depression with suicidal ideation Current Visit: Yes Status: Acute Plan to address problem: managed by psychiatrist. Patient is not suicidal anymore Rescind 1013 by psychiatry (2) Crack cocaine use Current Visit: Yes Status: Chronic Plan to address problem: patient was advised and educated to stop using drugs. (3) ESRD (end stage renal disease) on dialysis Current Visit: Yes Status: Chronic Plan to address problem: she is managed by Nephrology, she is scheduled for Hemodialysis tomorrow. (4) hyperkalemia Current Visit: Yes Status: Acute Plan to address problem: prn kayexalate Disposition: Home, but Patient stated that she appealed her discharge by calling Medicare IMM with [employer]. Subjective Date of service: 06/26/16 Principal diagnosis: end-stage renal disease Interval history: Patient seen and examined. Medical records and medication list reviewed. No acute event overnight noted by the RN. Patient denies any chest pain or difficulty breathing. Patient is tolerating diet. Refused lab today Discussed plan of care at bedside with patient. Objective - Exam Narrative Exam: GENERAL: well-developed and well-nourished AAF lying on bed appeared to be in no discomfort. HEENT: Normocephalic. Atraumatic. No conjunctival congestion or icterus. Patient has moist mucous membranes. NECK: Supple. Trachea midline. CHEST/LUNGS: Clear to auscultated bilaterally, breathing nonlabored. No wheezes crackles or rhonchi. HEART/CARDIOVASCULAR: Regular in rate and rhythm. S1 and S2 positive. ABDOMEN: Abdomen is soft, nontender. Patient has normal bowel sounds. SKIN: There is no rash. Warm and dry. NEURO: No focal motor deficit. Follows command. MUSCULOSKELETAL: No joint effusion or tenderness. EXTRIMITY: No edema, no cyanosis or clubbing. PSYCH: Cooperative. - Constitutional Vitals: Vital Signs - 12hr 06/25/16 06/25/16 06/26/16 20:56 23:30 08:00 Temperature 98.8 F Pulse Rate [ 74 Anterior Bilateral Throughout] Pulse Rate [ 82 Right Radial] Respiratory 18 Rate Respiratory 16 Rate [Anterior Bilateral Throughout] Blood Pressure 129/77 [Right Arm] O2 Sat by Pulse 98 99 Oximetry 06/26/16 08:08 Temperature Pulse Rate [ 74 Anterior Bilateral Throughout] Pulse Rate [ Right Radial] Respiratory Rate Respiratory 17 Rate [Anterior Bilateral Throughout] Blood Pressure [Right Arm] O2 Sat by Pulse 100 Oximetry - Labs CBC & Chem 7: 06/25/16 10:37 06/25/16 10:37 Labs: Abnormal lab results 06/25/16 06/25/16 Range/Units 10:37 10:37 RBC 3.02 L (3.65-5.03) M/mm3 Hgb 9.5 L (10.1-14.3) gm/dl Hct 28.8 L (30.3-42.9) % RDW 16.2 H (13.2-15.2) % Plt Count 120 L (140-440) K/mm3 Sodium 132 L (137-145) mmol/L Potassium 5.4 H (3.6-5.0) mmol/L Chloride 88.7 L (98-107) mmol/L BUN 52 H (7-17) mg/dL Creatinine 11.3 H (0.7-1.2) mg/dL Glucose 128 H (65-100) mg/dL Calcium 8.1 L (8.4-10.2) mg/dL
[2016-06-26] MEDS ORDERED: KIONEX PO ONE (09:00)
[2016-06-26] MEDS ORDERED: KIONEX PO PRN (10:00)
[2016-06-26] MEDS: COREG PO SCH ×4 (11:40→22:53)
[2016-06-26] MEDS: BABY ASPIRIN PO SCH (11:40)
[2016-06-26 11:54] VITALS: BP 145/77
[2016-06-26] MEDS: PEPCID PO SCH ×3 (11:55→22:53)
--- NOTE | 2016-06-26 14:19 | Progress Note ---
Subjective - Reason for Consult Consult date: 06/26/16 Reason for consult: Psychiatry Follow-up - Chief Complaint Chief complaint: "I am well" This is a 50 year-old undomiciled female with a PMH of SLE, ESRD, HTN, DM, GERD , COPD, and who reports a formal PPH of Bipolar Disorder, Cocaine Abuse. She needs outpatient hemodialysis arrangements. Today patient stated, "You set me up." She felt like I was suppose to find placement (senior care) and a dialysis center for her oce she is discharged. I explained to her that [facility] will take care that for her. She replied, "I don't want to hear that." She denies SI/HI's, AVH's, sleep issues, or a poor appetite. Mental Status Exam - Vital signs Last Vital Signs Temp 98.7 F 06/26/16 07:25 Pulse 76 06/26/16 13:49 Resp 18 06/26/16 13:49 BP 137/87 06/26/16 07:25 Pulse Ox 100 06/26/16 08:08 - Exam Narrative exam: MSE: Appearance: cooperative, calm Behavior: good eye contact Speech: regular rate and tone Mood: "I am okay" Affect: mood congruent Thought Process: linear Thought Content: denies SI/HI's and AVH's Motor Activity: lying in bed Cognition: a/ox 3 Insight: fair Judgment: fair Assessment and Plan Impression: This is a 50 year-old undomiciled female with a PMH of SLE, ESRD, HTN, DM, GERD, COPD, and who reports a formal PPH of Bipolar Disorder, Cocaine Abuse. She needs outpatient hemodialysis arrangements. Today patient stated, "You set me up." She felt like I was suppose to find placement (senior care) and a dialysis center for her once she is discharged. Patient is known to get agitated when things do not work out the way she wants. She denies SI/HI's and AVH's. Recommendation/Plan: Continue Zyprexa 5 mg PO HS for mood. Discussed possible metabolic side effects of Zyprexa. Social Service involved, patient is homeless. Give outpatient psy services information to patient before her discharge. Will follow-up patient until discharge.
--- NOTE | 2016-06-26 19:41 | Progress Note ---
Assessment and Plan - Patient Problems (1) ESRD (end stage renal disease) on dialysis Current Visit: Yes Status: Chronic Plan to address problem: Hemodialysis on a Saturday, Saturday and Saturday schedule. Hemodialysis in morning (2) COPD bronchitis Current Visit: No Status: Acute Plan to address problem: Continue antibiotics, bronchodilators and supplement oxygen as needed. Follow up up chest x-ray (3) Depression with suicidal ideation Current Visit: Yes Status: Acute Plan to address problem: Being followed by psychiatrist (4) Anemia, chronic disease Current Visit: Yes Status: Chronic Plan to address problem: Give erythropoietin on dialysis (5) Secondary hyperparathyroidism (of renal origin) Current Visit: Yes Status: Chronic Plan to address problem: Continue vitamin D analog (6) Hypertensive chronic kidney disease with stage 5 chronic kidney disease or end stage renal disease Current Visit: Yes Status: Acute Plan to address problem: Follow-up blood pressure on current medications Subjective Date of service: 06/26/16 Principal diagnosis: end-stage renal disease Interval history: Patient seen lying in bed. No coughing predominantly unproductive. Shortness of breath improving Objective - Exam Narrative Exam: Middle-aged -[place] female lying in bed in no acute distress HEENT face swollen, pupils equal reactive to light, pink, clear oropharynx Neck distended neck veins, CVS S1-S2 regular rate rhythm without murmur, rub or gallop Chest coarse breath sounds with bilateral rhonchi Abdomen soft nondistended nontender no organomegaly no bruit bowel sounds present Extremities trace edema no cyanosis or clubbing Neuro awake, alert oriented x3 no gross deficit - Vital Signs Vital signs: Vital Signs - 12hr 06/26/16 06/26/16 06/26/16 08:00 08:08 13:48 Pulse Rate [ 74 74 76 Anterior Bilateral Throughout] Respiratory 16 17 18 Rate [Anterior Bilateral Throughout] O2 Sat by Pulse 100 Oximetry 06/26/16 13:49 Pulse Rate [ 76 Anterior Bilateral Throughout] Respiratory 18 Rate [Anterior Bilateral Throughout] O2 Sat by Pulse Oximetry - Lab 06/25/16 10:37 06/25/16 10:37 Most recent lab results Calcium 8.1 mg/dL (8.4-10.2) L 06/25/16 10:37
[2016-06-26] MEDS ORDERED: Renal Caps PO ONE (19:54)
[2016-06-26] MEDS: ZEMPLAR PO SCH (20:09)
[2016-06-27] MEDS: DUONEB 0.5 MG-3 MG/3 ML SOLN IH SCH ×2 (08:16→14:12)
[2016-06-27] MEDS: RENVELA PO SCH (08:28)
--- NOTE | 2016-06-27 08:46 | Discharge Summary ---
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 Phone number called:: [phone] Was contact made?: Yes If yes, spoke with:: maame Time called:: 10:17 Comment:: already aware 06/15/16 20:55 Consult to Mental Health [CONS] Routine Reason For Exam: suicidal ideation Place consult to:: mental health Notified:: mental health Phone number called:: [phone] Was contact made?: Yes Time called:: 10:20 Comment:: states Dr. Putnam will see pt. today 06/16/16 10:49 Consult to Mental Health [CONS] Routine Reason For Exam: behavioral disturbance Place consult to:: [facility] Notified:: mental Health Phone number called:: [phone] Was contact made?: Yes If yes, spoke with:: Javi Time called:: 10:20 Comment:: State Dr. Putnam will see today Primary care physician: COMMUNICATIONS TOWER TECHNICIAN Hospitalization Condition: Good Hospital course: This is a 50yo AAF with PMHx of Hypertension, SLE, Bipolar disorder, COPD, ESRD on hemodialysis, and Behavioral disturbances who presents to ER with suicidal ideation, pt reported that she tried to overdose herself with crack cocaine. Patient was recently discharged from her previous HD clinic due to behavioral disturbances. She was evaluated by psych and medications were adjusted. 1013 was rescind and she was recommended to follow up out patient. But Patient appealed her discharge by calling Medicare IMM with [facility]. She refused her dialysis before discharge and left with her daughter home. (1) Depression with suicidal ideation Current Visit: Yes Status: Acute Plan to address problem: managed by psychiatrist. Patient is not suicidal anymore Rescind 1013 by psychiatry (2) Crack cocaine use Current Visit: Yes Status: Chronic Plan to address problem: patient was advised and educated to stop using drugs. (3) ESRD (end stage renal disease) on dialysis Current Visit: Yes Status: Chronic Plan to address problem: she is managed by Nephrology, she is scheduled for Hemodialysis tomorrow. (4) hyperkalemia Current Visit: Yes Status: Acute Plan to address problem: Improved with HD and with prn kayexalate Disposition: DISCHARGED TO HOME OR SELFCARE Time spent for discharge: 32 minutes Core Measure Documentation - Palliative Care Palliative Care/ Comfort Measures: Not Applicable - Core Measures Any of the following diagnoses?: none Exam - Physical Exam Narrative exam: GENERAL: well-developed and well-nourished AAF lying on bed appeared to be in no discomfort. HEENT: Normocephalic. Atraumatic. No conjunctival congestion or icterus. Patient has moist mucous membranes. NECK: Supple. Trachea midline. CHEST/LUNGS: Clear to auscultated bilaterally, breathing nonlabored. No wheezes crackles or rhonchi. HEART/CARDIOVASCULAR: Regular in rate and rhythm. S1 and S2 positive. ABDOMEN: Abdomen is soft, nontender. Patient has normal bowel sounds. SKIN: There is no rash. Warm and dry. NEURO: No focal motor deficit. Follows command. MUSCULOSKELETAL: No joint effusion or tenderness. EXTRIMITY: No edema, no cyanosis or clubbing. PSYCH: not agitated. - Constitutional Vitals: Temp Pulse Resp BP Pulse Ox 98.7 F 88 20 137/87 100 06/26/16 07:25 06/26/16 22:53 06/27/16 03:40 06/26/16 07:25 06/26/16 20:35 Plan Activity: advance as tolerated Weight Bearing Status: Weight Bear as Tolerated Diet: renal Follow up with: DALILA VAZQUEZ MD [Staff Physician] - 7 Days PRIMARY CAREMD [Primary Care Provider] - 3-5 Days
--- NOTE | 2016-06-27 11:44 | XRay Report ---
AP chest: Dyspnea, cough. There is bronchoalveolar opacities in the right lower lobe and possibly right middle lobe. A somewhat less consolidated degree of bronchoalveolar infiltrate is noted in the mid left lung. There is blunting of both costophrenic angles. The is no vascular congestion. The cardiac contour is enlarged. These findings do not appear significantly changed compared to the most recent study of June 23 or prior studies dating back to April. Impression: Chronic lung disease most likely representing left fibrosis and fibrosis and/or other alveolar process on the right.
== END 2016-06-27 12:30 | disposition home or self-care (01) | DRG 880 ==
LOC: ED 11:02 → 3A 19:19
PROVIDERS: ADMIT Internal Medicine; ATTEND Internal Medicine
PROC: 5A1D60Z (ICD-10-PCS; principal; 2016-06-15)
DX: R45.851 Suicidal ideations (principal); N18.6 End stage renal disease; I13.2 Hypertensive heart and chronic kidney disease with heart failure and with stage 5 chronic kidney disease, or end stage renal disease; J20.9 Acute bronchitis, unspecified; F14.10 Cocaine abuse, uncomplicated; D64.9 Anemia, unspecified; I50.9 Heart failure, unspecified; M19.90 Unspecified osteoarthritis, unspecified site; F31.9 Bipolar disorder, unspecified; F41.9 Anxiety disorder, unspecified; J44.9 Chronic obstructive pulmonary disease, unspecified; F12.90 Cannabis use, unspecified, uncomplicated; G40.909 Epilepsy, unspecified, not intractable, without status epilepticus; K21.9 Gastro-esophageal reflux disease without esophagitis; M32.9 Systemic lupus erythematosus, unspecified; D63.8 Anemia in other chronic diseases classified elsewhere; R13.10 Dysphagia, unspecified; E87.5 Hyperkalemia; Z91.15 Patient's noncompliance with renal dialysis; Z91.018 Allergy to other foods; Z88.8 Allergy status to other drugs, medicaments and biological substances; Z72.89 Other problems related to lifestyle; Z82.49 Family history of ischemic heart disease and other diseases of the circulatory system; Z59.0 Homelessness; Z99.2 Dependence on renal dialysis
CPT/HCPCS: 36415; 71010; 71020; 80048; 80053; 80164; 80320; 82550; 84075; 84450; 84460; 84703; 85007; 85025; 85027; 87040; 94640; 94644; 94760; 99285; 99406; G0480; J1200; J2270; J2405; J2543; J7030

== ENCOUNTER 2016-07-13 23:29 | Emergency (ER) | payer MEDICARE ==
[2016-07-14 00:27] LABS: Basophils % (Auto) 2.2 % (0.0-1.8); Eosinophils % (Auto) 7.1 % (0.0-4.3); Hematocrit 36.5 % (30.3-42.9); Hemoglobin 11.8 gm/dl (10.1-14.3); Mean Corpuscular HGB Conc 32 % (30-34); Mean Corpuscular Hemoglobin 32 pg (28-32); Mean Corpuscular Volume 98 fl (79-97); Platelet Count 229 K/mm3 (140-440); Red Blood Count 3.73 M/mm3 (3.65-5.03); Red Cell Distribution Width 17.6 % (13.2-15.2); White Blood Count 5.8 K/mm3 (4.5-11.0)
[2016-07-14 00:35] LABS: INR 1.27 (0.87-1.13)
[2016-07-14 00:36] LABS: Partial Thromboplastin Time 35.8 Sec. (24.2-36.6)
[2016-07-14 00:48] LABS: BUN/Creatinine Ratio 4.44; Calcium 9.2 mg/dL (8.4-10.2); Chloride 85.9 mmol/L (98-107); Potassium 4.8 mmol/L (3.6-5.0)
[2016-07-14] MEDS ORDERED: TYLENOL PO ONE (00:52)
--- NOTE | 2016-07-14 00:57 | Emergency Department Report ---
HPI - General Chief Complaint: Chest Pain Time Seen by Provider: 07/14/16 00:49 - HPI HPI: The patient is a 50-year-old female with a history of end-stage renal disease, who presents for evaluation of chest pain. The patient reports left-sided chest pain for the past one day, constant since onset, tightness in quality, 10/ 10 in severity, exacerbated with movement of the upper body. The patient denies fever, trauma to the chest, neck pain, parasthesias, dyspnea, cough, hemoptysis , palpitations, dizziness, syncope, unilateral leg swelling, calf muscle pain, history of DVT or PE, recent immobilization, recent surgery, or history of cancer. ED Past Medical Hx - Past Medical History Previous Medical History?: Yes Hx Hypertension: Yes Hx Heart Attack/AMI: No Hx Congestive Heart Failure: Yes Hx Diabetes: Yes Hx Deep Vein Thrombosis: No Hx Pulmonary Embolism: No Hx Liver Disease: No Hx Renal Disease: Yes (hemodialysis -W-) Hx Arthritis: Yes Hx Seizures: Yes Hx Kidney Stones: No Hx Psychiatric Treatment: Yes (bipolar, anxiety) Hx Asthma: Yes Hx COPD: Yes Hx Tuberculosis: No Hx Dementia: No Hx HIV: No Additional medical history: lupus (SLE). thyroid (patient uncertain if she has hyper- or hypo-). chest tube. dialysis (graft left upper arm). SUBSTANCE ABUSE. HERPES. RESPIRATORY FAILURE - Surgical History Past Surgical History?: Yes Hx Coronary Stent: No Hx Open Heart Surgery: No Hx Pacemaker: No Hx Internal Defibrillator: No Hx Cholecystectomy: No Hx Appendectomy: No Hx Breast Surgery: No Additional Surgical History: graft left arm. D & C. permacaths - Social History Smoking Status: Current Every Day Smoker Substance Use Type: Alcohol, Cocaine, Methamphetamines - Medications Home Medications: Home Medications Medication Instructions Recorded Confirmed Last Taken Type Ipratropium/Albuterol Sulfate 1 spray IH QID #1 aer.w.adap 06/12/16 06/15/16 Unknown Rx [Combivent Respimat] Aspirin [Aspirin BABY CHEW TAB] 81 mg PO QDAY #30 tab.chew 06/13/16 06/15/16 Unknown Rx Carvedilol [Coreg] 3.125 mg PO BID #60 tablet 06/13/16 06/15/16 Unknown Rx Famotidine [Pepcid] 10 mg PO BID #30 tablet 06/13/16 06/15/16 Unknown Rx Paricalcitol [Zemplar] 2 mcg PO TuThSa #30 capsule 06/13/16 06/15/16 Unknown Rx Sevelamer HCl [Renagel] 800 mg PO TIDWM #30 tablet 06/13/16 06/15/16 Unknown Rx ED Review of Systems ROS: Stated complaint: SOB/NO DIALYSIS FOR ONE WEEK Other details as noted in HPI Constitutional: denies: fever ENT: denies: throat or neck pain Respiratory: denies: cough, shortness of breath Cardiovascular: reports chest pain Endocrine: denies unexplained weight loss or gain Gastrointestinal: denies: abdominal pain, nausea Genitourinary: denies: dysuria Musculoskeletal: denies: leg swelling Skin: denies: rash Neurological: denies: headache Hematological/Lymphatic: denies: easy bleeding or easy bruising Psych: denies sadness or hopelessness Physical Exam - Physical Exam Vital Signs: Vital Signs 07/13/16 23:50 Temperature 97.5 F L Pulse Rate 88 Respiratory 16 Rate Blood Pressure 197/122 O2 Sat by Pulse 100 Oximetry Physical Exam: General: well-nourished, well-developed, no acute distress Head: Normocephalic, atraumatic Eyes: normal sclera ENT: Mucous membranes are pink and moist Neck: trachea midline, neck supple, No neck stiffness, no cervical adenopathy Respiratory: Breath sounds equal bilaterally, no wheezing, rales, or rhonchi Cardio: S1 and S2 present, no murmurs, rubs, gallops, capillary refill is brisk Abdomen: Normoactive bowel sounds, soft abdomen, no rigidity, no guarding or rebound tenderness Musc: No pitting edema Skin: No rash Neuro: no facial drooping, normal speech Psych: Normal affect ED Course Vital Signs 07/13/16 23:50 Temperature 97.5 F L Pulse Rate 88 Respiratory 16 Rate Blood Pressure 197/122 O2 Sat by Pulse 100 Oximetry ED Medical Decision Making - Lab Data Result diagrams: 07/14/16 00:01 07/14/16 00:01 - Medical Decision Making The patient was seen and examined by myself. The patient is placed on a telephone clerks supervisor and continuous pulse ox. On initial evaluation, the patient was found to be in no distress. EKG was negative for findings suggestive of acute cardiac infarct. Labs and imaging are obtained. The patient's given a tablet of Tylenol for her pain. Chest x-ray exhibits minimal right small pleural effusion, grossly unchanged although improved from previous x-rays over the past one month. Otherwise CXR negative for pneumothorax, lobar consolidation, pulmonary vascular congestion, or other obvious acute cardiopulmonary disease process. Lab results Revealed elevated BUN and creatinine, consistent with known history of end-stage renal disease, and otherwise were non-concerning including normal levels of potassium, mildly elevated troponin of 0.1, at patient baseline on multiple previous evaluations. The patient was reevaluated and reported that their symptoms were improved. As the patient has a SREEDHAR risk score less than 2, and a well's score less than 2, the patient is at low risk of ACS or pulmonary emboli etiology of their symptoms. The patient is stable for discharge with outpatient follow-up. The patient is given follow-up and return instructions. The patient expressed understanding and agreed with the plan. The patient is discharged in stable condition. Critical care attestation.: If time is entered above; I have spent that time in minutes in the direct care of this critically ill patient, excluding procedure time. ED Disposition Clinical Impression: ESRD (end stage renal disease) on dialysis, Acute chest pain, Hypertensive urgency Disposition: DISCHARGED TO HOME OR SELFCARE Is pt being admited?: No Does the pt Need Aspirin: No Condition: Stable Instructions: Chest Pain (ED), Hypertension (ED) Referrals: PRIMARY CARE, [Primary Care Provider] - 3-5 Days Time of Disposition: 00:57
[2016-07-14] MEDS ORDERED: CATAPRES PO ONE (02:08)
[2016-07-14 02:11] VITALS: BP 137/90
--- NOTE | 2016-07-14 10:15 | XRay Report ---
AP chest History: Chest pain Findings: Compared to 06/27/16. Mild cardiomegaly, mild vascular congestion and small right pleural effusion identified. Mild atelectatic changes are suspected in the lower lobes. No pneumothorax. Impression: Mild CHF.
== END 2016-07-14 02:30 | disposition home or self-care (01) ==
LOC: ED 23:29
DX: R07.89 Other chest pain (principal); I13.2 Hypertensive heart and chronic kidney disease with heart failure and with stage 5 chronic kidney disease, or end stage renal disease; E11.22 Type 2 diabetes mellitus with diabetic chronic kidney disease; N18.6 End stage renal disease; I50.9 Heart failure, unspecified; M19.90 Unspecified osteoarthritis, unspecified site; F31.9 Bipolar disorder, unspecified; F41.9 Anxiety disorder, unspecified; J45.909 Unspecified asthma, uncomplicated; J44.9 Chronic obstructive pulmonary disease, unspecified; F17.200 Nicotine dependence, unspecified, uncomplicated; F15.10 Other stimulant abuse, uncomplicated; F14.10 Cocaine abuse, uncomplicated; Z99.2 Dependence on renal dialysis; Z79.82 Long term (current) use of aspirin
CPT/HCPCS: 36415; 71010; 80048; 80061; 83880; 84484; 85025; 85610; 85730; 93005; 93010

== ENCOUNTER 2016-08-17 14:48 | Inpatient (IN) | payer MEDICARE, MEDICAID ==
[2016-08-17 20:47] LABS: Calcium 8.3 mg/dL (8.4-10.2); Chloride 89.2 mmol/L (98-107)
[2016-08-17 20:55] LABS: BUN/Creatinine Ratio 8.66
[2016-08-17 20:56] LABS: Albumin 4.2 g/dL (3.9-5); Bilirubin,Total 0.7 mg/dL (0.1-1.2); Calcium 8.1 mg/dL (8.4-10.2); Chloride 87.4 mmol/L (98-107); Total Protein 8.3 g/dL (6.3-8.2)
[2016-08-17 20:57] LABS: Potassium 6.7 mmol/L (3.6-5.0)
[2016-08-17 21:04] LABS: Basophils % (Auto) 0.9 % (0.0-1.8); Hematocrit 33.4 % (30.3-42.9); Hemoglobin 10.6 gm/dl (10.1-14.3); Mean Corpuscular HGB Conc 32 % (30-34); Mean Corpuscular Hemoglobin 30 pg (28-32); Mean Corpuscular Volume 94 fl (79-97); Platelet Count 240 K/mm3 (140-440); Red Blood Count 3.56 M/mm3 (3.65-5.03); Red Cell Distribution Width 17.4 % (13.2-15.2); White Blood Count 6.5 K/mm3 (4.5-11.0)
[2016-08-17] MEDS ORDERED: D50W (25GM) IV ONE (21:10)
[2016-08-17] MEDS ORDERED: SODIUM BICARBONATE IV ONE ×2 (21:10→22:00)
[2016-08-17] MEDS ORDERED: PROVENTIL IH ONE (21:10)
[2016-08-17] MEDS ORDERED: KIONEX PO ONE (21:10)
[2016-08-17 21:19] LABS: BUN/Creatinine Ratio 9.54
--- NOTE | 2016-08-17 21:21 | Emergency Department Report ---
ED Shortness of Breath HPI - General Chief Complaint: Medical Clearance Stated Complaint: MISSED DIALYSIS/LEG PAIN Time Seen by Provider: 08/17/16 20:25 Source: patient Mode of arrival: Wheelchair Limitations: No Limitations - History of Present Illness Initial Comments: 50-year-old female with a past medical history of multiple medical conditions and end-stage renal disease on dialysis and chronic noncompliance presents to the hospital complaining of swelling to abdomen, patent malaise, shortness of breath with exertion. Patient is homeless and presents to the ED with her suitcase. Previous medical records reviewed. Patient was just admitted here August 05 until August 13. After multiple refusal she finally consented to paracentesis in which 1.8 L of fluid was removed from her abdomen on August 12. Patient is once again encouraged to be compliant with her dialysis. Patient has not received dialysis since hospitalization. Patient complains of 6/10 constant pain to bilateral legs which makes it difficult for her to ambulate. - Related Data Previous Rx's Medication Instructions Recorded Last Taken Type Aspirin [Aspirin BABY CHEW TAB] 81 mg PO QDAY #30 tab.chew 08/07/16 Unknown Rx Carvedilol [Coreg] 3.125 mg PO BID #60 tablet 08/07/16 Unknown Rx Famotidine [Pepcid] 10 mg PO BID #60 tablet 08/07/16 Unknown Rx Gabapentin [Neurontin] 100 mg PO Q8HR #90 capsule 08/07/16 Unknown Rx Ipratropium/Albuterol Sulfate 1 spray IH QID #1 aer.w.adap 08/07/16 Unknown Rx [Combivent Respimat] Paricalcitol [Zemplar] 2 mcg PO TuThSa #30 capsule 08/07/16 Unknown Rx Sevelamer HCl [Renagel] 800 mg PO TIDWM #90 tablet 08/07/16 Unknown Rx traMADol [Ultram 50 MG tab] 50 mg PO Q6HR PRN #14 tablet 08/07/16 Unknown Rx Allergies Allergy/AdvReac Type Severity Reaction Status Date / Time enalapril maleate Allergy Angioedema Verified 06/06/16 08:26 [From Vasotec] enalaprilat dihydrate Allergy Angioedema Verified 06/06/16 08:26 [From Vasotec] peach AdvReac Nausea Verified 06/06/16 08:26 tomato AdvReac Nausea Verified 06/06/16 08:26 ED Review of Systems ROS: Stated complaint: MISSED DIALYSIS/LEG PAIN Other details as noted in HPI Comment: All other systems reviewed and negative Other: Constitutional: No fevers chills Eyes: No eye pain visual changes ENT: No ear pain or throat pain Neck: Denies pain Respiratory: as per hpi Cardiovascular: Denies chest pain GI: Denies abdominal pain, nausea, vomiting, diarrhea : Denies dysuria Musculoskeletal: as pr hpi Skin: Denies rash, lesions, erythema Neurologic: Denies headache, numbness, weakness Psychiatric: Denies suicidal ideation, hallucinations ED Past Medical Hx - Past Medical History Hx Hypertension: Yes Hx Heart Attack/AMI: No Hx Congestive Heart Failure: Yes Hx Diabetes: Yes Hx Deep Vein Thrombosis: No Hx Pulmonary Embolism: No Hx Liver Disease: No Hx Renal Disease: Yes (hemodialysis --) Hx Arthritis: Yes Hx Seizures: Yes Hx Kidney Stones: No Hx Psychiatric Treatment: Yes (bipolar, anxiety) Hx Asthma: Yes Hx COPD: Yes Hx Tuberculosis: No Hx Dementia: No Hx HIV: No Additional medical history: lupus (SLE). thyroid (patient uncertain if she has hyper- or hypo-). chest tube. dialysis (graft left upper arm). SUBSTANCE ABUSE. HERPES. RESPIRATORY FAILURE - Surgical History Hx Coronary Stent: No Hx Open Heart Surgery: No Hx Pacemaker: No Hx Internal Defibrillator: No Hx Cholecystectomy: No Hx Appendectomy: No Hx Breast Surgery: No Additional Surgical History: graft left arm. D & C. permacaths - Social History Smoking Status: Current Some Day Smoker Substance Use Type: Alcohol, Cocaine, Marijuana - Medications Home Medications: Home Medications Medication Instructions Recorded Confirmed Last Taken Type Aspirin [Aspirin BABY CHEW TAB] 81 mg PO QDAY #30 tab.chew 08/07/16 Unknown Rx Carvedilol [Coreg] 3.125 mg PO BID #60 tablet 08/07/16 Unknown Rx Famotidine [Pepcid] 10 mg PO BID #60 tablet 08/07/16 Unknown Rx Gabapentin [Neurontin] 100 mg PO Q8HR #90 capsule 08/07/16 Unknown Rx Ipratropium/Albuterol Sulfate 1 spray IH QID #1 aer.w.adap 08/07/16 Unknown Rx [Combivent Respimat] Paricalcitol [Zemplar] 2 mcg PO TuThSa #30 capsule 08/07/16 Unknown Rx Sevelamer HCl [Renagel] 800 mg PO TIDWM #90 tablet 08/07/16 Unknown Rx traMADol [Ultram 50 MG tab] 50 mg PO Q6HR PRN #14 tablet 08/07/16 Unknown Rx ED Physical Exam - General Limitations: No Limitations - Other Other exam information: General: No limitations, patient is alert in no acute distress Head exam: Atraumatic, normocephalic ENT: Moist mucous membrane, normal oropharynx Neck exam: Normal inspection, full range of motion, no meningismus nontender Respiratory exam: Clear to auscultation bilateral, no wheezes, rales, crackles Cardiovascular: Normal rate and rhythm Abdomen: Soft, mildly distended abdomen, nontender Extremity: Full range of motion normal inspection no deformity, very mild leg edema, no asymmetry Back: Normal Inspection Neurologic: Alert, oriented x3, cranial nerves intact, no motor or sensory deficit Psychiatric: normal affect, normal mood Skin: Warm, dry, intact ED Course Vital Signs 08/17/16 08/17/16 15:48 21:31 Temperature 98.9 F Pulse Rate 81 Pulse Rate [ 82 Throughout] Respiratory 17 Rate Respiratory 16 Rate [ Throughout] Blood Pressure 129/85 O2 Sat by Pulse 95 Oximetry - Reevaluation(s) Reevaluation #1: 08/17/16 21:42 Patient has significant hyperkalemia. Hyperkalemia cocktail ordered with the exception of Lasix - Consultations Consultation #1: 08/17/16 21:16 Dr. Kelly nephrology paged 08/17/16 21:57 Robin returned paged at this time. Will arrange for stat dialysis ED Medical Decision Making - Lab Data Result diagrams: 08/17/16 Unknown 08/17/16 20:20 Lab Results 08/17/16 08/17/16 08/17/16 Range/Units 20:20 20:20 Unknown WBC 6.5 (4.5-11.0) K/mm3 RBC 3.56 L (3.65-5.03) M/mm3 Hgb 10.6 (10.1-14.3) gm/dl Hct 33.4 (30.3-42.9) % MCV 94 (79-97) fl MCH 30 (28-32) pg MCHC 32 (30-34) % RDW 17.4 H (13.2-15.2) % Plt Count 240 (140-440) K/mm3 Lymph % (Auto) 13.3 L (13.4-35.0) % [place] % (Auto) 15.6 H (0.0-7.3) % Eos % (Auto) 2.0 (0.0-4.3) % Baso % (Auto) 0.9 (0.0-1.8) % Lymph # 0.9 L (1.2-5.4) K/mm3 [place] # 1.0 H (0.0-0.8) K/mm3 Eos # 0.1 (0.0-0.4) K/mm3 Baso # 0.1 (0.0-0.1) K/mm3 Seg Neutrophils % 68.2 (40.0-70.0) % Seg Neutrophils # 4.4 (1.8-7.7) K/mm3 Sodium 136 L 131 L (137-145) mmol/L Potassium 7.0 H* 6.7 H* (3.6-5.0) mmol/L Chloride 89.2 L 87.4 L (98-107) mmol/L Carbon Dioxide 21 L 23 (22-30) mmol/L Anion Gap 33 27 mmol/L BUN 130 H 127 H (7-17) mg/dL Creatinine 15.0 H 13.3 H (0.7-1.2) mg/dL Estimated GFR 3 4 ml/min BUN/Creatinine Ratio 8.66 9.54 % Glucose 97 102 H (65-100) mg/dL Calcium 8.3 L 8.1 L (8.4-10.2) mg/dL Total Bilirubin 0.70 (0.1-1.2) mg/dL AST 42 H (5-40) units/L ALT 14 (7-56) units/L Alkaline Phosphatase 184 H (35-129) units/L Total Protein 8.3 H (6.3-8.2) g/dL Albumin 4.2 (3.9-5) g/dL Albumin/Globulin Ratio 1.0 % - EKG Data -: EKG Interpreted by Me (nsr rate 84, mild peak t) - Radiology Data Radiology results: image reviewed (chest x-ray: fluid overload) - Medical Decision Making Patient required admission to the hospital for volume overload and hyperkalemia/ uremia secondary to dialysis noncompliance - Differential Diagnosis volume overload, hyperkalemia, noncompliance Critical Care Time: No Critical care attestation.: If time is entered above; I have spent that time in minutes in the direct care of this critically ill patient, excluding procedure time. ED Disposition Clinical Impression: Fluid overload, Hyperkalemia, ESRD needing dialysis, Uremia, Medical non- compliance Disposition: OP ADMIT IP TO THIS HOSP Is pt being admited?: Yes Condition: Stable Referrals: PRIMARY CARE, [Primary Care Provider] - 3-5 Days Time of Disposition: 21:20 (Dr Womack/hosp)
[2016-08-17] MEDS ORDERED: CALCIUM GLUCONATE 1,000 MG in NACL 0.9% 100 ML IV ONE (22:00)
[2016-08-17] MEDS ORDERED: TYLENOL PO PRN (22:14)
[2016-08-17] MEDS ORDERED: DULCOLAX PR PRN (22:14)
[2016-08-17] MEDS ORDERED: MILK OF MAGNESIA PO PRN (22:14)
--- NOTE | 2016-08-17 22:14 | History and Physical Report ---
History of Present Illness Date of examination: 08/17/16 History of present illness: 50-year-old woman, well kniown to the medical service, with a history of hypertension, bipolar, end-stage renal disease on dialysis, lupus, seizure, herpes, COPD constant emergency room with complaints of shortness of breath, she missed two spisodes of dialysis. She still has noplace to live. Patient denies chest pain, palpitation, cough, abdominal pain, hematochezia, dysuria, frequency, focal weakness, dysarthria, fever chills, polydipsia polyuria, hot or cold intolerance, easy bruisability, or rash or bleeding from mucosal membrane, rhinorrhea, epistaxis, earache, tinnitus, blurry vision, eye discharge, anxiety, depression. Other review of systems negative PAST SURGICAL HISTORY: AV fistula SOCIAL HISTORY: States she relapsed on cocaine, admits to alcohol denies tobacco FAMILY HISTORY: Hypertension Medications and Allergies Allergies Allergy/AdvReac Type Severity Reaction Status Date / Time enalapril maleate Allergy Angioedema Verified 06/06/16 08:26 [From Vasotec] enalaprilat dihydrate Allergy Angioedema Verified 06/06/16 08:26 [From Vasotec] peach AdvReac Nausea Verified 06/06/16 08:26 tomato AdvReac Nausea Verified 06/06/16 08:26 Home Medications Medication Instructions Recorded Confirmed Last Taken Type Aspirin [Aspirin BABY CHEW TAB] 81 mg PO QDAY #30 tab.chew 08/07/16 Unknown Rx Carvedilol [Coreg] 3.125 mg PO BID #60 tablet 08/07/16 Unknown Rx Famotidine [Pepcid] 10 mg PO BID #60 tablet 08/07/16 Unknown Rx Gabapentin [Neurontin] 100 mg PO Q8HR #90 capsule 08/07/16 Unknown Rx Ipratropium/Albuterol Sulfate 1 spray IH QID #1 aer.w.adap 08/07/16 Unknown Rx [Combivent Respimat] Paricalcitol [Zemplar] 2 mcg PO TuThSa #30 capsule 08/07/16 Unknown Rx Sevelamer HCl [Renagel] 800 mg PO TIDWM #90 tablet 08/07/16 Unknown Rx traMADol [Ultram 50 MG tab] 50 mg PO Q6HR PRN #14 tablet 08/07/16 Unknown Rx Exam - Physical Exam Narrative exam: Gen. appearance: Patient lying in bed, no apparent distress HEENT: Normocephalic, atraumatic, pupils equally round and reactive to light, extraocular movement intact, and no sclericterus,. No JVD or thyromegaly or nodule,neck supple, no carotid bruit ,mucous membranes moist, no exudate or erythema Heart: S1, S2, regular rate and rhythm Lungs: Crackles bilaterally, breathing comfortable Abdomen: Positive bowel sounds,+ fluid wave, nontender, nondistended, no organomegaly Extremity: + edema, no cyanosis, clubbing Skin: No rash, nodules, warm, dry Neuro: Oriented 3, cranial nerves II-12 intact, speech is fluent, motor and sensory intact - Constitutional Vitals: Temp Pulse Resp BP Pulse Ox 98.9 F 82 16 129/85 95 08/17/16 15:48 08/17/16 21:31 08/17/16 21:31 08/17/16 15:48 08/17/16 15:48 Results - Labs CBC & Chem 7: 08/18/16 09:57 08/18/16 09:57 Labs: Abnormal lab results 08/17/16 08/17/16 08/17/16 Range/Units 20:20 20:20 Unknown RBC 3.56 L (3.65-5.03) M/mm3 RDW 17.4 H (13.2-15.2) % Lymph % (Auto) 13.3 L (13.4-35.0) % [place] % (Auto) 15.6 H (0.0-7.3) % Lymph # 0.9 L (1.2-5.4) K/mm3 [place] # 1.0 H (0.0-0.8) K/mm3 Sodium 136 L 131 L (137-145) mmol/L Potassium 7.0 H* 6.7 H* (3.6-5.0) mmol/L Chloride 89.2 L 87.4 L (98-107) mmol/L Carbon Dioxide 21 L (22-30) mmol/L BUN 130 H 127 H (7-17) mg/dL Creatinine 15.0 H 13.3 H (0.7-1.2) mg/dL Glucose 102 H (65-100) mg/dL Calcium 8.3 L 8.1 L (8.4-10.2) mg/dL AST 42 H (5-40) units/L Alkaline Phosphatase 184 H (35-129) units/L Total Protein 8.3 H (6.3-8.2) g/dL Assessment and Plan Hyperkalemia, need urgent dialysis Fluid overload secondary to missed hemodialysis End-stage renal disease on dialysis Hypertension Lupus Bipolar Seizure COPD Admit to medicine Consult renal for stat dialysis, s/p hyperkalemia cocktail Continue outpatient medications, start dvt prophalaxis
--- NOTE | 2016-08-17 22:15 | Event Note ---
Case was discussed with emergency room physician at length patient does require renal replacement therapy Patient came to the hospital with hyperkalemia and uremia-like symptoms Her hyperkalemia has been partly treated by medication Chart was reviewed in entirety Old records also reviewed We'll order for stat dialysis Emergency room nurse will need to call the dialysis nurse for stat dialysis tonight
[2016-08-17] MEDS ORDERED: NACL 0.9% 100 ML IV PRN (22:16)
[2016-08-18] MEDS ORDERED: APRESOLINE IV PRN (00:45)
[2016-08-18] MEDS: ZOFRAN IV PRN ×3 (03:09→15:07)
[2016-08-18] MEDS: PERCOCET 5/325 PO PRN ×4 (03:09→21:10)
[2016-08-18] MEDS: NEURONTIN PO SCH ×3 (05:16→21:11)
[2016-08-18] MEDS ORDERED: NON-FORMULARY (Sevelamer Hcl [Renagel] 800 MG) PO SCH (08:00)
[2016-08-18] MEDS: RENVELA PO SCH ×3 (08:02→21:11)
[2016-08-18] MEDS ORDERED: ZEMPLAR PO SCH (10:00)
[2016-08-18 10:19] LABS: Hemoglobin 9.2 gm/dl (10.1-14.3); Mean Corpuscular HGB Conc 33 % (30-34); Mean Corpuscular Hemoglobin 30 pg (28-32); Mean Corpuscular Volume 92 fl (79-97); Platelet Count 234 K/mm3 (140-440); Red Blood Count 3.05 M/mm3 (3.65-5.03); Red Cell Distribution Width 17.1 % (13.2-15.2); White Blood Count 6.7 K/mm3 (4.5-11.0)
[2016-08-18] MEDS: BABY ASPIRIN PO SCH (10:37)
[2016-08-18 10:40] LABS: BUN/Creatinine Ratio 7.3; Calcium 7.7 mg/dL (8.4-10.2); Chloride 94.5 mmol/L (98-107); Potassium 4.8 mmol/L (3.6-5.0)
[2016-08-18] MEDS: LOVENOX SUB-Q SCH (10:41)
[2016-08-18] MEDS: COREG PO SCH ×2 (10:41→21:11)
[2016-08-18] MEDS: PEPCID PO SCH ×2 (10:42→21:11)
[2016-08-18] MEDS ORDERED: PROCTOSOL-HC PR PRN (10:53)
[2016-08-18 11:13] LABS: Anisocytosis 1+; Blastocytes % (Manual) 0 %; Poikilocytosis 1+
[2016-08-18 11:14] LABS: Diff Status Complete; Large Platelets Few; Ovalocytes 1+; Platelet Estimate Cons; Tear Drop Cells Few
[2016-08-18] MEDS ORDERED: NACL 0.9% 100 ML IV PRN (11:27)
--- NOTE | 2016-08-18 11:27 | Consultation ---
History of Present Illness - History of Present Illness Assessment and plan End-stage renal disease currently on maintenance hemodialysis, patient will need second dialysis treatment today then TTS Uremia hyperkalemia metabolic acidosis shortness of breath currently improving Patient currently does not have an established dialysis clinic Anemia in end-stage renal disease to monitor Secondary hyperparathyroidism to follow phosphorus and PTH Nutritional counseling education has been done Will receive his second dialysis treatment today Monitor labs in the morning We'll continue to follow and make recommendation from renal standpoint History of presenting illness Patient is a 50-year-old -[place] female who is currently in maintenance hemodialysis per does not have an established clinic. Patient presented to hospital with symptoms of uremia significantly elevated BUN creatinine potassium. She did receive dialysis yesterday after which she has been feeling much better She does have mild nausea, patient is currently feeling much better after dialysis treatment less short of breath nausea is improved. Events of this admission were noted Allergies enalapril peach and tomato Past family history social history reviewed Review of system is positive for fatigue shortness of breath swelling negative for fevers chills Complete review of other systems were obtained pertinent positive above other review of system negative Physical examination Vitals: Reviewed from this admission HEENT: Oral mucosa moist no pallor or icterus Neck: Supple no thyromegaly no JVD Chest: Bilateral rales lower 1/3 Heart: Regular rate and rhythm S1 and S2 are heard Abdomen: Soft minimal left lower quadrant tenderness otherwise unremarkable Extremity: one plus edema dry skin Neurological: Alert awake follows commands Psych: No evidence of agitation and aggression noted Back: Nontender thoracolumbar spine Labs and imaging were reviewed from this admission Medications and Allergies Allergies Allergy/AdvReac Type Severity Reaction Status Date / Time enalapril maleate Allergy Angioedema Verified 06/06/16 08:26 [From Vasotec] enalaprilat dihydrate Allergy Angioedema Verified 06/06/16 08:26 [From Vasotec] peach AdvReac Nausea Verified 06/06/16 08:26 tomato AdvReac Nausea Verified 06/06/16 08:26 Home Medications Medication Instructions Recorded Confirmed Last Taken Type Aspirin [Aspirin BABY CHEW TAB] 81 mg PO QDAY #30 tab.chew 08/07/16 Unknown Rx Carvedilol [Coreg] 3.125 mg PO BID #60 tablet 08/07/16 Unknown Rx Famotidine [Pepcid] 10 mg PO BID #60 tablet 08/07/16 Unknown Rx Gabapentin [Neurontin] 100 mg PO Q8HR #90 capsule 08/07/16 Unknown Rx Ipratropium/Albuterol Sulfate 1 spray IH QID #1 aer.w.adap 08/07/16 Unknown Rx [Combivent Respimat] Paricalcitol [Zemplar] 2 mcg PO TuThSa #30 capsule 08/07/16 Unknown Rx Sevelamer HCl [Renagel] 800 mg PO TIDWM #90 tablet 08/07/16 Unknown Rx traMADol [Ultram 50 MG tab] 50 mg PO Q6HR PRN #14 tablet 08/07/16 Unknown Rx Active Meds: Active Medications Acetaminophen (Tylenol) 650 mg PO Q4H PRN PRN Reason: Pain MILD(1-3)/Fever >100.5/REID Aspirin (Baby Aspirin) 81 mg PO QDAY [facility] Last Admin: 08/18/16 10:37 Dose: 81 mg Bisacodyl (Dulcolax) 10 mg [place] QDAY PRN PRN Reason: Constipation unrelieved by MOM Carvedilol (Coreg) 3.125 mg PO BID [facility] Last Admin: 08/18/16 10:41 Dose: Not Given Enoxaparin Sodium (Lovenox) 30 mg SUB-Q QDAY [facility] Last Admin: 08/18/16 10:41 Dose: Not Given Famotidine (Pepcid) 10 mg PO BID [facility] Last Admin: 08/18/16 10:42 Dose: Not Given Gabapentin (Neurontin) 100 mg PO Q8HR [facility] Last Admin: 08/18/16 05:16 Dose: 100 mg Hydralazine HCl (Apresoline) 5 mg IV Q6HR PRN PRN Reason: Hypertension Hydrocortisone Acetate (Proctosol-Hc) 1 applic [place] BID PRN PRN Reason: Hemorrhoids Sodium Chloride (Nacl 0.9%) 100 mls @ 999 mls/hr IV ROME PRN PRN Reason: Hypotension Magnesium Hydroxide (Milk Of Magnesia) 30 ml PO Q4H PRN PRN Reason: Constipation Ondansetron HCl (Zofran) 4 mg IV Q8H PRN PRN Reason: N/V unrelieved by Reglan Last Admin: 08/18/16 08:48 Dose: 4 mg Oxycodone/Acetaminophen (Percocet 5/325) 1 tab PO Q6H PRN PRN Reason: Pain, Moderate (4-6) Last Admin: 08/18/16 09:00 Dose: 1 tab Paricalcitol (Zemplar) 2 mcg PO TuThSa [facility] Last Admin: 08/18/16 10:38 Dose: 2 mcg Sevelamer Carbonate (Renvela) 800 mg PO TIDWM [facility] Last Admin: 08/18/16 08:02 Dose: 800 mg Exam - Vital Signs Vital signs: Vital Signs Temp Pulse Resp BP Pulse Ox 98.9 F 81 17 129/85 95 08/17/16 15:48 08/17/16 15:48 08/17/16 15:48 08/17/16 15:48 08/17/16 15:48 Results - Lab Results 08/18/16 09:57 08/18/16 09:57 Most recent lab results Calcium 7.7 mg/dL (8.4-10.2) L 08/18/16 09:57
--- NOTE | 2016-08-18 11:27 | XRay Report ---
CHEST TWO VIEWS: 08/17/16 16:21 CLINICAL: Shortness of breath. COMPARISON: 07/14/16 FINDINGS: Stable cardiomegaly. Increased central vascular congestion and increased bibasal lung opacities. Increased lingular interstitial lung opacities. Blunted costophrenic angles as seen on the prior exam. IMPRESSION: Worsened bilateral pneumonia versus atypical pulmonary edema.
--- NOTE | 2016-08-18 12:58 | Progress Note ---
Assessment and Plan Assessment and plan: --Hyperkalemia, s/p hemodialysis, potassium levels within normal limits closely monitor --Fluid overload secondary to noncompliance with hemodialysis, received HD yesterday, symptoms significantly improved --End-stage renal disease on hemodialysis, nephrology following, HD per schedule --Hypertension, moderate control, continue current antihypertensives and when necessary medications --History of lupus; stable --History of bipolar disorder, continue current anti-psych medications --History of seizures, seizure precautions, continue antiepileptic medications --COPD well compensated, oxygen titrated O2 sats more than 90%, nebulizers as needed --DVT prophylaxis with heparin --Medical noncompliance; counseling done patient strongly advised to comply with hemodialysis medications and diet Verbalized understanding --DC planning. Case management Closely monitor the patient and adjust the management as needed Plan of care discussed with the patient, her nurse and case management Possible discharge in 1-2 days if stable History Interval history: Patient Seen and evaluated medical records reviewed Received hemodialysis yesterday, potassium levels significantly improved No new complaints, alert awake oriented 3 not in acute distress Hospitalist Physical - Constitutional Vitals: Temp Pulse Resp BP Pulse Ox 98.7 F 94 H 18 142/92 97 08/18/16 08:50 08/18/16 08:50 08/18/16 10:02 08/18/16 08:50 08/18/16 08:50 General appearance: Present: no acute distress, well-nourished - EENT Eyes: Present: PERRL, EOM intact - Neck Neck: Present: supple, normal ROM - Respiratory Respiratory effort: normal Respiratory: bilateral: diminished, rales, negative: rhonchi, wheezing - Cardiovascular Rhythm: regular Heart Sounds: Present: S1 & S2 - Extremities Extremities: no ischemia, pulses intact - Abdominal General gastrointestinal: soft, non-tender, non-distended, normal bowel sounds - Integumentary Integumentary: Present: clear, warm - Psychiatric Psychiatric: appropriate mood/affect, cooperative - Neurologic Neurologic: CNII-XII intact, moves all extremities Results - Labs CBC & Chem 7: 08/18/16 09:57 08/18/16 09:57 Labs: Laboratory Last Values WBC 6.7 K/mm3 (4.5-11.0) 08/18/16 09:57 RBC 3.05 M/mm3 (3.65-5.03) L 07/08/17 09:57 Hgb 9.2 gm/dl (10.1-14.3) L 08/18/16 09:57 Hct 28.0 % (30.3-42.9) L 08/18/16 09:57 MCV 92 fl (79-97) 08/18/16 09:57 MCH 30 pg (28-32) 08/18/16 09:57 MCHC 33 % (30-34) 08/18/16 09:57 RDW 17.1 % (13.2-15.2) H 08/18/16 09:57 Plt Count 234 K/mm3 (140-440) 08/18/16 09:57 Lymph % (Auto) 13.3 % (13.4-35.0) L 08/17/16 Unknown [place] % (Auto) Senior Living Advisor 08/18/16 09:57 Eos % (Auto) 2.0 % (0.0-4.3) 08/17/16 Unknown Baso % (Auto) 0.9 % (0.0-1.8) 08/17/16 Unknown Lymph # 0.9 K/mm3 (1.2-5.4) L 08/17/16 Unknown [place] # 1.0 K/mm3 (0.0-0.8) H 08/17/16 Unknown Eos # 0.1 K/mm3 (0.0-0.4) 08/17/16 Unknown Baso # 0.1 K/mm3 (0.0-0.1) 08/17/16 Unknown Add Manual Diff Complete 08/18/16 09:57 Total Counted 100 08/18/16 09:57 Seg Neutrophils % 68.2 % (40.0-70.0) 08/17/16 Unknown Seg Neuts % (Manual) 71.0 % (40.0-70.0) H 08/18/16 09:57 Band Neutrophils % 0 % 08/18/16 09:57 Lymphocytes % (Manual) 13.0 % (13.4-35.0) L 08/18/16 09:57 Reactive Lymphs % (Man) 0 % 08/18/16 09:57 Monocytes % (Manual) 14.0 % (0.0-7.3) H 08/18/16 09:57 Eosinophils % (Manual) 1.0 % (0.0-4.3) 08/18/16 09:57 Basophils % (Manual) 1.0 % (0.0-1.8) 08/18/16 09:57 Metamyelocytes % 0 % 08/18/16 09:57 Myelocytes % 0 % 08/18/16 09:57 Promyelocytes % 0 % 08/18/16 09:57 Blast Cells % 0 % 08/18/16 09:57 Nucleated RBC % Not Reportable 08/18/16 09:57 Seg Neutrophils # 4.4 K/mm3 (1.8-7.7) 08/17/16 Unknown Seg Neutrophils # Man 4.8 K/mm3 (1.8-7.7) 08/18/16 09:57 Band Neutrophils # 0.0 K/mm3 08/18/16 09:57 Lymphocytes # (Manual) 0.9 K/mm3 (1.2-5.4) L 08/18/16 09:57 Abs React Lymphs (Man) 0.0 K/mm3 08/18/16 09:57 Monocytes # (Manual) 0.9 K/mm3 (0.0-0.8) H 08/18/16 09:57 Eosinophils # (Manual) 0.1 K/mm3 (0.0-0.4) 08/18/16 09:57 Basophils # (Manual) 0.1 K/mm3 (0.0-0.1) 08/18/16 09:57 Metamyelocytes # 0.0 K/mm3 08/18/16 09:57 Myelocytes # 0.0 K/mm3 08/18/16 09:57 Promyelocytes # 0.0 K/mm3 08/18/16 09:57 Blast Cells # 0.0 K/mm3 08/18/16 09:57 WBC Morphology Not Reportable 08/18/16 09:57 Hypersegmented Neuts Not Reportable 08/18/16 09:57 Hyposegmented Neuts Not Reportable 08/18/16 09:57 Hypogranular Neuts Not Reportable 08/18/16 09:57 Smudge Cells Not Reportable 08/18/16 09:57 Toxic Granulation Not Reportable 08/18/16 09:57 Toxic Vacuolation Not Reportable 08/18/16 09:57 Dohle Bodies Not Reportable 08/18/16 09:57 Pelger-Huet Anomaly Not Reportable 08/18/16 09:57 Jose Luis Rods Not Reportable 08/18/16 09:57 Platelet Estimate Cons 08/18/16 09:57 Clumped Platelets Not Reportable 08/18/16 09:57 Plt Clumps, EDTA Not Reportable 08/18/16 09:57 Large Platelets Few 08/18/16 09:57 Giant Platelets Not Reportable 08/18/16 09:57 Platelet Satelliting Not Reportable 08/18/16 09:57 Plt Morphology Comment Not Reportable 08/18/16 09:57 RBC Morphology Not Reportable 08/18/16 09:57 Dimorphic RBCs Not Reportable 08/18/16 09:57 Polychromasia Not Reportable 08/18/16 09:57 Hypochromasia Not Reportable 08/18/16 09:57 Poikilocytosis 1+ 08/18/16 09:57 Anisocytosis 1+ 08/18/16 09:57 Microcytosis Not Reportable 08/18/16 09:57 Macrocytosis Not Reportable 08/18/16 09:57 Spherocytes Not Reportable 08/18/16 09:57 Pappenheimer Bodies Not Reportable 08/18/16 09:57 Sickle Cells Not Reportable 08/18/16 09:57 Target Cells Not Reportable 08/18/16 09:57 Tear Drop Cells Few 08/18/16 09:57 Ovalocytes 1+ 08/18/16 09:57 Helmet Cells Not Reportable 08/18/16 09:57 Khan-[place]ud[place] Bodies Not Reportable 08/18/16 09:57 [place] Rings Not Reportable 08/18/16 09:57 [place] Cells Not Reportable 08/18/16 09:57 Bite Cells Not Reportable 08/18/16 09:57 Crenated Cell Not Reportable 08/18/16 09:57 Elliptocytes Not Reportable 08/18/16 09:57 Acanthocytes (Spur) Not Reportable 08/18/16 09:57 Rouleaux Not Reportable 08/18/16 09:57 Hemoglobin C Crystals Not Reportable 08/18/16 09:57 Schistocytes Not Reportable 08/18/16 09:57 Malaria parasites Not Reportable 08/18/16 09:57 Sheldon Bodies Not Reportable 08/18/16 09:57 Hem Pathologist Commnt No 08/18/16 09:57 Sodium 138 mmol/L (137-145) D 08/18/16 09:57 Potassium 4.8 mmol/L (3.6-5.0) D 08/18/16 09:57 Chloride 94.5 mmol/L (98-107) L 08/18/16 09:57 Carbon Dioxide 23 mmol/L (22-30) 08/18/16 09:57 Anion Gap 25 mmol/L 08/18/16 09:57 BUN 65 mg/dL (7-17) H 08/18/16 09:57 Creatinine 8.9 mg/dL (0.7-1.2) H 08/18/16 09:57 Estimated GFR 6 ml/min 08/18/16 09:57 BUN/Creatinine Ratio 7.30 % 08/18/16 09:57 Glucose 113 mg/dL (65-100) H 08/18/16 09:57 Calcium 7.7 mg/dL (8.4-10.2) L 08/18/16 09:57 Total Bilirubin 0.70 mg/dL (0.1-1.2) 08/17/16 20:20 AST 42 units/L (5-40) H 08/17/16 20:20 ALT 14 units/L (7-56) 08/17/16 20:20 Alkaline Phosphatase 184 units/L (35-129) H 08/17/16 20:20 Total Protein 8.3 g/dL (6.3-8.2) H 08/17/16 20:20 Albumin 4.2 g/dL (3.9-5) 08/17/16 20:20 Albumin/Globulin Ratio 1.0 % 08/17/16 20:20
[2016-08-19] MEDS: PERCOCET 5/325 PO PRN ×3 (03:34→18:13)
[2016-08-19] MEDS: NEURONTIN PO SCH ×3 (06:08→21:57)
[2016-08-19] MEDS: BABY ASPIRIN PO SCH (09:51)
[2016-08-19] MEDS: RENVELA PO SCH ×3 (09:52→18:11)
[2016-08-19] MEDS: PEPCID PO SCH ×2 (10:03→21:57)
[2016-08-19] MEDS: LOVENOX SUB-Q SCH (10:03)
[2016-08-19] MEDS: COREG PO SCH ×2 (10:03→21:56)
--- NOTE | 2016-08-19 10:31 | Progress Note ---
Subjective Interval history: Patient was seen today for follow-up of multiple renal related issues Events of 24 hours vitals labs intake output medications were reviewed she is feeling much better has received 2 dialysis treatments so far Patient currently does not have a consistent dialysis clinic and is also homeless Interdisciplinary notes were also reviewed Past medical history; reviewed Family and social history: Reviewed Objective: Vitals: Reviewed HEENT: Oral mucosa moist no uremic order mild pallor no icterus Neck: Supple, no carotid bruit Heart: Regular rate and rhythm S1-S2 heard no S3 or S4 no pericardial rub Abdomen: Soft NT no suprapubic masses no CVA tenderness no renal bruit Extremity: Minimal edema dry skin no peripheral cyanosis Dermatology: Dry skin Assessment and plan End-stage renal disease currently in maintenance and urinalysis Patient did proceed to dialysis treatment due to uremia and hyperkalemia fluid overload She is currently doing much better now will order dialysis related labs We'll keep her dialysis Saturday Continue to monitor her dialysis, current access has been working well Objective - Vital Signs Vital signs: Vital Signs - 12hr 08/18/16 08/19/16 08/19/16 23:30 03:34 05:00 Temperature 98.2 F Pulse Rate [ 95 H Right Radial] Respiratory 22 20 20 Rate Blood Pressure 144/68 [Right Arm] O2 Sat by Pulse 96 94 Oximetry - Lab 08/19/16 10:36 08/19/16 10:36 Most recent lab results Calcium 7.7 mg/dL (8.4-10.2) L 08/18/16 09:57
[2016-08-19] MEDS: ZOFRAN IV PRN (10:49)
[2016-08-19 11:22] LABS: Hematocrit 26.7 % (30.3-42.9); Hemoglobin 8.7 gm/dl (10.1-14.3); Mean Corpuscular HGB Conc 32 % (30-34); Mean Corpuscular Hemoglobin 30 pg (28-32); Mean Corpuscular Volume 93 fl (79-97); Platelet Count 188 K/mm3 (140-440); Red Blood Count 2.87 M/mm3 (3.65-5.03); White Blood Count 4.5 K/mm3 (4.5-11.0)
[2016-08-19 11:27] LABS: Albumin 3.4 g/dL (3.9-5); BUN/Creatinine Ratio 5.8; Chloride 94.4 mmol/L (98-107); Potassium 4.3 mmol/L (3.6-5.0); Total Protein 6.9 g/dL (6.3-8.2)
--- NOTE | 2016-08-19 12:21 | Progress Note ---
Assessment and Plan Assessment and plan: --Fluid overload secondary to noncompliance with hemodialysis, received HD yesterday, symptoms significantly improved --Hyperkalemia, s/p hemodialysis, potassium levels within normal limits closely monitor --End-stage renal disease on hemodialysis, nephrology following, HD per schedule --Hypertension, moderate control, continue current antihypertensives and when necessary medications --History of lupus; stable --History of bipolar disorder, continue current anti-psych medications --History of seizures, seizure precautions, continue antiepileptic medications --COPD well compensated, oxygen titrated O2 sats more than 90%, nebulizers as needed --DVT prophylaxis with heparin --Medical noncompliance; counseling done patient strongly advised to comply with hemodialysis medications and diet Verbalized understanding --DC planning. Case management/ social issues/placement Plan of care discussed with the patient, her nurse and case management Possible discharge tomorrow History Interval history: Patient seen and evaluated medical records reviewed Patient feels better, no new complaints Alert awake oriented x 3, not in acute distress Hospitalist Physical - Constitutional Vitals: Temp Pulse Resp BP Pulse Ox 98.2 F 95 H 20 144/68 93 08/19/16 05:00 08/19/16 05:00 08/19/16 10:00 08/19/16 05:00 08/19/16 10:47 General appearance: Present: no acute distress, well-nourished - EENT Eyes: Present: PERRL, EOM intact - Neck Neck: Present: supple, normal ROM - Respiratory Respiratory effort: normal Respiratory: bilateral: diminished, negative: rales, rhonchi, wheezing - Cardiovascular Rhythm: regular Heart Sounds: Present: S1 & S2 - Extremities Extremities: no ischemia, pulses intact, pulses symmetrical Peripheral Pulses: within normal limits - Abdominal General gastrointestinal: soft, non-tender, non-distended - Integumentary Integumentary: Present: clear, warm - Psychiatric Psychiatric: appropriate mood/affect, cooperative - Neurologic Neurologic: CNII-XII intact, moves all extremities Results - Labs CBC & Chem 7: 08/19/16 10:36 08/19/16 10:36 Labs: Laboratory Last Values WBC 4.5 K/mm3 (4.5-11.0) 08/19/16 10:36 RBC 2.87 M/mm3 (3.65-5.03) L 08/19/16 10:36 Hgb 8.7 gm/dl (10.1-14.3) L 08/19/16 10:36 Hct 26.7 % (30.3-42.9) L 08/19/16 10:36 MCV 93 fl (79-97) 08/19/16 10:36 MCH 30 pg (28-32) 08/19/16 10:36 MCHC 32 % (30-34) 08/19/16 10:36 RDW 17.0 % (13.2-15.2) H 08/19/16 10:36 Plt Count 188 K/mm3 (140-440) 08/19/16 10:36 Lymph % (Auto) 13.3 % (13.4-35.0) L 08/17/16 Unknown [place] % (Auto) [employer] 08/19/16 10:36 Eos % (Auto) 2.0 % (0.0-4.3) 08/17/16 Unknown Baso % (Auto) 0.9 % (0.0-1.8) 08/17/16 Unknown Lymph # 0.9 K/mm3 (1.2-5.4) L 08/17/16 Unknown [place] # 1.0 K/mm3 (0.0-0.8) H 08/17/16 Unknown Eos # 0.1 K/mm3 (0.0-0.4) 08/17/16 Unknown Baso # 0.1 K/mm3 (0.0-0.1) 08/17/16 Unknown Add Manual Diff Complete 08/18/16 09:57 Total Counted 100 08/18/16 09:57 Seg Neutrophils % 68.2 % (40.0-70.0) 08/17/16 Unknown Seg Neuts % (Manual) 71.0 % (40.0-70.0) H 08/18/16 09:57 Band Neutrophils % 0 % 08/18/16 09:57 Lymphocytes % (Manual) 13.0 % (13.4-35.0) L 08/18/16 09:57 Reactive Lymphs % (Man) 0 % 08/18/16 09:57 Monocytes % (Manual) 14.0 % (0.0-7.3) H 08/18/16 09:57 Eosinophils % (Manual) 1.0 % (0.0-4.3) 08/18/16 09:57 Basophils % (Manual) 1.0 % (0.0-1.8) 08/18/16 09:57 Metamyelocytes % 0 % 08/18/16 09:57 Myelocytes % 0 % 08/18/16 09:57 Promyelocytes % 0 % 08/18/16 09:57 Blast Cells % 0 % 08/18/16 09:57 Nucleated RBC % Not Reportable 08/18/16 09:57 Seg Neutrophils # 4.4 K/mm3 (1.8-7.7) 08/17/16 Unknown Seg Neutrophils # Man 4.8 K/mm3 (1.8-7.7) 08/18/16 09:57 Band Neutrophils # 0.0 K/mm3 08/18/16 09:57 Lymphocytes # (Manual) 0.9 K/mm3 (1.2-5.4) L 08/18/16 09:57 Abs React Lymphs (Man) 0.0 K/mm3 08/18/16 09:57 Monocytes # (Manual) 0.9 K/mm3 (0.0-0.8) H 08/18/16 09:57 Eosinophils # (Manual) 0.1 K/mm3 (0.0-0.4) 08/18/16 09:57 Basophils # (Manual) 0.1 K/mm3 (0.0-0.1) 08/18/16 09:57 Metamyelocytes # 0.0 K/mm3 08/18/16 09:57 Myelocytes # 0.0 K/mm3 08/18/16 09:57 Promyelocytes # 0.0 K/mm3 08/18/16 09:57 Blast Cells # 0.0 K/mm3 08/18/16 09:57 WBC Morphology Not Reportable 08/18/16 09:57 Hypersegmented Neuts Not Reportable 08/18/16 09:57 Hyposegmented Neuts Not Reportable 08/18/16 09:57 Hypogranular Neuts Not Reportable 08/18/16 09:57 Smudge Cells Not Reportable 08/18/16 09:57 Toxic Granulation Not Reportable 08/18/16 09:57 Toxic Vacuolation Not Reportable 08/18/16 09:57 Dohle Bodies Not Reportable 08/18/16 09:57 Pelger-Huet Anomaly Not Reportable 08/18/16 09:57 Jose Luis Rods Not Reportable 08/18/16 09:57 Platelet Estimate Cons 08/18/16 09:57 Clumped Platelets Not Reportable 08/18/16 09:57 Plt Clumps, EDTA Not Reportable 08/18/16 09:57 Large Platelets Few 08/18/16 09:57 Giant Platelets Not Reportable 08/18/16 09:57 Platelet Satelliting Not Reportable 08/18/16 09:57 Plt Morphology Comment Not Reportable 08/18/16 09:57 RBC Morphology Not Reportable 08/18/16 09:57 Dimorphic RBCs Not Reportable 08/18/16 09:57 Polychromasia Not Reportable 08/18/16 09:57 Hypochromasia Not Reportable 08/18/16 09:57 Poikilocytosis 1+ 08/18/16 09:57 Anisocytosis 1+ 08/18/16 09:57 Microcytosis Not Reportable 08/18/16 09:57 Macrocytosis Not Reportable 08/18/16 09:57 Spherocytes Not Reportable 08/18/16 09:57 Pappenheimer Bodies Not Reportable 08/18/16 09:57 Sickle Cells Not Reportable 08/18/16 09:57 Target Cells Not Reportable 08/18/16 09:57 Tear Drop Cells Few 08/18/16 09:57 Ovalocytes 1+ 08/18/16 09:57 Helmet Cells Not Reportable 08/18/16 09:57 Khan-Drew Bodies Not Reportable 08/18/16 09:57 [place] Rings Not Reportable 08/18/16 09:57 Gui Cells Not Reportable 08/18/16 09:57 Bite Cells Not Reportable 08/18/16 09:57 Crenated Cell Not Reportable 08/18/16 09:57 Elliptocytes Not Reportable 08/18/16 09:57 Acanthocytes (Spur) Not Reportable 08/18/16 09:57 Rouleaux Not Reportable 08/18/16 09:57 Hemoglobin C Crystals Not Reportable 08/18/16 09:57 Schistocytes Not Reportable 08/18/16 09:57 Malaria parasites Not Reportable 08/18/16 09:57 Sheldon Bodies Not Reportable 08/18/16 09:57 Hem Pathologist Commnt No 08/18/16 09:57 Sodium 136 mmol/L (137-145) L 08/19/16 10:36 Potassium 4.3 mmol/L (3.6-5.0) 08/19/16 10:36 Chloride 94.4 mmol/L (98-107) L 08/19/16 10:36 Carbon Dioxide 26 mmol/L (22-30) 08/19/16 10:36 Anion Gap 20 mmol/L 08/19/16 10:36 BUN 36 mg/dL (7-17) H 08/19/16 10:36 Creatinine 6.2 mg/dL (0.7-1.2) H 08/19/16 10:36 Estimated GFR 9 ml/min 08/19/16 10:36 BUN/Creatinine Ratio 5.80 % 08/19/16 10:36 Glucose 102 mg/dL (65-100) H 08/19/16 10:36 POC Glucose 107 (70-105) H 08/18/16 21:40 Calcium 8.0 mg/dL (8.4-10.2) L 08/19/16 10:36 Phosphorus 5.00 mg/dL (2.5-4.5) H 08/19/16 10:36 Total Bilirubin 1.00 mg/dL (0.1-1.2) 08/19/16 10:36 AST 29 units/L (5-40) 08/19/16 10:36 ALT 11 units/L (7-56) 08/19/16 10:36 Alkaline Phosphatase 155 units/L (35-129) H 08/19/16 10:36 Total Protein 6.9 g/dL (6.3-8.2) 08/19/16 10:36 Albumin 3.4 g/dL (3.9-5) L 08/19/16 10:36 Albumin/Globulin Ratio 1.0 % 08/19/16 10:36 PTH Intact 617.4 pg/mL (15-65) H 08/19/16 10:36
[2016-08-19 12:26] LABS: Anisocytosis 1+; Blastocytes % (Manual) 0 %; Hypochromasia Few; Ovalocytes 1+; Poikilocytosis 1+
[2016-08-19 12:27] LABS: Diff Status Complete; Large Platelets Few; Platelet Estimate Cons
[2016-08-20] MEDS: PERCOCET 5/325 PO PRN ×2 (00:49→06:37)
[2016-08-20] MEDS: NEURONTIN PO SCH (06:36)
[2016-08-20] MEDS: RENVELA PO SCH ×2 (08:34→12:36)
--- NOTE | 2016-08-20 08:53 | Discharge Summary ---
Providers - Providers Date of Admission: 08/17/16 22:14 Date of discharge: 08/20/16 Attending physician: DO GILBERT Primary care physician: [employer] Hospitalization Reason for admission: worsening shortness of breath/missed hemodialysis Condition: Stable Pertinent studies: Chest x-ray; worsened bilateral pneumonia versus atypical pulmonary edema Hemodialysis per schedule Hospital course: Discharge diagnosis; Hyperkalemia corrected End-stage renal disease on hemodialysis Fluid overload secondary to noncompliance with hemodialysis Hypertension History of lupus History of bipolar disorder Seizure disorder COPD Medical noncompliance brief history and hospital course; 50-year-old female patient with multiple medical problems was admitted through emergency room with worsening shortness of breath and missed 2 hemodialysis Patient was admitted to the hospital symptomatically managed evaluation by nephrology underwent hemodialysis per schedule Patient's symptoms significantly improved, counseling done patient strongly advised to comply with hemodialysis medications and diet, patient verbalized understanding Day of discharge patient was comfortable, no complaints, vital signs stable, physical examination unremarkable At the time of discharge patient is hemodynamically and clinically stable Disposition: ND TO HOME OR SELFCARE Time spent for discharge: 32 min Core Measure Documentation - Palliative Care Palliative Care/ Comfort Measures: Not Applicable - Core Measures Any of the following diagnoses?: none Exam - Constitutional Vitals: Temp Pulse Resp BP Pulse Ox 99.9 F H 91 H 16 119/68 100 08/19/16 21:54 08/19/16 22:00 08/19/16 22:00 08/19/16 21:56 08/19/16 11:35 General appearance: Present: no acute distress, well-nourished - EENT Eyes: Present: PERRL, EOM intact - Neck Neck: Present: supple, normal ROM - Respiratory Respiratory effort: normal Respiratory: bilateral: diminished, negative: rales, rhonchi, wheezing - Cardiovascular Rhythm: regular Heart Sounds: Present: S1 & S2 - Extremities Extremities: no ischemia, pulses intact, pulses symmetrical Peripheral Pulses: within normal limits - Abdominal General gastrointestinal: Present: soft, non-tender, non-distended, normal bowel sounds - Integumentary Integumentary: Present: clear, warm - Musculoskeletal Musculoskeletal: strength equal bilaterally - Psychiatric Psychiatric: appropriate mood/affect, cooperative - Neurologic Neurologic: CNII-XII intact, moves all extremities Plan Activity: no restrictions Diet: renal Additional Instructions: renal/HD per schedule Follow up with: PRIMARY CARE, [Primary Care Provider] - 3-5 Days Prescriptions: oxyCODONE /ACETAMINOPHEN [Percocet 5/325 mg] 1 tab PO BID PRN #10 tablet PRN Reason: Pain, Moderate (4-6)
[2016-08-20 09:12] VITALS: BP 125/69
[2016-08-20] MEDS: COREG PO SCH (10:44)
[2016-08-20] MEDS: LOVENOX SUB-Q SCH (10:44)
[2016-08-20] MEDS: BABY ASPIRIN PO SCH (10:45)
[2016-08-20] MEDS: PEPCID PO SCH (10:45)
--- NOTE | 2016-08-20 16:59 | Admit Criteria Form ---
Admission Criteria Documentation: GENERAL ADMISSION CRITERIA (Place 'X' for any and all applicable criteria): Admission is indicated for ANY ONE of the following: [ ]I. Hemodynamic instability as indicated by ANY ONE of the following(1)(2) (3)(4)(5): [ ]a) Vital sign abnormality not readily corrected by appropriate treatment within 12 to 24 hours indicated by ANY ONE of the following: [ ]i) Hypotension [ ]ii) Symptomatic Tachycardia unresponsive to treatment (eg , analgesia, fluids, sedation as indicated) [ ]iii) Orthostatic vital sign changes unresponsive to treatment (eg, fluids) [ ]b) Vital sign abnormality that is severe indicated by ANY ONE of the following: [ ]i) Inadequate perfusion indicated by ANY ONE of the following: [ ]1) Lactic acidosis (greater than 2 mmol/L) [ ]2) New abnormal capillary refill (greater than 3 seconds) [ ]3) Other metabolic acidosis (arterial pH less than 7.35) not otherwise explained [ ]4) Reduced urine output [ ]5) Altered mental status [ ]6) Myocardial Ischemia [ ]v) Mean arterial pressure[A] less than 60 mm Hg [ ]vi) Mean arterial pressure[A] less than 70 mm Hg after 30 minutes of appropriate treatment (eg, fluid resuscitation) [ ]vii) IV inotropic or vasopressor medication required to maintain adequate blood pressure or perfusion [ ]viii) Sustained heart rate greater than 120 beats per minute in adult or child 6 years or older[B]] [ ]II. Hypertension requiring inpatient treatment as indicated by ANY ONE of the following(6)(7)(8): [ ]a) SBP greater than 220 mm Hg or DBP greater than 120 mm Hg despite treatment [ ]b) SBP greater than 140 mm Hg or DBP greater than 100 mm Hg with evidence of acute end organ damage as indicated by ANY ONE of the following: [ ]i) Encephalopathy [ ]ii) Acute renal failure as indicated by new onset of ANY ONE of the following(9)(10)(11)(12)(13): [ ]1) A 3-fold rise in serum creatinine from baseline [ ]2) Serum creatinine greater than 4 mg/dL ( 354 micromoles/L) with acute rise greater than 0.5 mg/dL (44.2 micromoles/L) [ ]3) Reduction of more than 75% in estimated glomerular filtration rate from baseline [ ]4) Estimated glomerular filtration rate less than 35 mL/min/1.73m2 (0.59 mL/sec/1.73m2) in child up to 18 years of age [ ]5) Cessation of urine output indicated by ALL of the following: [ ]A. Adequate volume status [ ]B. Inadequate urine output as indicated by ANY ONE of the following: [ ]a. Urine output less than 0.3 mL/kg/hr for 24 hours [ ]b. Anuria (urine output less than 0.1 mL/kg/hr) for 12 hours [ ]iii) Aortic dissection [ ]iv) Myocardial ischemia [ ]v) Left ventricular heart failure [ ]vi) Retinal hemorrhage [ ]vii) Other significant finding [ ]c) Hypertension in child requiring inpatient treatment as indicated by ALL of the following(14)(15)(16): [ ]i) Outpatient treatment not effective, not available, or not appropriate [ ]ii) SBP or DBP greater than 95th percentile for age [ ]iii) Evidence of acute end organ damage as indicated by ANY ONE of the following: [ ]1) Altered mental status [ ]2) Acute renal failure as indicated by new onset of ANY ONE of the following(9)(10)(11)(12)(13): [ ]A. A 3-fold rise in serum creatinine from baseline [ ]B. Serum creatinine greater than 4 mg/dL (354 micromoles/L) with acute rise greater than 0.5 mg/dL (44.2 micromoles/L) [ ]C. Reduction of more than 75% in estimated glomerular filtration rate from baseline [ ]D. Estimated glomerular filtration rate less than 35 mL/min/1.73m2 (0.59 mL/sec/1.73m2)in child up to 18 years of age [ ]E. Cessation of urine output indicated by ALL of the following: [ ]a. Adequate volume status [ ]b. Inadequate urine output as indicated by ANY ONE of the following: [ ]1) Urine output less than 0.3 mL/kg/hr for 24 hours [ ]2) Anuria (urine output less than 0.1 mL/kg/hr) for 12 hours [ ]3) Severe headache [ ]4) Visual disturbance [ ]5) Retinal hemorrhage [ ]6) Other significant finding [ ]III. Acute cardiac or peripheral ischemia as indicated by ANY ONE of the following: [ ]a) Acute coronary syndrome(17)(18) [ ]b) Acute peripheral ischemia (eg, pulseless, cool, mottled, or cyanotic extremity)(19) [ ]IV. Cardiac arrhythmias or findings of immediate concern indicated by ANY ONE of the following(20)(21): [ ]a) Heart rhythms that are inherently dangerous or unstable indicated by ANY ONE of the following(22)(23)(24): [ ]i) Resuscitated ventricular fibrillation or cardiac arrest [ ]ii) Ventricular escape rhythm [ ]iii) Sustained ventricular tachycardia (30 seconds or more of ventricular rhythm at greater than 100 beats per minute) [ ]iv) Nonsustained ventricular tachycardia and ANY ONE of the following: [ ]1) Suspected cardiac ischemia as cause or consequence of ventricular tachycardia [ ]2) In setting of acute myocarditis [ ]b) Unstable cardiac conduction defects indicated by ANY ONE of the following(24)(25)(26): [ ]i) Type II second-degree atrioventricular block [ ]ii) Third-degree atrioventricular block [ ]iii) New-onset left bundle branch block with suspected myocardial ischemia [ ]c) Any heart rhythm and ANY ONE of the following(22)(23)(27)(28)( 29): [ ] i) Continuous long-term ECG monitoring needed (eg, initiation of drug requiring monitoring for more than 24 hours) [ ] ii) Patient has automatic implanted cardioverter defibrillator that is repeatedly firing, malfunctioning, or in need of immediate adjustment of settings beyond the scope of ambulatory or observation care. [ ]d) Heart rhythms of concern due to ANY ONE of the following: [ ]i) Hypotension [ ]ii) Respiratory distress [ ]iii) Association with other significant symptoms (eg, bradycardia with syncope or ongoing dizziness, supraventricular tachycardia with chest pain) (27)(28) (30) [ ] V. Severe heart failure as indicated by ANY ONE of the following ( 31)(32): [ ]a) Respiratory distress [ ]b) Hypotension [ ]c) Anasarca (refractory to outpatient therapy) [ ]d) Cardiac arrhythmias of immediate concern [ ]e) Myocardial ischemia [ ]. Respiratory abnormalities, including ANY ONE of the following(33)(34) (35)(36): [ ]a) Respiratory rate greater than 30 breaths per minute unresponsive to treatment [A] [ ]b) New saturation of arterial oxygen less than 90% [ ]c) New partial pressure of carbon dioxide greater than 44 mm Hg ( 5.9 kPa) [ ]d) Supplemental oxygen or respiratory treatments needed that are new or not performable at other levels of care [ ]e) New-onset cyanosis [ ]f) Inability to protect airway [ ]g) Chronic lung disease with severe deterioration (not responsive to emergency and observation care treatment as appropriate) as indicated by ANY ONE of the following(34)(36 ): [ ]i) SaO2 5% below baseline in patient with chronic hypoxemia [ ]ii) New requirement for supplemental oxygen to keep SaO2 at baseline or acceptable level [ ]iii) Required supplemental oxygen performable only in acute inpatient setting [ ]iv) Severe airflow or ventilation abnormalities [ ]v) Previously mobile patient unable to walk between rooms [ ]vi Inability to eat or sleep due to dyspnea [ ]vii) Rapid rate of exacerbation onset [ ]viii) Altered mental status ]VII. Severe airflow or ventilation abnormalities (not responsive to emergency and observation care treatment as appropriate) as indicated by ANY ONE of the following(33)(34)(35)(37): [ ]a) PCO2 greater than 42 mm Hg (5.6 kPa) and pH less than 7.35 (new ) [ ]b) Documented PCO2 increased more than 5 mm Hg (0.7 kPa) from disease baseline [ ]c) Airflow measurements [B] less than 60% of previous best or predicted (eg, peak expiratory flow rate less than 300 L/minute) despite intensive emergent treatment [C] [ ]d) Required respiratory treatments that are performable only in acute inpatient setting [ ]VIII. Impending or actual respiratory arrest ( Also use Respiratory Failure GRG for severe respiratory disease and long-term mechanical ventilation patients) [ ]IX. Neurologic abnormalities, including ANY ONE of the following: [ ]a) New findings that suggest ANY ONE of the following: [ ]i) SEAT INSTALLER infection(38) [ ]ii) Cerebral bleeding, ischemia, or vasospasm(39)(40) [ ]iii) Increased intracranial pressure, hydrocephalus, or cerebral edema(41)(42)(43) [ ]iv) Spinal cord injury(44) [ ]b) Uncontrolled seizures(45) [ ]c) New-onset coma (eg, Erin coma scale score less than 9) or unexplained abnormal mental status (eg, Erin coma scale score less than 14) [D](41)(46)(47) [ ]X. New-onset severe neurologic findings requiring inpatient care; examples include(42)(48)(49): [ ]a) Papilledema [ ]b) Cerebral edema [ ]c) Mass effect on CT scan [ ]XI. Suspected acute intra-abdominal process with peritoneal signs, abdominal mass, or similar findings (50)(51)(52) [ ]XII. Severe physiologic disorder remaining after emergency or observation level care (as appropriate) as indicated by ANY ONE of the following (53): [ ]a) Significant dehydration [ ]b) Diabetic ketoacidosis [ ]c) Hyperglycemic hyperosmolar state (eg, osmolality greater than 320 mOsm/kg (mmol/kg) [ ]d) Hypoglycemia [ ]e) Other (new) acid-base disorder with pH less than 7.35 or greater than 7.5(54) [ ]f) Thyroid storm (55) [ ]g) Myxedema coma (55) [ ]XIII. Abdominal abnormalities with ANY ONE of the following(56)(57): [ ]a) Absent bowel sounds with complete ileus [ ]b) Signs of intestinal obstruction or peritonitis [E] [ ]c) Nausea and vomiting that cannot be controlled with outpatient or observation care [ ]XIV. Acute renal failure as indicated by new onset of ANY ONE of the following(9)(10)(11)(12)(13): [ ]a) A 3-fold rise in serum creatinine from baseline [ ]b) Serum creatinine greater than 4 mg/dL (354 micromoles/L) with acute rise greater than 0.5 mg/dL (44.2 micromoles/L) [ ]c) Reduction of more than 75% in estimated glomerular filtration rate from baseline [ ]d) Estimated glomerular filtration rate less than 35 mL/min/ 1.73m2 (0.59 mL/sec/1.73m2) in child up to 18 years of age [ ]e) Cessation of urine output indicated by ALL of the following: [ ]i) Adequate volume status [ ]ii) Inadequate urine output as indicated by ANY ONE of the following: [ ]1) Urine output less than 0.3 mL/kg/hr for 24 hours [ ]2) Anuria (urine output less than 0.1 mL/kg/hr) for 12 hours [ ]XV. Significant uremic complications as indicated by ANY ONE of the following(58)(59)(60): [ ]a) Outpatient therapy is ineffective or not feasible for ANY ONE of the following: [ ]i) Severe heart failure [ ]ii) Severehypertension [ ]iii) Pleural effusion [ ]iv) Pericarditis or pericardial effusion [ ]b) Cardiac arrhythmias of immediate concern [ ]c) Intractable nausea or vomiting [ ]d) Recurrent seizures [ ]e) Encephalopathy [ ]f) Bleeding abnormalities (eg, platelet dysfunction) with active (eg, gastrointestinal) bleeding [ ]g) Dialysis indicated before long-term access or ambulatory arrangements can be made [ ]h) Significant metabolic or electrolyte abnormalities (eg, severe acidosis or hyperkalemia) [ ]XVI. High fever or other high-risk infection situation as indicated by ANY ONE of the following(61)(62)(63)(64): [ ]a) Outpatient and observation care antimicrobial treatment unavailable, not effective, or not appropriate [ ]b) Documented bacteremia [ ]c) Temperature greater than 40.5 degrees C (104.9 degrees F) ( oral) [ ]d) Temperature greater than 39.5 degrees C (103.1 degrees F) ( oral) or less than 36 degrees C (96.8 degrees F) (rectal) that does not respond to e treatment and observation care [ ] XVII. Temperature less than 95 degrees F (35 degrees C)(rectal)(65) [ ] XVIII. Severe nutritional abnormalities as indicated by ALL of the following (66)(67): [ ]a) Inability to tolerate or establish sufficient oral or other enteral nutrition in outpatient setting [ ]b) Parenteral nutrition regimen need that must be implemented on inpatient basis [X ] XIX. Severe electrolyte abnormalities indicated by ALL of the following(68 )(69)(70): [ X]a) Electrolytes and associated findings are not as expected for patient baseline or acceptable treatment effects. [X ]b) Severe abnormalities indicated by ANY ONE of the following: [ ]i) Sodium less than 130 mEq/L (mmol/L) (new) [ ]ii)Sodium less than 135 mEq/L (mmol/L) with ANY ONE of the following: [ ]1) Uncorrectable (to near normal or chronic baseline) after trial of outpatient and emergency treatment [ ]2) Altered mental status [ ]3) Seizures [ ]4) Severe medical etiology requiring inpatient management (eg, heart failure, hypovolemia) [ ]iii) Sodium greater than 155 mEq/L (mmol/L) [ ]iv) Sodium greater than 150 mEq/L (mmol/L) with ANY ONE of the following: [ ]1) Uncorrectable (to near normal or chronic baseline) with outpatient and emergency treatment [ ]2) Altered mental status [ ]3) Seizures [ ]4) Severe medical etiology (eg, hypovolemia, diabetes insipidus) [ ]v) Potassium less than 2.5 mEq/L (mmol/L) despite outpatient and emergency treatment [ ]vi) Potassium less than 3 mEq/L (mmol/L) with ANY ONE of the following: [ ]1) Weakness [ ]2) Cardiac abnormality (eg, arrhythmia, conduction disturbance) [ ]3) Cardiac ischemia [ ]4) Ileus [ ]5) Ongoing medical cause requiring inpatient management (eg, acute renal wasting or SIADH) [ ]6) Other severe symptoms [ X]vii) Potassium greater than 6.5 mEq/L (mmol/L) [ ]viii) Potassium greater than 5 mEq/L (mmol/L) with ANY ONE of the following: [ ]1) Uncorrectable (to near normal or chronic baseline) with outpatient and emergency treatment [ ]2) Severe ECG findings [F] [ ]3) Acute worsening of renal failure (creatinine greater than 2.5 mg/dL (221 micromoles/L) or significant elevation for age and size) [ ]4) Severe weakness [ ]5) Severe medical etiology (eg, hemolysis, infection, drug overdose) [ ]ix) Calcium less than 7 mg/dL (1.75 mmol/L) despite outpatient and emergency treatment (72) [ ]x) Calcium less than 8 mg/dL (2 mmol/L) with significant symptoms or findings; examples include(72): [ ]1) Altered mental status [ ]2) Muscle spasms [ ]3) Seizures [ ]4) Breathing difficulty [ ]5) Cardiac abnormality (eg, arrhythmia or conduction disturbance) [ ]xi) Calcium greater than 14 mg/dL (3.5 mmol/L)(72) [ ]xii) Calcium greater than 12 mg/dL (3 mmol/L) with ANY ONE of the following(72): [ ]1) Uncorrectable (to near normal or chronic baseline) with outpatient and emergency treatment [ ]2) Significant dehydration or hypovolemia as indicated by ALL of the following(70)(73)(74): [ ]A. Not resolved with initial treatments [ ]B. Clinically significant dehydration as indicated by ANY ONE of the following: [ ]a. Vomiting refractory to outpatient treatment (ie, precluding oral rehydration) [ ]b. Inability to drink [ ]c. Hypernatremia or other electrolyte abnormality unable to be corrected with outpatient and emergency treatment [ ]d. Failure to remain hydrated with outpatient therapy [ ]e. Reduced urine output [ ]f. Hypotension [ ]g. Serious cause for dehydration requiring acute hospitalization (eg, bowel obstruction, increased intracranial pressure, infectious cause) [ ]h. Child with ANY ONE of the following(75): [ ]1) Severe abdominal tenderness [ ]2) Adequate care not available at home [ ]3) Severe dehydration ( greater than 9% loss of body weight) [ ]4) Significant symptoms or findings; examples include: [ ]A. Altered mental status [ ]B. Cardiac abnormality (eg, arrhythmia, conduction disturbance) [ ]C. Malignant etiology requiring inpatient treatment [ ]xiii) Phosphorus less than 1 mg/dL (0.32 mmol/L) [ ]xiv) Phosphorus less than 1.5 mg/dL (0.48 mmol/L) with ANY ONE of the following: [ ]1) Patient unresponsive to outpatient and emergency treatment [ ]2) Significant symptoms or findings; examples include: [ ]A. Weakness [ ]B. Altered mental status [ ]C. Breathing difficulty [ ]D. Seizures [ ]E. Rhabdomyolysis [ ]xv) Phosphorus greater than 10 mg/dL (3.2 mmol/L) [ ]xvi) Phosphorus greater than 4.5 mg/dL (1.45 mmol/L) (new) with ANY ONE of the following: [ ]1) Severe medical etiology (eg, crush injury, acute renal failure) [ ]2) Associated hypocalcemia with significant findings; examples include: [ ]A. Neurologic symptoms [ ]B. Altered mental status [ ]C. Muscle spasms [ ]D. Seizures [ ]E. Breathing difficulty [ ]F. Cardiac abnormality (eg, arrhythmia, conduction disturbance) [ ]xvii) Magnesium less than 1 mg/dL (0.41 mmol/L) [ ]xviii) Magnesium less than 1.5 mg/dL (0.62 mmol/L) with ANY ONE of the following: [ ]1) Patient unresponsive to outpatient and emergency treatment [ ]2) Associated hypocalcemia with significant findings; examples include: [ ]A. Altered mental status [ ]B. Muscle spasms [ ]C. Seizures [ ]D. Breathing difficulty [ ]E. Cardiac abnormality (eg, arrhythmia , conduction disturbance) [ ]3) Associated hypokalemia (potassium less than 3 mEq/L (mmol/L)) with risk of arrhythmia [ ]xix) Magnesium greater than 4 mEq/L (2 mmol/L) [ ]xx) Magnesium greater than 2.5 mEq/L (1.25 mmol/L) with significant symptoms or findings; examples include: [ ]1) Weakness [ ]2) Altered mental status [ ]3) Cardiac abnormality (eg, arrhythmia, conduction disturbance) [ ]4) Breathing difficulty [ ]5) Severe medical etiology (eg, renal failure, hypovolemia) [ ]xxi) Uric acid greater than 20 mg/dL (1190 micromoles/L)(76) [ ]xxii) Uric acid greater than 8 mg/dL (476 micromoles/L) with significant symptoms or findings of tumor lysis syndrome; examples include(76): [ ]1) Creatinine greater than 1.5 times upper limit of normal [ ]2) Cardiac abnormality (eg, arrhythmia, conduction disturbance) [ ]3) Seizure [ ]XX. Acute blood loss causing significant abnormality as indicated by ANY ONE of the following(77)(78): [ ]a) Hemoglobin less than 10 g/dL (100 g/L) (not baseline) [ ]b) Hematocrit less than 30% (0.30) (not baseline) [ ]c) Repeat hematocrit decreased more than 2% (0.02) [ ]d) Uncontrolled bleeding [ ]XXI. Severe anemia indicated by ANY ONE of the following(78)(79): [ ]a) Altered mental status [ ]b) Chest pain [ ]c) Exertional dyspnea [ ]d) Syncope [ ]e) Other findings suggesting inadequate perfusion [ ]f) Treatment with transfusion or volume replacement is ineffective at resolving ANY ONE of the following [G]: [ ]i) Tachycardia for age [ ]ii) Orthostatic vital sign changes as indicated by ANY ONE of the following(80): [ ]1) Fall in SBP of 20 mm Hg or more 1 to 3 minutes after patient sits or stands from recumbent position [ ]2) Fall in DBP of 10 mm Hg or more 1 to 3 minutes after patient sits or stands from recumbent position [ ]XXII. High-risk low platelet count as indicated by ANY ONE of the following( 81)(82): [ ]a) Severe or life-threatening bleeding (eg, intracranial, major gastrointestinal, or extensive mucosal bleeding), with any reduced platelet count [ ]b) Platelet count less than 20,000/mm3 (20 x109/L) with any active bleeding [ ]c) Platelet count less than 10,000/mm3 (10 x109/L) with minor purpura or petechiae [ ]d) Platelet count less than 5000/mm3 (5 x109/L) [ ]e) Low platelet count with hemolytic anemia [ ]XXIII. Disseminated intravascular coagulation(77)(83) [ ]XXIV. Severe adverse drug or systemic toxin reaction requiring inpatient treatment; examples include(84)(85): [ ]a) Serotonin syndrome(86) [ ]b) Neuroleptic malignant syndrome(86) [ ]c) Cholinergic syndrome with severe symptoms (eg, bronchorrhea, weakness, mental status changes, seizures) [ ]d) Sympathetic syndrome with severe symptoms (eg, seizures, mental status changes, cardiac dysrhythmias) [ ]e) Anticholinergic syndrome [ ]XXV. Severe pain requiring acute inpatient management as indicated by ALL of the following (87)(88)(89): [ ]a) Continuous or frequent (eg, every 2 to 4 hours) parenteral analgesics required [H] [ ]b) Rapid improvement expected from treatment or acute intervention (eg, surgery, anesthesia procedure) [ ]XXVI.Severe behavioral health issues judged unmanageable at a lower level of care (eg, residential) in a patient who is ANY ONE of the following(91) [ ]a) Acutely suicidal [ ]b) A danger to self (eg, self-mutilating or suicidal behavior) [ ]c) A danger to others (eg, assaultive or homicidal behavior) [ ]d) Incapacitated because of grave disability (eg, inability to provide for self at lower level of care) (92) [ ]XXVII. Inpatient monitoring needed; examples include(1)(3)(87)(93)(94)(95)(96 ): [ ]a) Vital signs, neurologic signs, or vascular checks more frequently than every 4 hours [ ]b) Cardiac or respiratory monitoring beyond the scope (eg, over 24 hours) of observation care [ ]c) Pulmonary artery catheter monitoring [ ]d) Suspected compartment syndrome(97) (98) [ ]e) Cerebral bleeding, hydrocephalus, or vasospasm monitoring [ ]f) Increased intracranial pressure or cerebral edema monitoring [ ]g) monitoring [ ]XXVIII. Treatment requiring inpatient care; examples include: [ ]a) IV fluid to replace significant ongoing losses (greater than 3 L/m2 per day)(53) [ ]b) High concentration oxygen (greater than 40%)(33)(99)(100) [ ]c) Frequent respiratory therapy (more frequently than every 4 hours) to maintain airflow rates greater than 60% of baseline(33)(99)(100) [ ]d) Epidural analgesia(87) [ ]e) IV anticoagulation, vasoactive, or antiarrhythmic medication(19 )(23) [ ]f) Acute thrombolytics (generally require 24 hours of observation )(101)(102) [ ]XXIX. Emergency procedures needed; examples include: [ ]a) Emergency inpatient surgery [ ]b) Temporary pacemaker placement(103) [ ]c) Chest tube placement with active evacuation (eg, suction, drainage)(104) [ ]d) Emergent cardioversion(105) [ ]e) Emergent cardiac or vascular procedures (eg, cardiac catheterization, angioplasty) (17)(18) [ ]f) Emergent dialysis access placement and institution(10)(106) [ ]g) Emergent pericardiocentesis(107) [ ]h) Emergent plasmapheresis or leukapheresis(83) [ ]i) Emergent tracheostomy The original [employer] content created by [employer] has been revised. The portions of the content which have been revised are identified through the use of italic text or in bold, and [employer] has neither reviewed nor approved the modified material. All other unmodified content is copyright [employer]. Please see references footnoted in the original [employer] edition 2016 Admission Criteria Met: Yes
== END 2016-08-20 14:30 | disposition home or self-care (01) | DRG 640 ==
LOC: ED 14:48 → 4A 22:14 → 3A 08-19 13:24
PROVIDERS: ADMIT Internal Medicine; ATTEND Internal Medicine
PROC: 5A1D60Z (ICD-10-PCS; principal; 2016-08-17)
DX: E87.5 Hyperkalemia (principal); N18.6 End stage renal disease; I13.0 Hypertensive heart and chronic kidney disease with heart failure and stage 1 through stage 4 chronic kidney disease, or unspecified chronic kidney disease; E87.2 Acidosis; E11.22 Type 2 diabetes mellitus with diabetic chronic kidney disease; M19.90 Unspecified osteoarthritis, unspecified site; M32.9 Systemic lupus erythematosus, unspecified; J44.9 Chronic obstructive pulmonary disease, unspecified; D63.1 Anemia in chronic kidney disease; F31.9 Bipolar disorder, unspecified; F41.9 Anxiety disorder, unspecified; J45.909 Unspecified asthma, uncomplicated; F17.210 Nicotine dependence, cigarettes, uncomplicated; F14.10 Cocaine abuse, uncomplicated; F12.10 Cannabis abuse, uncomplicated; Z79.82 Long term (current) use of aspirin; Z79.899 Other long term (current) drug therapy; Z82.49 Family history of ischemic heart disease and other diseases of the circulatory system; Z88.8 Allergy status to other drugs, medicaments and biological substances; Z91.018 Allergy to other foods; Z91.15 Patient's noncompliance with renal dialysis
CPT/HCPCS: 36415; 71020; 80048; 80053; 82962; 83970; 84100; 85007; 85025; 93005; 93010; 94640; 94760; 96374; 96375; J0610; J1650; J1815; J2405